=== PATIENT | female | born 1945 | race Caucasian/White ===

== ENCOUNTER 2018-05-29 08:53 | Emergency (ER) | payer OTHER ==
[2018-05-29] MEDS ORDERED: HYDROCODONE/APAP 7.5/325 MG TAB ONE (10:01)
--- NOTE | 2018-05-29 11:13 | RAD REPORT ---
EXAM DESCRIPTION: RAD - Clavicle Right - 05/29/2018 10:33 am CLINICAL HISTORY: Trip and fall, arm pain COMPARISON: None. FINDINGS: No clavicle fracture identified. Sternoclavicular joint is unremarkable and symmetric with the left side. Patient has prominent degenerative change at the AC joint with very minimal inferiorl y directed spurring. Metallic screws in place in the humeral head presumed to be from a prior rotator cuff tear repair. The acromial humeral joint space is mostly or fully effaced. Patient likely has a recurrent, chronic rotator cuff tear. Degenerative changes are present along the superolateral hemal l head and undersurface of the acromion. IMPRESSION: No clavicle fracture identified. Right shoulder joint postsurgical and degenerative changes are present with the patient likely having a chronic full-thickness rotator cuff tear.
--- NOTE | 2018-05-29 11:14 | RAD REPORT ---
EXAM DESCRIPTION: RAD - Wrist Left 3 View - 05/29/2018 10:33 am CLINICAL HISTORY: Trip and fall, wrist pain COMPARISON: None. FINDINGS: No fracture or acute finding of the distal radius and ulna. No carpal bone fracture seen. Radiocarpal joint space is narrowed slightly. Patient has advanced degenerative change at the trapezi um first metacarpal articulation. There is no dislocation or periosteal reaction noted. No foreign heron dy or other soft tissue abnormality. IMPRESSION: No fracture or acute finding. Degenerative changes are present most prominent at the tra pezium first metacarpal articulation.
--- NOTE | 2018-05-29 11:15 | RAD REPORT ---
EXAM DESCRIPTION: RAD - Forearm Left - 05/29/2018 10:33 am CLINICAL HISTORY: Trip and fall, arm pain COMPARISON: None. FINDINGS: No fracture is identified. There is no dislocation or periosteal reaction noted. No foreign body or other soft tissue abnormality. Degenerative changes at the wrist joint are separa tely detailed. Degenerative changes at the elbow joint are mild. No elevated posterior fat pad. IMPRESSION: Negative left forearm examination for acute finding.
--- NOTE | 2018-05-29 11:16 | ER ---
Nurse's Notes [facility] Name: Sofia Rodriguez Age: 73 yrs Sex: Female : 1945 Arrival Date: 05/29/2018 Time: 08:57 Bed 17 Private MD: Jennifer Patel R Diagnosis: Other slipping, tripping and stumbling and falls;Abrasion of forearm;Other specified sprain of right wrist;Chest pain, unspecified;Abrasion, left knee;Contusion of left knee Presentation: 05/29 09:07 Presenting complaint: Patient states: tripped and fell on the sidewalk at home. c/o sv left knee abrasion, right cheek abrasion, left and right wrist pain and left wrist/forearm skin tear. Denies LOC. Care prior to arrival: washed it before coming. Mechanism of Injury: Fall from standing position. Trauma event details: Injury occurred in the [facility], Injury occurred: at home. Injury occurred: May 29, 2018. 09:07 Acuity: JAUN 3 sv 09:07 Method Of Arrival: Ambulatory sv 09:07 Transition of care: patient was not received from another setting of care. Onset of sv symptoms was May 29, 2018. Risk Assessment: Do you want to hurt yourself or someone else? Patient reports no desire to harm self or others. Initial Sepsis Screen: Does the patient meet any 2 criteria? No. Patient's initial sepsis screen is negative. Does the patient have a suspected source of infection? No. Patient's initial sepsis screen is negative. Trauma Activation: Not Applicable Physician: ED Physician; Name: ; Notified At: ; Arrived At: Physician: General Surgeon; Name: ; Notified At: ; Arrived At: Physician: Radiology; Name: ; Notified At: ; Arrived At: Physician: Respiratory; Name: ; Notified At: ; Arrived At: Physician: Lab; Name: ; Notified At: ; Arrived At: Historical: - Allergies: : No Known Allergies; sv - Home Meds: sertraline 50 mg oral tab [Active]; bisoprolol 5.6 mg [Active]; Ambien 10 mg Oral tab sv [Active]; feosol iron [Active]; multivitamin oral oral [Active]; Vitamin D3 oral oral [Active]; Hydrocodone-Acetaminophen Oral [Active]; - PMHx: 09:31 Hypertension; sv - PSHx: 09:31 Hernia repair; Gastric Bypass; R foot; R shoulder; Cholecystectomy; sv - Immunization history:: Adult Immunizations up to date, Flu vaccine is up to date. - Social history:: Smoking status: Patient/guardian denies using tobacco, Patient/guardian denies using alcohol. - Immunization history: Last tetanus immunization: - up to date. - Ebola Screening: : No symptoms or risks identified at this time. Screenin: Abuse screen: Denies threats or abuse. Denies injuries from another. Nutritional sv screening: No deficits noted. Tuberculosis screening: No symptoms or risk factors identified. Fall Risk None identified. Primary Survey: :07 A: Airway: patent, No supplemental oxygen in use on arrival. Oral cavity: clear, sv Trachea midline. Breathing/Chest: Respiratory pattern: regular, Respiratory effort: spontaneous, unlabored, Chest inspection: symmetrical rise and fall of the chest. Circulation: Heart tones present. Pulses: palpable right radial artery and left radial artery. Skin color: pink, Skin temperature: warm, dry. Disability Alert. Secondary Survey: : HEENT: Face Other Abrasion to the right cheek. Gastrointestinal: No deficits noted. : sv No deficits noted. No signs and/or symptoms were reported regarding the genitourinary system. Musculoskeletal: Abrasion to the left knee. Injury Description: Abrasion sustained to right cheek and left knee was sustained 30-60 minutes ago. Skin tears sustained to left wrist and palmar aspect of left forearm. Assessment: 09:50 Reassessment: Dr Baker at bedside and informed that I flattened out her skin tear and sv saved as much skin as I could to the left forearm and wrist. Dr Baker had to clip off a part of her skin that was hanging on. 11:23 Reassessment: Patient appears in no apparent distress at this time. Patient and/or sv family updated on plan of care and expected duration. Pain level reassessed. Patient is alert, oriented x 3, equal unlabored respirations, skin warm/dry/pink. Patient states symptoms have improved. Vital Signs: 09:07 BP 132 / 82; Pulse 67; Resp 18; Temp 98.3; Pulse Ox 97% ; Weight 97.52 kg; Height 5 ft. sv 7 in. (170.18 cm); Pain 8/10; 09:58 BP 130 / 88; Pulse 70; Resp 16; Pulse Ox 99% ; sv 09:07 Body Mass Index 33.67 (97.52 kg, 170.18 cm) sv [place] Coma Score: 09:07 Eye Response: spontaneous(4). Verbal Response: oriented(5). Motor Response: obeys sv commands(6). Total: 15. 09:58 Eye Response: spontaneous(4). Verbal Response: oriented(5). Motor Response: obeys sv commands(6). Total: 15. Trauma Score (Adult): 09:07 Eye Response: spontaneous(1); Verbal Response: oriented(1); Motor Response: obeys sv commands(2); Systolic BP: > 89 mm Hg(4); Respiratory Rate: 10 to 29 per min(4); [place] Score: 15; Trauma Score: 12 09:58 Eye Response: spontaneous(1); Verbal Response: oriented(1); Motor Response: obeys sv commands(2); Systolic BP: > 89 mm Hg(4); Respiratory Rate: 10 to 29 per min(4); Mahogany Score: 15; Trauma Score: 12 ED Course: 08:57 Patient arrived in ED. mr 08:57 Jennifer Patel MD is Private Physician. mr 09:07 Arm band placed on Patient placed in an exam room, on a stretcher, on pulse oximetry. sv 09:15 Wound care: to skin tear located on left wrist and palmar aspect of left forearm was sv cleaned with with NS and gauze. 09:22 Cosmo Baker MD is Attending Physician. kdr 09:25 Nohemi Gómez RN is Primary Nurse. sv 09:28 Triage completed. sv 09:31 Patient has correct armband on for positive identification. Bed in low position. Call sv light in reach. Adult w/ patient. Pulse ox on. NIBP on. Door closed. Head of bed elevated. 09:50 Thermoregulation: warm blanket given to patient. sv 09:50 Patient maintains SpO2 saturation greater than 95% on room air. sv 10:04 Dressings: Abran x 1 left arm non-adherent dressing x 1 left arm Steri strips 1/4 " X sv 1;. 10:08 X-ray(s) taken. sv 10:32 X-ray completed. Portable x-ray completed in exam room. Patient tolerated procedure ls3 well. 10:34 Clavicle Right XRAY In Process Unspecified. EDMS 10:34 Forearm Left XRAY In Process Unspecified. EDMS 10:34 Wrist Left 3 View In Process Unspecified. EDMS 11:14 Jennifer Patel MD is Referral Physician. kdr 11:23 No provider procedures requiring assistance completed. Patient did not have IV access sv during this emergency room visit. Administered Medications: 09:58 Drug: [place]en (7.5 mg-325 mg) 1 tabs Route: PO; sv 10:44 Follow up: Response: No adverse reaction sv Intake: 09:07 PO: 0ml; Total: 0ml. sv Output: 09:07 Urine: 0ml; Total: 0ml. sv Outcome: 11:16 Discharge ordered by . kdr 11:24 Discharged to home ambulatory, with family. sv 11:24 Condition: stable 11:24 Discharge instructions given to patient, Instructed on discharge instructions, follow up and referral plans. medication usage, wound care, Demonstrated understanding of instructions, follow-up care, medications, wound care, Prescriptions given X 1. 11:24 Patient's length of stay in the Emergency Department was greater than 2 hours. due to sv radiology results.Patient's length of stay extended due to 11:25 Patient left the ED. sv Signatures: Dispatcher [employer] EDCT Nohemi Gómez RN RN sv Rittger, Kevin, MD MD kdr Rivera, Mary Phillip Farris ls3
--- NOTE | 2018-05-29 11:16 | EDPHYS ---
Physician Documentation [facility] Name: Sofia Rodriguez Age: 73 yrs Sex: Female : 1945 Arrival Date: 05/29/2018 Time: 08:57 Bed 17 Private MD: Jennifer Patel R ED Physician Cosmo Baker HPI: 05/29 09:46 This 73 yrs old Female presents to ER via Ambulatory with complaints of Fall kdr Injury, Arm Injury. 09:46 Details of fall: The patient fell from an upright position, while walking. Onset: The kdr symptoms/episode began/occurred suddenly, just prior to arrival. Associated injuries: The patient sustained Left forearm, right clavicle and wrist. Also, left knee. Severity of symptoms: At their worst the symptoms were mild, in the emergency department the symptoms are unchanged. The patient has not experienced similar symptoms in the past. The patient has not recently seen a physician. The patient tripped and fell while walking. Historical: - Allergies: 09:31 No Known Allergies; sv - Home Meds: :31 sertraline 50 mg oral tab [Active]; bisoprolol 5.6 mg [Active]; Ambien 10 mg Oral tab sv [Active]; feosol iron [Active]; multivitamin oral oral [Active]; Vitamin D3 oral oral [Active]; Hydrocodone-Acetaminophen Oral [Active]; - PMHx: 09:31 Hypertension; sv - PSHx: 09:31 Hernia repair; Gastric Bypass; R foot; R shoulder; Cholecystectomy; sv - Immunization history:: Adult Immunizations up to date, Flu vaccine is up to date. - Social history:: Smoking status: Patient/guardian denies using tobacco, Patient/guardian denies using alcohol. - Immunization history: Last tetanus immunization: - up to date. - Ebola Screening: : No symptoms or risks identified at this time. ROS: 09:46 Constitutional: Negative for fever, chills, and weight loss, Eyes: Negative for injury, kdr pain, redness, and discharge, ENT: Negative for injury, pain, and discharge, Neck: Negative for injury, pain, and swelling, Cardiovascular: Negative for chest pain, palpitations, and edema, Respiratory: Negative for shortness of breath, cough, wheezing, and pleuritic chest pain, Abdomen/GI: Negative for abdominal pain, nausea, vomiting, diarrhea, and constipation, Back: Negative for injury and pain, : Negative for injury, bleeding, discharge, and swelling, Neuro: Negative for headache, weakness, numbness, tingling, and seizure activity. Psych: Negative for depression, anxiety, suicide ideation, homicidal ideation, and hallucinations, Allergy/Immunology: Negative for hives, rash, and allergies, Endocrine: Negative for neck swelling, polydipsia, polyuria, polyphagia, and marked weight changes, Hematologic/Lymphatic: Negative for swollen nodes, abnormal bleeding, and unusual bruising. 09:46 MS/extremity: Positive for injury or acute deformity, abrasion, contusion, decreased range of motion, pain, tenderness, of the right clavicle, right wrist, palmar aspect of left forearm and left knee. Exam: 09:46 Constitutional: This is a well developed, well nourished patient who is awake, alert, kdr and in no acute distress. Head/Face: Normocephalic, atraumatic. Eyes: Pupils equal round and reactive to light, extra-ocular motions intact. Lids and lashes normal. Conjunctiva and sclera are non-icteric and not injected. Cornea within normal limits. Periorbital areas with no swelling, redness, or edema. Neck: Trachea midline, no thyromegaly or masses palpated, and no cervical lymphadenopathy. Supple, full range of motion without nuchal rigidity, or vertebral point tenderness. No Meningismus. Chest/axilla: Normal chest wall appearance and motion. Nontender with no deformity. No lesions are appreciated. Respiratory: Lungs have equal breath sounds bilaterally, clear to auscultation and percussion. No rales, rhonchi or wheezes noted. No increased work of breathing, no retractions or nasal flaring. Back: No spinal tenderness. No costovertebral tenderness. Full range of motion. Neuro: Awake and alert, GCS 15, oriented to person, place, time, and situation. Cranial nerves II-XII grossly intact. Motor strength 5/5 in all extremities. Sensory grossly intact. Cerebellar exam normal. Normal gait. Psych: Awake, alert, with orientation to person, place and time. Behavior, mood, and affect are within normal limits. 09:46 Musculoskeletal/extremity: The patient has pain but no obvious deformity to the right clavicle. The right wrist is also mildly tender. The left forearm has an mid shaft skin avulsion 2.5 cm x 6 cm. No obvious deformity. Vital Signs: 09:07 BP 132 / 82; Pulse 67; Resp 18; Temp 98.3; Pulse Ox 97% ; Weight 97.52 kg; Height 5 ft. sv 7 in. (170.18 cm); Pain 8/10; 09:58 BP 130 / 88; Pulse 70; Resp 16; Pulse Ox 99% ; sv 09:07 Body Mass Index 33.67 (97.52 kg, 170.18 cm) sv [place] Coma Score: 09:07 Eye Response: spontaneous(4). Verbal Response: oriented(5). Motor Response: obeys sv commands(6). Total: 15. 09:58 Eye Response: spontaneous(4). Verbal Response: oriented(5). Motor Response: obeys sv commands(6). Total: 15. Trauma Score (Adult): 09:07 Eye Response: spontaneous(1); Verbal Response: oriented(1); Motor Response: obeys sv commands(2); Systolic BP: > 89 mm Hg(4); Respiratory Rate: 10 to 29 per min(4); Mahogany Score: 15; Trauma Score: 12 09:58 Eye Response: spontaneous(1); Verbal Response: oriented(1); Motor Response: obeys sv commands(2); Systolic BP: > 89 mm Hg(4); Respiratory Rate: 10 to 29 per min(4); Mahogany Score: 15; Trauma Score: 12 MDM: 09:46 Data reviewed: vital signs, nurses notes, radiologic studies. Counseling: I had a kdr detailed discussion with the patient and/or guardian regarding: the historical points, exam findings, and any diagnostic results supporting the discharge/admit diagnosis, radiology results, the need for outpatient follow up. 11:16 Patient medically screened. kdr 05/29 09:46 Order name: Clavicle Right XRAY kdr 05/29 09:46 Order name: Forearm Left XRAY kdr 05/29 09:46 Order name: Misc. Order: Clean and dress wounds; Complete Time: 09:51 kdr 05/29 10:32 Order name: Wrist Left 3 View EDMS Administered Medications: 09:58 Drug: [place] (7.5 mg-325 mg) 1 tabs Route: PO; sv 10:44 Follow up: Response: No adverse reaction sv Disposition: 05/29/18 11:16 Discharged to Home. Impression: Other slipping, tripping and stumbling and falls, Abrasion of forearm, Other specified sprain of right wrist, Chest pain, unspecified, Abrasion, left knee, Contusion of left knee. - Condition is Stable. - Discharge Instructions: Chest Contusion, [id number], Nonspecific Chest Pain, [id number], Skin Tear Care, [id number], Fall Prevention in the Home, [id number], Facial or Scalp Contusion, [id number], Wrist Sprain. - Prescriptions for Tramadol 50 mg Oral Tablet - take 1 tablet by ORAL route every 8 hours as needed; 12 tablet. - Medication Reconciliation Form, Thank You Letter form. - Follow up: Jennifer Patel MD; When: 2 - 3 days; Reason: If symptoms return, Further diagnostic work-up, Recheck today's complaints, Continuance of care, Re-evaluation by your physician. - Problem is new. - Symptoms have improved. Signatures: Dispatcher [employer] [facility] Nohemi Gómez RN RN Cosmo Rodriguez MD MD kdr Corrections: (The following items were deleted from the chart) 10:32 09:47 Wrist Right 3 View+RAD.RAD.BRZ ordered. [facility] 11:25 11:16 05/29/2018 11:16 Discharged to Home. Impression: Other slipping, tripping and sv stumbling and falls; Abrasion of forearm; Other specified sprain of right wrist; Chest pain, unspecified; Abrasion, left knee; Contusion of left knee. Condition is Stable. Forms are Medication Reconciliation Form, Thank You Letter, Antibiotic Education, Prescription Opioid Use. Follow up: Jennifer Patel; When: 2 - 3 days; Reason: If symptoms return, Further diagnostic work-up, Recheck today's complaints, Continuance of care, Re-evaluation by your physician. Problem is new. Symptoms have improved. kdr
== END 2018-05-29 11:25 | disposition home or self-care (01) ==
LOC: ER 08:53
DX: S63.591A Other specified sprain of right wrist, initial encounter (principal); S80.02XA Contusion of left knee, initial encounter; S80.212A Abrasion, left knee, initial encounter; S50.812A Abrasion of left forearm, initial encounter; R07.9 Chest pain, unspecified; W01.0XXA Fall on same level from slipping, tripping and stumbling without subsequent striking against object, initial encounter; Y93.01 Activity, walking, marching and hiking; Y92.9 Unspecified place or not applicable; I10 Essential (primary) hypertension
CPT/HCPCS: 99284

== ENCOUNTER 2019-09-02 16:25 | Emergency (ER) | payer OTHER ==
--- OUTSIDE RECORDS SUMMARY | 2019-09-02 16:27 | XMS REPORT ---
:1945 [facility] Address [address] [place] [address] Care Team Providers Name Role Phone Unavailable Unavailable Unavailable Problems This patient has no known problems. Allergies, Adverse Reactions, Alerts This patient has no known allergies or adverse reactions. Medications This patient has no known medications.
[2019-09-02] MEDS ORDERED: ALBUTEROL 2.5 MG/3 ML NEB SOL ONE (17:12)
[2019-09-02] MEDS ORDERED: IPRATROPIUM BROM 0.5MG/2.5ML ONE (17:12)
--- NOTE | 2019-09-02 17:55 | RAD REPORT ---
EXAM DESCRIPTION: Cynthia Trevino (2 Views)09/02/2019 5:45 pm CLINICAL HISTORY: Cough COMPARISON: 2018 FINDINGS: The lungs appear clear of acute infiltrate. The heart is normal size. dextrocardia is pre sent IMPRESSION: No acute abnormalities displayed
--- NOTE | 2019-09-02 18:20 | EDPHYS ---
Physician Documentation [facility] Name: Sofia Rodriguez Age: 74 yrs Sex: Female : 1945 Arrival Date: 09/02/2019 Time: 16:27 Bed 25 Private MD: Jennifer Patel R ED Physician Cosmo Baker HPI: 09/01 19:01 This 74 yrs old Female presents to ER via Ambulatory with complaints of kb Breathing Difficulty. 19:02 The patient or guardian reports cough, that is intermittent, described as moderate, kb with no sputum. The patient has not experienced similar symptoms in the past. The patient has not recently seen a physician. 19:03 Onset: The symptoms/episode began/occurred 4 day(s) ago. Severity of symptoms: At their kb worst the symptoms were moderate, in the emergency department the symptoms are unchanged. Modifying factors: The symptoms are alleviated by nothing, the symptoms are aggravated by nothing. Associated signs and symptoms: Pertinent positives: rhinorrhea. Historical: - Allergies: 16:40 No Known Allergies; ca1 - Home Meds: 16:40 Bisoprolol 5.6 1 tab daily [Active]; sertraline 50 mg oral tab 1 tab once daily ca1 [Active]; zolpidem 10 mg Oral tab 1 tab once daily [Active]; Vitamin D3 Oral [Active]; feosol iron [Active]; multivitamin Oral [Active]; Hydrocodone-Acetaminophen Oral [Active]; - PMHx: 16:40 Hypertension; ca1 - PSHx: 16:40 Gastric Bypass; Hernia repair; Foot Surgery R; Shoulder Surgery R; Carpal Tunnel Repair;ca1 - Immunization history:: Adult Immunizations up to date, Pneumococcal vaccine is up to date, Flu vaccine is up to date. - Social history:: Smoking status: Patient denies any tobacco usage or history of. ROS: 18:59 Neck: Negative for injury, pain, and swelling, Cardiovascular: Negative for chest pain, kb palpitations, and edema, Abdomen/GI: Negative for abdominal pain, nausea, vomiting, diarrhea, and constipation, Back: Negative for injury and pain, MS/Extremity: Negative for injury and deformity, Skin: Negative for injury, rash, and discoloration, Neuro: Negative for headache, weakness, numbness, tingling, and seizure. 18:59 Constitutional: Positive for body aches, chills, malaise. 18:59 ENT: Positive for rhinorrhea, sinus congestion. 18:59 Respiratory: Positive for cough, with no reported sputum, Negative for dyspnea on exertion, hemoptysis, orthopnea, pleurisy, shortness of breath, sputum production, wheezing. Exam: 18:59 Constitutional: This is a well developed, well nourished patient who is awake, alert, kb and in no acute distress. Head/Face: Normocephalic, atraumatic. ENT: Nares patent. No nasal discharge, no septal abnormalities noted. Tympanic membranes are normal and external auditory canals are clear. Oropharynx with no redness, swelling, or masses, exudates, or evidence of obstruction, uvula midline. Mucous membranes moist. Neck: Trachea midline, no thyromegaly or masses palpated, and no cervical lymphadenopathy. Supple, full range of motion without nuchal rigidity, or vertebral point tenderness. No Meningismus. Chest/axilla: Normal chest wall appearance and motion. Nontender with no deformity. No lesions are appreciated. Cardiovascular: Regular rate and rhythm with a normal S1 and S2. No gallops, murmurs, or rubs. Normal PMI, no JVD. No pulse deficits. Abdomen/GI: Soft, non-tender, with normal bowel sounds. No distension or tympany. No guarding or rebound. No evidence of tenderness throughout. Skin: Warm, dry with normal turgor. Normal color with no rashes, no lesions, and no evidence of cellulitis. MS/ Extremity: Pulses equal, no cyanosis. Neurovascular intact. Full, normal range of motion. Neuro: Awake and alert, GCS 15, oriented to person, place, time, and situation. Cranial nerves II-XII grossly intact. Motor strength 5/5 in all extremities. Sensory grossly intact. Cerebellar exam normal. Normal gait. 18:59 Respiratory: the patient does not display signs of respiratory distress, Respirations: normal, symetrical, Breath sounds: wheezing: expiratory that is mild, is heard in the left posterior lower lobe and right posterior lower lobe. Vital Signs: 16:34 BP 170 / 107; Pulse 66; Resp 18 S; Temp 98.1(O); Pulse Ox 95% on R/A; Weight 94.35 kg; ca1 Height 5 ft. 7 in. (170.18 cm) (R); 18:13 BP 173 / 59; Pulse 70; Resp 18; Pulse Ox 96% on R/A; wh 18:46 BP 155 / 80; wh 16:34 Body Mass Index 32.58 (94.35 kg, 170.18 cm) ca1 MDM: 16:48 Patient medically screened. kb 18:19 Data reviewed: vital signs, nurses notes. Data interpreted: Pulse oximetry: on room air kb is 96 %. Interpretation: normal. 18:59 Counseling: I had a detailed discussion with the patient and/or guardian regarding: the kb historical points, exam findings, and any diagnostic results supporting the discharge/admit diagnosis, lab results, radiology results, the need for outpatient follow up, a family practitioner, to return to the emergency department if symptoms worsen or persist or if there are any questions or concerns that arise at home. 09/01 16:58 Order name: Flu; Complete Time: 18:19 kb 09/01 16:58 Order name: Strep; Complete Time: 18:19 kb 09/01 16:58 Order name: Chest Pa And Lat (2 Views) XRAY; Complete Time: 17:59 kb 09/01 18:06 Order name: Throat Culture EDMS Administered Medications: 17:15 Drug: DuoNeb (3:1) (2.5 mg - 0.5 mg) 3 ml Route: Nebulizer; 18:47 Follow up: Response: No adverse reaction 18:41 Drug: predniSONE 40 mg Route: PO; 18:47 Follow up: Response: No adverse reaction Disposition: 09/02 10:47 Co-signature as Attending Physician, Cosmo Baker MD I agree with the assessment and kdr plan of care. Disposition: 09/02/19 18:20 Discharged to Home. Impression: Acute bronchitis. - Condition is Stable. - Discharge Instructions: Acute Bronchitis, [id number]. - Prescriptions for Prednisone 20 mg Oral Tablet - take 1 tablet by ORAL route once daily for 5 days; 5 tablet. - Medication Reconciliation Form, Thank You Letter, Antibiotic Education, Prescription Opioid Use form. - Follow up: Emergency Department; When: As needed; Reason: Worsening of condition. Follow up: Private Physician; When: 2 - 3 days; Reason: Recheck today's complaints, Continuance of care, Re-evaluation by your physician. Signatures: Dispatcher [employer] EDMS Elder Keyona, FIELD SALES ASSOCIATE-C FIELD SALES ASSOCIATE-Ckb Cosmo Baker MD MD kdr Habalo, Winsy wh Acob, Cheryl, RN RN ca1 Corrections: (The following items were deleted from the chart) 09/01 18:47 18:20 09/02/2019 18:20 Discharged to Home. Impression: Acute bronchitis. Condition is wh Stable. Forms are Medication Reconciliation Form, Thank You Letter, Antibiotic Education, Prescription Opioid Use. Follow up: Emergency Department; When: As needed; Reason: Worsening of condition. Follow up: Private Physician; When: 2 - 3 days; Reason: Recheck today's complaints, Continuance of care, Re-evaluation by your physician. kb
--- NOTE | 2019-09-02 18:20 | ER ---
Nurse's Notes [facility] Name: Sofia Rodriguez Age: 74 yrs Sex: Female : 1945 Arrival Date: 09/02/2019 Time: 16:27 Bed 25 Private MD: Jennifer Patel R Diagnosis: Acute bronchitis Presentation: 09/01 16:34 Chief complaint: Patient states: Cough and congestion x 4 days. Denies fever. ca1 Coronavirus screen: The patient has NOT traveled to a country currently being monitored by the [facility] within the last 14 days. The patient has NOT had contact with any known and/or suspected case of coronavirus. Ebola Screen: Patient negative for fever greater than or equal to 101.5 degrees Fahrenheit, and additional compatible Ebola Virus Disease symptoms Patient denies exposure to infectious person. Patient denies travel to an Ebola-affected area in the 21 days before illness onset. No symptoms or risks identified at this time. Initial Sepsis Screen: Does the patient meet any 2 criteria? No. Patient's initial sepsis screen is negative. Does the patient have a suspected source of infection? No. Patient's initial sepsis screen is negative. Risk Assessment: Do you want to hurt yourself or someone else? Patient reports no desire to harm self or others. Onset of symptoms was September 02, 2019. 16:34 Method Of Arrival: Ambulatory ca1 16:34 Acuity: JAUN 3 ca1 Triage Assessment: 17:15 Respiratory: Onset: The symptoms/episode began/occurred gradually, the patient reports wh symptoms have resolved. Historical: - Allergies: 16:40 No Known Allergies; ca1 - Home Meds: 16:40 Bisoprolol 5.6 1 tab daily [Active]; sertraline 50 mg oral tab 1 tab once daily ca1 [Active]; zolpidem 10 mg Oral tab 1 tab once daily [Active]; Vitamin D3 Oral [Active]; feosol iron [Active]; multivitamin Oral [Active]; Hydrocodone-Acetaminophen Oral [Active]; - PMHx: 16:40 Hypertension; ca1 - PSHx: 16:40 Gastric Bypass; Hernia repair; Foot Surgery R; Shoulder Surgery R; Carpal Tunnel Repair;ca1 - Immunization history:: Adult Immunizations up to date, Pneumococcal vaccine is up to date, Flu vaccine is up to date. - Social history:: Smoking status: Patient denies any tobacco usage or history of. Screenin:08 Abuse screen: Denies threats or abuse. Denies injuries from another. Nutritional wh screening: No deficits noted. Tuberculosis screening: No symptoms or risk factors identified. Fall Risk None identified. Assessment: 17:05 General: Appears in no apparent distress. Behavior is calm, cooperative, appropriate wh for age. Pain: Complains of pain in sore throat. Neuro: Level of Consciousness is awake, alert, obeys commands, Oriented to person, place, time, situation, Appropriate for age. Cardiovascular: Heart tones S1 S2 Rhythm is regular. Respiratory: Reports shortness of breath cough that is Airway is patent Respiratory effort is even, unlabored, Respiratory pattern is regular, symmetrical, Breath sounds are clear bilaterally. GI: Abdomen is flat, non-distended. : No signs and/or symptoms were reported regarding the genitourinary system. EENT: Throat is pink. Derm: Skin is intact, is healthy with good turgor, Skin is pink, warm \T\ dry. normal. Musculoskeletal: Circulation, motion, and sensation intact. 18:12 Reassessment: Patient appears in no apparent distress at this time. No changes from previously documented assessment. Patient and/or family updated on plan of care and expected duration. Pain level reassessed. Patient is alert, oriented x 3, equal unlabored respirations, skin warm/dry/pink. Vital Signs: 16:34 BP 170 / 107; Pulse 66; Resp 18 S; Temp 98.1(O); Pulse Ox 95% on R/A; Weight 94.35 kg; ca1 Height 5 ft. 7 in. (170.18 cm) (R); 18:13 BP 173 / 59; Pulse 70; Resp 18; Pulse Ox 96% on R/A; wh 18:46 BP 155 / 80; wh 16:34 Body Mass Index 32.58 (94.35 kg, 170.18 cm) ca1 ED Course: 16:27 Patient arrived in ED. mr 16:28 Jennifer Patel MD is Private Physician. mr 16:36 Triage completed. ca1 16:40 Arm band placed on right wrist. ca1 16:46 Chichi Vazquez is Primary Nurse. wh 16:48 Keyona Friedman FNP-C is [facility]. kb 16:48 Cosmo Baker MD is Attending Physician. kb 17:15 Patient has correct armband on for positive identification. Bed in low position. Call light in reach. Side rails up X 1. Pulse ox on. NIBP on. 17:46 Chest Pa And Lat (2 Views) XRAY In Process Unspecified. EDMS 18:46 No provider procedures requiring assistance completed. Patient did not have IV access wh during this emergency room visit. Administered Medications: 17:15 Drug: DuoNeb (3:1) (2.5 mg - 0.5 mg) 3 ml Route: Nebulizer; 18:47 Follow up: Response: No adverse reaction 18:41 Drug: predniSONE 40 mg Route: PO; 18:47 Follow up: Response: No adverse reaction Outcome: 18:20 Discharge ordered by MD. kb 18:46 Discharged to home ambulatory, with family. 18:46 Condition: stable 18:46 Discharge instructions given to patient, family, Instructed on discharge instructions, follow up and referral plans. medication usage, POC Demonstrated understanding of instructions, follow-up care, medications, POC Prescriptions given X 1. 18:47 Patient left the ED. Signatures: Dispatcher [employer] EDMS Keyona Friedman, BOAT DETAILER-C BOAT DETAILER-Ckb Angelika ChChichi Lisette Louis RN RN ca1
[2019-09-02] MEDS ORDERED: predniSONE 20 MG TAB ONE (18:32)
[2019-09-02 18:54] VITALS: TEMP 98.1
[2019-09-02 18:56] VITALS: O2SAT 96
[2019-09-02 18:57] VITALS: BP 155/80
== END 2019-09-02 18:47 | disposition home or self-care (01) ==
LOC: ER 16:25
DX: J20.9 Acute bronchitis, unspecified (principal); I10 Essential (primary) hypertension
CPT/HCPCS: 71046; 87070; 87081; 87804; 94640; 99284; J7512

== ENCOUNTER 2020-02-23 06:30 | Day surgery (SDC) | payer OTHER ==
[2020-02-19 13:40] LABS: Lymphocytes % 23.7 % (15.3-44.8); MPV 9.2 fL (7.6-11.3); RBC Red Blood Cell Count 4.62 M/uL (3.86-4.86)
[2020-02-19 13:51] LABS: Potassium 4.2 mmol/L (3.5-5.1)
[2020-02-23] MEDS ORDERED: HEPA 1000U/500MLS 1,000 UNIT/500 ML BAG IV ONE (06:41)
[2020-02-23] MEDS ORDERED: LIDOCAINE 1% MPF 30 ML VIAL ONE (06:41)
--- OUTSIDE RECORDS SUMMARY | 2020-02-23 06:46 | XMS REPORT | Summary of Care ---
:1945 Author Organization [facility] Address [address] [place] [address] Care Team Providers Name Role Phone Donna Patel MD Primary Care Provider [phone] Reason for Visit (Routine) Status Reason Specialty Diagnoses / Procedures Referred By C ontact Referred To Contact Closed Radiology Procedures Esteban Patel X-Ray XR CHEST 2 VW MD Donna [address] [place] [address] XR CHEST 2 VW [address] [place], [place] [address] [place] [address] Phone: [phone] Fax: Encounter Details Date Type Department Care Team Description 02/01/2020 Hospital Encounter [facility] Radiolog y Arrived [facility] [address] [place] [address] [address] [place], [place] [id number] [place] [phone] Allergies No Known Allergiesdocumented as of this encounter (statuses as of 02/02/2020) Medications Medication Sig Dispensed Refills Start Date End Date Status DULoxetine (CYMBALTA) 0 07/06/2015 Active 30 mg capsule HYDROcodone-acetaminop Take 1 tablet by 0 08/03/2015 Active hen (NORCO) 10-325 mg mouth every 6 tablet (six) hours as needed. SERTraline (ZOLOFT) 50 Take 50 mg by 0 08/16/2015 Active mg tablet mouth daily. zolpidem (AMBIEN) 10 Take 10 mg by 0 08/16/2015 Active mg tablet mouth at bedtime. bisoprolol-hydrochloro Take 1 tablet by 0 Active thiazide 5-6.25 mg per mouth daily. tablet multivitamin, Take 1 tablet by 0 Active tx-minerals (COMPLETE mouth daily. MULTIVITAMIN) tablet ferrous sulfate (IRON, Take 325 mg by 0 Active FERROUS SULFATE,) 325 mouth daily. mg (65 mg iron) tablet amoxicillin 500 mg Take 1 capsule by 21 capsule 0 02/06/2018 Active capsule mouth 3 (three) times daily. documented as of this encounter (statuses as of 02/02/2020) Active Problems Problem Noted Date Left shoulder pain 08/22/2015 documented as of this encounter (statuses as of 02/02/2020) Social History Tobacco Use Types Packs/Day Years Used Date Former Smoker Smokeless Tobacco: Never Used Alcohol Use Drinks/Week oz/Week Comments No 0 Standard drinks or equivalent 0.0 Sex Assigned at Date Recorded Not on file COVID-19 Exposure Response Date Recorded In the last month, have you been in contact with No / Unsure 02/01/2020 10:56 AM CDT someone who was confirmed or suspected to have Coronavirus / COVID-19? documented as of this encounter Last Filed Vital Signs Not on filedocumented in this encounter Plan of Treatment Health Maintenance Due Date Last Done Comments HEPATITIS C (HCV) SCREEN 1945 Depression Screening 1959 DTaP,Tdap,and Td Vaccines (1 - Tdap) 1966 Breast Cancer Screening (MAMMOGRAM) 1987 COLON CANCER SCREENING ANNUAL FIT/FOBT 1997 COLON CANCER SCREENING FIT DNA EVERY 3 YEARS 1997 COLON CANCER SCREENING SIGMOIDOSCOPY EVERY 5 YEARS 1997 COLONOSCOPY 1997 Colorectal Cancer Screening 1997 Zoster Recombinant Vaccine (SHINGRIX) (1 of 2) 1997 LUNG CANCER SCREEN: Recommended for age 55-80 with 30 + 04/11/20 02 pack year history Medicare Wellness Visit 2012 Osteoporosis Screening 2012 PNEUMOCOCCAL VACCINES 65+ (1 of 1 - PPSV23) 2012 INFLUENZA VACCINE (#1) 2020 documented as of this encounter Procedures Procedure Name Priority Date/Time Associated Diagnosis Comme nts XR CHEST 2 VW Routine 02/01/2020 11:08 AM Pulmonary emphysema, Results for this CDT unspecified emphysema proced ure are in type the results Hypertensive heart section. disease without heart failure documented in this encounter Results XR CHEST 2 VW (02/01/2020 11:08 AM CDT) Specimen Narrative Performed At EXAM: XR CHEST 2 VW PACS/VR/DOSE HISTORY: Pulmonary emphysema, unspecifie d emphysema type Hypertensive heart disease without heart failure RECEIVED FAXED ORD ERS FOR CHEST 2 VIEWS COMPARISON: None. FINDINGS: An opacity in the right lung base adjacent to the hear t border obscures the right margin of the heart and is located anteriorly on the lateral image, probably a large fat pad. The heart and great vessels are normal and the lungs are well expanded and clear. Procedure Note [facility], Radiant Results Inft User - 2019 11:18 AM CDT EXAM: XR CHEST 2 VW HISTORY: Pulmonary emphysema, unspecifie d emphysema type Hypertensive heart disease without heart failure RECE IVED FAXED ORDERS FOR CHEST 2 VIEWS COMPARISON: None. FINDINGS: An opacity in the right lung base adjace nt to the heart border obscures the right margin of the heart and is located anteriorly on the lateral image, probably a large fat pad. The heart and great vessels are normal and the lungs are well expanded and clear. Performing Organization Address City/State/Zipcode Phone Number PACS/VR/DOSE documented in this encounter Visit Diagnoses Diagnosis Pulmonary emphysema, unspecified emphyse ma type Hypertensive heart disease without heart failure Unspecified hypertensive heart disease w ithout heart failure documented in this encounter Insurance Payer Benefit Plan Subscriber ID Effective Phone Address Typ e / Group Dates AETNA - AETNA [id number] 2015-[address] [address] Medic are Adv MANAGED MEDICARE ADV nt [id number] [place] [address] documented as of this encounter
--- OUTSIDE RECORDS SUMMARY | 2020-02-23 06:46 | XMS REPORT | Summary of Care ---
:1945 Author Organization [facility] Address [address] [place] [address] Care Team Providers Name Role Phone Unavailable Primary Care Provider Unavailable Encounter Details Date Type Department Care Team Description 02/01/2020 Orders Only [facility] Doctor Unassigned, No [address] [facility] [place] [address] [address] [place] [address] Allergies No Known Allergiesdocumented as of this encounter (statuses as of 02/01/2020) Medications Medication Sig Dispensed Refills Start Date [...] as of this encounter (statuses as of 02/01/2020) Active Problems Problem Noted Date Left shoulder pain 08/22/2015 documented as of this encounter (statuses as of 02/01/2020) Social History Tobacco Use Types Packs/Day Years Used Date Former Smoker Smokeless Tobacco: Never Used Alcohol Use Drinks/Week oz/Week Comments No 0 Standard drinks or equivalent 0.0 Sex Assigned at Date Recorded Not on file documented as of this encounter Last Filed Vital Signs Not on filedocumented in this encounter Plan of Treatment Date Type Specialty Care Team Description 02/01/2020 Appointment Radiology Radiology [address] [place] [address] Health Maintenance Due Date Last Done Comments HEPATITIS C (HCV) SCREEN 1945 DTaP,Tdap,and Td Vaccines (1 - Tdap) 1958 Depression Screening 1959 Breast Cancer Screening (MAMMOGRAM) 1987 COLONOSCOPY 1997 Zoster Recombinant Vaccine (SHINGRIX) (1 of 2) 1997 LUNG CANCER SCREEN: Recommended for age 55-80 with 30 + 04/11/20 02 pack year history Medicare Wellness Visit 2012 Osteoporosis Screening 2012 PNEUMOCOCCAL VACCINES 65+ (1 of 2 - PCV13) 2012 INFLUENZA VACCINE (#1) 2020 documented as of this encounter Procedures Procedure Name Priority Date/Time Associated Diagnosis Comme nts ASSIGNMENT OF BENEFITS Routine 02/01/2020 10:53 AM CDT documented in this encounter Results Not on filedocumented in this encounter Insurance Payer Benefit Plan Subscriber ID Effective Phone Address Typ e / Group Dates AETNA - AETNA [id number] 2015-[place] [address] Medic are Adv [place]NAGED MEDICARE ADV nt [id number] [place] [address] documented as of this encounter
--- OUTSIDE RECORDS SUMMARY | 2020-02-23 06:46 | XMS REPORT | Continuity of Care Document ---
:1945 Author Organization [facility] t Address [address] [place] [address] Care Team Providers Name Role Phone Radiology Attending Clinician Unavailable Doctor Unassigned, Name Attending Clinician Unavailable Felicitas MCDONALD S Attending Clinician Problems This patient has no known problems. Allergies, Adverse Reactions, Alerts This patient has no known allergies or adverse reactions. Medications This patient has no known medications. Procedures This patient has no known procedures. Encounters Start End Encounter Admission Attending Care Care Encounter Source Date/Time Date/Time Type Type Clinicians Facility Department ID 2020-02-01 2020-02-01 Hospital Radiology [facility] [id number] 10:57:43 23:59:00 Encounter [place] [id number] [place] [id number] [place] [id number] 2020-02-01 2020-02-01 Orders Doctor [facility] [id number] 00:00:00 00:00:00 Only Unassigned, KHADIJAH [id number] [facility] [id number] 2019-03-18 2019-03-18 [facility] [id number] 15:07:48 23:59:00 Encounter [facility] [id number] Surgical [id number] [facility] [id number] es 809 Christine 2019-03-18 2019-03-18 Office Felicitas [facility] [id number] 31 14:47:51 15:02:51 Visit [facility] [id number] Surgical [id number] Specialti [id number] [address] Results This patient has no known results.
[2020-02-23] MEDS ORDERED: NA CHLORIDE 0.9% 500 ML ONE (06:59)
[2020-02-23] MEDS ORDERED: MIDAZOLAM HCL 2 MG/2 ML INJ ONE (07:32)
[2020-02-23] MEDS ORDERED: FENTANYL CITR 100 MCG/2 ML ONE (07:33)
[2020-02-23] MEDS ORDERED: NA CHLORIDE 0.9% 0 ML ONE (07:33)
[2020-02-23] MEDS ORDERED: ATROPINE SULF 1 MG/10 ML SYR IV ONE (07:33)
[2020-02-23 08:41] VITALS: TEMP 97.6
[2020-02-23 10:17] VITALS: BP 168/62; O2SAT 97
--- NOTE | 2020-02-23 10:52 | OP ---
Surgeon: Eddi Mooney MD Forge Shop Machine Repairer: Juanjo Lizama. Procedures: Left heart catheterization, selective coronary arteriogram. Indication: Chest pain and positive stress test. Description Of Procedure: Ms. Rodriguez was brought to the asphalt plant laborer, prepped and draped in the routine sterile fashion, given Versed and fentanyl for sedation. She had a 6-Norwegian sheath introduced in the right common femoral artery. A 7-Norwegian sheath introduced in the right common femoral vein. A 6-Fr ench sheath was used in the artery to introduce the Michael catheter left and right, which cannulated the left main and the right main respectively. She had small vessels tortuous with diffuse plaquing in the left system. She was right dominant and her RCA was dominant. She had about 30% distal RCA stenosis. There were no complications. Blood Loss: 5 mL. Postoperative Diagnosis: Moderate coronary artery disease. Plan: Plan is for medical therapy. Anesthesia: Total conscious sedation was 30 minutes. The patient will remain in the hospital for 2 hours of bedrest after [employer] and she will go home t dayan and she will see me in the office in the next 2 weeks. STUART/JULIETTE Voice ID: [id number] Report ID: [id number]
== END 2020-02-23 10:17 | disposition home or self-care (01) ==
LOC: CCL 06:30
DX: I25.10 Atherosclerotic heart disease of native coronary artery without angina pectoris (principal); Z20.828 Contact with and (suspected) exposure to other viral communicable diseases; I10 Essential (primary) hypertension; I87.2 Venous insufficiency (chronic) (peripheral); J44.9 Chronic obstructive pulmonary disease, unspecified; Z79.899 Other long term (current) drug therapy
CPT/HCPCS: 85025; 80048; 36415; 85610; 85730; 93454; U0002; C1893; J2250; J3010; J7040; J1644; J0583

== ENCOUNTER 2024-11-03 11:25 | Day surgery (SDC) | payer OTHER ==
[2024-10-30 15:12] LABS: Absolute Basophils 0.1 K/uL (0-0.5); Absolute Eosinophils 0.1 K/uL (0-0.5); Absolute Lymphocytes (CBC) 2.1 K/uL (0.7-4.9); Absolute Monocytes 0.6 K/uL (0.1-1.3); Basophils % 0.8 % (0-1.3); Eosinophils % 1.6 % (0-4.4); Hematocrit 37.5 % (36.0-45.0); Hemoglobin 12.5 g/dL (12.0-15.0); Lymphocytes % 23.7 % (15.3-44.8); MCH 28.9 pg (27.0-35.0); MCHC 33.3 g/dL (32.0-36.0); MCV 86.8 fL (80-100); MPV 8.2 fL (7.6-11.3); Monocytes % 6.8 % (3.3-12.3); Neutrophils % 67.1 % (41.7-73.7); Platelets 268 thou/uL (152-406); RBC Red Blood Cell Count 4.32 M/uL (3.86-4.86); Red Cell Distribution Width 16.3 % (12.1-15.2)
[2024-10-30 15:19] LABS: PT Prothrombin Time 12.2 SECONDS (10-13.0); PTT, Activated Partial Thromb 36.9 SECONDS (27.2-37.4); Protime INR 1.07
[2024-10-30 15:23] LABS: Anion Gap 10.5 mEq/L (5.0-15.0); Potassium 4.5 mEq/L (3.5-5.1)
--- NOTE | 2024-10-30 15:51 | RAD REPORT ---
Procedure: Chest Pa And Lat (2 Views) HISTORY: Preop for cardiac catheterization COMPARISON: 2019 FINDINGS: The lungs appear clear of acute infiltrate. No significant pleural effusion noted. The heart is normal size. Heart lies to the right of midline. IMPRESSION: No acute abnormality is displayed.
--- NOTE | 2024-11-02 12:11 | EKG ---
Test Date: 2024-10-30 Test Time: 15:01:58 Drug Abuse Resistance Education Officer: CRESCENCIO MEASUREMENT RESULTS: Intervals: Rate: 74 GA: 138 QRSD: 130 QT: 414 QTc: 459 [place]: P: 47 GA: 138 QRS: 13 T: -32 INTERPRETIVE STATEMENTS: Normal sinus rhythm with sinus arrhythmia Nonspecific intraventricular block T wave abnormality, consider inferior ischemia Abnormal ECG Compared to ECG 03/07/1999 13:31:00 T-wave abnormality now present Possible ischemia now present Myocardial infarct finding no longer present Electronically Signed On 11-02-24 12:08:06 CDT by Torin Almodovar
[2024-11-03] MEDS ORDERED: NA CHLORIDE 0.9% 500 ML ONE (11:59)
[2024-11-03] MEDS ORDERED: HEPA 1000U/500MLS 2,000 UNIT/1,000 ML BAG IV ONE (13:17)
[2024-11-03] MEDS ORDERED: HEPARIN 10,000 UNIT/10 ML VIAL IV ONE (13:17)
[2024-11-03] MEDS ORDERED: LIDOCAINE 1% 20 ML MDV ONE (13:17)
[2024-11-03] MEDS ORDERED: VERAPAMIL HCL 10 MG/4 ML VIAL IV ONE (13:17)
[2024-11-03] MEDS ORDERED: ATROPINE SULF 1 MG/10 ML SYR IV ONE (13:18)
[2024-11-03] MEDS ORDERED: ASPIRIN 325 MG TAB ONE (13:18)
[2024-11-03] MEDS ORDERED: HEPARIN 5000 UNIT/ML 1 ML VIAL ONE (13:18)
[2024-11-03] MEDS ORDERED: CLOPIDOGREL 75 MG TABLET ONE (13:18)
[2024-11-03] MEDS ORDERED: MIDAZOLAM HCL 2 MG/2 ML INJ ONE (13:18)
[2024-11-03] MEDS ORDERED: TICAGRELOR 90 MG TABLET PO ONE (13:18)
[2024-11-03] MEDS ORDERED: FENTANYL CITR 100 MCG/2 ML ONE (13:18)
[2024-11-03 17:28] VITALS: O2SAT 98
[2024-11-03 17:39] VITALS: BP 148/64
--- NOTE | 2024-11-11 20:28 | OP ---
Date of Procedure: 11/03/2024 Surgeon: JOHN FARR Procedures Performed: 1. Selective coronary angiogram. 2. Left heart catheterization. 3. PCI of severe mid RCA stenosis, used 2.75 x 24 mm Synergy drug-eluting stent overlapped distally b y using 2.25 x 12 mm Synergy drug-eluting stent. Indication: Unstable angina. Access: Right radial artery 6-[place] closed with TR band. Complications: None. Bleeding: Less than 50 mL. Description Of Procedure: After risks, benefits, and alternatives were explained, the patient agreed to procedure and signed informed consent. The patient was brought into cardiac catheterization [facility], prepped and draped in the usual sterile fashion. Then, I accessed right radial artery using pediatric, micropuncture kit, ultrasound guidance, and placed a 6-[place] slender sheath, took 5-[place] 4.0 catheter over a J-wire into the aortic root, across the aortic valve, measured the LVEDP. Pullback did not record any gradient, then I engaged left main, then RCA, and took standard views. Then, I gave systemic heparin to assure ACT level above 250 throughout the procedure and gave her 60 0 loading dose of Plavix, and the patient is on aspirin and took the 6-[place] JR4 guide into the aort ic root, engaged the RCA, took Runthrough wire into the RCA, placed it distally, and using a 2.5 ball oon, lesions were pre-dilated very well and then placed 2.25 x 12 mm Synergy drug-eluting stent dista lly at the tight spot and then overlapped proximally by using 2.75 x 24 mm Synergy drug-eluting stent and then final angiogram was satisfactory. Removed the wire and there were no complications. Then removed the guide and the sheath, placed TR band with good hemostasis. Findings: 1. Left main is normal. 2. LAD; proximal segment is normal. Mid segment, there is focal 40% stenosis. Rest of LAD is normal . Normal diagonal branches. 3. Left circumflex is with luminal irregularities. 4. RCA, there is a mid 90% stenosis and distal 99% stenosis, status post successful PCI as above. 5. LVEDP is borderline at 12 mmHg. Conclusion: 1. Severe mid to distal RCA stenosis, status post successful PCI as above. 2. Moderate coronary artery disease elsewhere. Recommendation: Aspirin, Plavix, high-dose statin. SR/MODL Voice ID: [id number] Report ID: [id number]
== END 2024-11-03 17:45 | disposition home or self-care (01) ==
LOC: CCL 11:25
PROVIDERS: ATTEND Internal Medicine
DX: I25.110 Atherosclerotic heart disease of native coronary artery with unstable angina pectoris (principal); I10 Essential (primary) hypertension; J44.9 Chronic obstructive pulmonary disease, unspecified; Z79.899 Other long term (current) drug therapy; Z82.49 Family history of ischemic heart disease and other diseases of the circulatory system
CPT/HCPCS: 93005; 85025; 80048; 36415; 85610; 85347; 85730; 71046; 93458; 76937; C1893; Q9967; C1725; C9600; J1644; J2003; J2250; J3010; J7040; 92928; 99152; 99153; J0461

== ENCOUNTER 2025-02-21 20:54 | Inpatient (IN) | payer OTHER ==
--- OUTSIDE RECORDS SUMMARY | 2025-02-21 21:06 | XMS REPORT | Continuity of Care Document ---
Author Name Unknown Address [address] [facility] [place] [address] [facility] Address [address] [facility] [place] [address] Care Team Providers Care Precision Dyer Name Role Phone MAGGIE LEZAMA Primary Care Physician Unavailab DEANNE Kilgore Attending Clinician Unavailable CRISTA CULP Attending Clinician Unavailable CAROLINE TURPIN MEDICAL Attending Rosalvaia n Unavailable MD CHRISTINE Attending Clinician Unavailab le [id number] Attending Clinician Unavailable MAGGIE LEZAMA Attending Clinician Unava ilable [id number] Attending Clinician Unavailable GIN MORA Attending Clinician Unavailab GUILLE Kate Attending Clinician Unavailable FATIMAH HUERTA Attending Clinician U MORGAN Graff Attending Clinician Unava ilable OLVIN PEDRAZA Attending Clinician Unavailable AKI MOTT Attending Clinician Unav ailCURTIS Navarrete Attending Clinician Unavailab TESHA Hyatt Attending Clinician Unavailab CRISPIN Bailey Attending Clinician Unavailable Lise FLYNN, Maggie Martin Attending Clinician + [phone] Dylan Dowell Attending Clinician Unavailoscar burns RADIOLOGY Attending Clinician Unavailable Radiology Attending Clinician Unavailable Doctor Unassigned, [place] Attending Clinician U Dominic Delgado Attending Clinician Unavailable Martin Sanchez DO Attending Clinician [phone] UNKNOWN, ATTENDING Attending Clinician Unavailab le Unknown, Attending Attending Clinician Unavailab Loco Goyal Attending Clinician [phone] CURTIS ELI Admitting Clinician UnavailDylan Gatica Admitting Clinician UnavailNITA Santoyo Admitting Clinician Un available Physician, No Primary or Family Admitting Clinic trent Unavailable Payers Payer Name Policy Type Policy Number Effective Date Expirati on Date Source [employer] [place] (HMO-POS) 7 [id number] 2024 00:00:00 [place] [place] PREMIUM H[place] [id number] 2020 00:00:00 MEDICARE-PART B 5 [id number] 2022 00:00:00 Problems Condition Name Condition Details Condition Category Status Onset Date Resolution Date Last Treatment Date Treating Clinician Comments Source Coronary artery disease involving [place] coronary artery of [place] heart without angina pectoris Coronary artery disease involving [place] coronary artery of [place] heart without angina pectoris Disease Active 01-11 00:00: 00 Caroline Spaulding - Externa l S/P right coronary artery (RCA) stent placement S/P right coronary artery (RCA) stent placement Disease Active 01-11 00:00: 00 Caroline Spaulding - Externa amanda Paroxysmal A-fib (multi HCC) Paroxysmal A-fib (multi HCC) Disease Active 01-11 00:00: 00 Caroline Spaulding - Externa l 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) Disease Active 01-11 00:00: 00 Caroline Seybold - Externa l Iron deficiency anemia Iron deficiency anemia Disease Active 3-04 00:00: 00 Caroline Seybold - Externa l Risk for falls Risk for falls Disease Active 6 00:00: 00 Caroline Seybold - Externa l 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 Disease Active 12-13 00:00: 00 Caroline Seybold - Externa l Decreased hearing of both ears Decreased hearing of both ears Disease Active 2021-07 00:00: 00 Caroline Seybold - Externa l Depression Depression Disease Active 2021-07 00:00: 00 Caroline Seybold - Externa l Recurrent major depressive disorder, in partial remission Recurrent major depressive disorder, in partial remission Disease Active 2021-07 00:00: 00 Caroline Seybold - Externa l Insomnia Insomnia Disease Active 2021-07 00:00: 00 Caroline Seybold - Externa l Primary hypertensi on - Not Controlled Primary hypertensi on - Not Controlled Disease Active 2021-07 00:00: 00 Caroline Seybold - Externa l Immunodefi ciency due to conditions classified elsewhere ([facility]) Immunodefi ciency due to conditions classified elsewhere ([facility]) Disease Active 2021-07 0 00:00: 00 Caroline Seybold - Externa l Major depressive disorder, recurrent, mild Major depressive disorder, recurrent, mild Disease Active 12-01 00:00: 00 Caroline Seybold - Externa l Depression Depression Disease Active 12-01 00:00: 00 Caroline Russoold Chronic obstructiv e pulmonary disease (multi HCC) Chronic obstructiv e pulmonary disease (multi HCC) Disease Active 12-01 00:00: 00 Caroline Seybold - Externa l Mild major depression Mild major depression Disease Active 12-01 00:00: 00 Caroline Spaulding Left shoulder pain Left shoulder pain Disease Active 2-22 00:00: 00 [facility] Acute depression (disorder) Acute depression (disorder) Active Problem 03/02/2021 [facility] Problem Active 2021-03-02 22:32:31 Adaajith patel Jean Dizziness (finding) Dizziness (finding) Active Problem 03/02/2021 [facility] Problem Active 2021-03-02 22:32:31 Memajith patel Jean Headache (finding) Headache (finding) Active Problem 03/02/2021 [facility] Problem Active 2021-03-02 22:32:31 Memajith amanda Pena Hypertensi ve disorder, systemic arterial (disorder) Hypertensi ve disorder, systemic arterial (disorder) Active Problem 03/02/2021 [facility] Problem Active 2021-03-02 22:32:31 Memajith amanda Pena Hernia of abdominal wall (disorder) Hernia of abdominal wall (disorder) Resolved Problem 03/02/2021 [facility] Problem Resolve d 2021-03-02 22:32:31 Adaajith amanda Pena 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 ) Resolved Problem 03/02/2021 [facility] Problem Resolve d 2021-03-02 22:32:31 [place] Injury of right foot Resolved Problem 03/02/2021 [facility] Problem Resolve d 2021-03-02 22:32:31 Memajith patel [place] Injury of right shoulder Injury of right shoulder Resolved Problem 03/02/2021 [facility] Problem Resolve d 2021-03-02 22:32:31 Rigo Pena Allergies, Adverse Reactions, Alerts Allergy Name Allergy Type Status Severity Reaction(s) Onset Date Inactive Date Treating Clinician Comments Source No Known Allergie s DA Active U 2020-07 00:00: 00 [facility] No Known Allergie s DA Active U 03-21 00:00: 00 [facility] No Known Allergie s DA Active U 03-21 00:00: 00 [facility] No Known Contrast Allergie s DA Active U 01-08 00:00: 00 [facility] No Known Drug Allergie s DA Active U 01-08 00:00: 00 [facility] No Known Food Allergie s DA Active U 01-08 00:00: 00 [facility] No Known Other Allergie s DA Active U 01-08 00:00: 00 [facility] No Known Drug Intolera nces DA Active U 11-18 00:00: 00 [facility] NO KNOWN ALLERGIE S Drug Class Active [facility] Social History Social Habit Start Date Stop Date Quantity Comments Source ASSERTION Not Caroline Spaulding - External History of tobacco use Current smoker [facility] Gender identity [facility] Sexual orientation U [facility] Exposure to SARS-CoV-2 (event) Not sure [facility] Alcoholic beverage intake 2025-01-11 00:00:00 2025-01-11 00:00:00 Lifetime non-drinker (finding) Caroline Spaulding - External Tobacco use and exposure 2024-08-03 00:00:00 2024-08-03 00:00:00 Smokeless tobacco non-user Caroline Spaulding - External History of Social function 2023-03-11 00:00:00 2023-03-11 00:00:00 [facility] Alcohol intake 2023-03-11 00:00:00 2023-03-11 00:00:00 0 /d [facility] Sex 2021-11-28 10:01:57 2021-11-28 10:01:57 Female (finding) [place] External Social History 2017-04-21 15:24:53 2017-04-21 15:24:53 [facility] Sex assigned at 1945 00:00:00 1945 00:00:00 Caroline Spaulding - External Smoking Status Start Date Stop Date Source Never smoked tobacco Caroline Spaulding - External Ex-smoker 2017-10-10 00:00:00 2017-10-10 00:00:00 [facility] Medications Ordered Medication Name Filled Medication Name Start Date Stop Date Current Medication? Ordering Clinician Indication Dosage Frequency Signature (SIG) Comments Components Source Ferrous Gluconate (IRON 27 OR) 01-11 11:08: 57 Yes [id number] Caroline Spaulding - Externa l Carvedilol 6.25 MG oral Tablet 01-11 11:08: 57 Yes 6.25mg Take 1 tablet (6.25 mg total) by mouth once. Caroline patel Biotin 1 MG oral Capsule 01-11 11:05: 41 01-11 00:00 :00 No Caroline patel Atorvastati n Calcium 40 MG oral Tablet 01-05 00:00: 00 Yes 40mg 1 tablet (40 mg total). Caroline patel Furosemide (LASIX) 20 MG oral Tablet 12-24 00:00: 00 Yes 20mg Q.5D Take 1 tablet (20 mg total) by mouth 2 times daily. Caroline patel Spironolact one 25 MG oral Tablet 12-24 00:00: 00 Yes 25mg QD Take 1 tablet (25 mg total) by mouth daily. Caroline patel Sacubitril- Valsartan 24-26 MG oral Tablet 12-24 00:00: 00 Yes 1{tbl} Take 1 tablet by mouth. Caroline patel Aspirin 81 MG oral Tablet Delayed Response 12-23 00:00: 00 Yes 81mg Take 1 tablet (81 mg total) by mouth. Caroline patel Cholecalcif tito 50 MCG (1999 UT) oral Capsule 12-23 00:00: 00 Yes 1{tbl} Take 1 tablet by mouth. Caroline patel Clopidogrel Bisulfate (PLAVIX) 75 MG oral Tablet 11-25 00:00: 00 Yes 75mg QD Take 1 tablet (75 mg total) by mouth daily. Caroline patel Biotin 1 MG oral Capsule 10-19 13:36: 53 Yes Caroline patel Ferrous Gluconate (IRON 27 OR) 10-19 13:36: 53 Yes [id number] Caroline patel Famotidine 40 MG oral Tablet 10-19 00:00: 00 Yes [id number] 40mg QD Take 1 tablet (40 mg total) by mouth daily. Caroline patel Amoxicillin -Pot Clavulanate 875-125 MG oral Tablet 2025-0 3-07 00:00: 00 Yes [id number] 1{tbl} Q.5D Take 1 tablet by mouth 2 times daily. Caroline patel Biotin 1 MG oral Capsule 3- 15:44: 14 Yes Caroline patel Ferrous Gluconate (IRON 27 OR) - 15:44: 14 Yes [id number] , Caroline patel Lisinopril 10 MG oral Tablet 3- 00:00: 00 Yes [id number] 10mg QD Take 1 tablet (10 mg total) by mouth daily. Caroline patel TRIMETHOPRI M-SULFAMETH OXAZOLE (BACTRIM DS) 800-160 MG oral Tablet - 00:00: 00 09-09 04:59 :00 No [id number] 1{tbl} Q.5D Take 1 tablet by mouth 2 times daily for 7 days. Caroline patel zolpidem 10 mg tablet 2-23 00:00: 00 Yes mg Olvin Moreno Pantoprazol e Sodium 40 MG oral Tablet Delayed Response 2-10 00:00: 00 Yes [id number] 40mg Q.5D Take 1 tablet (40 mg total) by mouth 2 times daily. Caroline patel Bismuth Subsalicyla te 525 MG oral Tablet 2-10 00:00: 00 09-01 00:00 :00 No [id number] 1{tbl} Q.25D Take 1 tablet by mouth 4 times daily. Caroline patel Metronidazo le 500 MG oral Tablet 2-10 00:00: 00 09-01 00:00 :00 No [id number] 500mg Q.[id number] 3D Take 1 tablet (500 mg total) by mouth 3 times daily. Caroline patel Tetracyclin e HCl 500 MG oral Capsule 2-10 00:00: 00 09-01 00:00 :00 No [id number] 500mg Q.25D Take 1 capsule (500 mg total) by mouth 4 times daily. Caroline patel Nitrofurant oin Monohyd Macro (Macrobid) 100 MG oral Capsule 08-04 00:00: 00 Yes [id number] 100mg Q.5D Take 1 capsule (100 mg total) by mouth 2 times daily. Caroline patel Multiple Vitamin (MULTIVITAM IN ADULT OR) 08-03 12:54: 20 Yes Caroline patel HYDROcodone -Ibuprofen 5-200 MG oral Tablet 2 12:54: 05 08-03 00:00 :00 No Caroline patel Biotin 1 MG oral Capsule 08-03 12:54: 03 Yes Caroline patel Ferrous Gluconate (IRON 27 OR) 08-03 12:54: 03 Yes [id number] , Caroline patel Lisinopril 10 MG oral Tablet 08-03 00:00: 00 09-01 00:00 :00 No [id number] 10mg QD Take 1 tablet (10 mg total) by mouth daily. Caroline patel zolpidem 10 mg tablet 2023-07 00:00: 00 Yes mg Olvin F Josh lisinopril 30 mg tablet 2023-07 00:00: 00 Yes 1mg Olvin F Josh sertraline 50 mg tablet 2023-07 00:00: 00 Yes 1mg Olvin F Josh Sertraline HCl 50 MG oral Tablet 2023-07 00:00: 00 Yes [id number] 50mg QD Take 1 tablet (50 mg total) by mouth daily. Caroline patel Celecoxib 200 MG oral Capsule 2023-07 00:00: 00 Yes [id number] 200mg Q.5D Take 1 capsule (200 mg total) by mouth 2 times daily as needed for pain. Caroline patel Sertraline HCl 50 MG oral Tablet 2023-07 00:00: 00 Yes [id number] 100mg QD Take 2 tablets (100 mg total) by mouth daily. Caroline patel famotidine 20 mg tablet 2023-07 1-15 00:00: 00 Yes 1mg Olvin Moreno zolpidem 10 mg tablet 2023-07 1-05 00:00: 00 Yes mg Olvin Moreno Pantoprazol e Sodium 40 MG oral Tablet Delayed Response 2023-07 0-14 00:00: 00 Yes [id number] 40mg QD take one (1) tablet(s) by mouth once a day. Caroline patel zolpidem 10 mg tablet - 00:00: 00 Yes mg Olvin Moreno albuterol sulfate HFA 90 mcg/actuati on aerosol inhaler - 00:00: 00 Yes 2mcg/ac tuation Olvin Moreno Lisinopril 30 MG oral Tablet - 00:00: 00 08-03 00:00 :00 No [id number] 30mg QD take 1 tablet by mouth daily Caroline patel zolpidem 10 mg tablet - 00:00: 00 Yes mg Olvin Moreno albuterol sulfate HFA 90 mcg/actuati on aerosol inhaler - 00:00: 00 Yes 2mcg/ac tuation Olvin Moreno lisinopril 30 mg tablet - 00:00: 00 Yes 1mg Olvin Moreno sertraline 50 mg tablet - 00:00: 00 Yes 1mg Olvin Moreno famotidine 20 mg tablet - 00:00: 00 Yes 1mg Olvin Moreno zolpidem 10 mg tablet -16 00:00: 00 Yes mg Olvin Moreno Pantoprazol e Sodium 40 MG oral Tablet Delayed Response 10-29 00:00: 00 Yes [id number] 40mg Take 1 tablet (40 mg total) by mouth daily. Caroline patel Celecoxib 200 MG oral Capsule 10-29 00:00: 00 Yes [id number] 200mg Take 1 capsule (200 mg total) by mouth 2 times daily. Caroline patel DICLOFENAC SODIUM 1% GEL 10-29 00:00: 00 Yes Olvin Moreno PANTOPRAZOL E SOD DR 40 MG 10-29 00:00: 00 Yes Olvin Moreno Diclofenac Sodium 1 % apply externally Gel 10-29 00:00: 00 09-01 00:00 :00 No [id number] 1{appli cation} Q.25D Apply 1 Applicatio n topically 4 times daily as needed (joint pain). Caroline patel zolpidem 10 mg tablet 10-17 00:00: 00 Yes mg Olvin Moreno lisinopril 30 mg tablet 07 00:00: 00 Yes mg Olvin Moreno Zolpidem Tartrate 10 MG oral Tablet 09-20 00:00: 00 Yes 10mg Take 1 tablet (10 mg total) by mouth at bedtime as needed. Caroline patel PREDNISONE 10 MG 09-17 00:00: 00 Yes Olvin Moreno predniSONE (DELTASONE) 10 MG oral tablet 09-17 00:00: 00 11-12 00:00 :00 No 10mg Take 1 tablet (10 mg total) by mouth daily. Caroline patel INHALE TWO (2) PUFFS BY MOUTH EVERY 3-4 HOURS NEEDED FOR WHEEZING, COUGH, SHORTNESS OF BREATH. 08-24 00:00: 00 Yes Olvin Moreno TAKE ONE (1) TABLET(S) BY MOUTH DAILY. 08-24 00:00: 00 Yes Olvin Moreno TAKE ONE (1) TABLET(S) BY MOUTH AT BEDTIME NEEDED. 08-24 00:00: 00 Yes Olvin Moreno TAKE ONE (1) TABLET(S) BY MOUTH AT BEDTIME. 08-24 00:00: 00 Yes Olvin Moreno Famotidine (PEPCID) 20 MG oral tablet 08-24 00:00: 00 09-01 00:00 :00 No 20mg Take 1 tablet (20 mg total) by mouth at bedtime. Caroline patel FLUTICASONE PROPIONATE, NASAL, 50 MCG/ACT nasal Suspension 08-24 00:00: 00 09-01 00:00 :00 No INSTILL ONE (1) SPRAY IN EACH NOSTRIL ONCE DAILY. Caroline patel Sertraline HCl 50 MG oral Tablet 08-24 00:00: 00 11-12 00:00 :00 No 50mg Take 1 tablet (50 mg total) by mouth daily. Caroline patel albuterol sulfate HFA 90 mcg/actuati on aerosol inhaler 08-23 00:00: 00 Yes 2mcg/ac tuation Olvin Moreno sertraline 50 mg tablet 08-23 00:00: 00 Yes 1mg Olvin Moreno famotidine 20 mg tablet 08-23 00:00: 00 Yes 1mg Olvin Moreno SOD SUL-POTASS SUL-MAG SUL LYSSA 2022-07 00:00: 00 Yes Olvin Garcia Moreno PANTOPRAZOL E 40MG DR 2022-07 00:00: 00 Yes Olvin Moreno Na Sulfate-K Sulfate-Mg Sulf (SUPREP BOWEL PREP KIT) 17.5-3.13-1 .6 GM/177ML oral Solution 2022-07 00:00: 00 09-01 00:00 :00 No Caroline patel sertraline 50 mg tablet 2022-07 00:00: 00 Yes mg Olvin Garcia Josh albuterol sulfate HFA 90 mcg/actuati on aerosol inhaler 2022-07 00:00: 00 Yes mcg/act uation Olvin Moreno TAKE 2 PUFFS BY MOUTH TWICE A DAY 2022-07 00:00: 00 Yes 110 Olvin Moreno HYDROCO/APA P 7.5-325 2022-07 00:00: 00 Yes Olvin Moreno Baclofen 10 MG oral Tablet 2022-07 00:00: 00 08-03 00:00 :00 No Caroline patel TAKE 1 TABLET TWICE A DAY NEEDED FOR PAIN 2022-07 00:00: 00 11-12 00:00 :00 No 50 Olvin Moreno TAKE 1 TABLET AT BEDTIME NEEDED. 2022-07 00:00: 00 11-12 00:00 :00 No 10 Olvin Moreno USE 1 SPRAY IN EACH NOSTRIL ONCE DAILY. 2022-07 00:00: 00 11-12 00:00 :00 No 50 Olvin Moreno Methylpredn isolone Acetate (Depo-Medro l) 80 mg/ml - Physician Administere d ([id number]) 2022-07 17:30: 00 04-25 17:24 :00 No [id number] 80mg Caroline Russoold - Externa l FAMOTIDINE 20MG 2022-07 00:00: 00 Yes Olvin Moreno LISINOPRIL 30MG 2022-07 0 00:00: 00 Yes Olvin Moreno HYDROcodone -Acetaminop hen 7.5-325 MG oral Tablet 2022-07 00:00: 00 Yes 1{tbl} Q4H Take 1 tablet by mouth every 4 hours as needed. Caroline Spaulding - Externa l HYDROCO/APA P 7.5-325 2022-07 00:00: 00 Yes Olvin Moreno TAKE 1 TABLET BY MOUTH 2 TO 3 TIMES DAILY NEEDED FOR PAIN 2022-07 004 00:00: 00 Yes Olvin Moreno TRAZODONE 50MG 03-15 00:00: 00 Yes Olvin Moreno iopamidol (ISOVUE 370-500 mL) injection 90 mL 03-11 22:30: 00 03-11 22:49 :00 No [id number] 90mL 90 mL, Intravenou s, ONCE, 1 dose, On Sat03/11/23 at 1730, Routine Univers [facility] aspirin tablet 325 mg 03-11 19:45: 00 03-11 20:13 :00 No 325mg 325 mg, Oral, ONCE, 1 dose, On Sat03/11/23 at 1445, STAT [facility] GABAPENTIN 100MG 9-03 00:00: 00 Yes Olvin Moreno ALBUTEROL PA HFA 200 INH 8- 00:00: 00 Yes Olvin Moreno Albuterol HFA (VENTOLIN HFA) 108 (90 Base) MCG/ACT IN AERS 02-27 00:00: 00 Yes [id number] 2{puff} Q.25D Inhale 2 puffs into the lungs every 6 hours as needed for wheezing. Caroline patel Pantoprazol e Sodium 40 MG oral Tablet Delayed Response 02-26 00:00: 00 Yes [id number] 40mg TAKE ONE TABLET BY MOUTH DAILY Caroline patel PANTOPRAZOL E 40MG DR 02-26 00:00: 00 Yes Olvin Moreno GABAPENTIN 100 MG CAPSULE 02-26 00:00: 00 Yes 100 Olvin Moreno Gabapentin 100 MG oral Capsule 02-26 00:00: 00 11-12 00:00 :00 No [id number] 100mg Take 1 capsule (100 mg total) by mouth 3 times daily. Caroline patel SERTRALINE 100MG - 00:00: 00 Yes [id number] Olvin Moreno PREDNISONE 10MG 8- 00:00: 00 Yes Olvin Moreno ZOLPIDEM TARTRATE 10 MG 8- 00:00: 00 Yes 10 Olvin Moreno Celecoxib 200 MG oral Capsule 02-04 00:00: 00 Yes [id number] TAKE 1 CAPSULE BY MOUTH TWICE A DAY Caroline patel GABAPENTIN 100MG 8- 00:00: 00 Yes [id number] Olvin Moreno FAMOTIDINE 20MG 7- 00:00: 00 Yes Olvin Moreno CELECOXIB 200MG 0 7-03 00:00: 00 Yes Olvin Moreno TRAZODONE 50MG 6-17 00:00: 00 Yes [id number] Olvin Moreno Lisinopril 30 MG oral Tablet 6-15 00:00: 00 Yes [id number] 30mg Take 1 tablet (30 mg total) by mouth daily Caroline patel Albuterol HFA (VENTOLIN HFA) 108 (90 Base) MCG/ACT IN AERS 12-13 00:00: 00 Yes [id number] 2{puff} Q.25D Inhale 2 puffs into the lungs every 6 hours as needed for wheezing Caroline patel ALBUTEROL PV HFA 200 INH 12-13 00:00: 00 Yes Olvin Moreno Sertraline HCl 100 MG oral Tablet 12-13 00:00: 00 09-01 00:00 :00 No [id number] 100mg QD Take 1 tablet (100 mg total) by mouth daily Caroline patel Zolpidem Tartrate (Ambien) 5 MG oral Tablet 12-13 00:00: 00 11-12 00:00 :00 No [id number] 5mg QD Take 1 tablet (5 mg total) by mouth nightly as needed for sleep Caroline patel DULOXETINE 60MG DR 12-12 00:00: 00 Yes [id number] Olvin Moreno LISINOPRIL 30MG 12-11 00:00: 00 Yes Olvin Moreno Celecoxib 200 MG oral Capsule 12-04 00:00: 00 Yes [id number] TAKE ONE CAPSULE BY MOUTH TWICE A DAY Caroline patel PANTOPRAZOL E 40MG DR 11-28 00:00: 00 Yes Olvin Moreno SERTRALINE 100MG 11-22 00:00: 00 Yes [id number] Olvin Moreno Hydrocortis one, Perianal, 2.5 % apply externally Cream 11-15 00:00: 00 Yes Caroline patel HYDROCORTIS O 2.5%RECT CRE 11-15 00:00: 00 Yes Olvin Moreno Nitrofurant oin Monohyd Macro (Macrobid) 100 MG oral Capsule 11-14 00:00: 00 Yes [id number] 100mg Take 1 capsule (100 mg total) by mouth 2 times daily Caroline patel Lisinopril 30 MG oral Tablet 11-14 00:00: 00 Yes [id number] 30mg Take 1 tablet (30 mg total) by mouth daily Caroline patel Gabapentin 100 MG oral Capsule 0 -17 00:00: 00 Yes [id number] 100mg Take 1 capsule (100 mg total) by mouth 3 times daily Caroline patel NITROFUR MON 100MG 0 -17 00:00: 00 Yes Olvin Moreno FLUCONAZOLE 150MG 0 -17 00:00: 00 Yes Olvin Moreno GABAPENTIN 100MG 0 17 00:00: 00 Yes Olvin Moreno LISINOPRIL 30MG 0 -17 00:00: 00 Yes Olvin Moreno USE 1 SPRAY IN EACH NOSTRIL ONCE DAILY. 0 -16 00:00: 00 Yes 50 Olvin Moreno FAMOTIDINE 20 MG 0 -16 00:00: 00 Yes 20 Olvin Moreno USE 1 SPRAY IN EACH NOSTRIL ONCE DAILY. 11-12 00:00: 00 Yes 50 Olvin Moreno USE DIRECTED 15 00:00: 00 11-12 00:00 :00 No 25 Olvin Moreno Celecoxib 200 MG oral Capsule 0 -08 00:00: 00 Yes [id number] TAKE ONE CAPSULE BY MOUTH TWICE A DAY Caroline patel famotidine 20 mg tablet 0 -22 00:00: 00 Yes mg Olvin Moreno CELECOXIB 200MG 0 4-10 00:00: 00 Yes Olvin Moreno Duloxetine HCl [address] Particles 0 -20 00:00: 00 Yes [id number] 60mg Take 1 capsule (60 mg total) by mouth daily Caroline patel ZOLPIDEM 10MG 0 3-20 00:00: 00 Yes [id number] Olvin Moreno TRAZODONE 50MG 0 3-19 00:00: 00 Yes [id number] Olvin Moreno LISINOPRIL 20MG 2022-0 3-14 00:00: 00 Yes Olvin Moreno Lisinopril 20 MG oral Tablet 2022-0 3-14 00:00: 00 11-14 00:00 :00 No [id number] 20mg Take 1 tablet (20 mg total) by mouth daily Caroline Spaulding - Externa amanda CELECOXIB 200MG - 00:00: 00 Yes Olvin Moreno PANTOPRAZOL E 40MG DR - 00:00: 00 Yes Olvin Moreno SERTRALINE 100MG - 00:00: 00 Yes Olvin Moreno PREDNISONE 10MG - 00:00: 00 Yes Olvin Moreno predniSONE (DELTASONE) 10 MG oral tablet 08-22 00:00: 00 11-14 00:00 :00 No Caroline Spaulding - [place] amanda ZOLPIDEM 10MG - 00:00: 00 Yes Olvin Moreno LISINOPRIL 20MG 08-17 00:00: 00 Yes Olvin Moreno CELECOXIB 200MG 08-13 00:00: 00 Yes Olvin Moreno TAKE 1 TABLET AT BEDTIME. 07-24 00:00: 00 11-12 00:00 :00 No 20 Olvin Moreno TAKE 1 TABLET AT BEDTIME NEEDED. - 00:00: 00 11-12 00:00 :00 No 10 Olvin Moreno TAKE 1 TABLET AT BEDTIME NEEDED. - 00:00: 00 Yes 10 Olvin Moreno TAKE 1 TABLET AT BEDTIME NEEDED. - 00:00: 00 No 10 TAKE 1 TABLET AT BEDTIME NEEDED. - 00:00: 00 Yes 10 Olvin Moreno TAKE 1 TABLET AT BEDTIME NEEDED. - 00:00: 00 No 10 Sertraline HCl 100 MG oral Tablet - 00:00: 00 Yes [id number] 50mg Take 0.5 tablets (50 mg total) by mouth daily Caroline Spaulding - Externa l MELOXICAM 15MG - 00:00: 00 Yes Olvin Moreno Trazodone HCl 50 MG oral Tablet 2021-07- 00:00: 00 Yes [id number] 50mg Take 1 tablet (50 mg total) by mouth nightly AT BEDTIME Caroline patel TRAZODONE 50MG 2021-07 2- 00:00: 00 Yes Olvin Moreno TRAZODONE 50MG 2021-07 2- 00:00: 00 No Dose Unknown 2021-07 2-16 00:00: 00 Yes Olvin Moreno Dose Unknown 2021-07 2-16 00:00: 00 Yes 40 Olvin Moreno PANTOPRAZOL E 40MG TAB 2021-07 2- 00:00: 00 Yes 40 Olvin Moreno Dose Unknown 2021-07 2-16 00:00: 00 Yes Olvin Moreno TAKE 1 AT BEDTIME 2021-07 2- 00:00: 00 No TAKE 1 TABLET AT BEDTIME. 2021-07 2- 00:00: 00 No TAKE 1 TABLET BY MOUTH TWICE A DAY 2021-07 2- 00:00: 00 No 40unit TAKE 1 TABLET EVERY 6 HOURS NEEDED FOR PAIN. 2021-07 2- 00:00: 00 No 40unit Dose Unknown 2021-07 2- 00:00: 00 No TRAZODONE 50MG TAB 2021-07 2- 00:00: 00 No PREDNISONE 10MG TAB 2021-07 2-16 00:00: 00 No GABAPENTIN 300MG 2021-07 2-16 00:00: 00 No Dose Unknown 2021-07 2- 00:00: 00 No AZITHROMYCI N 250MG TAB 2021-07 2-16 00:00: 00 No LISINOPRIL 5MG TAB 2021-07 2-16 00:00: 00 No Dose Unknown 2021-07 2-16 00:00: 00 No Dose Unknown 2021-07 2-16 00:00: 00 No 40 AMOXICILLIN /CLAVULANAT E P 500-125 TAB 2021-07 2-16 00:00: 00 No 40 Dose Unknown 2021-07 2-16 00:00: 00 No 40 SERTRALINE HCL 50MG TAB 2021-07 2-16 00:00: 00 No 50 PANTOPRAZOL E 40MG TAB 2021-07 2-16 00:00: 00 No 40 TAKE 1 AT BEDTIME 2021-07 2- 00:00: 00 11-12 00:00 :00 No Olvin Garcia Moreno TAKE 1 TABLET AT BEDTIME. 2021-07 00:00: 00 11-12 00:00 :00 No Olvin Garcia Moreno TAKE 1 TABLET BY MOUTH TWICE A DAY 2021-07 00:00: 00 11-12 00:00 :00 No [id number] Olvin Moreno TAKE 1 TABLET EVERY 6 HOURS NEEDED FOR PAIN. 2021-07 00:00: 00 11-12 00:00 :00 No 40unit Olvin Garcia Moreno Dose Unknown 2021-07 00:00: 00 11-12 00:00 :00 No Olvin Moreno TRAZODONE 50MG TAB 2021-07 00:00: 00 11-12 00:00 :00 No Olvin Garcia Josh PREDNISONE 10MG TAB 2021-07 00:00: 00 11-12 00:00 :00 No Olvin Moreno GABAPENTIN 300MG 2021-07 00:00: 00 11-12 00:00 :00 No Olvin Garcia Moreno Dose Unknown 2021-07 00:00: 00 11-12 00:00 :00 No Olvin Moreno AZITHROMYCI N 250MG TAB 2021-07 00:00: 00 11-12 00:00 :00 No Olvin Moreno LISINOPRIL 5MG TAB 2021-07 00:00: 00 11-12 00:00 :00 No Olvin Garcia Josh Dose Unknown 2021-07 00:00: 00 11-12 00:00 :00 No 40 Olvin Garcia Josh AMOXICILLIN /CLAVULANAT E P 500-125 TAB 2021-07 00:00: 00 11-12 00:00 :00 No 40 Olvin Garcia Josh SERTRALINE HCL 50MG TAB 2021-07 00:00: 00 11-12 00:00 :00 No 50 Olvin Garcia Josh Pantoprazol e Sodium 40 MG oral Tablet Delayed Response 2021-07 00:00: 00 Yes [id number] 40mg Take 1 tablet (40 mg total) by mouth daily Caroline patel MELOXICAM 15MG 2021-07 00:00: 00 Yes Olvin Moreno MELOXICAM 15MG 2021-07 00:00: 00 No Celecoxib (CeleBREX) 200 MG oral Capsule 2021-07 00:00: 00 Yes [id number] 200mg Take 1 capsule (200 mg total) by mouth 2 times daily Caroline patel SERTRALINE 100MG 2021-07 00:00: 00 Yes Olvin Moreno SERTRALINE 100MG 2021-07 00:00: 00 No Trazodone HCl 50 MG oral Tablet 2021-07 00:00: 00 Yes [id number] TAKE ONE TABLET BY MOUTH EVERY NIGHT AT BEDTIME Caroline patel DULOXETINE 60MG DR 2021-07 00:00: 00 Yes Olvin Moreno DULOXETINE 60MG DR 2021-07 00:00: 00 No Lisinopril 20 MG oral Tablet 2021-07 00:00: 00 Yes [id number] TAKE ONE TABLET BY MOUTH DAILY Caroline Gutierreza amanda Duloxetine HCl [address] Particles 2021-07 00:00: 00 Yes [id number] TAKE ONE CAPSULE BY MOUTH DAILY Caroline patel Lisinopril 20 MG oral Tablet 2021-07 00:00: 00 Yes [id number] 20mg Take 1 tablet (20 mg total) by mouth daily Caroline Gutierreza amanda Trazodone HCl 50 MG oral Tablet 2021-07 00:00: 00 Yes [id number] 50mg Take 1 tablet (50 mg total) by mouth nightly Caroline Gutierreza amanda Duloxetine HCl [address] Particles 2021-07 00:00: 00 Yes [id number] 60mg Take 1 capsule (60 mg total) by mouth daily [facility] [place] Externa amanda Sertraline HCl 100 MG oral Tablet 2021-07 00:00: 00 Yes [id number] 50mg Take 0.5 tablets (50 mg total) by mouth daily Caroline Gutierreza amanda Diclofenac Sodium 75 MG oral Tablet Delayed Response 2021-07 00:00: 00 Yes 75mg Take 1 tablet (75 mg total) by mouth daily Caroline patel Meloxicam 15 MG oral Tablet 2021-07 00:00: 00 04-26 00:00 :00 No [id number] 15mg QD Take 1 tablet (15 mg total) by mouth daily as needed for pain Caroline patel Lisinopril 10 MG oral Tablet 03-29 00:00: 00 Yes [id number] 20mg Take 2 tablets (20 mg total) by mouth daily Caroline patel Doxepin HCl 3 MG oral Tablet 03-29 00:00: 00 Yes [id number] 30{tbl} Take 30 tablets by mouth nightly Caroline patel Sertraline HCl 100 MG oral Tablet 03-29 00:00: 00 Yes [id number] 100mg Take 1 tablet (100 mg total) by mouth daily Caroline patel ALBUTEROL PA HFA 200 INH 03-29 00:00: 00 11-12 00:00 :00 No [id number] Olvin Moreno Albuterol HFA 108 (90 Base) MCG/ACT IN AERS 03-29 00:00: 00 12-13 00:00 :00 No [id number] 2{puff} Q.25D Inhale 2 puffs into the lungs every 6 hours as needed for wheezing Caroline patel Doxepin HCl 3 MG oral Tablet 03-29 00:00: 00 04-26 00:00 :00 No [id number] 1{tbl} Take 1 tablet by mouth nightly Caroline patel Meloxicam 15 MG oral Tablet 03-22 00:00: 00 Yes [id number] 15mg QD Take 1 tablet (15 mg total) by mouth daily as needed for pain Caroline patel Famotidine (PEPCID) 20 MG oral tablet 03-15 00:00: 00 Yes Caroline Seybold - Externa l Diclofenac Sodium 75 MG oral Tablet Delayed Response 03-15 00:00: 00 Yes Caroline patel BACLOFEN 10MG - 00:00: 00 11-12 00:00 :00 No [id number] Olvin Moreno SERTRALINE HYDROCHLORI DE 100MG 03-01 00:00: 00 11-12 00:00 :00 No [id number] Olvin Moreno Lisinopril 10 MG oral Tablet 03-01 00:00: 00 03-29 00:00 :00 No [id number] 10mg Take 1 tablet (10 mg total) by mouth daily Caroline patel Sertraline HCl 100 MG oral Tablet 03-01 00:00: 00 03-29 00:00 :00 No [id number] 100mg Take 1 tablet (100 mg total) by mouth daily Caroline patel DULOXETINE HYDROCHLORI DE 40MG DR - 00:00: 00 11-12 00:00 :00 No [id number] Olvin Moreno PANTOPRAZOL E SODIUM 40MG DR TAB 2021-0 8-14 00:00: 00 Yes Olvin Moreno PANTOPRAZOL E SODIUM 40MG DR TAB 2021-0 8-14 00:00: 00 No PANTOPRAZOL E SODIUM 40MG DR TAB 2021-0 8-14 00:00: 00 No MELOXICAM 15MG 2021-0 8-10 00:00: 00 11-12 00:00 :00 No [id number] Olvin Moreno SERTRALINE HCL 50MG 2021-0 8-10 00:00: 00 11-12 00:00 :00 No [id number] Olvin Moreno &lt 2022-0 8-05 00:00: 00 Yes 500 Olvin Moreno Dose Unknown 2021-0 8-05 00:00: 00 Yes Olvin Moreno &lt 2022-0 8-05 00:00: 00 No 500 &lt 2022-0 8-05 00:00: 00 No &lt 2022-0 8-05 00:00: 00 No 500 Dose Unknown 2021-0 8-05 00:00: 00 No ZOLPIDEM TARTRATE 10MG TAB 0 7- 00:00: 00 No &lt 2021-0 7- 00:00: 00 No SERTRALINE HYDROCHLORI DE 100MG TAB 0 7- 00:00: 00 Yes Olvin Moreno MELOXICAM 15MG TAB 0 7- 00:00: 00 Yes Olvin Moreno &lt 0 7- 00:00: 00 Yes Olvin Moreno &lt 0 7- 00:00: 00 No &lt 0 7- 00:00: 00 No &lt 0 7- 00:00: 00 No &lt 0 7- 00:00: 00 No SERTRALINE HYDROCHLORI DE 100MG TAB - 00:00: 00 No MELOXICAM 15MG TAB 0 12-29 00:00: 00 No DULOXETINE HYDROCHLORI DE 40MG DR 12-16 00:00: 00 11-12 00:00 :00 No [id number] Olvin Moreno Albuterol HFA 108 (90 Base) MCG/ACT IN AERS 12-01 00:00: 00 Yes [id number] 2{puff} Q.25D Inhale 2 puffs into the lungs every 6 hours as needed for wheezing Caroline Spaulding Amoxicillin -Pot Clavulanate 500-125 MG oral Tablet 12-01 00:00: 00 Yes [id number] 1{tbl} Take 1 tablet by mouth in the morning and 1 tablet in the evening. Caroline Spaulding zolpidem 10 mg tablet 11-26 00:00: 00 No 1mg Dose Unknown 11-26 00:00: 00 No zolpidem 10 mg tablet 0 11-26 00:00: 00 Yes 1mg Olvin Moreno Dose Unknown 11-25 00:00: 00 No Dose Unknown 11-25 00:00: 00 No sertraline 50 mg tablet 11-25 00:00: 00 Yes 1mg Olvin Moreno DULOXETINE HYDROCHLORI DE 40MG DR 11-16 00:00: 00 11-12 00:00 :00 No [id number] Olvin Moreno predniSONE (DELTASONE) 10 MG oral tablet 2021-0 5-18 00:00: 00 Yes Caroline Spaulding meloxicam 15 mg tablet 2021-0 4-06 00:00: 00 No 1mg meloxicam 15 mg tablet 2021-0 4-06 00:00: 00 No 1mg meloxicam 15 mg tablet 2021-0 4-06 00:00: 00 Yes 1mg Olvin Moreno ZOLPIDEM TARTRATE 10MG 2021-0 4-06 00:00: 00 05-15 00:00 :00 No [id number] Olvin Moreno Dose Unknown 0 3-30 00:00: 00 No Dose Unknown 0 3-30 00:00: 00 No Dose Unknown 0 3-30 00:00: 00 Yes Olvin Moreno Dose Unknown 0 3-24 00:00: 00 No Dose Unknown 0 3-24 00:00: 00 No Dose Unknown 0 3-24 00:00: 00 Yes Olvin Moreno Dose Unknown 0 3-21 00:00: 00 No duloxetine 40 mg capsule,del ayed release 0 3-21 00:00: 00 No 1mg Dose Unknown 0 3-21 00:00: 00 No 5 Dose Unknown 0 3-21 00:00: 00 No Dose Unknown 2021-0 3-21 00:00: 00 No Pantoprazol e Sodium 40 MG oral Tablet Delayed Response 2021-0 3-21 00:00: 00 Yes Caroline Spaulding - Externa l pantoprazol e 40 mg tablet,max yed release 2021-0 3-21 00:00: 00 Yes 1mg Olvin Moreno duloxetine 40 mg capsule,del ayed release 2021-0 3-21 00:00: 00 Yes 1mg Olvin Moreno Dose Unknown 0 3-21 00:00: 00 Yes Olvin Moreno gabapentin 300 mg capsule 2021-0 3-18 00:00: 00 No 1mg Dose Unknown 2021-0 3-18 00:00: 00 No Dose Unknown 2021-0 3-18 00:00: 00 No Dose Unknown 2021-0 3-18 00:00: 00 No Dose Unknown 0 3-18 00:00: 00 No Dose Unknown 0 3-18 00:00: 00 No gabapentin 300 mg capsule 0 3-18 00:00: 00 Yes 1mg Olvin Moreno Dose Unknown 0 3-18 00:00: 00 Yes Olvin Moreno Dose Unknown 0 3-18 00:00: 00 Yes Olvin Moreno Dose Unknown 0 3-14 00:00: 00 No Dose Unknown 0 3-14 00:00: 00 No Dose Unknown 0 314 00:00: 00 No Dose Unknown 0 3-14 00:00: 00 No Dose Unknown 0 3-14 00:00: 00 Yes Olvin Moreno Dose Unknown 0 3-14 00:00: 00 Yes Olvin Moreno ProAir HFA 90 mcg/actuati on aerosol inhaler 0 2-16 00:00: 00 No 2mcg/ac tuation sertraline 50 mg tablet 0 2-16 00:00: 00 No 1mg Dose Unknown 0 2-16 00:00: 00 No 40 sertraline 50 mg tablet 0 2-16 00:00: 00 No 1mg ProAir HFA 90 mcg/actuati on aerosol inhaler 0 2-16 00:00: 00 Yes 2mcg/ac tuation Olvin Moreno sertraline 50 mg tablet 0 2-16 00:00: 00 Yes 1mg Olvin Moreno zolpidem 10 mg tablet 0 2-07 00:00: 00 No 1mg zolpidem 10 mg tablet 0 2-07 00:00: 00 No 1mg zolpidem 10 mg tablet 0 2-07 00:00: 00 Yes 1mg Olvin Moreno Dose Unknown 0 2-02 00:00: 00 No Dose Unknown 0 2-02 00:00: 00 No Dose Unknown 0 2-02 00:00: 00 Yes Olvin Moreno zolpidem 10 mg tablet 2020-07 1- 00:00: 00 No 1mg zolpidem 10 mg tablet 2020-07 1 00:00: 00 No 1mg zolpidem 10 mg tablet 2020-07- 00:00: 00 Yes 1mg Olvin Moreno ProAir HFA 90 mcg/actuati on aerosol inhaler 2020-07 0- 00:00: 00 No 2mcg/ac tuation sertraline 100 mg tablet 2020-07 0 00:00: 00 No 1mg lisinopril 5 mg tablet 2020-07 0 00:00: 00 No 1mg meloxicam 15 mg tablet 2020-07 0 00:00: 00 No 1mg ProAir HFA 90 mcg/actuati on aerosol inhaler 2020-07 00:00: 00 No 2mcg/ac tuation sertraline 100 mg tablet 2020-07 00:00: 00 No 1mg meloxicam 15 mg tablet 2020-07 0 00:00: 00 No 1mg Dose Unknown 2020-07 0 00:00: 00 No ProAir HFA 90 mcg/actuati on aerosol inhaler 2020-07 00:00: 00 Yes 2mcg/ac tuation Olvin Moreno sertraline 100 mg tablet 2020-07 0 00:00: 00 Yes 1mg Olvin Moreno lisinopril 5 mg tablet 2020-07 0 00:00: 00 Yes 1mg Olvin Moreno meloxicam 15 mg tablet 2020-07 0 00:00: 00 Yes 1mg Olvin Moreno Dose Unknown 2020-07 0- 00:00: 00 No Dose Unknown 2020-07 0 00:00: 00 No Dose Unknown 2020-07 0- 00:00: 00 Yes Olvin Moreno ProAir HFA 90 mcg/actuati on aerosol inhaler 03-20 00:00: 00 No 2mcg/ac tuation meloxicam 15 mg tablet 03-20 00:00: 00 No 1mg sertraline 100 mg tablet 03-20 00:00: 00 No 1mg ProAir HFA 90 mcg/actuati on aerosol inhaler 03-20 00:00: 00 No 2mcg/ac tuation meloxicam 15 mg tablet 03-20 00:00: 00 No 1mg sertraline 100 mg tablet 03-20 00:00: 00 No 1mg ProAir HFA 90 mcg/actuati on aerosol inhaler 03-20 00:00: 00 Yes 2mcg/ac tuation Olvin Moreno meloxicam 15 mg tablet 03-20 00:00: 00 Yes 1mg Olvin Moreno sertraline 100 mg tablet 03-20 00:00: 00 Yes 1mg Olvin Moreno Zithromax 250 mg tablet 02-09 00:00: 00 No 1mg Zithromax 250 mg tablet 02-09 00:00: 00 No 1mg Zithromax 250 mg tablet 02-09 00:00: 00 Yes 1mg Olvin Moreno meloxicam 15 mg tablet 01-30 00:00: 00 No 1mg meloxicam 15 mg tablet 01-30 00:00: 00 No 1mg meloxicam 15 mg tablet 01-30 00:00: 00 Yes 1mg Olvin Moreno Hydrocodone Bitartrate 7.5 MG / Ibuprofen 200 MG Oral Tablet 01-17 19:37: 00 Yes 1 tab, PO, Q4H, PRN for pain, 0 Refill(s) Memoria amanda Pena spironolact one 25 mg oral tablet 01-17 19:36: 00 Yes 0 Refill(s) Memajith Pena Clotrimazol e 10 MG/ML Topical Cream 01-17 19:36: 00 Yes 0 Refill(s) Memajith Pena multivitami n 01-17 19:36: 00 Yes Daily, 0 Refill(s) Memajith Pena Feosol 01-17 19:34: 00 Yes PO, 0 Refill(s) Memoria amanda Pena D3 01-17 19:34: 00 Yes 25 microgram, PO, Daily, 0 Refill(s) Memajith Pena biotin 1000 mcg oral tablet 01-17 19:34: 00 Yes 1,000 microgram = 1 tab, PO, Daily, # 30 tab, 0 Refill(s) Rigo Pena lisinopril 20 mg oral tablet 01-17 19:33: 00 Yes 20 mg = 1 tab, PO, Daily, # 30 tab, 0 Refill(s) Rigo Pena zolpidem 10 mg oral tablet 01-17 19:33: 00 Yes 10 mg = 1 tab, PO, Bedtime, 0 Refill(s) Rigo Pena meloxicam 15 mg oral tablet 01-17 19:32: 00 Yes 0 Refill(s) Rigo Pena sertraline 100 mg oral tablet 01-17 19:31: 00 Yes 100 mg = 1 tab, PO, Daily, # 30 tab, 0 Refill(s) Rigo Pena Cholecalcif tito (D3) 10 MCG (400 UNIT) oral Chewable Tablet 01-17 00:00: 00 09-01 00:00 :00 No 25ug 25 mcg Caroline patel Multiple Vitamins-Mi nerals (MULTIVITAM IN ADULT EXTRA C OR) 01-17 00:00: 00 08-03 00:00 :00 No Daily, 0 Refill(s) Caroline patel sertraline 100 mg tablet 01-03 00:00: 00 No 1mg zolpidem 10 mg tablet 01-03 00:00: 00 No 1mg sertraline 100 mg tablet 01-03 00:00: 00 No 1mg zolpidem 10 mg tablet 01-03 00:00: 00 No 1mg sertraline 100 mg tablet 01-03 00:00: 00 Yes 1mg Olvin Moreno zolpidem 10 mg tablet 01-03 00:00: 00 Yes 1mg Olvin Moreno clotrimazol e 1 % topical cream 11-01 00:00: 00 No 1% ProAir HFA 90 mcg/actuati on aerosol inhaler 11-01 00:00: 00 No 2mcg/ac tuation meloxicam 15 mg tablet 11-01 00:00: 00 No 1mg lisinopril 5 mg tablet 11-01 00:00: 00 No 1mg Zoloft 50 mg tablet 11-01 00:00: 00 No 1mg spironolact one 25 mg tablet 11-01 00:00: 00 No 1mg zolpidem 10 mg tablet 11-01 00:00: 00 No 1mg Flonase Allergy Relief 50 mcg/actuati on nasal spray,suspe nsion 11-01 00:00: 00 No 1mcg/ac tuation Dose Unknown 11-01 00:00: 00 No 40 ProAir HFA 90 mcg/actuati on aerosol inhaler 11-01 00:00: 00 No 2mcg/ac tuation meloxicam 15 mg tablet 11-01 00:00: 00 No 1mg lisinopril 5 mg tablet 11-01 00:00: 00 No 1mg Zoloft 50 mg tablet 11-01 00:00: 00 No 1mg spironolact one 25 mg tablet 11-01 00:00: 00 No 1mg zolpidem 10 mg tablet 11-01 00:00: 00 No 1mg Dose Unknown 11-01 00:00: 00 No 40 clotrimazol e 1 % topical cream 11-01 00:00: 00 Yes 1% Olvin Moreno ProAir HFA 90 mcg/actuati on aerosol inhaler 11-01 00:00: 00 Yes 2mcg/ac tuation Olvin Moreno meloxicam 15 mg tablet 11-01 00:00: 00 Yes 1mg Olvin Garcia Moreno lisinopril 5 mg tablet 11-01 00:00: 00 Yes 1mg Olvin Moreno Zoloft 50 mg tablet 11-01 00:00: 00 Yes 1mg Olvin Moreno spironolact one 25 mg tablet 11-01 00:00: 00 Yes 1mg Olvin Moreno zolpidem 10 mg tablet 11-01 00:00: 00 Yes 1mg Olvin Moreno Flonase Allergy Relief 50 mcg/actuati on nasal spray,suspe nsion 5- 00:00: 00 Yes 1mcg/ac tuation Olvin Moreno Augmentin 875 mg-125 mg tablet 10-27 00:00: 00 No 1mg Augmentin 875 mg-125 mg tablet 10-27 00:00: 00 No 1mg Augmentin 875 mg-125 mg tablet 10-27 00:00: 00 Yes 1mg Olvin Moreno meloxicam 15 mg tablet 4- 00:00: 00 No 1mg meloxicam 15 mg tablet 4 00:00: 00 No 1mg meloxicam 15 mg tablet 10-03 00:00: 00 Yes 1mg Olvin Moreno clotrimazol e 1 % topical cream 2- 00:00: 00 No 1% clotrimazol e 1 % topical cream 2 00:00: 00 No 1% clotrimazol e 1 % topical cream 2 00:00: 00 Yes 1% Olvin Moreno meloxicam 15 mg tablet 2-17 00:00: 00 No 1mg meloxicam 15 mg tablet 2- 00:00: 00 No 1mg meloxicam 15 mg tablet 2- 00:00: 00 Yes 1mg Olvin Moreno ProAir HFA 90 mcg/actuati on aerosol inhaler 2- 00:00: 00 No 2mcg/ac tuation spironolact one 25 mg tablet 2-09 00:00: 00 No 1mg Zoloft 50 mg tablet 2- 00:00: 00 No 1mg lisinopril 5 mg tablet 2- 00:00: 00 No 1mg zolpidem 10 mg tablet 2- 00:00: 00 No 1mg ProAir HFA 90 mcg/actuati on aerosol inhaler 2- 00:00: 00 No 2mcg/ac tuation spironolact one 25 mg tablet 2- 00:00: 00 No 1mg Zoloft 50 mg tablet 2- 00:00: 00 No 1mg lisinopril 5 mg tablet 2 00:00: 00 No 1mg zolpidem 10 mg tablet 2 00:00: 00 No 1mg ProAir HFA 90 mcg/actuati on aerosol inhaler 2 00:00: 00 Yes 2mcg/ac tuation Olvin Moreno spironolact one 25 mg tablet 2 00:00: 00 Yes 1mg Olvin Mroeno Zoloft 50 mg tablet 2 00:00: 00 Yes 1mg Olvin Moreno lisinopril 5 mg tablet 08-09 00:00: 00 Yes 1mg Olvin Moreno zolpidem 10 mg tablet 08-09 00:00: 00 Yes 1mg Olvin Moreno spironolact one 25 mg tablet 07-22 00:00: 00 No 1mg meloxicam 15 mg tablet 07-22 00:00: 00 No 1mg spironolact one 25 mg tablet 07-22 00:00: 00 No 1mg meloxicam 15 mg tablet 07-22 00:00: 00 No 1mg spironolact one 25 mg tablet 07-22 00:00: 00 Yes 1mg Olvin Moreno meloxicam 15 mg tablet 07-22 00:00: 00 Yes 1mg Olvin Moreno spironolact one 25 mg tablet 07-19 00:00: 00 No 1mg spironolact one 25 mg tablet 07-19 00:00: 00 No 1mg spironolact one 25 mg tablet 07-19 00:00: 00 Yes 1mg Olvin Moreno meloxicam 15 mg tablet 2019-07 00:00: 00 No 1mg meloxicam 15 mg tablet 2019-07 00:00: 00 No 1mg meloxicam 15 mg tablet 2019-07 00:00: 00 Yes 1mg Olvin Moreno meloxicam 15 mg tablet 2019-07 00:00: 00 No 1mg meloxicam 15 mg tablet 2019-07 00:00: 00 No 1mg meloxicam 15 mg tablet 2019-07 00:00: 00 Yes 1mg Olvin Moreno ProAir HFA 90 mcg/actuati on aerosol inhaler 2019-07 00:00: 00 No 2mcg/ac tuation spironolact one 25 mg tablet 2019-07 00:00: 00 No 1mg lisinopril 20 mg-hydrochl orothiazide 12.5 mg tablet 2019-07 00:00: 00 No 1mg Zoloft 50 mg tablet 2019-07 00:00: 00 No 1mg zolpidem 10 mg tablet 2019-07 00:00: 00 No 1mg ProAir HFA 90 mcg/actuati on aerosol inhaler 2019-07 00:00: 00 No 2mcg/ac tuation spironolact one 25 mg tablet 2019-07 00:00: 00 No 1mg lisinopril 20 mg-hydrochl orothiazide 12.5 mg tablet 2019-07 00:00: 00 No 1mg Zoloft 50 mg tablet 2019-07 00:00: 00 No 1mg zolpidem 10 mg tablet 2019-07 00:00: 00 No 1mg ProAir HFA 90 mcg/actuati on aerosol inhaler 2019-07 00:00: 00 Yes 2mcg/ac tuation Olvin Moreno spironolact one 25 mg tablet 2019-07 00:00: 00 Yes 1mg Olvin Moreno lisinopril 20 mg-hydrochl orothiazide 12.5 mg tablet 2019-07 00:00: 00 Yes 1mg Olvin Moreno Zoloft 50 mg tablet 2019-07 00:00: 00 Yes 1mg Olvin Moreon zolpidem 10 mg tablet 2019-07 00:00: 00 Yes 1mg Olvin Moreno clotrimazol e 1 % topical cream 2019-07 00:00: 00 No 1% zolpidem 10 mg tablet 2019-07 00:00: 00 No 1mg clotrimazol e 1 % topical cream 2019-07 019 00:00: 00 No 1% zolpidem 10 mg tablet 2019-0719 00:00: 00 No 1mg clotrimazol e 1 % topical cream 2019-07 019 00:00: 00 Yes 1% Olvin Moreno zolpidem 10 mg tablet 2019-07 019 00:00: 00 Yes 1mg Olvin Moreno meloxicam 15 mg tablet 2019-07 015 00:00: 00 No 1mg meloxicam 15 mg tablet 2019-07 015 00:00: 00 No 1mg meloxicam 15 mg tablet 2019-07 015 00:00: 00 Yes 1mg Olvin Moreno lisinopril 20 mg-hydrochl orothiazide 12.5 mg tablet 0 03-29 00:00: 00 No 1mg Zoloft 50 mg tablet 03-29 00:00: 00 No 1mg lisinopril 20 mg-hydrochl orothiazide 12.5 mg tablet 03-29 00:00: 00 No 1mg Zoloft 50 mg tablet 03-29 00:00: 00 No 1mg lisinopril 20 mg-hydrochl orothiazide 12.5 mg tablet 03-29 00:00: 00 Yes 1mg Olvin Moreno Zoloft 50 mg tablet 03-29 00:00: 00 Yes 1mg Olvin Moreno lisinopril 20 mg-hydrochl orothiazide 12.5 mg tablet 03-11 00:00: 00 No 1mg lisinopril 20 mg-hydrochl orothiazide 12.5 mg tablet 03-11 00:00: 00 No 1mg lisinopril 20 mg-hydrochl orothiazide 12.5 mg tablet 03-11 00:00: 00 Yes 1mg Olvin Moreno lisinopril 20 mg-hydrochl orothiazide 12.5 mg tablet 03-03 00:00: 00 No 1mg lisinopril 20 mg-hydrochl orothiazide 12.5 mg tablet 03-03 00:00: 00 No 1mg lisinopril 20 mg-hydrochl orothiazide 12.5 mg tablet 03-03 00:00: 00 Yes 1mg Olvin Moreno meloxicam 15 mg tablet 2020-0 8-12 00:00: 00 No 1mg meloxicam 15 mg tablet 2020-0 8-12 00:00: 00 No 1mg meloxicam 15 mg tablet 2020-0 8-12 00:00: 00 Yes 1mg Olvin Moreno Zoloft 50 mg tablet 2020-0 7-28 00:00: 00 No 1mg Zoloft 50 mg tablet 2020-0 7-28 00:00: 00 No 1mg Zoloft 50 mg tablet 2020-0 7-28 00:00: 00 Yes 1mg Olvin Moreno meloxicam 15 mg tablet 2020-0 7-13 00:00: 00 No 1mg zolpidem 10 mg tablet 2019-0 7-13 00:00: 00 No 1mg meloxicam 15 mg tablet 2019-0 7-13 00:00: 00 No 1mg zolpidem 10 mg tablet 2020-0 7-13 00:00: 00 No 1mg meloxicam 15 mg tablet 2019-0 7-13 00:00: 00 Yes 1mg Olvin Moreno zolpidem 10 mg tablet 2019-0 7-13 00:00: 00 Yes 1mg Olvin Moreno zolpidem 10 mg tablet 2019-0 6-24 00:00: 00 No 1mg zolpidem 10 mg tablet 2019-0 6-24 00:00: 00 No 1mg zolpidem 10 mg tablet 2019-0 6-24 00:00: 00 Yes 1mg Olvin Moreno meloxicam 15 mg tablet 2020-0 6-09 00:00: 00 No 1mg meloxicam 15 mg tablet 2019-0 6-09 00:00: 00 No 1mg meloxicam 15 mg tablet 2020-0 6-09 00:00: 00 Yes 1mg Olvin Moreno meloxicam 15 mg tablet 2019-0 5-04 00:00: 00 No 1mg meloxicam 15 mg tablet 2020-0 5-04 00:00: 00 No 1mg meloxicam 15 mg tablet 2020-0 5-04 00:00: 00 Yes 1mg Olvin Moreno Zoloft 50 mg tablet 2020-0 4-16 00:00: 00 No 1mg Zoloft 50 mg tablet 2020-0 4-16 00:00: 00 No 1mg Zoloft 50 mg tablet 2020-0 4-16 00:00: 00 Yes 1mg Olvin Moreno zolpidem 10 mg tablet 2020-0 3-24 00:00: 00 No 1mg zolpidem 10 mg tablet 2019-0 3-24 00:00: 00 No 1mg zolpidem 10 mg tablet 2020-0 3-24 00:00: 00 Yes 1mg Olvin Moreno ProAir HFA 90 mcg/actuati on aerosol inhaler 2020-0 2-27 00:00: 00 No 2mcg/ac tuation meloxicam 15 mg tablet 2019-0 2-27 00:00: 00 No 1mg ProAir HFA 90 mcg/actuati on aerosol inhaler 2019-0 2-27 00:00: 00 No 2mcg/ac tuation meloxicam 15 mg tablet 2019-0 2-27 00:00: 00 No 1mg ProAir HFA 90 mcg/actuati on aerosol inhaler 2019-0 2-27 00:00: 00 Yes 2mcg/ac tuation Olvin Moreno meloxicam 15 mg tablet 2019-0 2-27 00:00: 00 Yes 1mg Olvin Moreno ProAir HFA 90 mcg/actuati on aerosol inhaler 2019-0 2-25 00:00: 00 No 2mcg/ac tuation meloxicam 15 mg tablet 2019-0 2-25 00:00: 00 No 1mg ProAir HFA 90 mcg/actuati on aerosol inhaler 2020-0 2-25 00:00: 00 No 2mcg/ac tuation meloxicam 15 mg tablet 2019-0 2-25 00:00: 00 No 1mg ProAir HFA 90 mcg/actuati on aerosol inhaler 2019-0 2-25 00:00: 00 Yes 2mcg/ac tuation Olvin Moreno meloxicam 15 mg tablet 2019-0 2-25 00:00: 00 Yes 1mg Olvin Moreno Zoloft 50 mg tablet 2019-0 1-20 00:00: 00 No 1mg Zoloft 50 mg tablet 2019-0 1-20 00:00: 00 No 1mg Zoloft 50 mg tablet 2019-0 1-20 00:00: 00 Yes 1mg Olvin Moreno ProAir HFA 90 mcg/actuati on aerosol inhaler 07-16 00:00: 00 No 2mcg/ac tuation bisoprolol fumarate 5 mg tablet 07-16 00:00: 00 No 1mg meloxicam 15 mg tablet 07-16 00:00: 00 No 1mg cyanocobala min (vit B-12) 1,000 mcg/mL injection solution 07-16 00:00: 00 No 1mcg/mL ProAir HFA 90 mcg/actuati on aerosol inhaler 07-16 00:00: 00 No 2mcg/ac tuation bisoprolol fumarate 5 mg tablet 07-16 00:00: 00 No 1mg meloxicam 15 mg tablet 07-16 00:00: 00 No 1mg cyanocobala min (vit B-12) 1,000 mcg/mL injection solution 07-16 00:00: 00 No 1mcg/mL ProAir HFA 90 mcg/actuati on aerosol inhaler 07-16 00:00: 00 Yes 2mcg/ac tuation Olvin Moreno bisoprolol fumarate 5 mg tablet 07-16 00:00: 00 Yes 1mg Olvin Moreno meloxicam 15 mg tablet 07-16 00:00: 00 Yes 1mg Olvin Moreno cyanocobala min (vit B-12) 1,000 mcg/mL injection solution 07-16 00:00: 00 Yes 1mcg/mL Olvin Moreno amoxicillin 500 mg capsule 809 00:00: 00 Yes 500mg Take 1 capsule by mouth 3 (three) times daily. [facility] bisoprolol- hydrochloro thiazide 5-6.25 mg per tablet 10-09 13:40: 26 Yes 1{tbl} Take 1 tablet by mouth daily. [facility] multivitami n, tx-minerals (COMPLETE MULTIVITAMI N) tablet 10-09 13:40: 26 Yes 1{tbl} Take 1 tablet by mouth daily. [facility] ferrous sulfate (IRON, FERROUS SULFATE,) 325 mg (65 mg iron) tablet 10-09 13:40: 26 Yes 325mg Take 325 mg by mouth daily. [facility] bisoprolol- hydrochloro thiazide 5-6.25 mg per tablet 10-09 08:40: 26 Yes 1{tbl} Take 1 tablet by mouth daily. [facility] multivitami n, tx-minerals (COMPLETE MULTIVITAMI N) tablet 10-09 08:40: 26 Yes 1{tbl} Take 1 tablet by mouth daily. [facility] ferrous sulfate (IRON, FERROUS SULFATE,) 325 mg (65 mg iron) tablet 10-09 08:40: 26 Yes 325mg Take 325 mg by mouth daily. [facility] multivitami n, tx-minerals (COMPLETE MULTIVITAMI N) tablet 10-09 08:40: 26 Yes 1{tbl} Take 1 tablet by mouth daily. [facility] zolpidem (AMBIEN) 10 mg tablet 08-16 00:00: 00 Yes 10mg Take 10 mg by mouth at bedtime. [facility] SERTraline (ZOLOFT) 50 mg tablet 08-16 00:00: 00 Yes 50mg Take 50 mg by mouth daily. [facility] HYDROcodone -acetaminop hen (NORCO) 10-325 mg tablet 08-03 00:00: 00 Yes 1{tbl} Take 1 tablet by mouth every 6 (six) hours as needed. [facility] DULoxetine (CYMBALTA) 30 mg capsule 07-06 00:00: 00 Yes [facility] Immunizations Ordered Immunization Name Filled Immunization Name Date Status Comments Source influenza, high-dose, quadrivalent influenza, high-dose, quadrivalent 2023-03-19 00:00:00 Completed Olvin Moreno Influenza Virus Vaccine, Quadrivalent, High Dose, Age 65 And Up 2022-04-26 00:00:00 Completed Caroline Briones Influenza Virus Vaccine, Quadrivalent, High Dose, Age 65 And Up 2022-04-26 00:00:00 Completed Caroline Briones Influenza Virus Vaccine, Quadrivalent, High Dose, Age 65 And Up 2022-04-26 00:00:00 Completed Caroline Seybold - External Influenza Virus Vaccine, Quadrivalent, High Dose, Age 65 And Up 2022-04-26 00:00:00 Completed Caroline Spaulding - External Covid-19 Vaccine Moderna (Spikevax), Mrna-lnp, Mike Protein, Pf 2021-04-26 00:00:00 Completed Caroline Rafaelaold - External Covid-19 Vaccine Moderna (Spikevax), Mrna-lnp, Mike Protein, Pf 2021-04-26 00:00:00 Completed Caroline Rafaelaold - External Covid-19 Vaccine Moderna (Spikevax), Mrna-lnp, Mike Protein, Pf 2021-04-26 00:00:00 Completed Carolinejose Russoold - External Moderna COVID-19 Vaccine 2021-04-26 00:00:00 Completed Moderna COVID-19 Vaccine 2021-04-26 00:00:00 Completed Moderna COVID-19 Vaccine 2021-04-26 00:00:00 Completed Moderna COVID-19 Vaccine Moderna COVID-19 Vaccine 2021-04-26 00:00:00 Completed Olvin Moreno Covid-19 Vaccine Moderna (Spikevax), Mrna-lnp, Mike Protein, Pf 2020-08-27 00:00:00 Completed Caroline Russoangelita - External Covid-19 Vaccine Moderna (Spikevax), Mrna-lnp, Mike Protein, Pf 2020-08-27 00:00:00 Completed Caroline sujataangelita - External Covid-19 Vaccine Moderna (Spikevax), Mrna-lnp, Mike Protein, Pf 2020-08-27 00:00:00 Completed Caroline Rafaelaold - External Moderna COVID-19 Vaccine 2020-08-27 00:00:00 Completed Moderna COVID-19 Vaccine 2020-08-27 00:00:00 Completed Moderna COVID-19 Vaccine 2020-08-27 00:00:00 Completed Moderna COVID-19 Vaccine Moderna COVID-19 Vaccine 2020-08-27 00:00:00 Completed Olvin Moreno Covid-19 Vaccine Moderna (Spikevax), Mrna-lnp, Mike Protein, Pf 2020-07-30 00:00:00 Completed Caroline Seybold - External Covid-19 Vaccine Moderna (Spikevax), Mrna-lnp, Mike Protein, Pf 2020-07-30 00:00:00 Completed Caroline Seybold - External Covid-19 Vaccine Moderna (Spikevax), Mrna-lnp, Mike Protein, Pf 2020-07-30 00:00:00 Completed Caroline Seybold - External Moderna COVID-19 Vaccine 2020-07-30 00:00:00 Completed Moderna COVID-19 Vaccine 2020-07-30 00:00:00 Completed Moderna COVID-19 Vaccine 2020-07-30 00:00:00 Completed Moderna COVID-19 Vaccine Moderna COVID-19 Vaccine 2020-07-30 00:00:00 Completed Olvin Moreno Influenza, Seasonal, Injectable 2019-03-31 00:00:00 Completed Caroline Seybold - External Influenza, Seasonal, Injectable 2019-03-31 00:00:00 Completed Caroline Seybold - External Influenza, Seasonal, Injectable 2019-03-31 00:00:00 Completed Caroline Seybold - External Influenza, seasonal, inj 2019-03-31 00:00:00 Completed Influenza, seasonal, inj 2019-03-31 00:00:00 Completed Influenza, seasonal, inj 2019-03-31 00:00:00 Completed Influenza, seasonal, inj Influenza, seasonal, inj 2019-03-31 00:00:00 Completed Olvin Moreno Pneumococcal Vaccine, Conjugate 13 2016-07-01 00:00:00 Completed Caroline Seybold - External Shingles SQ (Zostavax) 2016-07-01 00:00:00 Completed Caroline Seybold - External Pneumococcal Vaccine, Conjugate 13 2016-07-01 00:00:00 Completed Caroline Seybold - External Shingles SQ (Zostavax) 2016-07-01 00:00:00 Completed Caroline Seybold - External Pneumococcal Vaccine, Conjugate 13 2016-07-01 00:00:00 Completed Caroline Seybold - External Shingles SQ (Zostavax) 2016-07-01 00:00:00 Completed Caroline Seybold - External Pneumococcal conjugate P 2016-07-01 00:00:00 Completed zoster 2016-07-01 00:00:00 Completed Pneumococcal conjugate P 2016-07-01 00:00:00 Completed zoster 2016-07-01 00:00:00 Completed Pneumococcal conjugate P 2016-07-01 00:00:00 Completed zoster 2016-07-01 00:00:00 Completed Pneumococcal conjugate P Pneumococcal conjugate P 2016-07-01 00:00:00 Completed Olvin Moreno zoster zoster 2016-07-01 00:00:00 Completed Olvin Moreno Influenza Virus Vaccine, Quadrivalent, High Dose, Age 65 And Up Unknown Completed [facility] S eybold - External Influenza, Seasonal, Injectable Unknown Completed [facility] Seybold - External Covid-19 Vaccine Moderna (Spikevax), Mrna-lnp, Mike Protein, Pf Unknown Completed [facility] Seybold - External Pneumococcal Vaccine, Conjugate 13 [facility] (Zostavax) Unknown Completed [facility] Seybold - External Influenza Virus Vaccine, Quadrivalent, High Dose, Age 65 And Up Unknown Completed [facility] eybold - External Influenza, Seasonal, Injectable Unknown [facility]ine Moderna (Spikevax), Mrna-lnp, Mike Protein, Pf Unknown [facility] Pneumococcal Vaccine, Conjugate 13 Unknown Completed [facility] - External Shingles SQ (Zostavax) [facility] Vacc[facility], Quadrivalent, High Dose, Age 65 And Up Unknown Completed Caroline S eybold - External Influenza Virus Vaccine, Quadrivalent, High Dose, Age 65 And Up Unknown Completed [facility] eybold - External AFLURIA TRIVALENT MDV Unknown [facility] Moderna (Spikevax), Mrna-lnp, Mike Protein, Pf Unknown [facility] Vaccine Moderna (Spikevax), Mrna-lnp, Mike Protein, Pf Unknown Completed [facility] Seybold - External Pneumococcal Vaccine, Conjugate 13 Unknown [facility] (Zostavax) Unknown Completed Caroline Seybold - External Influenza Virus Vaccine, Quadrivalent, High Dose, Age 65 And Up Unknown Completed [facility] eybold - External Influenza Virus Vaccine, Quadrivalent, High Dose, Age 65 And Up Unknown Completed [facility] eybold - External AFLURIA TRIVALENT MDV Unknown Completed Caroline Seybold - External Covid-19 Vaccine Moderna (Spikevax), Mrna-lnp, Mike Protein, Pf Unknown Completed [facility] Sey[facility] - External Covid-19 Vaccine Moderna (Spikevax), Mrna-lnp, Mike Protein, Pf Unknown Completed [facility] Seybold - External Pneumococcal Vaccine, Conjugate 13 Unknown Completed [facility] - External Shingles SQ (Zostavax) Unknown [facility] Influenza Virus Vaccine, Quadrivalent, High Dose, Age 65 And Up Unknown Completed [facility] - External Influenza Virus Vaccine, High Dose, Age 65 And Up Unknown Completed [facility] Seybold - External Influenza Virus Vaccine, Quadrivalent, High Dose, Age 65 And Up Unknown Completed [facility] eybold - External AFLURIA TRIVALENT MDV Unknown [facility] Vaccine Moderna (Spikevax), Mrna-lnp, Mike Protein, Pf Unknown Completed [facility] - External Covid-19 Vaccine Moderna (Spikevax), Mrna-lnp, Mike Protein, Pf Unknown Completed [facility] - External Pneumococcal Vaccine, Conjugate 13 Unknown Completed [facility] - External Shingles SQ (Zostavax) Unknown Completed [facility] - External Influenza Virus Vaccine, Quadrivalent, High Dose, Age 65 And Up Unknown Completed [facility] - External Influenza Virus Vaccine, High Dose, Age 65 And Up Unknown [facility] Influenza Virus Vaccine, Quadrivalent, High Dose, Age 65 And Up Unknown Completed [facility] eybold - External AFLURIA TRIVALENT MDV Unknown [facility] Vaccine Moderna (Spikevax), Mrna-lnp, Mike Protein, Pf Unknown [facility]ine Moderna (Spikevax), Mrna-lnp, Mike Protein, Pf Unknown [facility] Pneum[facility] Vaccine, Conjugate 13 Unknown [facility] Shingles SQ (Zostavax) Unknown Completed [facility] Seybold - External Influenza Virus Vaccine, Quadrivalent, High Dose, Age 65 And Up Unknown Completed Caroline S eybold - External Influenza Virus Vaccine, High Dose, Age 65 And Up Unknown Completed Caroline Seybold - External Vital Signs Vital Name Observation Time Observation Value Comments S ource Systolic blood pressure 2025-01-11 15:56:00 116 mm[Hg] Caroline Seybo ld - External Diastolic blood pressure 2025-01-11 15:56:00 60 mm[Hg] Caroline Seybo ld - External Heart rate 2025-01-11 15:56:00 64 /min Kelse y Seybold - External Body temperature 2025-01-11 15:56:00 36.5 Jenna Caroline Seybold - External Respiratory rate 2025-01-11 15:56:00 18 /min Caroline Seybold - External Body height 2025-01-11 15:56:00 170.2 cm Sussy ey Seybold - External Body weight 2025-01-11 15:56:00 80.457 kg Sussy ey Seybold - External BMI 2025-01-11 15:56:00 27.78 kg/m2 Sussy ey Seybold - External Oxygen saturation in Arterial blood by Pulse oximetry 2025-01-11 15:56:00 95 /min Caroline Seybo ld - External Systolic blood pressure 2024-10-19 18:32:00 116 mm[Hg] Caroline Seybo ld - External Diastolic blood pressure 2024-10-19 18:32:00 68 mm[Hg] Caroline Seybo ld - External Heart rate 2024-10-19 18:32:00 96 /min Nachose y Seybold - External Body temperature 2024-10-19 18:32:00 35.89 Jenna Caroline Seybold - External Respiratory rate 2024-10-19 18:32:00 16 /min Caroline Seybold - External Body height 2024-10-19 18:32:00 170.2 cm Sussy ey Seybold - External Body weight 2024-10-19 18:32:00 83.915 kg Sussy ey Seybold - External BMI 2024-10-19 18:32:00 28.98 kg/m2 Sussy ey Seybold - External Oxygen saturation in Arterial blood by Pulse oximetry 2024-10-19 18:32:00 98 /min Caroline Seybo ld - External Systolic blood pressure 2024-09-01 21:41:00 124 mm[Hg] Caroline Seybo ld - External Diastolic blood pressure 2024-09-01 21:41:00 71 mm[Hg] Caroline Seybo ld - External Heart rate 2024-09-01 21:41:00 89 /min Kelse y Seybold - External Body temperature 2024-09-01 21:41:00 36.61 Jenna Caroline Seybold - External Respiratory rate 2024-09-01 21:41:00 16 /min Caroline Seybold - External Body height 2024-09-01 21:41:00 170.2 cm Sussy ey Seybold - External Body weight 2024-09-01 21:41:00 83.915 kg Sussy ey Seybold - External BMI 2024-09-01 21:41:00 28.98 kg/m2 Sussy ey Seybold - External Oxygen saturation in Arterial blood by Pulse oximetry 2024-09-01 21:41:00 98 /min Caroline Seybo ld - External Systolic blood pressure 2024-08-03 18:48:00 104 mm[Hg] Caroline Seybo ld - External Diastolic blood pressure 2024-08-03 18:48:00 58 mm[Hg] Caroline Seybo ld - External Heart rate 2024-08-03 18:48:00 82 /min Nachose y Seybold - External Body temperature 2024-08-03 18:48:00 36.33 Jenna Caroline Seybold - External Respiratory rate 2024-08-03 18:48:00 14 /min Caroline Seybold - External Body height 2024-08-03 18:48:00 170.2 cm Sussy ey Seybold - External Body weight 2024-08-03 18:48:00 84.369 kg Sussy ey Seybold - External BMI 2024-08-03 18:48:00 29.13 kg/m2 Sussy ey Seybold - External Oxygen saturation in Arterial blood by Pulse oximetry 2024-08-03 18:48:00 99 /min Caroline Seybo ld - External Systolic blood pressure 2023-11-13 19:33:00 120 mm[Hg] Caroline Seybo ld - External Diastolic blood pressure 2023-11-13 19:33:00 60 mm[Hg] Caroline Seybo ld - External Heart rate 2023-11-13 19:33:00 75 /min Nachose y Seybold - External Body temperature 2023-11-13 19:33:00 37 Jenna Caroline Seybold - External Respiratory rate 2023-11-13 19:33:00 15 /min Caroline Seybold - External Body height 2023-11-13 19:33:00 170.2 cm Sussy ey Seybold - External Body weight 2023-11-13 19:33:00 90.266 kg Sussy ey Seybold - External BMI 2023-11-13 19:33:00 31.17 kg/m2 Sussy ey Seybold - External Systolic blood pressure 2023-03-11 23:00:00 175 mm[Hg] [facility] Diastolic blood pressure 2023-03-11 23:00:00 74 mm[Hg] [facility] Heart rate 2023-03-11 23:00:00 70 /min [facility] Respiratory rate 2023-03-11 23:00:00 16 /min [facility] Oxygen saturation in Arterial blood by Pulse oximetry 2023-03-11 23:00:00 100 /min [facility] Body temperature 2023-03-11 19:25:[address] [facility] Body height 2023-03-11 19:25:00 170.2 cm [facility] Body weight 2023-03-11 19:25:00 89.359 kg [facility] BMI 2023-03-11 19:25:00 30.85 kg/m2 [facility] Systolic blood pressure 2022-12-13 15:03:00 142 mm[Hg] Caroline Mitchellybo ld - External Diastolic blood pressure 2022-12-13 15:03:00 68 mm[Hg] Caroline Seybo ld - External Heart rate 2022-12-13 15:03:00 73 /min Nachose y Seybold - External Body temperature 2022-12-13 15:03:00 36.33 Jenna Caroline Seybold - External Respiratory rate 2022-12-13 15:03:00 14 /min Caroline Seybold - External Body height 2022-12-13 15:03:00 170.2 cm Sussy ey Seybold - External Body weight 2022-12-13 15:03:00 91.627 kg Sussy ey Seybold - External BMI 2022-12-13 15:03:00 31.64 kg/m2 Sussy ey Seybold - External Systolic blood pressure 2022-11-14 18:05:00 151 mm[Hg] Caroline Seybo ld - External Diastolic blood pressure 2022-11-14 18:05:00 97 mm[Hg] Caroline Seybo ld - External Heart rate 2022-11-14 18:05:00 92 /min Kelse y Seybold - External Body temperature 2022-11-14 18:05:00 37.11 Jenna Caroline Seybold - External Respiratory rate 2022-11-14 18:05:00 16 /min Caroline Seybold - External Body height 2022-11-14 18:05:00 170.2 cm Sussy ey Seybold - External Body weight 2022-11-14 18:05:00 91.173 kg Sussy ey Seybold - External BMI 2022-11-14 18:05:00 31.48 kg/m2 Sussy ey Seybold - External Oxygen saturation in Arterial blood by Pulse oximetry 2022-11-14 18:05:00 97 /min Caroline Seybo ld - External Systolic blood pressure 2022-05-28 19:52:00 138 mm[Hg] Caroline Seybo ld - External Diastolic blood pressure 2022-05-28 19:52:00 62 mm[Hg] Caroline Seybo ld - External Heart rate 2022-05-28 19:52:00 93 /min Kelse y Seybold - External Body temperature 2022-05-28 19:52:00 35.83 Jenna Caroline Seybold - External Respiratory rate 2022-05-28 19:52:00 16 /min Caroline Seybold - External Body height 2022-05-28 19:52:00 170.2 cm Sussy ey Seybold - External Body weight 2022-05-28 19:52:00 91.173 kg Sussy ey Seybold - External BMI 2022-05-28 19:52:00 31.48 kg/m2 Sussy ey Seybold - External Systolic blood pressure 2022-04-26 14:32:00 143 mm[Hg] Caroline Seybo ld - External Diastolic blood pressure 2022-04-26 14:32:00 67 mm[Hg] Caroline Seybo ld - External Heart rate 2022-04-26 14:32:00 87 /min Kelse y Seybold - External Body temperature 2022-04-26 14:32:00 36.67 Jenna Caroline Seybold - External Respiratory rate 2022-04-26 14:32:00 13 /min Caroline Seybold - External Body height 2022-04-26 14:32:00 170.2 cm Sussy ey Seybold - External Body weight 2022-04-26 14:32:00 92.987 kg Sussy ey Seybold - External BMI 2022-04-26 14:32:00 32.11 kg/m2 Sussy ey Seybold - External Oxygen saturation in Arterial blood by Pulse oximetry 2022-04-26 14:32:00 99 /min Caroline Seybo ld - External Systolic blood pressure 2022-03-29 13:53:00 164 mm[Hg] Caroline Seybo ld - External Diastolic blood pressure 2022-03-29 13:53:00 62 mm[Hg] Caroline Seybo ld - External Heart rate 2022-03-29 13:53:00 80 /min Kelse y Seybold - External Body temperature 2022-03-29 13:53:00 35.39 Jenna Caroline Seybold - External Respiratory rate 2022-03-29 13:53:00 14 /min Caroline Seybold - External Body height 2022-03-29 13:53:00 170.2 cm Sussy ey Seybold - External Body weight 2022-03-29 13:53:00 92.08 kg Sussy ey Seybold - External BMI 2022-03-29 13:53:00 31.79 kg/m2 Sussy ey Seybold - External Systolic blood pressure 2021-12-01 13:54:00 140 mm[Hg] Caroline Seybo ld Diastolic blood pressure 2021-12-01 13:54:00 83 mm[Hg] Caroline Seybo ld Heart rate 2021-12-01 13:54:00 92 /min Kelse y Seybold Body temperature 2021-12-01 13:54:00 36.56 Jenna Caroline Spaulding Respiratory rate 2021-12-01 13:54:00 14 /min Caroline Spaulding Body height 2021-12-01 13:54:00 170.2 cm Sussy Spaulding Body weight 2021-12-01 13:54:00 91.627 kg Sussy Spaulding BMI 2021-12-01 13:54:00 31.64 kg/m2 Sussy Spaulding Systolic blood pressure 2019-03-18 19:54:00 161 mm[Hg] [facility] Diastolic blood pressure 2019-03-18 19:54:00 77 mm[Hg] [facility] Heart rate 2019-03-18 19:54:00 54 /min [facility] Respiratory rate 2019-03-18 19:54:00 18 /min [facility] Oxygen saturation in Arterial blood by Pulse oximetry 2019-03-18 19:54:00 98 /min [facility] Systolic blood pressure 2019-03-18 19:54:00 161 mm[Hg] [facility] Diastolic blood pressure 2019-03-18 19:54:00 77 mm[Hg] [facility] Heart rate 2019-03-18 19:54:00 54 /min [facility] Respiratory rate 2019-03-18 19:54:00 18 /min [facility] Oxygen saturation in Arterial blood by Pulse oximetry 2019-03-18 19:54:00 98 /min [facility] BP Systolic 2024-08-19 10:49:00 149 mm[Hg] Noah Moreno BP Diastolic 2024-08-19 10:49:00 87 mm[Hg] Qasim Moreno Weight Measured 2024-08-19 10:49:00 189.20 pounds Olvin Moreno Height Measured 2024-08-19 10:49:00 66.80 inches Olvin Moreno Body Temperature 2024-08-19 10:49:00 97.70 degrees Olvin Moreno Heart Rate 2024-08-19 10:49:00 96.00 /min Tatiana Moreno Respiratory Rate 2024-08-19 10:49:00 Olvin F Josh BP Systolic 2024-05-20 10:20:00 170 mm[Hg] Step hen F Josh BP Diastolic 2024-05-20 10:20:00 89 mm[Hg] Qasim phen F Josh Weight Measured 2024-05-20 10:20:00 187.80 pounds Olvin F Josh Height Measured 2024-05-20 10:20:00 66.80 inches Olvin F Josh Body Temperature 2024-05-20 10:20:00 98.20 degrees Olvin F Josh Heart Rate 2024-05-20 10:20:00 71.00 /min Tatiana en F Josh Respiratory Rate 2024-05-20 10:20:00 Olvin F Josh BP Systolic 2024-01-15 15:08:00 137 mm[Hg] Step hen F Josh BP Diastolic 2024-01-15 15:08:00 77 mm[Hg] Qasim phen F Josh Weight Measured 2024-01-15 15:08:00 197.40 pounds Olvin F Josh Height Measured 2024-01-15 15:08:00 66.80 inches Olvin F Josh Body Temperature 2024-01-15 15:08:00 97.60 degrees Olvin F Josh Heart Rate 2024-01-15 15:08:00 64.00 /min Tatiana en F Josh Respiratory Rate 2024-01-15 15:08:00 Olvin F Josh Weight Measured 2023-08-21 10:09:00 196.80 pounds Olvin F Josh Height Measured 2023-08-21 10:09:00 66.80 inches Olvin F Josh Body Temperature 2023-08-21 10:09:00 97.30 degrees Olvin F Josh Heart Rate 2023-08-21 10:09:00 73.00 /min Tatiana en F Josh Respiratory Rate 2023-08-21 10:09:00 Olvin F Josh BP Systolic 2023-08-21 10:09:00 120 mm[Hg] Step hen F Josh BP Diastolic 2023-08-21 10:09:00 74 mm[Hg] Qasim phen F Josh BP Systolic 2023-05-08 11:01:00 144 mm[Hg] Step hen F Josh BP Diastolic 2023-05-08 11:01:00 84 mm[Hg] Qasim phen F Josh Weight Measured 2023-05-08 11:01:00 195.40 pounds Olvin F Josh Height Measured 2023-05-08 11:01:00 66.80 inches Olvin F Josh Body Temperature 2023-05-08 11:01:00 98.20 degrees Olvin F Josh Heart Rate 2023-05-08 11:01:00 82.00 /min Tatiana en F Josh Respiratory Rate 2023-05-08 11:01:00 Olvin F Josh BP Systolic 2023-02-06 15:50:00 147 mm[Hg] Step hen F Josh BP Diastolic 2023-02-06 15:50:00 84 mm[Hg] Qasim phen F Josh Weight Measured 2023-02-06 15:50:00 195.80 pounds Olvin F Josh Height Measured 2023-02-06 15:50:00 66.80 inches Olvin F Josh Body Temperature 2023-02-06 15:50:00 97.90 degrees Olvin F Josh Heart Rate 2023-02-06 15:50:00 70.00 /min Tatiana en F Josh Respiratory Rate 2023-02-06 15:50:00 Olvin F Josh BP Systolic 2022-11-12 11:35:00 160 mm[Hg] Step hen F Josh BP Diastolic 2022-11-12 11:35:00 83 mm[Hg] Qasim phen F Josh Weight Measured 2022-11-12 11:35:00 197.40 pounds Olvin F Josh Height Measured 2022-11-12 11:35:00 66.80 inches Olvin F Josh Body Temperature 2022-11-12 11:35:00 97.80 degrees Olvin F Josh Heart Rate 2022-11-12 11:35:00 76.00 /min Tatiana en F Josh Respiratory Rate 2022-11-12 11:35:00 Olvin F Josh BP Systolic 2022-03-14 15:09:00 146 mm[Hg] Step hen F Josh BP Diastolic 2022-03-14 15:09:00 69 mm[Hg] Qasim phen F Josh Weight Measured 2022-03-14 15:09:00 200.00 pounds Olvin F Josh Height Measured 2022-03-14 15:09:00 66.80 inches Olvin F Josh Body Temperature 2022-03-14 15:09:00 98.70 degrees Olvin F Josh Heart Rate 2022-03-14 15:09:00 81.00 /min Tatiana en F Josh Respiratory Rate 2022-03-14 15:09:00 Olvin F Josh BP Systolic 2021-11-02 14:18:00 136 mm[Hg] Step hen F Josh BP Diastolic 2021-11-02 14:18:00 81 mm[Hg] Qasim phen F Josh Weight Measured 2021-11-02 14:18:00 204.60 pounds Olvin F Josh Height Measured 2021-11-02 14:18:00 66.80 inches Olvin F Josh Body Temperature 2021-11-02 14:18:00 98.30 degrees Olvin F Josh Heart Rate 2021-11-02 14:18:00 85.00 /min Tatiana en F Josh Respiratory Rate 2021-11-02 14:18:00 Olvin F Josh BP Systolic 2021-10-19 10:24:00 135 mm[Hg] Step hen F Josh BP Diastolic 2021-10-19 10:24:00 77 mm[Hg] Qasim phen F Josh Weight Measured 2021-10-19 10:24:00 206.00 pounds Olvin F Josh Height Measured 2021-10-19 10:24:00 66.80 inches Olvin F Josh Body Temperature 2021-10-19 10:24:00 98.30 degrees Olvin F Josh Heart Rate 2021-10-19 10:24:00 77.00 /min Tatiana en F Josh Respiratory Rate 2021-10-19 10:24:00 Olvin F Josh BP Systolic 2021-09-18 09:29:00 142 mm[Hg] Step hen F Josh BP Diastolic 2021-09-18 09:29:00 83 mm[Hg] Qasim phen F Josh Weight Measured 2021-09-18 09:29:00 204.00 pounds Olvin F Josh Height Measured 2021-09-18 09:29:00 66.80 inches Olvin F Josh Body Temperature 2021-09-18 09:29:00 97.40 degrees Olvin F Josh Heart Rate 2021-09-18 09:29:00 71.00 /min Tatiana en F Josh Respiratory Rate 2021-09-18 09:29:00 Olvin F Josh BP Systolic 2021-04-26 12:57:00 120 mm[Hg] Step hen F Josh BP Diastolic 2021-04-26 12:57:00 70 mm[Hg] Qasim phen F Josh Weight Measured 2021-04-26 12:57:00 210.40 pounds Olvin F Josh Height Measured 2021-04-26 12:57:00 66.80 inches Olvin F Josh Body Temperature 2021-04-26 12:57:00 97.00 degrees Olvin F Josh Heart Rate 2021-04-26 12:57:00 90.00 /min Tatiana en F Josh Respiratory Rate 2021-04-26 12:57:00 Olvin F Josh Systolic (mm Hg) 2021-01-17 [facility]:04[facility] 2021-01-17 19:04[facility] Rate 2021-01-17 19:04:00 [facility] [place] [facility] Rate 2021-01-17 19:04:00 [facility] [place] Height 2021-01-17 19:04:00 170.18 cm [facility] Weight 2021-01-17 19:04:00 [facility] [place] BMI Calculated 2021-01-17 19:04:00 [facility] [place] BP Systolic 2021-01-03 16:08:00 138 mm[Hg] Step hen F Josh BP Diastolic 2021-01-03 16:08:00 66 mm[Hg] Qasim phen F Josh Weight Measured 2021-01-03 16:08:00 212.40 pounds Olvin F Josh Height Measured 2021-01-03 16:08:00 66.80 inches [place] F Josh Body Temperature 2021-01-03 16:08:00 97.80 degrees Olvin F Josh Heart Rate 2021-01-03 16:08:00 78.00 /min Tatiana en F Josh Respiratory Rate 2021-01-03 16:08:00 Olvin F Josh BP Systolic 2020-11-01 16:49:00 144 mm[Hg] BP Diastolic 2020-11-01 16:49:00 66 mm[Hg] Weight Measured 2020-11-01 16:49:00 213.40 pounds Height Measured 2020-11-01 16:49:00 66.80 inches Body Temperature 2020-11-01 16:49:00 98.00 degrees Heart Rate 2020-11-01 16:49:00 70.00 /min Respiratory Rate 2020-11-01 16:49:00 BP Systolic 2020-08-09 11:08:00 109 mm[Hg] BP Diastolic 2020-08-09 11:08:00 69 mm[Hg] Weight Measured 2020-08-09 11:08:00 211.40 pounds Height Measured 2020-08-09 11:08:00 67.00 inches Body Temperature 2020-08-09 11:08:00 97.10 degrees Heart Rate 2020-08-09 11:08:00 86.00 /min Respiratory Rate 2020-08-09 11:08:00 BP Systolic 2020-05-02 10:33:00 125 mm[Hg] BP Diastolic 2020-05-02 10:33:00 74 mm[Hg] Weight Measured 2020-05-02 10:33:00 213.80 pounds Height Measured 2020-05-02 10:33:00 67.00 inches Body Temperature 2020-05-02 10:33:00 97.80 degrees Heart Rate 2020-05-02 10:33:00 83.00 /min Respiratory Rate 2020-05-02 10:33:00 BP Systolic 2020-03-03 09:28:00 182 mm[Hg] BP Diastolic 2020-03-03 09:28:00 71 mm[Hg] Weight Measured 2020-03-03 09:28:00 214.80 pounds Height Measured 2020-03-03 09:28:00 67.00 inches Body Temperature 2020-03-03 09:28:00 97.90 degrees Heart Rate 2020-03-03 09:28:00 53.00 /min Respiratory Rate 2020-03-03 09:28:00 Procedures Procedure Date / Time Performed Performing Clinician Source CT CHEST PULMONARY ANGIOGRAM 2023-03-11 22:48:[address] [facility] XR CHEST 2 VW 2023-03-11 20:04:00 Curtis Eli [facility] TROPONIN I 2023-03-11 19:48:00 Curtis Eli Un [facility] COMP. METABOLIC PANEL ([id number]) 2023-03-11 19:48:[address] [facility] CBC WITH DIFF 2023-03-11 19:48:00 Curtis Eli [facility] D-DIMER 2023-03-11 19:48:00 Curtis Eli Un [facility] N-TERMINAL PRO-BNP 2023-03-11 19:48:[address] [facility] NOTICE OF PRIVACY PRACTICES 2023-03-11 19:18:03 Doctor Unassigned, [place] [facility] CONSENT/REFUSAL FOR DIAGNOSIS AND TREATMENT 2023-03-11 19:16:47 Doctor Unassigned, [place] [facility] QUANTAFLO 2022-12-13 15:52:41 Crista Culp eybold - External [id number] 2021-06-20 00:00:00 TANIR [facility] BI SCREENING TOMOSYNTHESIS BILATERAL 2021-06-02 15:27:00 Requisition, Paper [facility] ASSIGNMENT OF BENEFITS 2021-06-02 15:06:01 Docto r Unassigned, [facility] CONSENT/REFUSAL FOR DIAGNOSIS AND TREATMENT 2020-06-01 15:06:13 Doctor Unassigned, [facility] ASSIGNMENT OF BENEFITS 2020-06-01 15:05:57 Docto r Unassigned, [facility] XR CHEST 2 VW 2020-02-01 16:08:54 Requisition, Paper [facility] ASSIGNMENT OF BENEFITS 2020-02-01 15:53:27 Docto r Unassigned, [place] Herniorrhaphy [facility] nn Shoulder joint operations [facility] Foot joint operations [facility] [place] Gastric bypass [facility] elizabeth Plan of Care Planned Activity Planned Date Details Comments Source Goal Plan of Care Note [code = 56955-2] Goal Plan of Care Note [code = 24583-3] Goal Plan of Care Note [code = 01660-4] Goal Plan of Care Note [code = 24991-6] Goal Plan of Care Note [code = 76809-2] Goal Plan of Care Note [code = 56971-2] Goal Plan of Care Note [code = 27924-2] Goal Plan of Care Note [code = 72871-4] Goal Plan of Care Note [code = 28588-4] Goal Plan of Care Note [code = 88862-6] Goal Plan of Care Note [code = 59161-1] Goal Plan of Care Note [code = 80832-4] Goal Plan of Care Note [code = 02085-1] Goal Plan of Care Note [code = 25831-9] Goal Plan of Care Note [code = 03389-1] Goal Plan of Care Note [code = 72067-2] Goal Plan of Care Note [code = 87352-5] Goal Plan of Care Note [code = 54731-3] Goal Plan of Care Note [code = 54496-0] Goal Plan of Care Note [code = 11290-8] Goal Plan of Care Note [code = 82028-7] Goal Plan of Care Note [code = 57216-1] Goal Plan of Care Note [code = 23586-7] Goal Plan of Care Note [code = 59724-2] Goal Plan of Care Note [code = 18693-5] Goal Plan of Care Note [code = 23552-9] Goal Plan of Care Note [code = 54547-0] Goal Plan of Care Note [code = 42423-7] Goal Plan of Care Note [code = 22990-1] Goal Plan of Care Note [code = 68392-5] Goal Plan of Care Note [code = 95122-8] Goal Plan of Care Note [code = 27002-1] Goal Plan of Care Note [code = 46812-1] Goal Plan of Care Note [code = 53276-9] Goal Plan of Care Note [code = 26565-8] Goal Plan of Care Note [code = 68411-5] Goal Plan of Care Note [code = 36155-9] Goal Plan of Care Note [code = 60981-4] Goal Plan of Care Note [code = 60390-0] Goal Plan of Care Note [code = 57506-3] Goal Plan of Care Note [code = 00565-8] Goal Plan of Care Note [code = 93684-9] Goal Plan of Care Note [code = 51571-2] Goal Plan of Care Note [code = 13519-2] Goal Plan of Care Note [code = 13709-5] Goal Plan of Care Note [code = 61034-9] Goal Plan of Care Note [code = 02676-7] Goal Plan of Care Note [code = 67934-0] Goal Plan of Care Note [code = 15724-2] Goal Plan of Care Note [code = 81119-7] Goal Plan of Care Note [code = 21083-0] Goal Plan of Care Note [code = 50270-3] Goal Plan of Care Note [code = 98982-8] Goal Plan of Care Note [code = 82992-8] Goal Plan of Care Note [code = 62605-7] Goal Plan of Care Note [code = 87366-4] Goal Plan of Care Note [code = 09071-5] Goal Plan of Care Note [code = 68235-0] Goal Plan of Care Note [code = 51610-7] Goal Plan of Care Note [code = 83986-7] Goal Plan of Care Note [code = 84062-7] Goal Plan of Care Note [code = 99016-8] Goal Plan of Care Note [code = 53952-8] Goal Plan of Care Note [code = 75676-5] Goal Plan of Care Note [code = 90097-8] Goal Plan of Care Note [code = 64337-5] Goal Plan of Care Note [code = 07083-9] Goal Plan of Care Note [code = 94217-7] Goal Plan of Care Note [code = 22380-3] Goal Plan of Care Note [code = 49270-4] Goal Plan of Care Note [code = 04438-6] Goal Plan of Care Note [code = 14541-5] Goal Plan of Care Note [code = 65571-9] Encounters Start Date/Time End Date/Time Encounter Type Admission Type Attending [facility] Care Facility Care Department Encounter ID Source 2025-03-15 10:00:00 2025-03-15 10:00:00 Outpatient DEANNE KUMAR [id number] Caroline [facility] 2025-01-13 00:00:00 2025-01-13 00:00:00 Outpatient CRISTA CULP [id number] Caroline Spaulding 2025-01-11 11:00:00 2025-01-11 11:00:00 Outpatient DEANNE KUMAR CAROLINE KNOX [id number] Caroline ybangelita 2025-01-07 00:00:00 2025-01-07 00:00:00 Outpatient , CAROLINE KNOX [id number] Caroline ybangelita 2024-11-03 00:00:00 2024-11-03 00:00:00 Outpatient MD CAROLINE BENNETT [id number] [facility] 2024-10-19 14:25:00 2024-10-19 14:25:00 Outpatient TCG364 CAROLINE KNOX [id number] [facility] 2024-10-19 13:45:00 2024-10-19 13:45:00 Outpatient MAGGIE LEZAMA [id number] [facility] 2024-10-19 00:00:00 2024-10-19 00:00:00 Outpatient HUNDL, CRISTA KNOX [id number] [facility] 2024-09-21 00:00:00 2024-09-21 00:00:00 Outpatient HUNDL, CRISTA KNOX [id number] [facility] 2024-09-04 00:00:00 2024-09-04 00:00:00 Outpatient HUNDL, CRISTA KNOX [id number] [facility] 2024-09-01 16:20:00 2024-09-01 16:20:00 Outpatient LAB90 CAROLINE KNOX [id number] [facility] 2024-09-01 16:00:00 2024-09-01 16:00:00 Outpatient HUNDL, CRISTA KNOX [id number] [facility] 2024-08-22 00:00:00 2024-08-22 00:00:00 Outpatient GIN MORA [id number] [facility] 2024-08-20 00:00:00 2024-08-20 00:00:00 Outpatient GIN MORA [id number] [facility] 2024-08-19 10:52:19 2024-08-19 10:52:19 Outpatient SFA SFA [id number] Olvin Moreno 2024-08-19 00:00:00 2024-08-19 00:00:00 Outpatient GUILLE NATH CAROLINE KNOX [id number] [facility] 2024-08-19 00:00:00 2024-08-19 00:00:00 Outpatient Visit SFA [id number] Olvin Moreno 2024-08-10 00:00:00 2024-08-10 00:00:00 Outpatient ROBBI CRISTA KNOX [id number] [facility] 2024-08-07 00:00:00 2024-08-07 00:00:00 Outpatient ROBBI CRISTA KNOX [id number] [facility] 2024-08-06 09:50:00 2024-08-06 09:50:00 Outpatient LAB90 CAROLINE KNOX [id number] [facility] 2024-08-04 00:00:00 2024-08-04 00:00:00 Outpatient ROBBI CRISTA KNOX [id number] [facility] 2024-08-04 00:00:00 2024-08-04 00:00:00 Outpatient ROBBI CRISTA KNOX [id number] [facility] 2024-08-03 14:15:00 2024-08-03 14:15:00 Outpatient LABCal CAROLINE KNOX [id number] [facility] 2024-08-03 13:00:00 2024-08-03 13:00:00 Outpatient ROBBI CRISTA CAROLINE KNOX [id number] [facility] 2024-08-03 00:00:00 2024-08-03 00:00:00 Outpatient FATIMAH MCCARTNEY [id number] [facility] 2024-07-30 00:00:00 2024-07-30 00:00:00 Outpatient MORGAN ABARCA [id number] [facility] 2024-07-10 00:00:00 2024-07-10 00:00:00 Outpatient GUILLE NATHJOSE KNOX [id number] [facility] 2024-07-08 09:00:00 2024-07-08 09:00:00 Outpatient CRISTA CULP CAROLINE [id number] Caroline [facility] 2024-05-20 10:19:47 2024-05-20 10:19:47 Outpatient SFA SFA [id number] Olvin Moreno 2024-05-20 00:00:00 2024-05-20 00:00:00 Outpatient GIN MORA CAROLINE [id number] [facility] 2024-05-20 00:00:00 2024-05-20 00:00:00 Outpatient Visit SFA [id number] Olvin Moreno 2024 00:00:00 2024 00:00:00 Outpatient GUILLE NATH CAROLINE KNOX [id number] [facility] 2024-03-25 09:00:00 2024-03-25 09:00:00 Outpatient CRISTA CULP CAROLINE KNOX [id number] [facility] 2024-03-08 00:00:00 2024-03-08 00:00:00 Outpatient GIN MORAJOSE KNOX [id number] [facility] 2024-01-15 14:51:20 2024-01-15 14:51:20 Outpatient SFA SFA [id number] Olvin Moreno 2024-01-15 08:30:00 2024-01-15 08:30:00 Outpatient CRISTA CULP CAROLINE KNOX [id number] [facility] 2024-01-15 00:00:00 2024-01-15 00:00:00 Outpatient Visit SFA [id number] Olvin Moreno 2024-01-14 00:00:00 2024-01-14 00:00:00 Outpatient GUILLE NATH CAROLINE KNOX [id number] [facility] 2024-01-06 00:00:00 2024-01-06 00:00:00 Outpatient GIN MORA CAROLINE [id number] [facility] 2024-01-02 00:00:00 2024-01-02 00:00:00 Outpatient CRISTA CULP CAROLINE KNOX [id number] [facility] 2023-12-16 09:00:00 2023-12-16 09:00:00 Outpatient CRISTA CULP CAROLINE KNOX [id number] [facility] 2023-12-09 00:00:00 2023-12-09 00:00:00 Outpatient GIN MORA CAROLINE KNOX [id number] [facility] 2023-12-09 00:00:00 2023-12-09 00:00:00 Outpatient LISEMAGGIE GUZMAN CAROLINE KNOX [id number] [facility] 2023-11-27 08:57:53 2023-11-27 08:57:53 Outpatient SFA SFA [id number] Olvin Moreno 2023-11-20 09:27:48 2023-11-20 09:27:48 Outpatient SFA SFA [id number] Olvin Zelaya Josh 2023-11-20 00:00:00 2023-11-20 00:00:00 Outpatient Visit SFA [id number] Olvin Zelaya Josh 2023-11-13 15:00:00 2023-11-13 15:00:00 Outpatient GIN MORA CAROLINE [id number] [facility] 2023-11-13 09:11:32 2023-11-13 09:11:32 Outpatient SFA SFA [id number] Olvin Zelaya Josh 2023-11-04 00:00:00 2023-11-04 00:00:00 Outpatient CRISTA CULP CAROLINE KNOX [id number] [facility] 2023-10-28 00:00:00 2023-10-28 00:00:00 Outpatient CRISTA CULP CAROLINE KNOX [id number] [facility] 2023-10-16 10:00:00 2023-10-16 10:00:00 Outpatient CRISTA CULP CAROLINE KNOX [id number] [facility] 2023-10-08 00:00:00 2023-10-08 00:00:00 Outpatient CRISTA CULP CAROLINE KNOX [id number] [facility] 2023-08-21 09:56:10 2023-08-21 09:56:10 Outpatient SFA [facility] [id number] Olvin Moreno 2023-06-13 00:00:00 2023-06-13 00:00:00 Outpatient CRISTA CULP CAROLINE KNOX [id number] [facility] angelita 2023-06-05 09:00:00 2023-06-05 09:00:00 Outpatient CRISTA CULP CAROLINE KNOX [id number] [facility] 2023-05-27 00:00:00 2023-05-27 00:00:00 Outpatient MAGGIE LEZAMA [id number] [facility] 2023-05-08 10:57:01 2023-05-08 10:57:01 Outpatient SFA [facility] [id number] Olvin Moreno 2023-04-25 10:40:00 2023-04-25 10:40:00 Outpatient KEILAOLVIN [id number] [facility] 2023-04-25 09:40:00 2023-04-25 09:40:00 Outpatient CAROLINE KNOX [id number] [facility] 2023-04-17 00:00:00 2023-04-17 00:00:00 Outpatient OLVIN PEDRAZA [id number] [facility] 2023-03-14 09:25:00 2023-03-14 09:25:00 Outpatient AKI MOTT [id number] [facility] 2023-03-11 14:27:00 2023-03-11 18:33:00 Emergency X CASSANDRAENABECKY [facility] [id number] [facility] 2023-03-11 14:27:00 2023-03-11 18:33:00 Emergency Curtis Eli [facility] 1.2.840.114 350.1.13.10 4.2.7.2.686 [id number] [facility] 2023-03-03 00:00:00 2023-03-03 00:00:00 Outpatient CRISTA CULP [id number] [facility] 2023-02-27 00:00:00 2023-02-27 00:00:00 Outpatient CRISTA CULP [id number] [facility] 2023-02-26 00:00:00 2023-02-26 00:00:00 Outpatient MAGGIE LEZAMA [id number] [facility] 2023-02-15 00:00:00 2023-02-15 00:00:00 Outpatient CRISTA CULP [id number] [facility] 2023-02-06 15:37:38 2023-02-06 15:37:38 Outpatient [facility] [id number] Olvin Moreno 2023-02-04 00:00:00 2023-02-04 00:00:00 Outpatient CRISTA CULP [id number] [facility] 2023-01-28 00:00:00 2023-01-28 00:00:00 Outpatient CRISTA CULP [id number] [facility] 2023-01-17 00:00:00 2023-01-17 00:00:00 Outpatient MAGGIE LEZAMA [id number] [facility] 2023-01-06 00:00:00 2023-01-06 00:00:00 Outpatient CRISTA CULP [id number] [facility] 2022-12-30 00:00:00 2022-12-30 00:00:00 Outpatient CRISTA CULP [id number] [facility] 2022-12-19 00:00:00 2022-12-19 00:00:00 Outpatient CRISTA CULP [id number] [facility] 2022-12-14 08:25:00 2022-12-14 08:25:00 Outpatient LAB90 CAROLINE KNOX [id number] [facility] 2022-12-14 00:00:00 2022-12-14 00:00:00 Outpatient CRISTA CULP CAROLINE KNOX [id number] [facility] 2022-12-13 11:15:00 2022-12-13 11:15:00 Outpatient LAB90 CAROLINE KNOX [id number] [facility] 2022-12-13 10:00:00 2022-12-13 10:00:00 Outpatient HUNDAmanda, CRISTA KNOX [id number] [facility] 2022-12-12 10:00:00 2022-12-12 10:00:00 Outpatient HUNDAmanda, CRISTA KNOX [id number] [facility] 2022-12-10 00:00:00 2022-12-10 00:00:00 Outpatient ROBBI, CRISTA KNOX [id number] [facility] 2022-12-02 00:00:00 2022-12-02 00:00:00 Outpatient ROBBI, CRISTA KNOX [id number] [facility] 2022-11-14 13:45:00 2022-11-14 13:45:00 Outpatient LAB90 CAROLINE KNOX [id number] [facility] 2022-11-14 13:00:00 2022-11-14 13:00:00 Outpatient ROBBI CRISTA CAROLINE KNOX [id number] [facility] 2022-11-12 11:32:17 2022-11-12 11:32:17 Outpatient [facility] [id number] Olvin Moreno 2022-11-03 00:00:00 2022-11-03 00:00:00 Outpatient ROBBI CRISTA KNOX [id number] [facility] 2022-10-24 14:00:00 2022-10-24 14:00:00 Outpatient ROBBI CRISTA KNOX [id number] [facility] 2022-10-06 00:00:00 2022-10-06 00:00:00 Outpatient ROBBI CRISTA CAROLINE KNOX [id number] [facility] 2022-09-16 00:00:00 2022-09-16 00:00:00 Outpatient ROBBI CRISTA KNOX [id number] [facility] 2022-09-10 00:00:00 2022-09-10 00:00:00 Outpatient KPAmanda CRISTA KNOX [id number] [facility] 2022-09-09 00:00:00 2022-09-09 00:00:00 Outpatient ROBBI CRISTA KNOX [id number] [facility] 2022-09-06 14:15:00 2022-09-06 14:15:00 Outpatient PORTILLO GUILLE CAROLINE KNOX [id number] [facility] 2022-08-20 00:00:00 2022-08-20 00:00:00 Outpatient MAGGIE LEZAMA [id number] [facility] 2022-08-13 00:00:00 2022-08-13 00:00:00 Outpatient KPAmanda CRISTA KNOX [id number] [facility] 2022-07-25 13:00:00 2022-07-25 13:00:00 Outpatient MATTEO TESHA CAROLINE KNOX [id number] [facility] 2022-07-23 00:00:00 2022-07-23 00:00:00 Outpatient Visit [id number] 2022-07-03 00:00:00 2022-07-03 00:00:00 Outpatient KPAmanda CRISTA KNOX [id number] [facility] 2022-06-23 00:00:00 2022-06-23 00:00:00 Outpatient ROBBI CRISTA KNOX [id number] [facility] 2022-06-21 00:00:00 2022-06-21 00:00:00 Outpatient HUNDL, CRISTA KNOX [id number] [facility] 2022-06-04 00:00:00 2022-06-04 00:00:00 Outpatient LISEMAGGIE GUZMAN CAROLINE KNOX [id number] [facility] 2022-06-02 00:00:00 2022-06-02 00:00:00 Outpatient PENELOPECRISPIN MIDDLETON CAROLINE KNOX [id number] [facility] 2022-05-28 14:00:00 2022-05-28 14:00:00 Outpatient HUNDL, CRISTA KNOX [id number] [facility] 2022-05-25 08:30:00 2022-05-25 08:30:00 Outpatient HUNDL, CRISTA KNOX [id number] [facility] 2022-05-21 00:00:00 2022-05-21 00:00:00 Outpatient HUNDL, CRISTA KNOX [id number] [facility] 2022-04-27 00:00:00 2022-04-27 00:00:00 Outpatient MILY LEZAMAKANE KNOX [id number] [facility] 2022-04-26 09:30:00 2022-04-26 09:30:00 Outpatient HUNDL, CRISTA KNOX [id number] [facility] 2022-04-16 00:00:00 2022-04-16 00:00:00 Outpatient HUNDL, CRISTA KNXO [id number] [facility] 2022-03-29 09:30:00 2022-03-29 09:30:00 Outpatient HUNDL, CRISTA KNOX [id number] [facility] 2022-03-29 00:00:00 2022-03-29 00:00:00 Outpatient HUNDL, CRISAT KNOX [id number] [facility] 2022-03-15 09:30:00 2022-03-15 09:30:00 Outpatient HUNDL, CRISTA KNOX [id number] [facility] 2022-03-15 00:00:00 2022-03-15 00:00:00 Outpatient HUNDL, CRISTA KNOX [id number] [facility] 2022-03-15 00:00:00 2022-03-15 00:00:00 Outpatient Visit [id number] 2022-03-14 00:00:00 2022-03-14 00:00:00 Outpatient CRISTA CULP CAROLINE KNOX [id number] [facility] 2022-03-14 00:00:00 2022-03-14 00:00:00 Outpatient Visit [id number] 2022-03-01 09:15:00 2022-03-01 10:00:00 Office Visit Maggie Lezama 1.2.840.114 350.1.13.13 1.2.7.2.686 [id number] [facility] 2022-01-09 09:15:00 2022-01-09 09:15:00 Outpatient MAGGIE LEZAMA [id number] [facility] 2021-12-01 09:45:00 2021-12-01 09:45:00 Outpatient LAB90 CAROLINE KNOX [id number] [facility] 2021-12-01 08:45:00 2021-12-01 09:30:00 Office Visit Maggie Lezama 1.2.840.114 350.1.13.13 1.2.7.2.686 [id number] [facility] 2021-06-19 15:58:00 2021-06-21 12:18:00 Inpatient Dylan Caballero [facility] [id number] [facility] 2021-06-02 09:07:21 2021-06-02 23:59:00 Outpatient R RADIOLOGY [facility] [id number] [facility] 2021-06-02 09:00:00 2021-06-02 23:59:00 Hospital Encounter Radiology [facility] 1.84.114 350.1.13.10 4.2.7.2.686 [id number] [facility] 2021-06-02 00:00:00 2021-06-02 00:00:00 Orders Only Doctor Unassigned, [place] [facility] 1.84.114 350.1.13.10 4.2.7.2.686 [id number] [facility] 2021-03-21 13:38:00 2021-03-21 15:03:00 Inpatient EM Dominic Pérez [facility] CH[facility] [id number] [facility] 2021-02-28 19:45:00 2021-02-28 19:45:00 Ambulatory Pre-Reg nullFlavo r [facility] [place] [id number] Adaajith amanda Pena 2021-01-17 21:00:00 2021-01-18 04:59:59 Outpatient nullFlavo r [facility] [place] [id number] Rigo Pena 2020-09-05 00:00:00 2020-09-05 00:00:00 Patient Outreach Martin Sanchez [facility] 1.840.114 350.1.13.10 4.2.7.2.686 [id number] [facility] 2020-06-01 09:06:41 2020-06-01 23:59:00 Outpatient R UNKNOWN, ATTENDING [facility] [id number] [facility] 2020-06-01 09:06:41 2020-06-01 23:59:00 Hospital Encounter Unknown, Attending [facility] 1.84.114 350.1.13.10 4.2.7.2.686 [id number] [facility] 2020-06-01 00:00:00 2020-06-01 00:00:00 Orders Only Doctor Unassigned, [place] [facility] 1.2.840.114 350.1.13.10 4.2.7.2.686 [id number] [facility] 2020-02-01 10:57:43 2020-02-01 23:59:00 Outpatient R RADIOLOGY [facility] [id number] [facility] 2020-02-01 10:57:43 2020-02-01 23:59:00 Hospital Encounter Radiology [facility] 1.2.840.114 350.1.13.10 4.2.7.2.686 [id number] [facility] 2020-02-01 10:57:43 2020-02-01 23:59:00 Hospital Encounter Radiology [facility] 1.2.840.114 350.1.13.10 4.2.7.2.686 [id number] 2020-02-01 00:00:00 2020-02-01 00:00:00 Orders Only Doctor Unassigned, [place] [facility] 1.2.840.114 350.1.13.10 4.2.7.2.686 [id number] [facility] 2020-02-01 00:00:00 2020-02-01 00:00:00 Orders Only Doctor Unassigned, [place] [facility] 1.2.840.114 350.1.13.10 4.2.7.2.686 [id number] 2019-03-18 15:07:48 2019-03-18 23:59:00 Hospital Encounter Loco Polk [facility] [place] 1.2.840.114 350.1.13.10 4.2.7.2.686 [id number] [facility] 2019-03-18 15:07:48 2019-03-18 23:59:00 Hospital Encounter Felicitas [facility] [place] 1.2.840.114 350.1.13.10 4.2.7.2.686 [id number] 2019-03-18 14:47:51 2019-03-18 15:02:51 Office Visit Felicitas [facility] ear[facility] [place] 1.2.840.114 350.1.13.10 4.2.7.2.686 [id number] [facility] 2019-03-18 14:47:51 2019-03-18 15:02:51 Office Visit Felicitas [facility] earl [place] 1.2.840.114 350.1.13.10 4.2.7.2.686 [id number] Results Test Description Test Time Test Comments Results Result Co mments Source COMPREHENSIVE METABOLIC [id number] 05:01:53* Test Item Value Reference Range Interpretation Comme nts GLUCOSE (test code = 2217) 110 MG/DL 70-99 H BUN (test code = 2208) 15 MG/DL 8-23 CREATININE (test code = 2214) 0.77 MG/DL 0.60-1.30 eGFR (2020 CKD-EPI) (test co de = 66685) 79 ML/MIN/1.73 >60 CALC BUN/CREAT (test code = 2235) 19 RATIO 6-28 SODIUM (test code = 2231) 142 MEQ/L 133-146 POTASSIUM (test code = 2228) 5.1 MEQ/L 3.5-5.4 CHLORIDE (test code = 2215) 106 MEQ/L 95-107 CARBON DIOXIDE (test code = 2206) 26 MEQ/L 19-31 CALCIUM (test code = 2209) 9.2 MG/DL 8.5-10.5 PROTEIN, TOTAL (test code = 2229) 6.8 G/DL 6.1-8.3 ALBUMIN (test code = 2201) 4.1 G/DL 3.5-5.2 CALC GLOBULIN (test code = 2240) 2.7 G/DL 1.9-3.7 CALC A/G RATIO (test code = 2234) 1.5 RATIO 1.0-2.6 BILIRUBIN, TOTAL (test code = 2207) 0.3 MG/DL <=1.2 ALKALINE PHOSPHATASE (test code = 2204) 135 U/L 40-142 AST (test code = 2218) 15 U/L 9-40 ALT (test code = 2219) 11 U/L 5-40 COMPREHENSIVE METABOLIC [id number] 00:00:00* Test Item Value Reference Range Interpretation Comme nts GLUCOSE (test code = 2217) 110 MG/DL BUN (test code = 2208) 15 MG/DL CREATININE (test code = 2214) 0.77 MG/DL eGFR (2020 CKD-EPI) (test co de = 72189) 79 ML/MIN/1.73 CALC BUN/CREAT (test code = 2235) 19 RATIO SODIUM (test code = 2231) 142 MEQ/L POTASSIUM (test code = 2228) 5.1 MEQ/L CHLORIDE (test code = 2215) 106 MEQ/L CARBON DIOXIDE (test code = 2206) 26 MEQ/L CALCIUM (test code = 2209) 9.2 MG/DL PROTEIN, TOTAL (test code = 2229) 6.8 G/DL ALBUMIN (test code = 2201) 4.1 G/DL CALC GLOBULIN (test code = 2240) 2.7 G/DL CALC A/G RATIO (test code = 2234) 1.5 RATIO BILIRUBIN, TOTAL (test code = 2207) 0.3 MG/DL ALKALINE PHOSPHATASE (test code = 2204) 135 U/L AST (test code = 2218) 15 U/L ALT (test code = 2219) 11 U/L Olvin Zelaya [facility] W/AUTO [id number] 00:00:00* Test Item Value Reference Range Interpretation Comme nts WBC (test code = 1001) 9.9 K/UL RBC (test code = 1002) 4.89 M/UL HEMOGLOBIN (test code = 1003) 13.8 G/DL HEMATOCRIT (test code = 1004) 42.6 % MCV (test code = 1005) 87.1 fL MCH (test code = 1006) 28.2 PG MCHC (test code = 1007) 32.4 G/DL RDW (test code = 1038) 14.1 % NEUTROPHILS (test code = 1008) 72.7 % LYMPHOCYTES (test code = 1010) 19.6 % MONOCYTES (test code = 1011) 5.3 % EOSINOPHILS (test code = 1012) 1.4 % BASOPHILS (test code = 1013) 0.6 % IMMATURE GRANULOCYTES (test code = 1036) 0.4 % NUCLEATED RBCS (test code = 1065) 0.0 /100WBC'S PLATELET COUNT (test code = 1015) 314 K/UL ABSOLUTE NEUTROPHILS (test c ode = 1066) 7.16 K/UL ABSOLUTE LYMPHOCYTES (test c ode = 1067) 1.93 K/UL ABSOLUTE MONOCYTES (test cod e = 1068) 0.52 K/UL ABSOLUTE EOSINOPHILS (test c ode = 1040) 0.14 K/UL ABSOLUTE BASOPHILS (test cod e = 1069) 0.06 K/UL ABS IMMATURE GRANULOCYTES (t est code = 1020) 0.04 K/UL ABS NUCLEATED RBCS (test cod e = 56217) 0.00 K/UL Olvin MorenoCOMPREHENSIVE METABOLIC [id number] 00:00:00* Test Item Value Reference Range Interpretation Comme nts GLUCOSE (test code = 2217) 110 MG/DL BUN (test code = 2208) 15 MG/DL CREATININE (test code = 2214) 0.77 MG/DL eGFR (2020 CKD-EPI) (test co de = 26161) 79 ML/MIN/1.73 CALC BUN/CREAT (test code = 2235) 19 RATIO SODIUM (test code = 2231) 142 MEQ/L POTASSIUM (test code = 2228) 5.1 MEQ/L CHLORIDE (test code = 2215) 106 MEQ/L CARBON DIOXIDE (test code = 2206) 26 MEQ/L CALCIUM (test code = 2209) 9.2 MG/DL PROTEIN, TOTAL (test code = 2229) 6.8 G/DL ALBUMIN (test code = 2201) 4.1 G/DL CALC GLOBULIN (test code = 2240) 2.7 G/DL CALC A/G RATIO (test code = 2234) 1.5 RATIO BILIRUBIN, TOTAL (test code = 2207) 0.3 MG/DL ALKALINE PHOSPHATASE (test code = 2204) 135 U/L AST (test code = 2218) 15 U/L ALT (test code = 2219) 11 U/L Olvin MorenoCBC W/AUTO [id number] 00:00:00* Test Item Value Reference Range Interpretation Comme nts WBC (test code = 1001) 9.9 K/UL RBC (test code = 1002) 4.89 M/UL HEMOGLOBIN (test code = 1003) 13.8 G/DL HEMATOCRIT (test code = 1004) 42.6 % MCV (test code = 1005) 87.1 fL MCH (test code = 1006) 28.2 PG MCHC (test code = 1007) 32.4 G/DL RDW (test code = 1038) 14.1 % NEUTROPHILS (test code = 1008) 72.7 % LYMPHOCYTES (test code = 1010) 19.6 % MONOCYTES (test code = 1011) 5.3 % EOSINOPHILS (test code = 1012) 1.4 % BASOPHILS (test code = 1013) 0.6 % IMMATURE GRANULOCYTES (test code = 1036) 0.4 % NUCLEATED RBCS (test code = 1065) 0.0 /100WBC'S PLATELET COUNT (test code = 1015) 314 K/UL ABSOLUTE NEUTROPHILS (test c ode = 1066) 7.16 K/UL ABSOLUTE LYMPHOCYTES (test c ode = 1067) 1.93 K/UL ABSOLUTE MONOCYTES (test cod e = 1068) 0.52 K/UL ABSOLUTE EOSINOPHILS (test c ode = 1040) 0.14 K/UL ABSOLUTE BASOPHILS (test cod e = 1069) 0.06 K/UL ABS IMMATURE GRANULOCYTES (t est code = 1020) 0.04 K/UL ABS NUCLEATED RBCS (test cod e = 52667) 0.00 K/UL Olvin F AustinCOMPREHENSIVE METABOLIC [id number] 00:00:00* Test Item Value Reference Range Interpretation Comme nts GLUCOSE (test code = 2217) 110 MG/DL BUN (test code = 2208) 15 MG/DL CREATININE (test code = 2214) 0.77 MG/DL eGFR (2020 CKD-EPI) (test co de = 65677) 79 ML/MIN/1.73 CALC BUN/CREAT (test code = 2235) 19 RATIO SODIUM (test code = 2231) 142 MEQ/L POTASSIUM (test code = 2228) 5.1 MEQ/L CHLORIDE (test code = 2215) 106 MEQ/L CARBON DIOXIDE (test code = 2206) 26 MEQ/L CALCIUM (test code = 2209) 9.2 MG/DL PROTEIN, TOTAL (test code = 2229) 6.8 G/DL ALBUMIN (test code = 2201) 4.1 G/DL CALC GLOBULIN (test code = 2240) 2.7 G/DL CALC A/G RATIO (test code = 2234) 1.5 RATIO BILIRUBIN, TOTAL (test code = 2207) 0.3 MG/DL ALKALINE PHOSPHATASE (test code = 2204) 135 U/L AST (test code = 2218) 15 U/L ALT (test code = 2219) 11 U/L Olvin MorenoCBC W/AUTO [id number] 00:00:00* Test Item Value Reference Range Interpretation Comme nts WBC (test code = 1001) 9.9 K/UL RBC (test code = 1002) 4.89 M/UL HEMOGLOBIN (test code = 1003) 13.8 G/DL HEMATOCRIT (test code = 1004) 42.6 % MCV (test code = 1005) 87.1 fL MCH (test code = 1006) 28.2 PG MCHC (test code = 1007) 32.4 G/DL RDW (test code = 1038) 14.1 % NEUTROPHILS (test code = 1008) 72.7 % LYMPHOCYTES (test code = 1010) 19.6 % MONOCYTES (test code = 1011) 5.3 % EOSINOPHILS (test code = 1012) 1.4 % BASOPHILS (test code = 1013) 0.6 % IMMATURE GRANULOCYTES (test code = 1036) 0.4 % NUCLEATED RBCS (test code = 1065) 0.0 /100WBC'S PLATELET COUNT (test code = 1015) 314 K/UL ABSOLUTE NEUTROPHILS (test c ode = 1066) 7.16 K/UL ABSOLUTE LYMPHOCYTES (test c ode = 1067) 1.93 K/UL ABSOLUTE MONOCYTES (test cod e = 1068) 0.52 K/UL ABSOLUTE EOSINOPHILS (test c ode = 1040) 0.14 K/UL ABSOLUTE BASOPHILS (test cod e = 1069) 0.06 K/UL ABS IMMATURE GRANULOCYTES (t est code = 1020) 0.04 K/UL ABS NUCLEATED RBCS (test cod e = 96293) 0.00 K/UL Olvin MorenoCOMPREHENSIVE METABOLIC [id number] 04:05:39* Test Item Value Reference Range Interpretation Comme nts GLUCOSE (test code = 2217) 89 MG/DL 70-99 BUN (test code = 220) 17 MG/DL 8-23 CREATININE (test code = 2214) 0.77 MG/DL 0.60-1.30 eGFR (2020 CKD-EPI) (test co de = 59491) 80 ML/MIN/1.73 >60 CALC BUN/CREAT (test code = 2235) 22 RATIO 6-28 SODIUM (test code = 223) 142 MEQ/L 133-146 POTASSIUM (test code = 2228) 4.6 MEQ/L 3.5-5.4 CHLORIDE (test code = 2215) 108 MEQ/L 95-107 H CARBON DIOXIDE (test code = 220) 21 MEQ/L 19-31 CALCIUM (test code = 2209) 8.8 MG/DL 8.5-10.5 PROTEIN, TOTAL (test code = 2229) 6.2 G/DL 6.1-8.3 ALBUMIN (test code = 220) 4.0 G/DL 3.5-5.2 CALC GLOBULIN (test code = 2240) 2.2 G/DL 1.9-3.7 CALC A/G RATIO (test code = 2234) 1.8 RATIO 1.0-2.6 BILIRUBIN, TOTAL (test code = 220) 0.4 MG/DL <=1.2 ALKALINE PHOSPHATASE (test code = 2204) 136 U/L 40-142 AST (test code = 2218) 16 U/L 9-40 ALT (test code = 2219) 11 U/L 5-40 LIPID [id number] 04:05:39* Test Item Value Reference Range Interpretation Comme nts CHOLESTEROL (test code = 2210) 174 MG/DL <200 TRIGLYCERIDES (test code = 2232) 71 MG/DL <150 HDL CHOLESTEROL (test code = 2220) 65 MG/DL >39 CALC LDL CHOL (test code = 2237) 93 MG/DL <100 NOTE: CALCULATED LDL IS BASED ON HILDA-DANIELS METHOD WHICHINCLUDES ADJUSTABLE TRIGLYCERIDE:VLDL CHOLESTEROL RATIO.THIS FACTOR VARIES BY MEASURED TRIGLYCERIDE AND NON-HDLCHOLESTEROL CONCENTRATIONS WITH INCREASED CALCULATED LDL SEENIN HIGHER TRIGLYCERIDE OR LOWER NON-HDL SPECIMENS. FOR MOREINFORMATION, SEE CLIENT ANNOUNCEMENT AT [email or web address] RISK RATIO LDL/HDL (test code = 2238) 1.43 RATIO <3.22 CBC W/AUTO DIFF WITH [id number] 03:37:01* Test Item Value Reference Range Interpretation Comme nts WBC (test code = 1001) 9.6 K/UL 3.5-11.0 RBC (test code = 1002) 4.73 M/UL 3.80-5.40 HEMOGLOBIN (test code = 1003) 13.7 G/DL 11.5-15.5 HEMATOCRIT (test code = 1004) 41.7 % 34.0-45.0 MCV (test code = 1005) 88.2 fL 80.0-99.0 MCH (test code = 1006) 29.0 PG 25.0-33.0 MCHC (test code = 1007) 32.9 G/DL 31.0-36.0 RDW (test code = 1038) 14.4 % 11.5-15.0 NEUTROPHILS (test code = 1008) 75.5 % LYMPHOCYTES (test code = 1010) 16.7 % MONOCYTES (test code = 1011) 5.1 % EOSINOPHILS (test code = 1012) 1.9 % BASOPHILS (test code = 1013) 0.7 % IMMATURE GRANULOCYTES (test code = 1036) 0.1 % NUCLEATED RBCS (test code = 1065) 0.0 /100 WBC'S See_Comment [Automated messa ge] The system which generated this result transmitted reference range: 0.0. The reference range was not used to interpret this result as normal/abnormal. PLATELET COUNT (test code = 1015) 277 K/UL 130-400 ABSOLUTE NEUTROPHILS (test code = 1066) 7.22 K/UL 1.50-7.50 ABSOLUTE LYMPHOCYTES (test code = 1067) 1.60 K/UL 1.00-4.00 ABSOLUTE MONOCYTES (test code = 1068) 0.49 K/UL 0.20-1.00 ABSOLUTE EOSINOPHILS (test code = 1040) 0.18 K/UL 0.00-0.50 ABSOLUTE BASOPHILS (test code = 1069) 0.07 K/UL 0.00-0.20 ABS IMMATURE GRANULOCYTES (test code = 1020) 0.01 K/UL 0.00-0.10 ABS NUCLEATED RBCS (test code = 23460) 0.00 K/UL 0.00-0.11 HEMOGLOBIN [id number] 03:09:30* Test Item Value Reference Range Interpretation Comme nts HEMOGLOBIN A1c (test code = 63948) 5.5 % 4.2-5.6 UNLESS OTHERWISE INDICATED, ALL TESTING PERFORMED AT [facility] [address] [place] [id number] HEAT CURER: ASHLEY BAIRD M.D. CLIA NUMBER [id number] [facility] [place] [id number] COMPREHENSIVE METABOLIC [id number] 00:00:00* Test Item Value Reference Range Interpretation Comme nts GLUCOSE (test code = 2217) 89 MG/DL BUN (test code = 2208) 17 MG/DL CREATININE (test code = 2214) 0.77 MG/DL eGFR (2020 CKD-EPI) (test co de = 79412) 80 ML/MIN/1.73 CALC BUN/CREAT (test code = 2235) 22 RATIO SODIUM (test code = 2231) 142 MEQ/L POTASSIUM (test code = 2228) 4.6 MEQ/L CHLORIDE (test code = 2215) 108 MEQ/L CARBON DIOXIDE (test code = 2206) 21 MEQ/L CALCIUM (test code = 2209) 8.8 MG/DL PROTEIN, TOTAL (test code = 2229) 6.2 G/DL ALBUMIN (test code = 2201) 4.0 G/DL CALC GLOBULIN (test code = 2240) 2.2 G/DL CALC A/G RATIO (test code = 2234) 1.8 RATIO BILIRUBIN, TOTAL (test code = 2207) 0.4 MG/DL ALKALINE PHOSPHATASE (test code = 2204) 136 U/L AST (test code = 2218) 16 U/L ALT (test code = 2219) 11 U/L Olvin MorenoLIPID [id number] 00:00:00* Test Item Value Reference Range Interpretation Comme nts CHOLESTEROL (test code = 2210) 174 MG/DL TRIGLYCERIDES (test code = 2232) 71 MG/DL HDL CHOLESTEROL (test code = 2220) 65 MG/DL CALC LDL CHOL (test code = 2237) 93 MG/DL RISK RATIO LDL/HDL (test cod e = 2238) 1.43 RATIO Olvin Garcia JoshCBC W/AUTO [id number] 00:00:00* Test Item Value Reference Range Interpretation Comme nts WBC (test code = 1001) 9.6 K/UL RBC (test code = 1002) 4.73 M/UL HEMOGLOBIN (test code = 1003) 13.7 G/DL HEMATOCRIT (test code = 1004) 41.7 % MCV (test code = 1005) 88.2 fL MCH (test code = 1006) 29.0 PG MCHC (test code = 1007) 32.9 G/DL RDW (test code = 1038) 14.4 % NEUTROPHILS (test code = 1008) 75.5 % LYMPHOCYTES (test code = 1010) 16.7 % MONOCYTES (test code = 1011) 5.1 % EOSINOPHILS (test code = 1012) 1.9 % BASOPHILS (test code = 1013) 0.7 % IMMATURE GRANULOCYTES (test code = 1036) 0.1 % NUCLEATED RBCS (test code = 1065) 0.0 /100WBC'S PLATELET COUNT (test code = 1015) 277 K/UL ABSOLUTE NEUTROPHILS (test c ode = 1066) 7.22 K/UL ABSOLUTE LYMPHOCYTES (test c ode = 1067) 1.60 K/UL ABSOLUTE MONOCYTES (test cod e = 1068) 0.49 K/UL ABSOLUTE EOSINOPHILS (test c ode = 1040) 0.18 K/UL ABSOLUTE BASOPHILS (test cod e = 1069) 0.07 K/UL ABS IMMATURE GRANULOCYTES (t est code = 1020) 0.01 K/UL ABS NUCLEATED RBCS (test cod e = 19605) 0.00 K/UL Olvin MorenoHEMOGLOBIN [id number] 00:00:00* Test Item Value Reference Range Interpretation Comme nts HEMOGLOBIN A1c (test code = 51503) 5.5 % Olvin MorenoCOMPREHENSIVE METABOLIC [id number] 00:00:00* Test Item Value Reference Range Interpretation Comme nts GLUCOSE (test code = 2217) 89 MG/DL BUN (test code = 2208) 17 MG/DL CREATININE (test code = 2214) 0.77 MG/DL eGFR (2020 CKD-EPI) (test co de = 35785) 80 ML/MIN/1.73 CALC BUN/CREAT (test code = 2235) 22 RATIO SODIUM (test code = 2231) 142 MEQ/L POTASSIUM (test code = 2228) 4.6 MEQ/L CHLORIDE (test code = 2215) 108 MEQ/L CARBON DIOXIDE (test code = 2206) 21 MEQ/L CALCIUM (test code = 2209) 8.8 MG/DL PROTEIN, TOTAL (test code = 2229) 6.2 G/DL ALBUMIN (test code = 2201) 4.0 G/DL CALC GLOBULIN (test code = 2240) 2.2 G/DL CALC A/G RATIO (test code = 2234) 1.8 RATIO BILIRUBIN, TOTAL (test code = 2207) 0.4 MG/DL ALKALINE PHOSPHATASE (test code = 2204) 136 U/L AST (test code = 2218) 16 U/L ALT (test code = 2219) 11 U/L Olvin MorenoLIPID [id number] 00:00:00* Test Item Value Reference Range Interpretation Comme nts CHOLESTEROL (test code = 2210) 174 MG/DL TRIGLYCERIDES (test code = 2232) 71 MG/DL HDL CHOLESTEROL (test code = 2220) 65 MG/DL CALC LDL CHOL (test code = 2237) 93 MG/DL RISK RATIO LDL/HDL (test cod e = 2238) 1.43 RATIO Olvin MorenoCBC W/AUTO [id number] 00:00:00* Test Item Value Reference Range Interpretation Comme nts WBC (test code = 1001) 9.6 K/UL RBC (test code = 1002) 4.73 M/UL HEMOGLOBIN (test code = 1003) 13.7 G/DL HEMATOCRIT (test code = 1004) 41.7 % MCV (test code = 1005) 88.2 fL MCH (test code = 1006) 29.0 PG MCHC (test code = 1007) 32.9 G/DL RDW (test code = 1038) 14.4 % NEUTROPHILS (test code = 1008) 75.5 % LYMPHOCYTES (test code = 1010) 16.7 % MONOCYTES (test code = 1011) 5.1 % EOSINOPHILS (test code = 1012) 1.9 % BASOPHILS (test code = 1013) 0.7 % IMMATURE GRANULOCYTES (test code = 1036) 0.1 % NUCLEATED RBCS (test code = 1065) 0.0 /100WBC'S PLATELET COUNT (test code = 1015) 277 K/UL ABSOLUTE NEUTROPHILS (test c ode = 1066) 7.22 K/UL ABSOLUTE LYMPHOCYTES (test c ode = 1067) 1.60 K/UL ABSOLUTE MONOCYTES (test cod e = 1068) 0.49 K/UL ABSOLUTE EOSINOPHILS (test c ode = 1040) 0.18 K/UL ABSOLUTE BASOPHILS (test cod e = 1069) 0.07 K/UL ABS IMMATURE GRANULOCYTES (t est code = 1020) 0.01 K/UL ABS NUCLEATED RBCS (test cod e = 21518) 0.00 K/UL Olvin MorenoHEMOGLOBIN [id number] 00:00:00* Test Item Value Reference Range Interpretation Comme nts HEMOGLOBIN A1c (test code = 50034) 5.5 % Olvin MorenoCOMPREHENSIVE METABOLIC [id number] 00:00:00* Test Item Value Reference Range Interpretation Comme nts GLUCOSE (test code = 2217) 89 MG/DL BUN (test code = 2208) 17 MG/DL CREATININE (test code = 2214) 0.77 MG/DL eGFR (2020 CKD-EPI) (test co de = 58979) 80 ML/MIN/1.73 CALC BUN/CREAT (test code = 2235) 22 RATIO SODIUM (test code = 2231) 142 MEQ/L POTASSIUM (test code = 2228) 4.6 MEQ/L CHLORIDE (test code = 2215) 108 MEQ/L CARBON DIOXIDE (test code = 2206) 21 MEQ/L CALCIUM (test code = 2209) 8.8 MG/DL PROTEIN, TOTAL (test code = 2229) 6.2 G/DL ALBUMIN (test code = 2201) 4.0 G/DL CALC GLOBULIN (test code = 2240) 2.2 G/DL CALC A/G RATIO (test code = 2234) 1.8 RATIO BILIRUBIN, TOTAL (test code = 2207) 0.4 MG/DL ALKALINE PHOSPHATASE (test code = 2204) 136 U/L AST (test code = 2218) 16 U/L ALT (test code = 2219) 11 U/L Olvin MorenoLIPID [id number] 00:00:00* Test Item Value Reference Range Interpretation Comme nts CHOLESTEROL (test code = 2210) 174 MG/DL TRIGLYCERIDES (test code = 2232) 71 MG/DL HDL CHOLESTEROL (test code = 2220) 65 MG/DL CALC LDL CHOL (test code = 2237) 93 MG/DL RISK RATIO LDL/HDL (test cod e = 2238) 1.43 RATIO Olvin MorenoCBC W/AUTO [id number] 00:00:00* Test Item Value Reference Range Interpretation Comme nts WBC (test code = 1001) 9.6 K/UL RBC (test code = 1002) 4.73 M/UL HEMOGLOBIN (test code = 1003) 13.7 G/DL HEMATOCRIT (test code = 1004) 41.7 % MCV (test code = 1005) 88.2 fL MCH (test code = 1006) 29.0 PG MCHC (test code = 1007) 32.9 G/DL RDW (test code = 1038) 14.4 % NEUTROPHILS (test code = 1008) 75.5 % LYMPHOCYTES (test code = 1010) 16.7 % MONOCYTES (test code = 1011) 5.1 % EOSINOPHILS (test code = 1012) 1.9 % BASOPHILS (test code = 1013) 0.7 % IMMATURE GRANULOCYTES (test code = 1036) 0.1 % NUCLEATED RBCS (test code = 1065) 0.0 /100WBC'S PLATELET COUNT (test code = 1015) 277 K/UL ABSOLUTE NEUTROPHILS (test c ode = 1066) 7.22 K/UL ABSOLUTE LYMPHOCYTES (test c ode = 1067) 1.60 K/UL ABSOLUTE MONOCYTES (test cod e = 1068) 0.49 K/UL ABSOLUTE EOSINOPHILS (test c ode = 1040) 0.18 K/UL ABSOLUTE BASOPHILS (test cod e = 1069) 0.07 K/UL ABS IMMATURE GRANULOCYTES (t est code = 1020) 0.01 K/UL ABS NUCLEATED RBCS (test cod e = 98803) 0.00 K/UL Olvin MorenoHEMOGLOBIN [id number] 00:00:00* Test Item Value Reference Range Interpretation Comme nts HEMOGLOBIN A1c (test code = 88500) 5.5 % Olvin MorenoYgwlwtR-[id number] 20:47:11* Test Item Value Reference Range Interpretation Comments D-DIMER (test code = 8130539997) 0.46 See_Comment H [Automated message] The system which generated this result transmitted reference range: <0.41 ?g/mL (FEU). The reference range was not used to interpret this result as normal/abnormal. BETTY (test code = BETTY) This test may be used in conjunction with a clinical pretest probability (PTP) assessment model to exclude venous thromboembolism (VTE) in patients suspected of deep venous thrombosis (DVT) and pulmonary embolism (PE) A D-Dimer value less than 0.50 ?g/ml (FEU) has a negative predicative value of 96 to 100% (95% CI)and 97 to 100% (95% CI) as an aid in the diagnosis of deep vein thrombosis (DVT) and pulmonary embolism when there is low or moderate pretest probability of PE or DVT. D-Dimer values are expressed in initial fibrinogen equivalent units (FEU)" The assay results should be used with other information, including the clinical context, in forming a diagnosis. Lab Interpretation (test code = 17310-3) [facility]normal [facility] [id number] 20:45:50* Test Item Value Reference Range Interpretation Comme nts TROPONIN I (test code = 1070364673) 0.002 ng/mL <=0.034 BETTY (test code = BETTY) Reference (Normal) Range (defined by the 99th percentile reference limit): <= 0.034 ng/mL Note: Cardiac troponin begins to rise 3-4 hours after the onset of ischemia. Repeat in 4-6 hours if the sample was drawn within 3-4 hours of the onset of the symptom and found normal. Diagnosis of myocardial injury is made with acute changes in cTn concentrations with at least one serial sample above the 99th percentile upper reference limit (URL), taken together with the patient's clinical presentation. Biotin has been reported to cause a negative bias, interpret results relative to patient's use of biotin. Lab Interpretation (test code = 37063-2) Normal [facility] [id number] 20:43:09* Test Item Value Reference Range Interpretation Comme nts NT-proBNP (test code = 20775-2) 1410 pg/mL <=125 BETTY (test code = BETTY) Result Indeterminate-Consid er causes of NT-proBNP elevation other than Heart failure such as acute coronary syndrome, pulmonary embolism, pulmonary hypertension, sepsis, stroke, and renal dysfunction. Lab Interpretation (test code = 39957-8) [facility]normal [facility]OL[facility] PANEL ([id number] 20:34:27* Test Item Value Reference Range Interpretation Comme nts NA (test code = 9836699680) 138 mmol/L 135-145 K (test code = 8077360177) 4.1 mmol/L 3.5-5.0 CL (test code = 9544780095) 109 mmol/L 98-108 H CO2 TOTAL (test code = 5887145649) 24 mmol/L 23-31 AGAP (test code = 0853987314) 5 2-16 BUN (test code = 6177534274) 16 mg/dL 7-23 GLUCOSE (test code = 1228736376) 90 mg/dL 70-110 CREATININE (test code = 0265517596) 0.61 mg/dL 0.50-1.04 TOTAL BILI (test code = 3957562464) 0.3 mg/dL 0.1-1.1 CALCIUM (test code = 9771801021) 8.8 mg/dL 8.6-10.6 T PROTEIN (test code = 9633911413) 6.6 g/dL 6.3-8.2 ALBUMIN (test code = 4802494221) 3.8 g/dL 3.5-5.0 ALK PHOS (test code = 3661819941) 135 U/L 34-122 H ALTv (test code = 1742-6) 15 U/L 5-35 AST(SGOT) (test code = 2020131531) 21 U/L 13-40 eGFR (test code = 5918053224) 95.6 mL/min/1.73m2 BETTY (test code = BETTY) Association of Glomerular Filtration Rate (GFR) and Staging of Kidney Disease* + --+ --+ ------+| GFR (mL/min/1.73 m2) ?| With Kidney Damage ?| ?Without Kidney Damage+ --------+ --------+ +| ?>90 ?| ?Stage one ?| ? Normal ?+ ---+ ---+ -------+| ?60-89 ?| ?Stage two ?| ? Decreased GFR ? + --+ --+ ------+| ?30-59 ?| ?Stage three ?| ? Stage three ? + --+ --+ ------+| ?15-29 ?| ?Stage four ? | ? Stage four ?+ ---+ ---+ -------+| ?<15 (or dialysis) ? ?| ?Stage five ? | ? Stage five ?+ ---+ ---+ -------+ *Each stage assumes the associated GFR level has been in effect for at least three months. ?Stages 1 to 5, with or without kidney disease, indicate chronic kidney disease. Notes: Determination of stages one and two (with eGFR >59mL/min/1.73 m2) requires estimation of kidney damage for at least three months as defined by structural or functional abnormalities of the kidney, manifested by either:Pathological abnormalities or Markers of kidney damage (including abnormalities in the composition of the blood or urine or abnormalities in imaging tests). Lab Interpretation (test code = 19762-7) Abnormal [facility] WITH [id number] 20:29:45* Test Item Value Reference Range Interpretation Comme nts WBC (test code = 6690-2) 10.10 See_Comment [A & A Custom Cornhole] The system which generated this result transmitted reference range: 4.30 - 11.10 10*3/?L. The reference range was not used to interpret this result as normal/abnormal. RBC (test code = 789-8) 4.36 See_Comment [A & A Custom Cornhole] The system which generated this result transmitted reference range: 3.93 - 5.25 10*6/?L. The reference range was not used to interpret this result as normal/abnormal. HGB (test code = 718-7) 12.4 g/dL 11.6-15.0 HCT (test code = 4544-3) 38.3 % 35.7-45.2 MCV (test code = 787-2) 87.8 fL 80.6-95.5 MCH (test code = 785-6) 28.4 pg 25.9-32.8 MCHC (test code = 786-4) 32.4 g/dL 31.6-35.1 RDW-SD (test code = 49032-6) 48.0 fL 39.0-49.9 RDW-CV (test code = 788-0) 14.9 % 12.0-15.5 PLT (test code = 777-3) 265 See_Comment [Automated messa ge] The system which generated this result transmitted reference range: 166 - 358 10*3/?L. The reference range was not used to interpret this result as normal/abnormal. MPV (test code = 85579-1) 11.0 fL 9.5-12.9 NRBC/100 WBC (test code = 8848754332) 0.0 See_Comment [Automated me ssage] The system which generated this result transmitted reference range: 0.0 - 10.0 /100 WBCs. The reference range was not used to interpret this result as normal/abnormal. NRBC x10^3 (test code = 8282232569) See_Comment [Automated me ssage] The system which generated this result transmitted reference range: 10*3/?L. The reference range was not used to interpret this result as normal/abnormal. GRAN MAT (NEUT) % (test code = 770-8) 66.4 % IMM GRAN % (test code = 9785995496) 0.20 % LYMPH % (test code = 736-9) 24.9 % MONO % (test code = 5905-5) 6.3 % EOS % (test code = 713-8) 1.5 % BASO % (test code = 706-2) 0.7 % GRAN MAT x10^3(ANC) (test code = 8957493777) 6.71 10*3/uL 1.88-7.09 IMM GRAN x10^3 (test code = 3633007793) 0.00-0.06 LYMPH x10^3 (test code = 731-0) 2.51 10*3/uL 1.32-3.29 MONO x10^3 (test code = 742-7) 0.64 10*3/uL 0.33-0.92 EOS x10^3 (test code = 711-2) 0.15 10*3/uL 0.03-0.39 BASO x10^3 (test code = 704-7) 0.07 10*3/uL [facility]01[facility]07 [facility] [id number] 19:37:02* Test Item Value Reference Range Interpretation Comme nts VITAMIN D, 25 OH (test code = 4958) 45 NG/ML SEE BELOW EFFECTIVE 03/2023, PLEASE NOTE NEW METHODOLOGY IS ELECTROCHEMILUMINESCENCE BINDING ASSAY. NOTE: 25-HYDROXYVITAMIN D ASSAY INCLUDES 25-HYDROXYVITAMIN D2 AND D3. INTERPRETIVE RANGES PEDIATRIC (<17 YEARS) . . . . . . . . . . . NG/ML 20-100ADULT: INSUFFICIENT . . . . . . . . . . . . . . NG/ML <20 SUBOPTIMAL . . . . . . . . . . . . . . . NG/ML 20-29 OPTIMAL . . . . . . . . . . . . . . . . . NG/ML 30-100 UNLESS OTHERWISE INDICATED, ALL TESTING PERFORMED AT [facility] [address] [place] [address] HEAT CURER: ASHLEY BAIRD M.D. CLIA NUMBER [id number] [facility] [id number] VITAMIN B 12 AND FOLIC [id number] 06:25:39* Test Item Value Reference Range Interpretation Comme [facility] VITAMIN B-12 (test code = 2840) 917 PG/ML 200-950 FOLIC ACID (test code = 2695) 13.0 UG/L SEE BELOW INTERPRETI VE RANGES DEFICIENCY . . . . . . . . . . . . . . . UG/L <4.0 POSSIBLE DEFICIENCY. . . . . . . . . . . UG/L 4.0-5.9 SUFFICIENT . . . . . . . . . . . . . . . UG/L >=6.0 CBC W/AUTO DIFF WITH [id number] 03:06:47* Test Item Value Reference Range Interpretation Comme nts WBC (test code = 1001) 10.5 K/UL 3.5-11.0 RBC (test code = 1002) 4.89 M/UL 3.80-5.40 HEMOGLOBIN (test code = 1003) 13.6 G/DL 11.5-15.5 HEMATOCRIT (test code = 1004) 42.2 % 34.0-45.0 MCV (test code = 1005) 86.3 fL 80.0-99.0 MCH (test code = 1006) 27.8 PG 25.0-33.0 MCHC (test code = 1007) 32.2 G/DL 31.0-36.0 RDW (test code = 1038) 14.4 % 11.5-15.0 NEUTROPHILS (test code = 1008) 67.8 % LYMPHOCYTES (test code = 1010) 24.5 % MONOCYTES (test code = 1011) 5.3 % EOSINOPHILS (test code = 1012) 1.6 % BASOPHILS (test code = 1013) 0.5 % IMMATURE GRANULOCYTES (test code = 1036) 0.3 % NUCLEATED RBCS (test code = 1065) 0.0 /100 WBC'S See_Comment [Automated messa ge] The system which generated this result transmitted reference range: 0.0. The reference range was not used to interpret this result as normal/abnormal. PLATELET COUNT (test code = 1015) 309 K/UL 130-400 ABSOLUTE NEUTROPHILS (test code = 1066) 7.10 K/UL 1.50-7.50 ABSOLUTE LYMPHOCYTES (test code = 1067) 2.57 K/UL 1.00-4.00 ABSOLUTE MONOCYTES (test code = 1068) 0.56 K/UL 0.20-1.00 ABSOLUTE EOSINOPHILS (test code = 1040) 0.17 K/UL 0.00-0.50 ABSOLUTE BASOPHILS (test code = 1069) 0.05 K/UL 0.00-0.20 ABS IMMATURE GRANULOCYTES (test code = 1020) 0.03 K/UL 0.00-0.10 ABS NUCLEATED RBCS (test code = 36790) 0.00 K/UL 0.00-0.11 VITAMIN B 12 AND FOLIC ACID [ADDED]2023-02-07 00:00:00* Test Item Value Reference Range Interpretation Comme nts VITAMIN B-12 (test code = 2840) 917 PG/ML FOLIC ACID (test code = 2695) 13.0 UG/[facility] WITH PLATELETS [ADDED]2023-02-07 00:00:00* Test Item Value Reference Range Interpretation Comme nts WBC (test code = 1001) 10.5 K/UL RBC (test code = 1002) 4.89 M/UL HEMOGLOBIN (test code = 1003) 13.6 G/DL HEMATOCRIT (test code = 1004) 42.2 % MCV (test code = 1005) 86.3 fL MCH (test code = 1006) 27.8 PG MCHC (test code = 1007) 32.2 G/DL RDW (test code = 1038) 14.4 % NEUTROPHILS (test code = 1008) 67.8 % LYMPHOCYTES (test code = 1010) 24.5 % MONOCYTES (test code = 1011) 5.3 % EOSINOPHILS (test code = 1012) 1.6 % BASOPHILS (test code = 1013) 0.5 % IMMATURE GRANULOCYTES (test code = 1036) 0.3 % NUCLEATED RBCS (test code = 1065) 0.0 /100WBC'S PLATELET COUNT (test code = 1015) 309 K/UL ABSOLUTE NEUTROPHILS (test c ode = 1066) 7.10 K/UL ABSOLUTE LYMPHOCYTES (test c ode = 1067) 2.57 K/UL ABSOLUTE MONOCYTES (test cod e = 1068) 0.56 K/UL ABSOLUTE EOSINOPHILS (test c ode = 1040) 0.17 K/UL ABSOLUTE BASOPHILS (test cod e = 1069) 0.05 K/UL ABS IMMATURE GRANULOCYTES (t est code = 1020) 0.03 K/UL ABS NUCLEATED RBCS (test cod e = 19896) 0.00 K/UL Olvin MorenoVITAMIN D, 25 OH [ADDED]2023-02-07 00:00:00* Test Item Value Reference Range Interpretation Comme nts VITAMIN D, 25 OH (test code = 4958) 45 NG/ML Olvin MorenoVITAMIN B 12 AND FOLIC ACID [ADDED]2023-02-07 00:00:00* Test Item Value Reference Range Interpretation Comme nts VITAMIN B-12 (test code = 2840) 917 PG/ML FOLIC ACID (test code = 2695) 13.0 UG/L Olvin MorenoCBC W/AUTO DIFF WITH PLATELETS [ADDED]2023-02-07 00:00:00* Test Item Value Reference Range Interpretation Comme nts WBC (test code = 1001) 10.5 K/UL RBC (test code = 1002) 4.89 M/UL HEMOGLOBIN (test code = 1003) 13.6 G/DL HEMATOCRIT (test code = 1004) 42.2 % MCV (test code = 1005) 86.3 fL MCH (test code = 1006) 27.8 PG MCHC (test code = 1007) 32.2 G/DL RDW (test code = 1038) 14.4 % NEUTROPHILS (test code = 1008) 67.8 % LYMPHOCYTES (test code = 1010) 24.5 % MONOCYTES (test code = 1011) 5.3 % EOSINOPHILS (test code = 1012) 1.6 % BASOPHILS (test code = 1013) 0.5 % IMMATURE GRANULOCYTES (test code = 1036) 0.3 % NUCLEATED RBCS (test code = 1065) 0.0 /100WBC'S PLATELET COUNT (test code = 1015) 309 K/UL ABSOLUTE NEUTROPHILS (test c ode = 1066) 7.10 K/UL ABSOLUTE LYMPHOCYTES (test c ode = 1067) 2.57 K/UL ABSOLUTE MONOCYTES (test cod e = 1068) 0.56 K/UL ABSOLUTE EOSINOPHILS (test c ode = 1040) 0.17 K/UL ABSOLUTE BASOPHILS (test cod e = 1069) 0.05 K/UL ABS IMMATURE GRANULOCYTES (t est code = 1020) 0.03 K/UL ABS NUCLEATED RBCS (test cod e = 11632) 0.00 K/UL Olvin MorenoVITAMIN D, 25 OH [ADDED]2023-02-07 00:00:00* Test Item Value Reference Range Interpretation Comme nts VITAMIN D, 25 OH (test code = 4958) 45 NG/ML Olvin MorenoVITAMIN B 12 AND FOLIC ACID [ADDED]2023-02-07 00:00:00* Test Item Value Reference Range Interpretation Comme nts VITAMIN B-12 (test code = 2840) 917 PG/ML FOLIC ACID (test code = 2695) 13.0 UG/L Olvin MorenoCBC W/AUTO DIFF WITH PLATELETS [ADDED]2023-02-07 00:00:00* Test Item Value Reference Range Interpretation Comme nts WBC (test code = 1001) 10.5 K/UL RBC (test code = 1002) 4.89 M/UL HEMOGLOBIN (test code = 1003) 13.6 G/DL HEMATOCRIT (test code = 1004) 42.2 % MCV (test code = 1005) 86.3 fL MCH (test code = 1006) 27.8 PG MCHC (test code = 1007) 32.2 G/DL RDW (test code = 1038) 14.4 % NEUTROPHILS (test code = 1008) 67.8 % LYMPHOCYTES (test code = 1010) 24.5 % MONOCYTES (test code = 1011) 5.3 % EOSINOPHILS (test code = 1012) 1.6 % BASOPHILS (test code = 1013) 0.5 % IMMATURE GRANULOCYTES (test code = 1036) 0.3 % NUCLEATED RBCS (test code = 1065) 0.0 /100WBC'S PLATELET COUNT (test code = 1015) 309 K/UL ABSOLUTE NEUTROPHILS (test c ode = 1066) 7.10 K/UL ABSOLUTE LYMPHOCYTES (test c ode = 1067) 2.57 K/UL ABSOLUTE MONOCYTES (test cod e = 1068) 0.56 K/UL ABSOLUTE EOSINOPHILS (test c ode = 1040) 0.17 K/UL ABSOLUTE BASOPHILS (test cod e = 1069) 0.05 K/UL ABS IMMATURE GRANULOCYTES (t est code = 1020) 0.03 K/UL ABS NUCLEATED RBCS (test cod e = 59464) 0.00 K/UL Olvin MorenoVITAMIN D, 25 OH [ADDED]2023-02-07 00:00:00* Test Item Value Reference Range Interpretation Comme [facility] VITAMIN D, 25 OH (test code = 4958) 45 NG/ML Olvin MorenoVITAMIN B 12 AND FOLIC ACID [ADDED]2023-02-07 00:00:00* Test Item Value Reference Range Interpretation Comme nts VITAMIN B-12 (test code = 2840) 917 PG/ML FOLIC ACID (test code = 2695) 13.0 UG/L Olvin MorenoCBC W/AUTO DIFF WITH PLATELETS [ADDED]2023-02-07 00:00:00* Test Item Value Reference Range Interpretation Comme nts WBC (test code = 1001) 10.5 K/UL RBC (test code = 1002) 4.89 M/UL HEMOGLOBIN (test code = 1003) 13.6 G/DL HEMATOCRIT (test code = 1004) 42.2 % MCV (test code = 1005) 86.3 fL MCH (test code = 1006) 27.8 PG MCHC (test code = 1007) 32.2 G/DL RDW (test code = 1038) 14.4 % NEUTROPHILS (test code = 1008) 67.8 % LYMPHOCYTES (test code = 1010) 24.5 % MONOCYTES (test code = 1011) 5.3 % EOSINOPHILS (test code = 1012) 1.6 % BASOPHILS (test code = 1013) 0.5 % IMMATURE GRANULOCYTES (test code = 1036) 0.3 % NUCLEATED RBCS (test code = 1065) 0.0 /100WBC'S PLATELET COUNT (test code = 1015) 309 K/UL ABSOLUTE NEUTROPHILS (test c ode = 1066) 7.10 K/UL ABSOLUTE LYMPHOCYTES (test c ode = 1067) 2.57 K/UL ABSOLUTE MONOCYTES (test cod e = 1068) 0.56 K/UL ABSOLUTE EOSINOPHILS (test c ode = 1040) 0.17 K/UL ABSOLUTE BASOPHILS (test cod e = 1069) 0.05 K/UL ABS IMMATURE GRANULOCYTES (t est code = 1020) 0.03 K/UL ABS NUCLEATED RBCS (test cod e = 24544) 0.00 K/UL Olvin MorenoVITAMIN D, 25 OH [ADDED]2023-02-07 00:00:00* Test Item Value Reference Range Interpretation Comme nts VITAMIN D, 25 OH (test code = 4958) 45 NG/ML Olvin [id number] 15:53:00* Test Item Value Reference Range Interpretation Comme nts [employer] left side (test code = 84170-0Z) 0.77 See_Comment L [Automate d message] The system which generated this result transmitted reference range: 1.40 - 0.90 NA. The reference range was not used to interpret this result as normal/abnormal. [employer] right side (test code = 90702-0M) 1.23 See_Comment Presentat ion Factors: COPDExercise Modality: At RestNormal - 1.40 - 1.00Borderline - 0.99 - 0.90Mild - 0.89 - 0.60Moderate - 0.59 - 0.30Severe - 0.29 - 0.00 [Automated message] The system which generated this result transmitted reference range: 1.40 - 0.90 NA. The reference range was not used to interpret this result as normal/abnormal. Lab Interpretation (test code = 85365-9) Abnormal Caroline Seybold - ExternalUA RFLX MICR CULT IF [id number] 18:46:00* Test Item Value Reference Range Interpretation Comme nts UA COLOR (test code = COLU) YELLOW DISCRIPT YELLOW UA APPEARANCE (test code = APPU) CLEAR DISCRIPT CLEAR UA GLUCOSE DIPSTICK (test code = DGLUU) NEGATIVE mg/dL NEGATIVE UA BILIRUBIN DIPSTICK (test code = BILU) NEGATIVE NEGATIVE UA KETONE DIPSTICK (test cod e = KETU) NEGATIVE mg/dL NEGATIVE UA SPECIFIC GRAVITY (test code = SGU) <=1.005 1.005-1.030 A UA BLOOD DIPSTICK (test code = TALAT) MODERATE NEGATIVE A UA PH DIPSTICK (test code = BENNY) 5.5 5.0-9.0 UA PROTEIN DIPSTICK (test code = PROU) NEGATIVE mg/dL NEGATIVE UA UROBILINOGEN DIPSTICK (test code = URO) 0.2 mg/dL 0.2-1.0 UA NITRITE DIPSTICK (test code = TAYA) NEGATIVE NEGATIVE UA LEUKOCYTE ESTERASE DIPSTICK (test code = LEUU) MODERATE NEGATIVE A UA WBC (test code = WBCU) 6-10 #WBC/HPF 0-2 A UA RBC (test code = RBCU) 3-5 #RBC/HPF 0-2 A UA BACTERIA (test code = BACU) 1+ /HPF NONE-TRACE A UA SQUAMOUS CELLS (test code = SQU) OCCASIONAL /LPF NONE-TRACE UA MUCUS (test code = MUCU) OCCASIONAL /LPF NONE SEEN A Indication for culture: Suprapubic PainUR HCG [id number] 18:46:00* Test Item Value Reference Range Interpretation Comme nts UR HCG QUAL (test code = HCGQLU) NEGATIVE NEGATIVE Indication for culture: Suprapubic Pain- CT ABD PELVIS [id number] 17:33:00 [facility] 1945 Sex: FPatient Name: ARON WHIPPLE Unit No: [id number] EXAMS: CPT CODE: [id number] CT ABD PE LVIS W/CONT 28594 LOCATION: T18 EXAM: CT ABDOMEN AND PELVIS WITH CONTRAST INDICATION: Abdominal pain COMPARISON: None. TECHNIQUE: Multiple CT images of the abdomen and pelvis were obtained with reconstructions in the coronal and sagittal planes. 100 ml of Isovue 300 was given intravenously. Up-to-date CT equipment and radiation dose reduction techniques were utilized. Automatic exposure control was utilized. FINDINGS: Lung bases are clear. Elongated Lorrie's lobe of the right lobe liver noted.There is mild intrahepatic biliary dilatation. Hypodense nodule in the right lobe liver present measuring 12 mm. Spleen, adrenal glands and pancreas normal. Gallbladder is absent. Common bile duct measures 9 mm. Portal vasculature is patent. Mild bilateral renal atrophy. No hydronephrosis or hydroureter is seen. No focal abnormality seen. Urinary bladder is normal. Uterus and adnexal structures are age-appropriate in appearance. No free air or free fluid is present. Diverticulosis of the sigmoid colon without evidence of acute diverticulitis. Postop changes of the anterior abdominal wall status post ventral hernia repair. Postop changes of the stomach present. There is no bowel obstruction. Moderate to severe atherosclerotic disease of the abdominal aorta. No aneurysmal dilation identified. Bones are intact. Peripheral soft tissues are unremarkable. IMPRESSION: 1. No acute abnormality. No bowel obstruction. 2. Diverticula of the sigmoid colon without evidence of acute diverticulitis. 3. Hypodense nodule of the right lobe liver measuring 12 mm. Consider multiphase liver protocol CTor MRI for further evaluation. at 1733 Reported and signed by: EZEQUIEL LEACH M.D. CC: Sachin Stewart MD Technologist: Gricelda Woodruff; Alondra (CT),(MR) CTDI: 22.07 DLP: 1196.67Trscr Dt/Tm: 06/19/2021 (1733) by:[email or web address] PrintedDate/Time: 06/19/2021 (1732) Name: ARON WHIPPLE [facility] Phys: Sachin Luong MD [address] : 1945 Age: 76 Sex: F [place], [place] [id number] Loc: [facility] [place] Exam Date: 06/19/2021 Status: ADM IN PH: FAX: PAGE 1 Signed ReportBASIC METABOLIC [id number] 16:23:00* Test Item Value Reference Range Interpretation Comme nts SODIUM (test code = NA) 140 mmol/L 136-145 N Please note: New Reference Range Aug 2020 POTASSIUM (test code = K) 3.9 mmol/L 3.5-5.1 N CHLORIDE (test code = CL) 103 mmol/L 98-107 N Please note: New Reference Range Aug 2020 CARBON DIOXIDE (test code = CO2) 26 mmol/L 20-31 N Please note: N ew Reference Range Aug 2020 GLUCOSE (test code = GLU) 98 mg/dL 74-106 N Please note: New Reference Range Aug 2020 BLOOD UREA NITROGEN (test code = BUN) 22 mg/dL 9-23 N Please note: New Reference Range Aug 2020 GLOMERULAR FILTRATION RATE (test code = GFR) >=60 max estimate mL/min >60 Units are mL/min/1.73m2 The estimated glomerular filtration rate is computed usingpatient race, age (>18), sex, and serum creatinine. If anyof the needed data elements are missing the Laboratory cannot compute an estimation of the glomerular filtration rate. CREATININE (test code = CREAT) 0.90 mg/dL 0.55-1.02 N Please note: New Reference Range Aug 2020 CALCIUM (test code = CA) 8.3 mg/dL 8.7-10.4 L Please note: New Reference Range Aug 2020 LIVER FUNCTION [id number] 16:23:00* Test Item Value Reference Range Interpretation Comme nts TOTAL PROTEIN (test code = PROT) 6.0 g/dL 5.7-8.2 N Please note: New Reference Range Aug 2020 ALBUMIN (test code = ALB) 4.2 g/dL 3.2-4.8 N Please note: New Reference Range Aug 2020 BILIRUBIN TOTAL (test code = BILT) 0.3 mg/dL 0.3-1.2 N Please note: New Reference Range Aug 2020 BILIRUBIN DIRECT (test code = BILD) < 0.1 mg/dL <0.3 N Please note: New Reference Range Aug 2020 SGOT/AST (test code = AST) 14 U/L <34 N Please note: New Reference Range Aug 2020 SGPT/ALT (test code = ALT) 12 U/L 10-49 N Please note: New Reference Range Aug 2020 ALKALINE PHOSPHATASE (test code = ALKP) 134 U/L 46-116 H Please note: New Reference Range Aug 2020 [id number] 16:23:00* Test Item Value Reference Range Interpretation Comme nts LIPASE (test code = LIP) 23 U/L 12-53 N Please note: New Reference Range Aug 2020 COVID 19 INHOUSE [id number] 16:18:00* Test Item Value Reference Range Interpretation Comme nts COVID 19 INHOUSE AG (test code = [id number]) NEGATIVE NEGATIVE Negative results , from patients with symptom onset beyondfive days, should be treated as presumptive and confirmationwith a molecular assay, if necessary for patientmanagement, may be performed. Negative results do not ruleout COVID-19 and should not be used as the sole basis fortreatment or patient management decisions, includinginfection control decisions. Negative results should beconsidered in the context of a patient's recent exposures,history and the presence of clinical signs and symptomsconsistent with COVID-19. CBC W/AUTO [id number] 15:58:00* Test Item Value Reference Range Interpretation Comme nts WHITE BLOOD CELL (test code = WBC) 9.0 x10 3/uL 4.8-10.8 N RED BLOOD CELL (test code = RBC) 4.72 x10 6/uL 4.20-5.40 N HEMOGLOBIN (test code = HGB) 12.9 g/dL 12.0-16.0 N HEMATOCRIT (test code = HCT) 40.9 % 37.0-47.0 N MEAN CELL VOLUME (test code = MCV) 86.7 fL 81.0-99.0 N MEAN CELL HGB (test code = MCH) 27.3 pg 27-31 N MEAN CELL HGB CONCENTRATION (test code = MCHC) 31.5 G/DL 33-36.5 L RED CELL DISTRIBUTION WIDTH (test code = RDW) 14.7 % 12.9-16.9 N PLATELET COUNT (test code = PLT) 268 x10 3/uL 150-440 N MEAN PLATELET VOLUME (test c ode = MPV) 10.2 fL 8.9-12.4 N NEUTROPHIL % (test code = NT%) 61.3 % 42.2-75.2 N LYMPHOCYTE % (test code = LY%) 29.6 % 20.5-51.1 N MONOCYTE % (test code = MO%) 6.3 % 1.7-9.3 N EOSINOPHIL % (test code = EO%) 1.9 % 0.0-7.0 N BASOPHIL % (test code = BA%) 0.6 % 0-2.5 N NEUTROPHIL # (test code = NT#) 5.49 x10 3/uL 1.80-7.70 N LYMPHOCYTE # (test code = LY#) 2.65 x10 3/uL 1.00-4.80 N MONOCYTE # (test code = MO#) 0.56 x10 3/uL 0.00-0.80 N EOSINOPHIL # (test code = EO#) 0.17 x10 3/uL 0.00-0.45 N BASOPHIL # (test code = BA#) 0.05 x10 3/uL 0.0-0.20 N - XR WRIST 3 + V [id number] 14:23:00 [facility] : 1945 Sex: F FAX: Dominic Pérez MD [place]: [address]: REG Name: ARON WHIPPLE [facility] : 1945 Age/S: 75/F [address] [facility] [employer] Unit #: [id number] Loc: E.ERS2 [place], [place] Phys: Dominic Pérez [place] [address] Acct: [id number] Dis Date: Status: REG ER PHONE #: [phone] Exam Date: 03/21/2021 1400 FAX #: [phone] Reason: Wrist Pain EXAMS: CPT CODE: [id number] XR WRIST 3 + [place] LT [address]014 Dictation location: U19. LEFT WRIST 3 VIEWS HISTORY: Wrist Pain FINDINGS: Moderate to severe degenerative changes also noted along the first CMC joint with sclerosis, subchondral cyst formation and osteophytosis. No fracture or dislocation. No significant soft tissue swelling. IMPRESSION: No fracture or dislocation. 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 at 1423 Reported and signed by: Say Hoffmann M.D. CC: Dominic Pérez MD Technologist: RENARD MOURA [facility] Date/Time/By: 03/21/2021 (1423) : By: [email or web address] PAGE 1 Signed Report FAX: Dominic Morocho MD [place]: St: REG Name: ARON WHIPPLE [facility] : 1945 Age/S: 75/F [address] [facility] [employer] Unit #: [id number] Loc: E.[facility] [place], [place] Phys: Dominic Pérez [place] [address] Acct: [id number] Dis Date: Status: REG ER PHONE #: [phone] Exam Date: 03/21/2021 1400 FAX #: [phone] Reason: Wrist Pain EXAMS: CPT CODE: [id number] XR WRIST 3 + V LT 19491 (Continued) Orig Print D/T: S: 03/21/2021 (1426) PAGE 2 Signed Report- CT MAXIFAC W/O [id number] 14:20:00[facility] : 1945 Sex: F FAX: Dominic Pérez MD [place]: St: PRE Name: ARON WHIPPLE [facility] : 1945 Age/S: 75/F [address] [facility] Unit: [id number] Loc: E.ERS2 [place], [place] Phys: Dominic Pérez [place] [address] Acct: [id number] Dis Date: Status: PRE ER PHONE #: [phone] Exam Date: 03/21/2021 1403 FAX #: [phone] Reason: FALL EXAMS: CPT CODE: [id number] CT MAXIFAC W/O CONTRAST 86608 INDICATION:Headache fall, pain TECHNIQUE: Noncontrast CT of the head is obtained. Comparison: No prior studies for comparison. Location: T 18 CT DLP Dose: 473 mGy-cm. Iterative dose reduction technique utilized. FINDINGS: There is mild generalized cerebral atrophy with mild scattered periventricular and deep white matter low-density changes. There is no CT evidence of an acute cerebrovascular accident. There is no evidence of intracerebral hemorrhage. No mass effect is seen. No mass is seen. The brainstem structures are unremarkable. There is mild cerebellar atrophy. There is no evidence of an acute cerebrovascular accident involving the cerebellar hemispheres. The cisterns are patent. The ventricular system is unremarkable. Th e calvarium and skull base are normal. No calvarial or skull base fracture is seen. The extracranial soft tissues are unremarkable. Vascular calcifications are noted in the carotid siphons. IMPRESSION: 1. Mild generalized cerebral atrophy and mild scattered periventricular and deep white matter changes, consistent with mild chronic microvascular disease. 2. No evidence of acute stroke, hemorrhageor mass. CT cervical spine without contrast: INDICATIONS: Fall, pain PAGE 1 Signed Report (CONTINUED) FAX: Dominic Pérez MD [place]: St: PRE Name: ARON WHIPPLE [facility] : 1945 Age/S: 75/F [address] [facility] Unit: [id number] Loc: [address] Phys: Dominic Pérez [place] [address] Acct: [id number] Dis Date: Status: PRE ER PHONE #: [phone] Exam Date: 03/21/2021 1403 FAX #: [phone] Reason: FALL EXAMS: CPT CODE: [id number] CT MAXIFAC W/O CONTRAST 20270 (Continued) TECHNIQUE: Helical CT images of the cervical spine were obtained from the skull base through T2 without administration of IV contrast. Axial, sagittal, and coronal images were provided. CT DLP dose: 351 mGy centimeters.Iterative dose reduction technique utilized Location: T 18 COMPARISON: None available. FINDINGS: Vertebral body heights, alignment, and disc spaces are well-maintained. There is no evidence of acute fracture or subluxation. No significant central canal compromise is identified. Prevertebral soft tissues are unremarkable. IMPRESSION: 1. No acute abnormality within the cervical spine. CT maxillofacial without contrast: INDICATIONS: Fall, pain TECHNIQUE: CT data acquisition of the maxillofacial region was obtained without intravenous contrast with coronal , sagittal and axial reformats provided according to the maxillofacial CT protocol. COMPARISON: None available. Location: T 18 CT DLP dose: 311 mGy centimeters. Iterative dose reduction technique utilized. FINDINGS: There are no facial fractures. PAGE 2 Signed Report (CONTINUED) FAX: Dominic Pérez MD [place]: St: PRE Name: ARON WHIPPLE [facility] : 1945 Age/S: 75/F [address] [facility] Unit: [id number] Loc: [address] Phys: Dominic [place] [address] Acct: [id number] Dis Date: Status: PRE ER PHONE #: [phone] Exam Date: 03/21/2021 1403 FAX #: [phone] Reason: FALL EXAMS: CPT CODE: [id number] CT MAXIFAC W/OCONTRAST 37072 (Continued) The visualized portions of the orbits and brain are unremarkable. The sinuses are clear. The nasal septum is midline. The osteomeatal units are unremarkable. There are no radiopaque foreign bodies. IMPRESSION: Unremarkable maxillofacial CT. at 1420 Reported and signed by: MONSERRAT VENTURA M.D. CC: Dominic Pérez MD Technologist: MACARENA SIMPSON Trnscrd Dt/Tm: 03/21/2021 (1420) [id number] Print D/T: S: 03/21/2021 (4373 PAGE 3 Signed Report- CT C-SPINE W/O [id number] 14:20:00 [facility] : 1945 Sex: F FAX: Dominic Pérez MD [place]: St: PRE Name: ARON WHIPPLE [facility] : 1945 Age/S: 75/F [address] [facility] Unit: [id number] Loc: E.[address] Phys: Dominic Pérez [place] [address] Acct: [id number] Dis Date: Status: PRE ER PHONE #: [phone] Exam Date: 03/21/2021 1403 FAX #: [phone] Reason: Neck Pain EXAMS: CPT CODE: [id number] CT C-SPINE W/O CONT 53405 INDICATION:Headache fall, pain TECHNIQUE: Noncontrast CT of the head is obtained. Comparison: No prior studies for comparison. Location: T 18 CT DLP Dose: 473 mGy-cm. Iterative dose reduction technique utilized. FINDINGS: There is mild generalized cerebral atrophy with mild scattered periventricular and deep white matter low-density changes. There is no CT evidence of an acute cerebrovascular accident. There is no evidence of intracerebral hemorrhage. No mass effect is seen. No mass is seen. The brainstem structures are unremarkable. There is mild cerebellar atrophy. There is no evidence of an acute cerebrovascular accident involving the cerebellar hemispheres. The cisterns are patent. The ventricular system is unremarkable. The calvarium and skull base are normal. No calvarial or skull base fracture is seen. The extracranialsoft tissues are unremarkable. Vascular calcifications are noted in the carotid siphons. IMPRESSION: 1. Mild generalized cerebral atrophy and mild scattered periventricular and deep white matter lam es, consistent with mild chronic microvascular disease. 2. No evidence of acute stroke, hemorrhageor mass. CT cervical spine without contrast: INDICATIONS: Fall, pain PAGE 1 Signed Report (CONTINUED) FAX: Dominic Pérez MD [place]: St: PRE Name: ARON WHIPPLE [facility] : 1945 Age/S: 75/F [address] [facility] Unit: [id number] Loc: [address] Phys: Dominic Pérez [place] [address] Acct: [id number] Dis Date: Status: PRE ER PHONE #: [phone] Exam Date: 03/21/2021 1403 FAX #: [phone]: Neck Pain EXAMS: CPT CODE: [id number] CT C-SPINE W/O CONT 08462 (Continued) TECHNIQUE: Helical CT images of the cervical spine were obtained from the skull base through T2 without administration of IV contrast. Axial, sagittal, and coronal images were provided. CT DLP dose: 351 mGy centimeters.Iterative dose reduction technique utilized Location: T 18 COMPARISON: None available. FINDINGS: Vertebral body heights, alignment, and disc spaces are well-maintained. There is no evidence of acute fracture or subluxation. No significant central canal compromise is identified. Prevertebral soft tissues are unremarkable. IMPRESSION: 1. No acute abnormality within the cervical spine. CT maxillofacial without contrast: INDICATIONS: Fall, pain TECHNIQUE: CT data acquisition of the maxillofacial region was obtained without intravenous contrast with coronal , sagittal and axial reformats provided according to the maxillofacial CT protocol. COMPARISON: None available. Location: T 18 CT DLP dose: 311 mGy centimeters. Iterative dose reduction technique utilized. FINDINGS: There are no facial fractures. PAGE 2 Signed Report (CONTINUED) FAX: Dominic Pérez MD [place]: St: PRE Name: ARON WHIPPLE [facility] : 1945 Age/S: 75/F [address] [facility] Unit: [id number] Loc: [address] Phys: Dominic Pé[place] [address] Acct: [id number] Dis Date: Status: PRE ER PHONE #: [phone] Exam Date: 03/21/2021 1403 FAX #: [phone] Reason: Neck Pain EXAMS: CPT CODE: [id number] CT C-SPINE W/O CONT 04320 (Continued) The visualized portions of the orbits and brain are unremarkable. The sinuses are clear. The nasal septum is midline. The osteomeatal units are unremarkable. There are no radiopaque foreign bodies. IMPRESSION: Unremarkable maxillofacial CT. at 1420 Reported and signed by: MONSERRAT VENTURA M.D. CC: Dominic Pérez MD Technologist: MACARENA SIMPSON Trnscrd Dt/Tm: 03/21/2021 (1420) [id number] Orig Print D/T: S: 03/21/2021 (1423 PAGE 3 Signed Report- CT HEAD/BRAIN W/O [id number] 14:20:00 [facility] : 1945 Sex: F FAX: Dominic Pérez MD [place]: St: PRE Name: ARON WHIPPLE [facility] : 1945 Age/S: 75/F [address] [facility] Unit: [id number] Loc: [address] Phys: Dominic Pérez [place] [address] Acct: [id number] Dis Date: Status: PRE ER PHONE #: [phone] Exam Date: 03/21/2021 1403 FAX #: [phone] Reason:Headache EXAMS: CPT CODE: [id number] CT HEAD/BRAIN W/O CONT 98865 INDICATION:Headache fall, pain TECHNIQUE: Noncontrast CT of the head is obtained. Comparison: No prior studies for comparison. Location: T 18 CT DLP Dose: 473 mGy-cm. Iterative dose reduction technique utilized. FINDINGS: There is mild generalized cerebral atrophy with mild scattered periventricular and deep white matter low-density changes. There is no CT evidence of an acute cerebrovascular accident. There is no evidence of intracerebral hemorrhage. No mass effect is seen. No mass is seen. The brainstem structures are unremarkable. There is mild cerebellar atrophy. There is no evidence of an acute cerebrovascular accident involving the cerebellar hemispheres. The cisterns are patent. The ventricular system is unremarkable. The calvarium and skull base are normal. No calvarial or skull base fracture is seen. The extracranial soft tissues are unremarkable. Vascular calcifications are noted in the carotid siphons. IMPRESSION: 1. Mild generalized cerebral atrophy and mild scattered periventricular and deep white matter c hanges, consistent with mild chronic microvascular disease. 2. No evidence of acute stroke, hemorrhage or mass. CT cervical spine without contrast: INDICATIONS: Fall, pain PAGE 1 Signed Report (CONTINUED) FAX: Dominic Pérez MD [place]: St: PRE Name: ARON WHIPPLE [facility] : 1945 Age/S: 75/F [address] [facility] Unit: [id number] Loc: [address] Phys: Dominic Pérez [place] [id number] Acct: [id number] Dis Date: Status: PRE ER PHONE #: [phone] Exam Date: 03/21/2021 1403 FAX #: [phone] Reason: Headache EXAMS: CPT CODE: [id number] CT HEAD/BRAIN W/O CONT 39458 (Continued) TECHNIQUE: Helical CT images of the cervical spine were obtained from the skull base through T2 without administration of IV contrast. Axial, sagittal, and coronal images were provided. CT DLP dose: 351 mGy centimeters.Iterative dose reduction technique utilized Location: T 18 COMPARISON: None available. FINDINGS: Vertebral body heights, alignment, and disc spaces are well-maintained. There is no evidenceof acute fracture or subluxation. No significant central canal compromise is identified. Prevertebral soft tissues are unremarkable. IMPRESSION: 1. No acute abnormality within the cervical spine. CTmaxillofacial without contrast: INDICATIONS: Fall, pain TECHNIQUE: CT data acquisition of the maxillofacial region was obtained without intravenous contrast with coronal , sagittal and axial reformats provided according to the maxillofacial CT protocol. COMPARISON: None available. Location: T 18 CTDLP dose: 311 mGy centimeters. Iterative dose reduction technique utilized. FINDINGS: There are no facial fractures. PAGE 2 Signed Report (CONTINUED) FAX: Dominic Pérez MD [place]: St: PRE Name: ARON WHIPPLE [facility] : 1945 Age/S: 75/F [address] [facility] Unit: [id number] Loc: [address] Phys: Dominic Pérez [place] [address] Acct: [id number] Dis Date: Status: PRE ER PHONE #: [phone] Exam Date: 03/21/2021 1403 FAX #: [phone] Reason: Headache EXAMS: CPT CODE: [id number] CT HEAD/BRAIN W/O CONT 22823 (Continued) The visualized portions of the orbits and brain are unremarkable.The sinuses are clear. The nasal septum is midline. The osteomeatal units are unremarkable. There are no radiopaque foreign bodies. IMPRESSION: Unremarkable maxillofacial CT. Electronically Signedby MONSERRAT VENTURA M.D. on 03/21/2021 at 1420 Reported and signed by: MONSERRAT VENTURA M.D. CC: Dominic Pérez MD Technologist: MACARENA SIMPSON Trnscrd Dt/Tm: 03/21/2021 (1420) [email or web address] Orig Print D/T: S: 03/21/2021 (7633 PAGE 3 Signed Report- XR CHEST 1 [id number] 14:20:00 [facility] 1945 Sex: F FAX: Dominic Pérez MD [place]: St: PRE Name: ARON WHIPPLE [facility] : 1945 Age/S: 75/F [address] [facility] Unit #: [id number] Loc: [address] Phys: Dominic Pérez [place] [address] Acct: [id number] Date: Status: PRE ER PHONE #: [phone] Exam Date: 03/21/2021 1400 FAX #: [phone] Reason: Chest Pain EXAMS: CPT CODE: [id number] XR CHEST 1 V 57789 Dictation location: U19. CHEST, FRONTAL VIEW HISTORY: Chest Pain COMPARISON: None FINDINGS: The patient is rotated. The lungs are clear. Theheart size is normal. Aorta is partially calcified. Scoliosis and degenerative changes affect the thoracic spine. Right rotator cuff repair. IMPRESSION: No evidence of acute cardiopulmonary disease. * * at 1420 Reported and signed by: Say Hoffmann M.D. CC: Dominic Pérez MD Technologist: RENARD MOURA Trnscrd Date/Time/By: 03/21/2021 (1420) : By: [id number] PAGE 1 Signed Report FAX: Dominic Pérez MD [place]: St: PRE- Name: ARON WHIPPLE [facility] : 1945 Age/S: 75/F [address] [facility] Unit #: [id number] Loc: [address] Phys: Dominic Pé[place] [address] Acct: [id number] Dis Date: Status: PRE ER PHONE #:[phone] Exam Date: 03/21/2021 1400 FAX #: [phone] Reason: Chest Pain EXAMS: CPT CODE: [id number] XR CHEST 1 V 71495 (Continued) Orig Print D/T: S: 03/21/2021 (1423) PAGE 2 Signed [id number] (COVID-19) by RT-PCR (HIGH RISK)2021-02-11 00:00:00* Test Item Value Reference Range Interpretation Comme nts SARS-CoV-2 INTERPRETATION (t est code = 23699) NEGATIVE SOURCE (test code = 97159) NOT SPECIFIED Olvin Zelaya VzjdydEKJN-MfU-7 (COVID-19) by RT-PCR (HIGH RISK)2021-02-11 00:00:00* Test Item Value Reference Range Interpretation Comme nts SARS-CoV-2 INTERPRETATION (t est code = 64107) NEGATIVE SOURCE (test code = 27112) NOT SPECIFIED Olvin Zelaya RtboivFAJQ-RcP-2 (COVID-19) by RT-PCR (HIGH RISK)2021-02-11 00:00:00* Test Item Value Reference Range Interpretation Comme nts SARS-CoV-2 INTERPRETATION (t est code = 72060) NEGATIVE SOURCE (test code = 24458) NOT SPECIFIED Olvin Zelaya WoifmcSESW-VfF-7 (COVID-19) by RT-PCR (HIGH RISK)2021-02-11 00:00:00* Test Item Value Reference Range Interpretation Comme nts SARS-CoV-2 INTERPRETATION (t est code = 76572) NEGATIVE SOURCE (test code = 47003) NOT SPECIFIED Olvin RehmanRS-CoV-2 (COVID-19) by RT-PCR (HIGH RISK)2021-02-11 00:00:00* Test Item Value Reference Range Interpretation Comme nts SARS-CoV-2 INTERPRETATION (t est code = 21101) NEGATIVE SOURCE (test code = 29889) NOT SPECIFIED SARS-CoV-2 (COVID-19) by RT-PCR (HIGH RISK)2021-02-11 00:00:00* Test Item Value Reference Range Interpretation Comme nts SARS-CoV-2 INTERPRETATION (t est code = 28811) NEGATIVE SOURCE (test code = 31632) NOT SPECIFIED SARS-CoV-2 (COVID-19) by RT-PCR (HIGH RISK)2021-02-11 00:00:00* Test Item Value Reference Range Interpretation Comme nts SARS-CoV-2 INTERPRETATION (t est code = 29907) NEGATIVE SOURCE (test code = 12872) NOT SPECIFIED ANEMIA [id number] 14:14:00* Test Item Value Reference Range Interpretation Comme nts Vitamin B12 Lvl (test code = Vitamin B12 Lvl) [id number] [facility] [id number] 14:14:00* Test Item Value Reference Range Interpretation Comme nts Glucose Lvl (test code = Glucose Lvl) 84 65-99 BUN (test code = BUN) 18 7-25 Creatinine Lvl (test code = Creatinine Lvl) 0.75 0.60-0.93 eGFR NON-AFR. SAO TOMEAN (test code = eGFR NON-AFR. SAO TOMEAN) 79 eGFR (test code = eGFR ) 92 B/C Ratio (test code = B/C Ratio) NOT APPLICABLE 6-22 Sodium Lvl (test code = Sodi um Lvl) 140 135-146 Potassium Lvl (test code = Potassium Lvl) 4.1 3.5-5.3 Chloride Lvl (test code = Chloride Lvl) 107 98-110 CO2 (test code = CO2) 25 20-32 Calcium Lvl (test code = Calcium Lvl) 9.1 8.6-10.4 Total Protein (test code = Total Protein) 6.6 6.1-8.1 Albumin Lvl (test code = Albumin Lvl) 4.0 3.6-5.1 Globulin (test code = Globulin) 2.6 1.9-3.7 A/G Ratio (test code = A/G Ratio) 1.5 1.0-2.5 Bili Total (test code = Bili Total) 0.4 0.2-1.2 Alk Phos (test code = Alk Phos) 110 37-153 ASPARTATE TRANSAMINASE (test code = ASPARTATE TRANSAMINASE) 12 10-35 ALANINE AMINOTRANSFERASE (te st code = ALANINE AMINOTRANSFERASE) 8 6-29 [id number] 14:14:00* Test Item Value Reference Range Interpretation Comme nts Sed Rate (test code = Sed Rate) 28 [facility] [id number] 14:14:00* Test Item Value Reference Range Interpretation Comme nts C-REACTIVE PROTEIN (test cod e = C-REACTIVE PROTEIN) 12.2 [facility] NorthwestOCCULT BLD,FECAL,IMMUNOASSAY [id number] 00:00:00* Test Item Value Reference Range Interpretation Comme nts OCCULT BLD, FECAL (test code = 21108) NEGATIVE Olvin F AustinOCCULT BLD,FECAL,IMMUNOASSAY [id number] 00:00:00* Test Item Value Reference Range Interpretation Comme nts OCCULT BLD, FECAL (test code = 81313) NEGATIVE Olvin F AustinOCCULT BLD,FECAL,IMMUNOASSAY [id number] 00:00:00* Test Item Value Reference Range Interpretation Comme nts OCCULT BLD, FECAL (test code = 89736) NEGATIVE Olvin F AustinOCCULT BLD,FECAL,IMMUNOASSAY [id number] 00:00:00* Test Item Value Reference Range Interpretation Comme nts OCCULT BLD, FECAL (test code = 00065) NEGATIVE Olvin F AustinOCCULT BLD,FECAL,IMMUNOASSAY [id number] 00:00:00* Test Item Value Reference Range Interpretation Comme nts OCCULT BLD, FECAL (test code = 82459) NEGATIVE OCCULT BLD,FECAL,IMMUNOASSAY [id number] 00:00:00* Test Item Value Reference Range Interpretation Comme nts OCCULT BLD, FECAL (test code = 47256) NEGATIVE OCCULT BLD,FECAL,IMMUNOASSAY [id number] 00:00:00* Test Item Value Reference Range Interpretation Comme nts OCCULT BLD, FECAL (test code = 95383) NEGATIVE CBC W/AUTO [id number] 00:00:00* Test Item Value Reference Range Interpretation Comme nts WBC (test code = 1001) 8.3 K/UL RBC (test code = 1002) 4.74 M/UL HEMOGLOBIN (test code = 1003) 13.3 G/DL HEMATOCRIT (test code = 1004) 39.6 % MCV (test code = 1005) 83.5 fL MCH (test code = 1006) 28.1 PG MCHC (test code = 1007) 33.6 G/DL RDW (test code = 1038) 14.2 % NEUTROPHILS (test code = 1008) 62.2 % LYMPHOCYTES (test code = 1010) 27.4 % MONOCYTES (test code = 1011) 7.1 % EOSINOPHILS (test code = 1012) 2.4 % BASOPHILS (test code = 1013) 0.7 % IMMATURE GRANULOCYTES (test code = 1036) 0.2 % NUCLEATED RBCS (test code = 1065) 0.0 /100WBC'S PLATELET COUNT (test code = 1015) 329 K/UL ABSOLUTE NEUTROPHILS (test c ode = 1066) 5.14 K/UL ABSOLUTE LYMPHOCYTES (test c ode = 1067) 2.27 K/UL ABSOLUTE MONOCYTES (test cod e = 1068) 0.59 K/UL ABSOLUTE EOSINOPHILS (test c ode = 1040) 0.20 K/UL ABSOLUTE BASOPHILS (test cod e = 1069) 0.06 K/UL ABS IMMATURE GRANULOCYTES (t est code = 1020) 0.02 K/UL ABS NUCLEATED RBCS (test cod e = 89540) 0.00 K/UL Olvin MorenoHEMOGLOBIN [id number] 00:00:00* Test Item Value Reference Range Interpretation Comme nts HEMOGLOBIN A1c (test code = 89764) 5.3 % Olvin MorenoLIPID [id number] 00:00:00* Test Item Value Reference Range Interpretation Comme nts CHOLESTEROL (test code = 2210) 188 MG/DL TRIGLYCERIDES (test code = 2232) 83 MG/DL HDL CHOLESTEROL (test code = 2220) 69 MG/DL CALC LDL CHOL (test code = 2237) 102 MG/DL RISK RATIO LDL/HDL (test cod e = 2238) 1.48 RATIO Olvin MorenoCBC W/AUTO [id number] 00:00:00* Test Item Value Reference Range Interpretation Comme nts WBC (test code = 1001) 8.3 K/UL RBC (test code = 1002) 4.74 M/UL HEMOGLOBIN (test code = 1003) 13.3 G/DL HEMATOCRIT (test code = 1004) 39.6 % MCV (test code = 1005) 83.5 fL MCH (test code = 1006) 28.1 PG MCHC (test code = 1007) 33.6 G/DL RDW (test code = 1038) 14.2 % NEUTROPHILS (test code = 1008) 62.2 % LYMPHOCYTES (test code = 1010) 27.4 % MONOCYTES (test code = 1011) 7.1 % EOSINOPHILS (test code = 1012) 2.4 % BASOPHILS (test code = 1013) 0.7 % IMMATURE GRANULOCYTES (test code = 1036) 0.2 % NUCLEATED RBCS (test code = 1065) 0.0 /100WBC'S PLATELET COUNT (test code = 1015) 329 K/UL ABSOLUTE NEUTROPHILS (test c ode = 1066) 5.14 K/UL ABSOLUTE LYMPHOCYTES (test c ode = 1067) 2.27 K/UL ABSOLUTE MONOCYTES (test cod e = 1068) 0.59 K/UL ABSOLUTE EOSINOPHILS (test c ode = 1040) 0.20 K/UL ABSOLUTE BASOPHILS (test cod e = 1069) 0.06 K/UL ABS IMMATURE GRANULOCYTES (t est code = 1020) 0.02 K/UL ABS NUCLEATED RBCS (test cod e = 99689) 0.00 K/UL Olvin Zelaya JoshHEMOGLOBIN [id number] 00:00:00* Test Item Value Reference Range Interpretation Comme nts HEMOGLOBIN A1c (test code = 54840) 5.3 % Olvin Zelaya JoshLIPID [id number] 00:00:00* Test Item Value Reference Range Interpretation Comme nts CHOLESTEROL (test code = 2210) 188 MG/DL TRIGLYCERIDES (test code = 2232) 83 MG/DL HDL CHOLESTEROL (test code = 2220) 69 MG/DL CALC LDL CHOL (test code = 2237) 102 MG/DL RISK RATIO LDL/HDL (test cod e = 2238) 1.48 RATIO Olvin Garcia JoshCBC W/AUTO [id number] 00:00:00* Test Item Value Reference Range Interpretation Comme nts WBC (test code = 1001) 8.3 K/UL RBC (test code = 1002) 4.74 M/UL HEMOGLOBIN (test code = 1003) 13.3 G/DL HEMATOCRIT (test code = 1004) 39.6 % MCV (test code = 1005) 83.5 fL MCH (test code = 1006) 28.1 PG MCHC (test code = 1007) 33.6 G/DL RDW (test code = 1038) 14.2 % NEUTROPHILS (test code = 1008) 62.2 % LYMPHOCYTES (test code = 1010) 27.4 % MONOCYTES (test code = 1011) 7.1 % EOSINOPHILS (test code = 1012) 2.4 % BASOPHILS (test code = 1013) 0.7 % IMMATURE GRANULOCYTES (test code = 1036) 0.2 % NUCLEATED RBCS (test code = 1065) 0.0 /100WBC'S PLATELET COUNT (test code = 1015) 329 K/UL ABSOLUTE NEUTROPHILS (test c ode = 1066) 5.14 K/UL ABSOLUTE LYMPHOCYTES (test c ode = 1067) 2.27 K/UL ABSOLUTE MONOCYTES (test cod e = 1068) 0.59 K/UL ABSOLUTE EOSINOPHILS (test c ode = 1040) 0.20 K/UL ABSOLUTE BASOPHILS (test cod e = 1069) 0.06 K/UL ABS IMMATURE GRANULOCYTES (t est code = 1020) 0.02 K/UL ABS NUCLEATED RBCS (test cod e = 33230) 0.00 K/UL Olvin MorenoHEMOGLOBIN [id number] 00:00:00* Test Item Value Reference Range Interpretation Comme nts HEMOGLOBIN A1c (test code = 50425) 5.3 % Olvin MorenoLIPID [id number] 00:00:00* Test Item Value Reference Range Interpretation Comme nts CHOLESTEROL (test code = 2210) 188 MG/DL TRIGLYCERIDES (test code = 2232) 83 MG/DL HDL CHOLESTEROL (test code = 2220) 69 MG/DL CALC LDL CHOL (test code = 2237) 102 MG/DL RISK RATIO LDL/HDL (test cod e = 2238) 1.48 RATIO Olvin MorenoCBC W/AUTO [id number] 00:00:00* Test Item Value Reference Range Interpretation Comme nts WBC (test code = 1001) 8.3 K/UL RBC (test code = 1002) 4.74 M/UL HEMOGLOBIN (test code = 1003) 13.3 G/DL HEMATOCRIT (test code = 1004) 39.6 % MCV (test code = 1005) 83.5 fL MCH (test code = 1006) 28.1 PG MCHC (test code = 1007) 33.6 G/DL RDW (test code = 1038) 14.2 % NEUTROPHILS (test code = 1008) 62.2 % LYMPHOCYTES (test code = 1010) 27.4 % MONOCYTES (test code = 1011) 7.1 % EOSINOPHILS (test code = 1012) 2.4 % BASOPHILS (test code = 1013) 0.7 % IMMATURE GRANULOCYTES (test code = 1036) 0.2 % NUCLEATED RBCS (test code = 1065) 0.0 /100WBC'S PLATELET COUNT (test code = 1015) 329 K/UL ABSOLUTE NEUTROPHILS (test c ode = 1066) 5.14 K/UL ABSOLUTE LYMPHOCYTES (test c ode = 1067) 2.27 K/UL ABSOLUTE MONOCYTES (test cod e = 1068) 0.59 K/UL ABSOLUTE EOSINOPHILS (test c ode = 1040) 0.20 K/UL ABSOLUTE BASOPHILS (test cod e = 1069) 0.06 K/UL ABS IMMATURE GRANULOCYTES (t est code = 1020) 0.02 K/UL ABS NUCLEATED RBCS (test cod e = 40961) 0.00 K/UL Olvin MorenoHEMOGLOBIN [id number] 00:00:00* Test Item Value Reference Range Interpretation Comme nts HEMOGLOBIN A1c (test code = 19792) 5.3 % Olvin MorenoLIPID [id number] 00:00:00* Test Item Value Reference Range Interpretation Comme nts CHOLESTEROL (test code = 2210) 188 MG/DL TRIGLYCERIDES (test code = 2232) 83 MG/DL HDL CHOLESTEROL (test code = 2220) 69 MG/DL CALC LDL CHOL (test code = 2237) 102 MG/DL RISK RATIO LDL/HDL (test cod e = 2238) 1.48 RATIO Olvin MorenoCBC W/AUTO [id number] 00:00:00* Test Item Value Reference Range Interpretation Comme nts WBC (test code = 1001) 8.3 K/UL RBC (test code = 1002) 4.74 M/UL HEMOGLOBIN (test code = 1003) 13.3 G/DL HEMATOCRIT (test code = 1004) 39.6 % MCV (test code = 1005) 83.5 fL MCH (test code = 1006) 28.1 PG MCHC (test code = 1007) 33.6 G/DL RDW (test code = 1038) 14.2 % NEUTROPHILS (test code = 1008) 62.2 % LYMPHOCYTES (test code = 1010) 27.4 % MONOCYTES (test code = 1011) 7.1 % EOSINOPHILS (test code = 1012) 2.4 % BASOPHILS (test code = 1013) 0.7 % IMMATURE GRANULOCYTES (test code = 1036) 0.2 % NUCLEATED RBCS (test code = 1065) 0.0 /100WBC'S PLATELET COUNT (test code = 1015) 329 K/UL ABSOLUTE NEUTROPHILS (test c ode = 1066) 5.14 K/UL ABSOLUTE LYMPHOCYTES (test c ode = 1067) 2.27 K/UL ABSOLUTE MONOCYTES (test cod e = 1068) 0.59 K/UL ABSOLUTE EOSINOPHILS (test c ode = 1040) 0.20 K/UL ABSOLUTE BASOPHILS (test cod e = 1069) 0.06 K/UL ABS IMMATURE GRANULOCYTES (t est code = 1020) 0.02 K/UL ABS NUCLEATED RBCS (test cod e = 89863) 0.00 K/UL HEMOGLOBIN [id number] 00:00:00* Test Item Value Reference Range Interpretation Comme nts HEMOGLOBIN A1c (test code = 20626) 5.3 % LIPID [id number] 00:00:00* Test Item Value Reference Range Interpretation Comme nts CHOLESTEROL (test code = 2210) 188 MG/DL TRIGLYCERIDES (test code = 2232) 83 MG/DL HDL CHOLESTEROL (test code = 2220) 69 MG/DL CALC LDL CHOL (test code = 2237) 102 MG/DL RISK RATIO LDL/HDL (test cod e = 2238) 1.48 RATIO CBC W/AUTO [id number] 00:00:00* Test Item Value Reference Range Interpretation Comme nts WBC (test code = 1001) 8.3 K/UL RBC (test code = 1002) 4.74 M/UL HEMOGLOBIN (test code = 1003) 13.3 G/DL HEMATOCRIT (test code = 1004) 39.6 % MCV (test code = 1005) 83.5 fL MCH (test code = 1006) 28.1 PG MCHC (test code = 1007) 33.6 G/DL RDW (test code = 1038) 14.2 % NEUTROPHILS (test code = 1008) 62.2 % LYMPHOCYTES (test code = 1010) 27.4 % MONOCYTES (test code = 1011) 7.1 % EOSINOPHILS (test code = 1012) 2.4 % BASOPHILS (test code = 1013) 0.7 % IMMATURE GRANULOCYTES (test code = 1036) 0.2 % NUCLEATED RBCS (test code = 1065) 0.0 /100WBC'S PLATELET COUNT (test code = 1015) 329 K/UL ABSOLUTE NEUTROPHILS (test c ode = 1066) 5.14 K/UL ABSOLUTE LYMPHOCYTES (test c ode = 1067) 2.27 K/UL ABSOLUTE MONOCYTES (test cod e = 1068) 0.59 K/UL ABSOLUTE EOSINOPHILS (test c ode = 1040) 0.20 K/UL ABSOLUTE BASOPHILS (test cod e = 1069) 0.06 K/UL ABS IMMATURE GRANULOCYTES (t est code = 1020) 0.02 K/UL ABS NUCLEATED RBCS (test cod e = 06790) 0.00 K/UL HEMOGLOBIN [id number] 00:00:00* Test Item Value Reference Range Interpretation Comme nts HEMOGLOBIN A1c (test code = 97192) 5.3 % LIPID [id number] 00:00:00* Test Item Value Reference Range Interpretation Comme nts CHOLESTEROL (test code = 2210) 188 MG/DL TRIGLYCERIDES (test code = 2232) 83 MG/DL HDL CHOLESTEROL (test code = 2220) 69 MG/DL CALC LDL CHOL (test code = 2237) 102 MG/DL RISK RATIO LDL/HDL (test cod e = 2238) 1.48 RATIO CBC W/AUTO [id number] 00:00:00* Test Item Value Reference Range Interpretation Comme nts WBC (test code = 1001) 8.3 K/UL RBC (test code = 1002) 4.74 M/UL HEMOGLOBIN (test code = 1003) 13.3 G/DL HEMATOCRIT (test code = 1004) 39.6 % MCV (test code = 1005) 83.5 fL MCH (test code = 1006) 28.1 PG MCHC (test code = 1007) 33.6 G/DL RDW (test code = 1038) 14.2 % NEUTROPHILS (test code = 1008) 62.2 % LYMPHOCYTES (test code = 1010) 27.4 % MONOCYTES (test code = 1011) 7.1 % EOSINOPHILS (test code = 1012) 2.4 % BASOPHILS (test code = 1013) 0.7 % IMMATURE GRANULOCYTES (test code = 1036) 0.2 % NUCLEATED RBCS (test code = 1065) 0.0 /100WBC'S PLATELET COUNT (test code = 1015) 329 K/UL ABSOLUTE NEUTROPHILS (test c ode = 1066) 5.14 K/UL ABSOLUTE LYMPHOCYTES (test c ode = 1067) 2.27 K/UL ABSOLUTE MONOCYTES (test cod e = 1068) 0.59 K/UL ABSOLUTE EOSINOPHILS (test c ode = 1040) 0.20 K/UL ABSOLUTE BASOPHILS (test cod e = 1069) 0.06 K/UL ABS IMMATURE GRANULOCYTES (t est code = 1020) 0.02 K/UL ABS NUCLEATED RBCS (test cod e = 05616) 0.00 K/UL HEMOGLOBIN [id number] 00:00:00* Test Item Value Reference Range Interpretation Comme nts HEMOGLOBIN A1c (test code = 38275) 5.3 % LIPID [id number] 00:00:00* Test Item Value Reference Range Interpretation Comme nts CHOLESTEROL (test code = 2210) 188 MG/DL TRIGLYCERIDES (test code = 2232) 83 MG/DL HDL CHOLESTEROL (test code = 2220) 69 MG/DL CALC LDL CHOL (test code = 2237) 102 MG/DL RISK RATIO LDL/HDL (test cod e = 2238) 1.48 RATIO OCCULT BLD,FECAL,IMMUNOASSAY DIAG [ADDED]2020-05-12 00:00:00* Test Item Value Reference Range Interpretation Comme nts OCCULT BLD, FECAL (test code = 86650) NEGATIVE Olvin MorenoNOTE: [ADDED]2020-05-12 00:00:00* Test Item Value Reference Range Interpretation Comme nts NOTE: (test code = 998) (NOTE) Olvin CastellanoULT BLD,FECAL,IMMUNOASSAY DIAG [ADDED]2020-05-12 00:00:00* Test Item Value Reference Range Interpretation Comme nts OCCULT BLD, FECAL (test code = 87595) NEGATIVE Olvin Zelaya AustinNOTE: [ADDED]2020-05-12 00:00:00* Test Item Value Reference Range Interpretation Comme nts NOTE: (test code = 998) (NOTE) Olvin Zelaya AustinOCCULT BLD,FECAL,IMMUNOASSAY DIAG [ADDED]2020-05-12 00:00:00* Test Item Value Reference Range Interpretation Comme nts OCCULT BLD, FECAL (test code = 07389) NEGATIVE Olvin Zelaya AustinNOTE: [ADDED]2020-05-12 00:00:00* Test Item Value Reference Range Interpretation Comme nts NOTE: (test code = 998) (NOTE) Olvin Zelaya AustinOCCULT BLD,FECAL,IMMUNOASSAY DIAG [ADDED]2020-05-12 00:00:00* Test Item Value Reference Range Interpretation Comme nts OCCULT BLD, FECAL (test code = 75586) NEGATIVE Olvin Zelaya AustinNOTE: [ADDED]2020-05-12 00:00:00* Test Item Value Reference Range Interpretation Comme nts NOTE: (test code = 998) (NOTE) Olvin Zelaya AustinOCCULT BLD,FECAL,IMMUNOASSAY DIAG [ADDED]2020-05-12 00:00:00* Test Item Value Reference Range Interpretation Comme nts OCCULT BLD, FECAL (test code = 91217) NEGATIVE NOTE: [ADDED]2020-05-12 00:00:00* Test Item Value Reference Range Interpretation Comme nts NOTE: (test code = 998) (NOTE) OCCULT BLD,FECAL,IMMUNOASSAY DIAG [ADDED]2020-05-12 00:00:00* Test Item Value Reference Range Interpretation Comme nts OCCULT BLD, FECAL (test code = 10331) NEGATIVE NOTE: [ADDED]2020-05-12 00:00:00* Test Item Value Reference Range Interpretation Comme nts NOTE: (test code = 998) (NOTE) OCCULT BLD,FECAL,IMMUNOASSAY DIAG [ADDED]2020-05-12 00:00:00* Test Item Value Reference Range Interpretation Comme nts OCCULT BLD, FECAL (test code = 42862) NEGATIVE NOTE: [ADDED]2020-05-12 00:00:00* Test Item Value Reference Range Interpretation Comme nts NOTE: (test code = 998) (NOTE) LIPID [id number] 00:00:00* Test Item Value Reference Range Interpretation Comme nts CHOLESTEROL (test code = 2210) 186 MG/DL TRIGLYCERIDES (test code = 2232) 92 MG/DL HDL CHOLESTEROL (test code = 2220) 71 MG/DL CALC LDL CHOL (test code = 2237) 96 MG/DL RISK RATIO LDL/HDL (test cod e = 2238) 1.35 RATIO Olvin Zelaya AustinCOMPREHENSIVE METABOLIC [id number] 00:00:00* Test Item Value Reference Range Interpretation Comme nts GLUCOSE (test code = 2217) 94 MG/DL BUN (test code = 2208) 23 MG/DL CREATININE (test code = 2214) 0.76 MG/DL eGFR AMER. (test cod e = 67174) 90 ML/MIN/1.73 eGFR NON- AMER. (test code = 04040) 78 ML/MIN/1.73 CALC BUN/CREAT (test code = 2235) 30 RATIO SODIUM (test code = 2231) 140 MEQ/L POTASSIUM (test code = 2228) 4.6 MEQ/L CHLORIDE (test code = 2215) 104 MEQ/L CARBON DIOXIDE (test code = 2206) 25 MEQ/L CALCIUM (test code = 2209) 9.5 MG/DL PROTEIN, TOTAL (test code = 2229) 7.0 G/DL ALBUMIN (test code = 2201) 4.6 G/DL CALC GLOBULIN (test code = 2240) 2.4 G/DL CALC A/G RATIO (test code = 2234) 1.9 RATIO BILIRUBIN, TOTAL (test code = 2207) 0.3 MG/DL ALKALINE PHOSPHATASE (test code = 2204) 115 U/L AST (test code = 2218) 14 U/L ALT (test code = 2219) 10 U/L Olvin Zelaya AustinLIPID [id number] 00:00:00* Test Item Value Reference Range Interpretation Comme nts CHOLESTEROL (test code = 2210) 186 MG/DL TRIGLYCERIDES (test code = 2232) 92 MG/DL HDL CHOLESTEROL (test code = 2220) 71 MG/DL CALC LDL CHOL (test code = 2237) 96 MG/DL RISK RATIO LDL/HDL (test cod e = 2238) 1.35 RATIO Olvin Zelaya AustinCOMPREHENSIVE METABOLIC [id number] 00:00:00* Test Item Value Reference Range Interpretation Comme nts GLUCOSE (test code = 2217) 94 MG/DL BUN (test code = 2208) 23 MG/DL CREATININE (test code = 2214) 0.76 MG/DL eGFR AMER. (test cod e = 41270) 90 ML/MIN/1.73 eGFR NON- AMER. (test code = 22651) 78 ML/MIN/1.73 CALC BUN/CREAT (test code = 2235) 30 RATIO SODIUM (test code = 2231) 140 MEQ/L POTASSIUM (test code = 2228) 4.6 MEQ/L CHLORIDE (test code = 2215) 104 MEQ/L CARBON DIOXIDE (test code = 2206) 25 MEQ/L CALCIUM (test code = 2209) 9.5 MG/DL PROTEIN, TOTAL (test code = 2229) 7.0 G/DL ALBUMIN (test code = 2201) 4.6 G/DL CALC GLOBULIN (test code = 2240) 2.4 G/DL CALC A/G RATIO (test code = 2234) 1.9 RATIO BILIRUBIN, TOTAL (test code = 2207) 0.3 MG/DL ALKALINE PHOSPHATASE (test code = 2204) 115 U/L AST (test code = 2218) 14 U/L ALT (test code = 2219) 10 U/L Olvin Zelaya AustinLIPID [id number] 00:00:00* Test Item Value Reference Range Interpretation Comme nts CHOLESTEROL (test code = 2210) 186 MG/DL TRIGLYCERIDES (test code = 2232) 92 MG/DL HDL CHOLESTEROL (test code = 2220) 71 MG/DL CALC LDL CHOL (test code = 2237) 96 MG/DL RISK RATIO LDL/HDL (test cod e = 2238) 1.35 RATIO Olvin Zelaya AustinCOMPREHENSIVE METABOLIC [id number] 00:00:00* Test Item Value Reference Range Interpretation Comme nts GLUCOSE (test code = 2217) 94 MG/DL BUN (test code = 2208) 23 MG/DL CREATININE (test code = 2214) 0.76 MG/DL eGFR AMER. (test cod e = 14841) 90 ML/MIN/1.73 eGFR NON- AMER. (test code = 80279) 78 ML/MIN/1.73 CALC BUN/CREAT (test code = 2235) 30 RATIO SODIUM (test code = 2231) 140 MEQ/L POTASSIUM (test code = 2228) 4.6 MEQ/L CHLORIDE (test code = 2215) 104 MEQ/L CARBON DIOXIDE (test code = 2206) 25 MEQ/L CALCIUM (test code = 2209) 9.5 MG/DL PROTEIN, TOTAL (test code = 2229) 7.0 G/DL ALBUMIN (test code = 2201) 4.6 G/DL CALC GLOBULIN (test code = 2240) 2.4 G/DL CALC A/G RATIO (test code = 2234) 1.9 RATIO BILIRUBIN, TOTAL (test code = 2207) 0.3 MG/DL ALKALINE PHOSPHATASE (test code = 2204) 115 U/L AST (test code = 2218) 14 U/L ALT (test code = 2219) 10 U/L Olvin Zelaya BunkerLIPID [id number] 00:00:00* Test Item Value Reference Range Interpretation Comme nts CHOLESTEROL (test code = 2210) 186 MG/DL TRIGLYCERIDES (test code = 2232) 92 MG/DL HDL CHOLESTEROL (test code = 2220) 71 MG/DL CALC LDL CHOL (test code = 2237) 96 MG/DL RISK RATIO LDL/HDL (test cod e = 2238) 1.35 RATIO Olvin MorenoCOMPREHENSIVE METABOLIC [id number] 00:00:00* Test Item Value Reference Range Interpretation Comme nts GLUCOSE (test code = 2217) 94 MG/DL BUN (test code = 2208) 23 MG/DL CREATININE (test code = 2214) 0.76 MG/DL eGFR AMER. (test cod e = 14168) 90 ML/MIN/1.73 eGFR NON- AMER. (test code = 36394) 78 ML/MIN/1.73 CALC BUN/CREAT (test code = 2235) 30 RATIO SODIUM (test code = 2231) 140 MEQ/L POTASSIUM (test code = 2228) 4.6 MEQ/L CHLORIDE (test code = 2215) 104 MEQ/L CARBON DIOXIDE (test code = 2206) 25 MEQ/L CALCIUM (test code = 2209) 9.5 MG/DL PROTEIN, TOTAL (test code = 2229) 7.0 G/DL ALBUMIN (test code = 2201) 4.6 G/DL CALC GLOBULIN (test code = 2240) 2.4 G/DL CALC A/G RATIO (test code = 2234) 1.9 RATIO BILIRUBIN, TOTAL (test code = 2207) 0.3 MG/DL ALKALINE PHOSPHATASE (test code = 2204) 115 U/L AST (test code = 2218) 14 U/L ALT (test code = 2219) 10 U/L Olvin F AustinLIPID [id number] 00:00:00* Test Item Value Reference Range Interpretation Comme nts CHOLESTEROL (test code = 2210) 186 MG/DL TRIGLYCERIDES (test code = 2232) 92 MG/DL HDL CHOLESTEROL (test code = 2220) 71 MG/DL CALC LDL CHOL (test code = 2237) 96 MG/DL RISK RATIO LDL/HDL (test cod e = 2238) 1.35 RATIO COMPREHENSIVE METABOLIC [id number] 00:00:00* Test Item Value Reference Range Interpretation Comme nts GLUCOSE (test code = 2217) 94 MG/DL BUN (test code = 2208) 23 MG/DL CREATININE (test code = 2214) 0.76 MG/DL eGFR AMER. (test cod e = 90985) 90 ML/MIN/1.73 eGFR NON- AMER. (test code = 20952) 78 ML/MIN/1.73 CALC BUN/CREAT (test code = 2235) 30 RATIO SODIUM (test code = 2231) 140 MEQ/L POTASSIUM (test code = 2228) 4.6 MEQ/L CHLORIDE (test code = 2215) 104 MEQ/L CARBON DIOXIDE (test code = 2206) 25 MEQ/L CALCIUM (test code = 2209) 9.5 MG/DL PROTEIN, TOTAL (test code = 2229) 7.0 G/DL ALBUMIN (test code = 2201) 4.6 G/DL CALC GLOBULIN (test code = 2240) 2.4 G/DL CALC A/G RATIO (test code = 2234) 1.9 RATIO BILIRUBIN, TOTAL (test code = 2207) 0.3 MG/DL ALKALINE PHOSPHATASE (test code = 2204) 115 U/L AST (test code = 2218) 14 U/L ALT (test code = 2219) 10 U/L LIPID [id number] 00:00:00* Test Item Value Reference Range Interpretation Comme nts CHOLESTEROL (test code = 2210) 186 MG/DL TRIGLYCERIDES (test code = 2232) 92 MG/DL HDL CHOLESTEROL (test code = 2220) 71 MG/DL CALC LDL CHOL (test code = 2237) 96 MG/DL RISK RATIO LDL/HDL (test cod e = 2238) 1.35 RATIO COMPREHENSIVE METABOLIC [id number] 00:00:00* Test Item Value Reference Range Interpretation Comme nts GLUCOSE (test code = 2217) 94 MG/DL BUN (test code = 2208) 23 MG/DL CREATININE (test code = 2214) 0.76 MG/DL eGFR AMER. (test cod e = 28963) 90 ML/MIN/1.73 eGFR NON- AMER. (test code = 62378) 78 ML/MIN/1.73 CALC BUN/CREAT (test code = 2235) 30 RATIO SODIUM (test code = 2231) 140 MEQ/L POTASSIUM (test code = 2228) 4.6 MEQ/L CHLORIDE (test code = 2215) 104 MEQ/L CARBON DIOXIDE (test code = 2206) 25 MEQ/L CALCIUM (test code = 2209) 9.5 MG/DL PROTEIN, TOTAL (test code = 2229) 7.0 G/DL ALBUMIN (test code = 2201) 4.6 G/DL CALC GLOBULIN (test code = 2240) 2.4 G/DL CALC A/G RATIO (test code = 2234) 1.9 RATIO BILIRUBIN, TOTAL (test code = 2207) 0.3 MG/DL ALKALINE PHOSPHATASE (test code = 2204) 115 U/L AST (test code = 2218) 14 U/L ALT (test code = 2219) 10 U/L LIPID [id number] 00:00:00* Test Item Value Reference Range Interpretation Comme nts CHOLESTEROL (test code = 2210) 186 MG/DL TRIGLYCERIDES (test code = 2232) 92 MG/DL HDL CHOLESTEROL (test code = 2220) 71 MG/DL CALC LDL CHOL (test code = 2237) 96 MG/DL RISK RATIO LDL/HDL (test cod e = 2238) 1.35 RATIO COMPREHENSIVE METABOLIC [id number] 00:00:00* Test Item Value Reference Range Interpretation Comme nts GLUCOSE (test code = 2217) 94 MG/DL BUN (test code = 2208) 23 MG/DL CREATININE (test code = 2214) 0.76 MG/DL eGFR AMER. (test cod e = 26721) 90 ML/MIN/1.73 eGFR NON- AMER. (test code = 42655) 78 ML/MIN/1.73 CALC BUN/CREAT (test code = 2235) 30 RATIO SODIUM (test code = 2231) 140 MEQ/L POTASSIUM (test code = 2228) 4.6 MEQ/L CHLORIDE (test code = 2215) 104 MEQ/L CARBON DIOXIDE (test code = 2206) 25 MEQ/L CALCIUM (test code = 2209) 9.5 MG/DL PROTEIN, TOTAL (test code = 2229) 7.0 G/DL ALBUMIN (test code = 2201) 4.6 G/DL CALC GLOBULIN (test code = 2240) 2.4 G/DL CALC A/G RATIO (test code = 2234) 1.9 RATIO BILIRUBIN, TOTAL (test code = 2207) 0.3 MG/DL ALKALINE PHOSPHATASE (test code = 2204) 115 U/L AST (test code = 2218) 14 U/L ALT (test code = 2219) 10 U/L XR CHEST 2 [id number] 16:17:10EXAM: XR CHEST 2 VW HISTORY: Pulmonary emphysema, unspecified emphysema type ?Hypertensiveheart disease without heart failure RECEIVED FAXED ORDERS FOR CHEST 2 VIEWS COMPARISON: None. FINDINGS: An opacity in the right lung base adjacent to the heart border obscures theright margin of the heart and is located anteriorly on the lateral image,probably a large fat pad. The heart and great vessels arenormal and thelungs are well expanded and clear. ? [facility], Radiant Results Inft User - 02/01/2020 11:18 AM CDTEXAM: XR CHEST 2 VWHISTORY: Pulmonary emphysema, unspecified emphysema type Hypertensiveheart disease without heart failure RECEIVED FAXED ORDERS FOR CHEST 2 VIEWSCOMPARISON: None.FINDINGS:Anopacity in the right lung base adjacent to the heart border obscures theright margin of the heart and is located anteriorly on the lateral image,probably a large fat pad. The heart and great vessels are normal and thelungs are well expanded and clear.[facility] Notes Date/Time Note Provider Source 2025-01-11 11:09:32 Chief Complaint Patient presents with Follow-up Hospitalization Patient wants to talk about medications Ele Cardoso LVN T [facility] 2024-10-19 13:36:55 Chief Complaint Patient presents with UTI Patient complains of UTI symptoms for 1 week Back Pain Low back pain Urbano Allen MA T Urbano Allen MA [facility]2025-02-03 12:54:56 Chief Complaint Patient presents with Physical Patient is not fasting. No other issues to discuss Alexsandra Solares MA [facility]2024-11-20 00:00:00 [facility]2024-07-17 00:00:00 [facility]2024-05-22 00:00:00 [facility]2024-05-15 14:37:48 Chief Complaint Patient presents with Shoulder Pain Left shoulder pain for several months. No injury. Alexsandra Solares MA II T [facility]2023-09-11 18:32:35 Pt given printed and verbal discharge instructions regarding chest pain, HTN, encouraged hydration. 0 Prescriptions provided. Discussed ibuprofen and to take with food to avoid GI distress. Pt verbalized understanding of instructions, pt awake alert oriented, resp reg unlabored, skin w/d,color appropriate for race, moves all ext well,pt encouraged to follow up with pcp. Advised to seek medical attention for new/prolonged/worsening of symptoms, Symptoms improved. No adverse reaction to meds given in ER noted upon discharge. PIV d'cd, dressing to site, catheter in tact. Awake, alert oriented, resp reg unlabored, skin w/d, pt leaving amb with steady gait, in no apparent distress. [facility]lysa Morris [id number] 14:24:47 Reports left sided chest pain and shortness of breath x 1 week. It has gotten worse and decided to come in. Pain also gets worse when walking 100 feet in distance. No heart history . Xander Marion [facility] [id number] 15:25:[id number] [place] [address] PATIENT NAME: ARON WHIPPLE ADMIT DATE: 06/19/21 ACCOUNT NO: [id number] ROOM NO: [facility] AGE: 76 REPORT TYPE: eELECTROCARDIOGRAM SEX: F ADMITTING PHYSICIAN: Dylan Dowell MD ATTENDING PHYSICIAN: Dylan Dowell MD Order: [id number] Test Reason : Test Date/Time Stamp: SatJun 19 2021 15:25:41 Blood Pressure : / mmHG Vent. Rate : 073 BPM Atrial Rate : 041 BPM P-R Int : 000 ms QRS Dur : 060 ms QT Int : 410 ms P-R-T Axes : 063 040 056 degrees QTc Int : 451 ms Undetermined rhythm poss a. pacing Abnormal ECG When compared with ECG of 19-JUN-2021 15:24, (Unconfirmed) Current undetermined rhythm precludes rhythm comparison, needs review Questionable change in QRS duration Confirmed by RENARD GRISSOM MD ([id number]) on 06/21/2021 12:10:13 PM Referred By: Self Referred Confirmed by:RENARD GRISSOM MD at 1210 PATIENT NAME: ARON WHIPPLE 15:07:00 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 Patient's pain is left-sided and it comes in waves. She says she feels like "something is crawling in there ". She denies any fever or chills. She denies any vomiting. She has passed stool that is formed. General Initial Greet Date/Time 06/19/21 1506 Presentation Chief Complaint Abdominal pain Review of Systems ROS Statements All systems rev neg except as marked. Past Medical History - Adult Stated Complaint COLON IS ON THE WRONG SIDE Allergies Coded Allergies: No Known Allergies (06/19/21) Past Medical History: Reports: Hypertension. Additional Medical History Volvulus Past Surgical History: Reports: Abdominal surgery, Hernia repair. Pt reports no Fam Hx pert to chief complaint. Alcohol Use Denies EtOH use Drug Use Denies recreational drugs Smoking status: Smoking status for patients 13 years old or older: Never Smoker Physical Exam Vital Signs Vital Signs First Documented: Result Date Time Pulse Ox 98 06/19 1514 B/P 180/95 06/19 1514 B/P Mean 123 06/19 1514 O2 Delivery Room air 06/19 1514 Temp 36.8 06/19 1514 Pulse 80 06/19 1514 Resp 16 06/19 151 Last Documented: Result Date Time Pulse Ox 98 06/19 1514 B/P 180/95 06/19 1514 B/P Mean 123 06/19 1514 O2 Delivery Room air 06/19 1514 Temp 36.8 06/19 1514 Pulse 80 06/19 1514 Resp 16 06/19 1514 Review of Vital Signs Reviewed Free Text PE Notes Free Text PE Notes General: Well-appearing, well-nourished no apparent distress Head: Normocephalic atraumatic Eyes: EOMI, PERRLA, normal conjunctiva, no scleral icterus, HEENT: Airway patent, mucous membranes moist, pharynx normal. Respiratory/chest: Breath sounds normal, breath sounds equal bilaterally, no respiratory distress, no rales, no rhonchi, no wheezing Cardiovascular: Heart rate normal, regular rhythm, heart sounds normal, peripheral circulation normal Abdomen/GI: Soft, no guarding, no rebound, no distention, no hernia, no palpable mass, no pulsatile mass, nontender, MS back: Normal inspection, non-tender, no costovertebral angle tenderness. Skin: Color normal, warm, dry, normal turgor. Extremities: No edema, full range of motion, neurovascularly intact. Neuro: Alert and oriented x3, cranial nerves II through XII grossly intact, no motor deficit, no sensory deficit, no cerebellar signs, normal gait. Psych: Normal affect, normal mood, normal concentration, normal insight, Interpretation Diagnostics Lab Results Interpretation Results Laboratory Tests 06/19/21 1540: [Embedded Image Not Available] Laboratory Tests: 06/19 1540 Hematology WBC (4.8 - 10.8 x10 3/uL) 9.0 RBC (4.20 - 5.40 x10 6/uL) 4.72 Hgb (12.0 - 16.0 g/dL) 12.9 Hct (37.0 - 47.0 %) 40.9 MCV (81.0 - 99.0 fL) 86.7 MCH (27 - 31 pg) 27.3 MCHC (33 - 36.5 G/DL) 31.5 L RDW (12.9 - 16.9 %) 14.7 Plt Count (150 - 440 x10 3/uL) 268 MPV (8.9 - 12.4 fL) 10.2 Neut % (Auto) (42.2 - 75.2 %) 61.3 Lymph % (Auto) (20.5 - 51.1 %) 29.6 Jay % (Auto) (1.7 - 9.3 %) 6.3 Eos % (Auto) (0.0 - 7.0 %) 1.9 Baso % (Auto) (0 - 2.5 %) 0.6 Neut # (Auto) (1.80 - 7.70 x10 3/uL) 5.49 Lymph # (Auto) (1.00 - 4.80 x10 3/uL) 2.65 Jay # (Auto) (0.00 - 0.80 x10 3/uL) 0.56 Eos # (Auto) (0.00 - 0.45 x10 3/uL) 0.17 Baso # (Auto) (0.0 - 0.20 x10 3/uL) 0.05 ECG #1 Interpretation Text/Dict Note Artifactual baseline, small P waves, rate of 73, no STEMI Time 1558 Re-Evaluation MDM ED Course Medication(s) Ordered Medication(s) Ordered: Diagnostic Agents Sig/Charlotte Start time Last Medication Dose Route Stop Time Status Admin Diatrizoate Meglum/ 30 ML X1ED STA 06/19 151 DC Diatrizoate Sod PO 06/19 151 Consultation Consultation Referral/Consult Name Fran Goldberg MD Requested Call Time 1525 Requested Call Date 06/19/21 Call Returned Call returned Call Returned Date 06/19/[address] Will see patient Free Text Consult Notes wants admitted Patient Discharge Departure Vital Signs/Condition Vital Signs First Documented: Result Date Time Pulse Ox 98 06/19 1514 B/P 180/95 06/19 1514 B/P Mean 123 06/19 1514 O2 Delivery Room air 06/19 151 Temp 36.8 06/19 1514 Pulse 80 06/19 1514 Resp 16 06/19 1514 Last Documented: Result Date Time Pulse Ox 98 06/19 1514 B/P 180/95 06/19 1514 B/P Mean 123 06/19 1514 O2 Delivery Room air 06/19 1514 Temp 36.8 06/19 1514 Pulse 80 06/19 1514 Resp 16 06/19 1514 All vital signs available at the time of this entry have been reviewed. Clinical Impression Clinical Impression Primary Impression: Abdominal pain Secondary Impressions: Cecal volvulus Disposition Decision Admit Admit Physician Name Dylan Dowell MD )( Admission Accepts Yes )( Accepted Time 155 )( Accepted Date 06/19/21 Call Information will see patient at 1218 RPT #:[id number] END OF [id number] 13:52:00 [facility] ([facility]) EMERGENCY PROVIDER REPORT REPORT#:[id number] REPORT STATUS: Signed DATE:03/21/21 TIME: 1352 PATIENT: ARON WHIPPLE UNIT #: [id number] ROOM/BED: AGE: 75 SEX: F PCP PHYS: No Primary or Family Physician SERVICE AUTHOR: Dominic Pérez MD * ALL edits or amendments must be made on the electronic/computer document * HPI-Trauma Minor/Fall General Initial Greet Date/Time 03/21/21 1340 Presentation Chief Complaint Fall Free Text HPI Notes Free Text HPI Notes 75-year-old female with history of hypertension presents to the ED after trip and fall while walking at the [facility]. Patient states she tripped and landed awkwardly on her face no LOC she is complaining of left-sided facial pain and left wrist laceration and left wrist contusion. Not on any blood thinners. No hip pain no neck pain no chest pain or shortness of breath. Risk-Trauma Minor/Fall Risk Stratification Nexus C-Spine Criteria No: Post midline tenderness, Intoxicated, Altered LOC/alertness, Focal neuro deficit pres, Distracting injury pres. [place] Coma Score: Copyright Sir Kennedy Figueroa Copyright [facility] Kennedy Figueroa Eye opening: (4) Spontaneous Verbal response: (5) Oriented Best motor response: (6) Obeys commands Intracranial Bleed Risk factors reviewed Bleeding Risk factors reviewed Review of Systems ROS Statements All systems rev neg except as marked. Basic Review of Systems Basic ROS GI: No abd pain/vomiting, : No dysuria/frequency Focused Review of Systems Constitutional Denies: Chills, Fever, Lethargy. Eyes Denies: Eye pain bilat, Redness bilat, Visual loss bilat. Ears/Nose/Throat Denies: Earache bilat, Nasal congestion, Sore throat. Respiratory Denies: Cough, non-productive, Cough, productive. Musculoskeletal Denies: Back pain, Extremity pain, Myalgia, Neck pain. Skin Reports: Abrasion, Contusion, Laceration. Denies: Abscess, Diaphoresis. Neurologic Denies: Change LOC, Dizziness, Focal weakness, Headache, Numbness, Slurred speech. Past Medical History - Adult Stated Complaint FALL LAC TO HAND AND ABRASIONS TO FACE Allergies Coded Allergies: No Known Allergies (03/21/21) Home Medications Reported Medications LISINOPRIL (ZESTRIL) 10 MG PO DAILY MELOXICAM (MOBIC) 15 MG PO DAILY predniSONE 10 MG PO BID SERTRALINE (ZOLOFT) 50 MG PO DAILY Past Medical History: Reports: Hypertension. Smoking status: Smoking status for patients 13 years old or older: Never Smoker Physical Exam Vital Signs Vital Signs First Documented: Result Date Time Pulse Ox 98 03/21 1339 B/P 132/70 03/21 1339 B/P Mean 90 03/21 1339 O2 Delivery Room air 03/21 1339 Temp 36.1 03/21 1339 Pulse 90 03/21 1339 Resp 16 03/21 1339 Last Documented: Result Date Time Pulse Ox 96 03/21 1500 B/P 133/68 03/21 1500 B/P Mean 89 03/21 1500 O2 Delivery Room air 03/21 1500 Pulse 76 03/21 1500 Resp 18 03/21 1500 Temp 36.1 03/21 1339 Review of Vital Signs Reviewed Focused PE General/Const General/Const Awake, Alert MS Head Head Normocephalic Text/Dict Notes Small abrasions to the left cheek left mandibular area no bleeding noted Small area of chin abrasion mild tenderness to palpation Eyes Eyes Atraumatic, PERRL, EOMI, No periorbital redness, No periorbital swelling Ears/Nose/Throat Ears/Nose/Throat Atraumatic, Airway patent, Mucous membranes moist, Pharynx NL MS Neck Neck Atraumatic, Supple, Full range of motion, No swelling, Non-tender, No midline vertebral tend Resp/Chest Respiratory/Chest Breath sounds NL, Breath sounds = bilat, No respiratory distress, No rales, No rhonchi, No wheezing, No chest tenderness, No chest wall deformity, No crepitus Cardiovascular Cardiovascular Heart rate NL, Regular rhythm, Heart sounds NL, Cap refill not delayed, Peripheral circulation NL Abdomen/GI Abdomen/GI Atraumatic, Soft, Non-tender, No guarding, No rebound, No distention MS Back Back Atraumatic, Inspection NL, Painless range of motion, Non-tender, No midline vertebral tend, No CVA tenderness MS Upper Extrem Upper Extremity/MS Atraumatic, Inspection NL, Full range of motion, No swelling, Non-tender, No erythema, No deformity, Neurologic intact, Vascular intact MS Wrist/Hand Text/Dict Note Left wrist lateral tenderness no snuffbox tenderness. 1 cm irregular laceration to the left lateral fifth digit normal bleeding noted MS Lower Extrem Lower Ext/Pelvis/MS Inspection NL, No swelling, Non-tender, No erythema, No deformity, Neurologic intact, Vascular intact, No edema MS Ankle/Foot Ankle/Foot Inspection NL, No swelling, No erythema, Non-tender, No deformity, Neurologic intact, Vascular intact, No edema Skin Skin Atraumatic, Color NL, Warm, Dry, Intact, Turgor NL Neurologic Neurologic Oriented X3, Speech NL, No motor deficits, No sensory deficits, Cerebellar NL Interpretation Diagnostics Lab Results Interpretation Considerations Independ review imaging, Reviewed prior records Results Recent Impressions: RADIOLOGY - XR WRIST 3 + V LT 03/21 1350 Report Impression - Status: SIGNED Entered: 03/21/2021 1426 IMPRESSION: No fracture or dislocation. 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 Impression By: Nahomy Hoffmann M.D. RADIOLOGY - XR CHEST 1 V 03/21 1350 Report Impression - Status: SIGNED Entered: 03/21/2021 1423 IMPRESSION: No evidence of acute cardiopulmonary disease. Impression By: Nahomy Hoffmann M.D. CAT SCAN - CT MAXIFAC W/O CONTRAST 03/21 1403 Report Impression - Status: SIGNED Entered: 03/21/2021 1423 IMPRESSION: 1. Mild generalized cerebral atrophy and mild scattered periventricular and deep white matter changes, consistent with mild chronic microvascular disease. 2. No evidence of acute stroke, hemorrhage or mass. CT cervical spine without contrast: INDICATIONS: Fall, pain TECHNIQUE: Helical CT images of the cervical spine were obtained from the skull base through T2 without administration of IV contrast. Axial, sagittal, and coronal images were provided. CT DLP dose: 351 mGy centimeters.Iterative dose reduction technique utilized Location: T 18 COMPARISON: None available. FINDINGS: Vertebral body heights, alignment, and disc spaces are well-maintained. There is no evidence of acute fracture or subluxation. No significant central canal compromise is identified. Prevertebral soft tissues are unremarkable. IMPRESSION: 1. No acute abnormality within the cervical spine. CT maxillofacial without contrast: INDICATIONS: Fall, pain TECHNIQUE: CT data acquisition of the maxillofacial region was obtained without intravenous contrast with coronal , sagittal and axial reformats provided according to the maxillofacial CT protocol. COMPARISON: None available. Location: T 18 CT DLP dose: 311 mGy centimeters. Iterative dose reduction technique utilized. FINDINGS: There are no facial fractures. The visualized portions of the orbits and brain are unremarkable. The sinuses are clear. The nasal septum is midline. The osteomeatal units are unremarkable. There are no radiopaque foreign bodies. IMPRESSION: Unremarkable maxillofacial CT. Impression By: [email or web address] Xavier VENTURA M.D. CAT SCAN - CT C-SPINE W/O CONT 03/21 6123 Report Impression - Status: SIGNED Entered: 03/21/2021 9424 IMPRESSION: 1. Mild generalized cerebral atrophy and mild scattered periventricular and deep white matter changes, consistent with mild chronic microvascular disease. 2. No evidence of acute stroke, hemorrhage or mass. CT cervical spine without contrast: INDICATIONS: Fall, pain TECHNIQUE: Helical CT images of the cervical spine were obtained from the skull base through T2 without administration of IV contrast. Axial, sagittal, and coronal images were provided. CT DLP dose: 351 mGy centimeters.Iterative dose reduction technique utilized Location: T 18 COMPARISON: None available. FINDINGS: Vertebral body heights, alignment, and disc spaces are well-maintained. There is no evidence of acute fracture or subluxation. No significant central canal compromise is identified. Prevertebral soft tissues are unremarkable. IMPRESSION: 1. No acute abnormality within the cervical spine. CT maxillofacial without contrast: INDICATIONS: Fall, pain TECHNIQUE: CT data acquisition of the maxillofacial region was obtained without intravenous contrast with coronal , sagittal and axial reformats provided according to the maxillofacial CT protocol. COMPARISON: None available. Location: T 18 CT DLP dose: 311 mGy centimeters. Iterative dose reduction technique utilized. FINDINGS: There are no facial fractures. The visualized portions of the orbits and brain are unremarkable. The sinuses are clear. The nasal septum is midline. The osteomeatal units are unremarkable. There are no radiopaque foreign bodies. IMPRESSION: Unremarkable maxillofacial CT. Impression By: Matilde VENTURA M.D. CAT SCAN - CT HEAD/BRAIN W/O CONT 03/21 1403 Report Impression - Status: SIGNED Entered: 03/21/2021 6353 IMPRESSION: 1. Mild generalized cerebral atrophy and mild scattered periventricular and deep white matter changes, consistent with mild chronic microvascular disease. 2. No evidence of acute stroke, hemorrhage or mass. CT cervical spine without contrast: INDICATIONS: Fall, pain TECHNIQUE: Helical CT images of the cervical spine were obtained from the skull base through T2 without administration of IV contrast. Axial, sagittal, and coronal images were provided. CT DLP dose: 351 mGy centimeters.Iterative dose reduction technique utilized Location: T 18 COMPARISON: None available. FINDINGS: Vertebral body heights, alignment, and disc spaces are well-maintained. There is no evidence of acute fracture or subluxation. No significant central canal compromise is identified. Prevertebral soft tissues are unremarkable. IMPRESSION: 1. No acute abnormality within the cervical spine. CT maxillofacial without contrast: INDICATIONS: Fall, pain TECHNIQUE: CT data acquisition of the maxillofacial region was obtained without intravenous contrast with coronal , sagittal and axial reformats provided according to the maxillofacial CT protocol. COMPARISON: None available. Location: T 18 CT DLP dose: 311 mGy centimeters. Iterative dose reduction technique utilized. FINDINGS: There are no facial fractures. The visualized portions of the orbits and brain are unremarkable. The sinuses are clear. The nasal septum is midline. The osteomeatal units are unremarkable. There are no radiopaque foreign bodies. IMPRESSION: Unremarkable maxillofacial CT. Impression By: Matilde VENTURA M.D. Lab Statement Laboratory studies reviewed and considered in the medical decision-making. Imaging Statement Radiographic studies reviewed and considered in the medical decision-making. Point of Care Testing Pulse Oximetry Pulse Ox % 98 On: Room air Interpretation Interpreted by me, Pulse oximetry normal Procedures Laceration Management #1 Time Spent (minutes) 10 Procedure Performed by ED physician Consent/Setup/Site Prep No consent - emergent, Time-out performed, Hand hygiene observed, Stand sterile technique )( Location of Wound Left fifth digit Wound Length (cm) 1 Wound Preparation Normal saline )( Debridement Yes Irrigation Copious Foreign Body Explore/Removal Explored for foreign body, None found Repair Skin Topical skin adhesive, sterile strips Estimated Blood Loss (mL) 0 Post-Procedure/Complications Dressing applied, No complications, Condition improved, Tolerated procedure well, Patient stable Retained Foreign Body Note I have spoken with the patient and/or caregivers. I have carefully explored the wound or laceration for a foreign body. Any foreign body identified has been removed, but in some cases it is not possible to identify and remove all foreign bodies. I have explained to the patient and/or caregivers that despite a thorough search, some foreign bodies cannot be easily found or removed. At this point, further searching or attempts at removal may cause worsening tissue damage and more harm than good. I have shared this information with the patient and/or caregivers. In the event that there is a retained foreign body there will be persistent pain, redness and possibly discharge from the injury site. This has been communicated and the patient may require follow-up with the primary care physician or specialist for the continued search and/or removal at that time. Re-Evaluation MDM Re-Evaluation/Progress #1 Text/Dict Note Discussed with patient CT findings monitor for signs of worsening infection laceration care. Strict return instructions are given Re-Eval Status Improved Pain Re-Evaluation Denies pain Exam Post Tx - Sys Review Lungs clear Plan Post Re-Eval Plan admit ED Course Medication(s) Ordered Medication(s) Ordered: Central Nervous System Agents Sig/[place] Start time Last Medication Dose Route Stop Time Status Admin Acetaminophen/ 1 TAB ONCE ONE 03/21 1400 DC 03/21 Codeine Phosphate PO 03/21 1401 1359 Patient Discharge Departure Vital Signs/Condition Vital Signs First Documented: Result Date Time Pulse Ox 98 03/21 1339 B/P 132/70 03/21 1339 B/P Mean 90 03/21 1339 O2 Delivery Room air 03/21 1339 Temp 36.1 03/21 1339 Pulse 90 03/21 1339 Resp 16 03/21 1339 Last Documented: Result Date Time Pulse Ox 96 03/21 1500 B/P 133/68 03/21 1500 B/P Mean 89 03/21 1500 O2 Delivery Room air 03/21 1500 Pulse 76 03/21 1500 Resp 18 03/21 1500 Temp 36.1 03/21 1339 All vital signs available at the time of this entry have been reviewed. Condition Stable, Improved Clinical Impression Clinical Impression Primary Impression: Finger laceration Secondary Impressions: Facial contusion, Fall, Wrist contusion Disposition Decision Discharge )( Discharged to Home Yes )( Time 1452 )( Date 03/21/21 Discharge/Care Plan Counseled Regarding Diagnosis, Lab results, Imaging studies, Need for follow-up, When to return to ED Rx Drug Database Reviewed Yes, currently on hydrocodone (Auto) Prescriptions Current Visit Scripts methocarbamoL (ROBAXIN) 500 MG PO QID PRN PRN MUSCLE SPASMS/PAIN 30 Days #30 TABS BACITRACIN (BACITRACIN 500 UNITS/GM TOPICAL) 1 APPLIC TOPICAL BID BACITRACIN (BACITRACIN 500 UNITS/GM TOPICAL) 1 APPLIC TOPICAL BID #15 GM CEPHALEXIN (KEFLEX) 500 MG PO Q6H CEPHALEXIN (KEFLEX) 500 MG PO Q6H #28 CAPS CEPHALEXIN (KEFLEX) 500 MG PO Q12H CEPHALEXIN (KEFLEX) 500 MG PO Q12H #14 CAPS Prescriptions Reviewed Risks, Benefits, Alternative treatment Patient Instructions ED Facial Contusion, ED Fall Prevention, ED Laceration, Hand: All Closures, ED Mechanical Fall Referrals PRIMARY CARE RETURN TO THE ER Departure Forms [facility] LIST WORK/[employer] EXCUSE-CAREGIVER 2 Discharge Note I have spoken with the patient and/or caregivers. I have explained the patient's condition, diagnoses and treatment plan based on the information available to me at this time. I have answered the patient's and/or caregiver's questions and addressed any concerns. The patient and/or caregivers have as good an understanding of the patient's diagnosis, condition and treatment plan as can be expected at this point. The vital signs have been stable. The patient's condition is stable and appropriate for discharge from the emergency department. The patient will pursue further outpatient evaluation with the primary care physician or other designated or consulting physician as outlined in the discharge instructions. The patient and/or caregivers are agreeable to this plan of care and follow-up instructions have been explained in detail. The patient and/or caregivers have received these instructions in written format and have expressed an understanding of the discharge instructions. The patient and/or caregivers are aware that any significant change in condition or worsening of symptoms should prompt an immediate return to this or the closest emergency department or a call to 911. Quality Measures Minor Blunt Head Trauma CT Age 65 or older, Criteria met, CT ordered at 1555 RPT #:[id number] END OF REPORTHCAMN
[2025-02-21] MEDS ORDERED: FAMOTIDINE 20 MG/2 ML VIAL IV ONE (21:52)
[2025-02-21] MEDS ORDERED: NA CHLORIDE 0.9% 1,000 ML ONE (21:52)
[2025-02-21] MEDS ORDERED: ONDANSETRON 4 MG/2 ML VIAL ONE (21:52)
[2025-02-21] MEDS ORDERED: FENTANYL CITR 100 MCG/2 ML ONE (22:09)
[2025-02-21 22:17] LABS: Absolute Lymphocytes (CBC) 1.8 K/uL (0.7-4.9); Hematocrit 40.8 % (36.0-45.0); Hemoglobin 13.4 g/dL (12.0-15.0); MCH 27.3 pg (27.0-35.0); MCHC 32.9 g/dL (32.0-36.0); MCV 83.2 fL (80-100); MPV 8.3 fL (7.6-11.3); Nucleated RBC Absolute Count 0.0 (0-0); Nucleated Red Blood Cells % 0.2 % (0-0); RBC Red Blood Cell Count 4.91 M/uL (3.86-4.86); White Blood Count 12.50 thou/uL (4.3-10.9)
--- NOTE | 2025-02-21 22:42 | RAD REPORT ---
Procedure: Chest Single View HISTORY: Cough COMPARISON: November 2024 FINDINGS: The lungs appear clear of acute infiltrate. No significant pleural effusion noted. The heart is normal size. Dextrocardia IMPRESSION: No acute abnormality is displayed.
[2025-02-22 00:28] LABS: Calcium Oxalate Crystals- Ur Few /HPF (None Seen); Sqamous Epithelial <5 /HPF (None Seen); Urine Culture Reflex Order NOT NEEDED; Urine Microscopic Reflex YN ORDER UMIC
[2025-02-22 00:53] LABS: AST/SGOT 13 U/L (15-37); Albumin 3.3 g/dL (3.4-5.0); Albumin/Globulin Ratio 0.8 (1.1-1.8); Alkaline Phosphatase 116 U/L (45-117); Anion Gap 11.6 mEq/L (5.0-15.0); BUN Blood Urea Nitrogen 12 mg/dL (7-18); Bilirubin Indirect, Calculated 0.3 mg/dL (0.2-0.8); Globulin 4.1 g/dL (2.3-3.5); Glucose Level 112 mg/dL (74-106); Lipase 13 U/L (13-75); Magnesium 1.9 mg/dL (1.6-2.4); NT PRO-BNP 3632 pg/mL (<450); Potassium 3.6 mEq/L (3.5-5.1); Troponin High Sensitivity 26.7 pg/mL (<58.9)
[2025-02-22 01:10] LABS: ALT/SGPT < 14 U/L (13-56)
[2025-02-22] MEDS ORDERED: NA CHLORIDE 0.9% 100 ML ONE ×2 (01:18→01:40)
[2025-02-22] MEDS ORDERED: PIPERACIL/TAZO 3.375 GM VIAL IV ONE (01:19)
--- NOTE | 2025-02-22 01:25 | RAD REPORT ---
EXAM: CT Abdomen and Pelvis With Intravenous Contrast CLINICAL HISTORY: The patient is 79 years old and is Female; ABD PAIN TECHNIQUE: Axial computed tomography images of the abdomen and pelvis with intravenous contrast. Sagittal and coronal reformatted images were created and reviewed. This CT exam was performed using one or more of the following dose reduction techniques: automated exposure control, adjustmen t of the mA and/or kV according to patient size, and/or use of iterative reconstruction technique. COMPARISON: No relevant prior studies available. FINDINGS: Lung bases: Unremarkable. No mass. No consolidation. Mediastinum: Small hiatal hernia. ABDOMEN: Liver: Hepatomegaly. Gallbladder and bile ducts: Gallbladder is not seen. Dilated common bile duct with mild intrahepatic biliary dilatation which may be due to prior cholecystectomy. Pancreas: Unremarkable. No mass. No ductal dilation. Spleen: Unremarkable. No splenomegaly. Adrenals: Unremarkable. No mass. Kidneys and ureters: Simple cysts in the kidneys. No follow-up imaging is recommended. No hydronephrosis. Stomach and bowel: There are a few loops of dilated small bowel with air-fluid levels and fecaliz ation in the left abdomen suggestive of obstruction. Postsurgical changes in the stomach and bowel. Scattered colonic diverticula. No mucosal thickening. PELVIS: Appendix: No findings to suggest acute appendicitis. Bladder: Unremarkable. Reproductive: Pessary in place. ABDOMEN and PELVIS: Intraperitoneal space: There is some twisting of the mesentery in the mid abdomen. No free air. No significant fluid collection. Bones/joints: Disc space narrowing with degenerative endplate changes in the spine. No acute fracture. No dislocation. Soft tissues: Unremarkable. Vasculature: Scattered atherosclerotic vascular calcifications. No abdominal aortic aneurysm. Lymph nodes: Unremarkable. No enlarged lymph nodes. Other findings: Posterior disc bulge at L3-4. IMPRESSION: 1. There are a few loops of dilated small bowel with air-fluid levels and fecalization in the left abdomen suggestive of obstruction. 2. Additional non-emergent findings as above. Electronically signed by: Darrel Herrmann MD 02/22/2025 01:21 AM CDT 8 Due to temporary technical issues with the PACS/[facility] reporting system, reports are being dianne d by the in-house radiologist without review as a courtesy to ensure prompt reporting the interpreting radiologist is fully responsible for the content of the report. Transcribed Date/Time: 02/22/2025 1:25 AM
--- NOTE | 2025-02-22 01:31 | ER ---
Nurse's Notes [facility] Name: Sofia Rodriguez Age: 79 yrs Sex: Female : 1945 Arrival Date: 02/21/2025 Time: 20:54 Bed 8 Private MD: Diagnosis: Other intestinal obstruction-small bowel obstruction;Abdominal pain, Generalized;Vomiting Presentation: 02/21 21:06 Chief complaint: Patient states: "NAUSEA, VOMITING AND STOMACH CRAMPING" SINCE 2 PM. PT dd2 DENIES CHEST PAIN, DIARRHEA OR CONSTIPATION. Coronavirus screen: At this time, the client does not indicate any symptoms associated with coronavirus-19. Ebola Screen: No symptoms or risks identified at this time. Initial Sepsis Screen: Does the patient meet any 2 criteria? No. Patient's initial sepsis screen is negative. Does the patient have a suspected source of infection? No. Patient's initial sepsis screen is negative. Risk Assessment: Do you want to hurt yourself or someone else? Patient reports no desire to harm self or others. Onset of symptoms was February 21, 2025 at 14:00. 21:06 Method Of Arrival: Ambulatory dd2 21:06 Acuity: JAUN 3 dd2 Triage Assessment: 21:08 General: Appears in no apparent distress. uncomfortable, Behavior is calm, cooperative, dd2 appropriate for age. Pain: Complains of pain in thoracic area and umbilical area. GI: Reports upper abdominal pain, nausea, vomiting. GI: Abdomen is tender to palpation in epigastric area and umbilical area. Musculoskeletal: Reports pain in thoracic area. Historical: - Allergies: 21:08 No Known Allergies; dd2 - PMHx: 21:08 coronary atherosclerosis; Hypertension; dd2 - PSHx: 21:08 cardiac stents; Cholecystectomy; Gastric Bypass; hernia repair; dd2 - Immunization history:: Adult Immunizations unknown. - Infectious Disease History:: Denies. - Social history:: Smoking status: Patient denies any tobacco usage or history of. Screenin:30 [facility] ED Fall Risk Assessment (Adult) History of falling in the last 3 months, al5 including since admission No falls in past 3 months (0 pts) Confusion or Disorientation No (0 pts) Intoxicated or Sedated No (0 pts) Impaired Gait Yes (1 pt) Mobility Assist Device Used Yes (1 pt) Altered Elimination No (0 pt) Score/Fall Risk Level 0 - 2 = Low Risk Oriented to surroundings, Maintained a safe environment, Hourly rounding (assess needs \\T\\ fall precautionary measures) done. Abuse screen: Denies threats or abuse. Denies injuries from another. Nutritional screening: No deficits noted. Tuberculosis screening: No symptoms or risk factors identified. Assessment: 22:00 Reassessment: Patient and/or family updated on plan of care and expected duration. Pain kb4 level reassessed. Patient is alert, oriented x 3, equal unlabored respirations, skin warm/dry/pink. daughter at bedside Patient states symptoms have not improved. GI: Abdomen is flat, non-distended. Vital Signs: 21:06 BP 165 / 89; Pulse 98; Resp 16; Temp 98.5; Pulse Ox 100% on R/A; Weight 77.56 kg; Pain dd2 03/10; 22:00 BP 190 / 108; Pulse 77; Resp 18; Pulse Ox 98% on R/A; kb4 22:30 BP 172 / 76; Pulse 71; Resp 18; Pulse Ox 98% on R/A; kb4 23:00 BP 180 / 82; Pulse 74; Resp 18; Pulse Ox 96% on R/A; kb4 23:30 BP 198 / 85; Pulse 74; Resp 18; Pulse Ox 96% on R/A; kb4 02/22 00:00 BP 181 / 94; Pulse 75; Resp 19; Pulse Ox 96% on R/A; kb4 04:00 BP 141 / 71; Pulse 82; Resp 16; Pulse Ox 96% on R/A; al5 02/21 21:06 Pain Scale: Adult dd2 ED Course: 02/21 20:58 Patient arrived in ED. im 21:01 Devan Bravo MD is Attending Physician. viola 21:08 Triage completed. dd2 21:08 Arm band placed on right wrist. dd2 21:43 Lucrecia Malcolm, BRANDO is Primary Nurse. al5 21:48 Inserted saline lock: 22 gauge in right forearm, using aseptic technique. Blood vc1 collected. Flushed with 10 mL NS. 22:30 Patient has correct armband on for positive identification. Bed in low position. Call al5 light in reach. Side rails up X2. Provided Education on: plan of care. 22:33 XRAY Chest (1 view) In Process Unspecified. EDMS 23:48 No provider procedures requiring assistance completed. Inserted saline lock: 22 gauge al5 in left forearm, using aseptic technique. Blood collected. Flushed with 10 mL NS. 02/22 00:33 CT Abd/Pelvis - PO and IV Contrast In Process Unspecified. EDMS 01:29 Darron Aguilera MD is Hospitalizing Provider. [facility] 05:05 Patient admitted, IV remains in place. al5 Administered Medications: 02/21 23:02 Drug: fentaNYL (PF) IVP 25 mcg IVP once Route: IVP; Site: right antecubital; kb4 23:03 Follow up: Response: No adverse reaction kb4 23:42 Follow up: Response: No adverse reaction kb4 23:03 Not Given (Duplicate Order): fentanyl (pf)25 mcg IVP once kb4 23:26 Drug: Ondansetron IVP 8 mg IVP once; over 2 minutes Route: IVP; Site: right forearm; kb4 23:42 Follow up: Response: No adverse reaction 4 23:41 Drug: NS 0.9% IV 1000 ml IV at 1000 ml once; to be given as a bolus over 60 minutes kb4 Route: IV; Rate: 1000 ml; Site: right forearm; 23:41 Follow up: Response: No adverse reaction banner 02/22 04:16 Follow up: Response: No adverse reaction; IV Status: Completed infusion; IV Intake: al5 1000ml 02/21 23:41 Drug: Famotidine IVP 20 mg IVP once; dilute with 10 mL 0.9% NaCl; give over 2 minutes kb4 Route: IVP; Site: right antecubital; 23:42 Follow up: Response: No adverse reaction banner 02/22 01:34 Drug: Piperacillin-Tazobactam IVPB 3.375 grams IVPB once over 60 mins; (mix in NS 100 kb4 mL) Route: IVPB; Infused Over: 60 mins; Site: right forearm; 04:14 Follow up: Response: No adverse reaction kb4 04:16 Follow up: Response: No adverse reaction; IV Status: Completed infusion al5 02:01 Drug: Promethazine IM 25 mg IM once; in 100 cc ns over 20 min {Note: R forearm.} Route: al5 IM; Site: Other; 04:13 Follow up: Response: No adverse reaction kb4 04:16 Follow up: Response: No adverse reaction; Nausea is decreased al5 Medication: 02/21 22:30 VIS not applicable for this client. al5 Intake: 02/22 04:16 IV: 1000ml; Total: 1000ml. al5 Outcome: 01:30 Decision to Hospitalize by Provider. viola 05:05 Admitted to Med/surg accompanied by tech, via stretcher, room 230, cp4 05:05 Condition: stable 05:05 Instructed on the need for admit, 05:06 Patient left the ED. cp4 Signatures: Dispatcher [employer] EDOH Devan Bravo MD MD cha Calcote, Vanessa RN RN vc1 Denise Acuña Christina cp4 Lucrecia Malcolm RN RN al5 IRA YOON RN RN dd2 Michelle Caba RN RN kb4
--- NOTE | 2025-02-22 01:31 | EDPHYS ---
Physician Documentation [facility] Name: Sofia Rodriguez Age: 79 yrs Sex: Female : 1945 Arrival Date: 02/21/2025 Time: 20:54 Bed 8 Private MD: ED Physician Devan Bravo HPI: 02/21 21:49 This 79 yrs old Female presents to ER via Ambulatory with complaints of viola Nausea/Vomiting. 21:49 The patient presents to the emergency department with nausea, vomiting, that is viola continuous, described as unknown. Onset: The symptoms/episode began/occurred today. Possible causes: unknown. The symptoms are aggravated by nothing. The symptoms are alleviated by nothing. Associated signs and symptoms: The patient has no apparent associated signs or symptoms. Severity of symptoms: At their worst the symptoms were moderate in the emergency department the symptoms are unchanged. The patient has not experienced similar symptoms in the past. Historical: - Allergies: 21:08 No Known Allergies; dd2 - PMHx: 21:08 coronary atherosclerosis; Hypertension; dd2 - PSHx: 21:08 cardiac stents; Cholecystectomy; Gastric Bypass; hernia repair; dd2 - Immunization history:: Adult Immunizations unknown. - Infectious Disease History:: Denies. - Social history:: Smoking status: Patient denies any tobacco usage or history of. ROS: 21:50 Constitutional: Negative for fever, chills, and weight loss, Eyes: Negative for injury, viola pain, redness, and discharge, ENT: Negative for injury, pain, and discharge, Neck: Negative for injury, pain, and swelling, Cardiovascular: Negative for chest pain, palpitations, and edema, Respiratory: Negative for shortness of breath, cough, wheezing, and pleuritic chest pain, Back: Negative for injury and pain, : Negative for injury, bleeding, discharge, and swelling, MS/Extremity: Negative for injury and deformity, Skin: Negative for injury, rash, and discoloration, Neuro: Negative for headache, weakness, numbness, tingling, and seizure, Psych: Negative for depression, anxiety, suicide ideation, homicidal ideation, and hallucinations, Allergy/Immunology: Negative for hives, rash, and allergies, Endocrine: Negative for neck swelling, polydipsia, polyuria, polyphagia, and marked weight changes, Hematologic/Lymphatic: Negative for swollen nodes, abnormal bleeding, and unusual bruising, 21:50 Abdomen/GI: Positive for abdominal pain, nausea and vomiting, of the epigastric area, right upper quadrant and left upper quadrant, Exam: 21:50 Constitutional: This is a well developed, well nourished patient who is awake, alert, viola and in no acute distress. Head/Face: Normocephalic, atraumatic. Eyes: Pupils equal round and reactive to light, extra-ocular motions intact. Lids and lashes normal. Conjunctiva and sclera are non-icteric and not injected. Cornea within normal limits. Periorbital areas with no swelling, redness, or edema. ENT: Nares patent. No nasal discharge, no septal abnormalities noted. Tympanic membranes are normal and external auditory canals are clear. Oropharynx with no redness, swelling, or masses, exudates, or evidence of obstruction, uvula midline. Mucous membranes moist. Neck: Trachea midline, no thyromegaly or masses palpated, and no cervical lymphadenopathy. Supple, full range of motion without nuchal rigidity, or vertebral point tenderness. No Meningismus. Chest/axilla: Normal chest wall appearance and motion. Nontender with no deformity. No lesions are appreciated. Cardiovascular: Regular rate and rhythm with a normal S1 and S2. No gallops, murmurs, or rubs. Normal PMI, no JVD. No pulse deficits. Respiratory: Lungs have equal breath sounds bilaterally, clear to auscultation and percussion. No rales, rhonchi or wheezes noted. No increased work of breathing, no retractions or nasal flaring. Back: No spinal tenderness. No costovertebral tenderness. Full range of motion. Female : Normal external genitalia. Skin: Warm, dry with normal turgor. Normal color with no rashes, no lesions, and no evidence of cellulitis. MS/ Extremity: Pulses equal, no cyanosis. Neurovascular intact. Full, normal range of motion., bilateral aka Neuro: Awake and alert, GCS 15, oriented to person, place, time, and situation. Cranial nerves II-XII grossly intact. Motor strength 5/5 in all extremities. Sensory grossly intact. Cerebellar exam normal. Normal gait. Psych: Awake, alert, with orientation to person, place and time. Behavior, mood, and affect are within normal limits. 21:50 ECG was reviewed by the Attending Physician. 21:50 Abdomen/GI: Inspection: abdomen appears normal, Bowel sounds: normal, Palpation: mild abdominal tenderness, in the epigastric area, right upper quadrant and left upper quadrant, Liver: no appreciated palpable abnormalities, Hernia: not appreciated, 21:50 Musculoskeletal/extremity: DVT Exam: No signs of deep vein thrombosis. no pain, no swelling, no tenderness, negative Homans' sign noted on exam, no appreciated bluish discoloration, no erythema, no increased warmth, 22:18 ECG was reviewed by the Attending Physician. [facility] Vital Signs: 21:06 BP 165 / 89; Pulse 98; Resp 16; Temp 98.5; Pulse Ox 100% on R/A; Weight 77.56 kg; Pain dd2 9; 22:00 BP 190 / 108; Pulse 77; Resp 18; Pulse Ox 98% on R/A; kb4 22:30 BP 172 / 76; Pulse 71; Resp 18; Pulse Ox 98% on R/A; kb4 23:00 BP 180 / 82; Pulse 74; Resp 18; Pulse Ox 96% on R/A; kb4 23:30 BP 198 / 85; Pulse 74; Resp 18; Pulse Ox 96% on R/A; kb4 02/22 00:00 BP 181 / 94; Pulse 75; Resp 19; Pulse Ox 96% on R/A; kb4 04:00 BP 141 / 71; Pulse 82; Resp 16; Pulse Ox 96% on R/A; al5 02/21 21:06 Pain Scale: Adult dd2 MDM: 02/21 21:02 Medical Screening Exam initiated viola 21:52 Differential diagnosis: Nonspecific abd pain, gastritis, pancreatitis, viral viola gastroenteritis, gastroenteritis. Data reviewed: vital signs, nurses notes, lab test result(s), EKG, radiologic studies, CT scan, plain films. Consideration of Admission/Observation Patient was admitted/placed on observation. Escalation of care including admission/observation considered. I considered the following discharge prescriptions or medication management in the emergency department Medications were administered in the Emergency Department. See MAR. Independent interpretation of the following test(s) in the Emergency Department EKG: See my EKG interpretation above. Test considered but Not performed: Ultrasound NO ABD USG. Care significantly affected by the following chronic conditions: Hypertension, GASTRIC BYPASS. 02/21 21:03 Order name: Basic Metabolic Panel; Complete Time: 01:28 [facility] 02/21 21:03 Order name: CBC with Diff; Complete Time: 23:21 [facility] 02/21 21:03 Order name: LFT's; Complete Time: : [facility] 02/21 21:03 Order name: Magnesium; Complete Time: : [facility] 02/21 21:03 Order name: NT PRO-BNP; Complete Time: : [facility] 02/21 21:03 Order name: Troponin HS; Complete Time: : [facility] 02/21 21:03 Order name: Lipase; Complete Time: : [facility] 02/21 21:03 Order name: UA Rfx Yon Cult if indicated; Complete Time: 00:47 [facility] 02/22 02:21 Order name: CREATININE WHOLE BLOOD [facility] 02/22 03:52 Order name: CBC with Automated Diff [facility] 02/22 03:52 Order name: CBC with Automated Diff [facility] 02/22 03:52 Order name: Comprehensive Metabolic Panel [facility] 02/22 03:52 Order name: Comprehensive Metabolic Panel [facility] 02/21 21:03 Order name: XRAY Chest (1 view); Complete Time: 23:21 [facility] 02/21 21:40 Order name: CT Abd/Pelvis - PO and IV Contrast; Complete Time: : [facility] 02/21 21:03 Order name: EKG; Complete Time: 21:03 [facility] 02/22 03:52 Order name: CONS Physician Consult [facility] 02/21 21:03 Order name: Cardiac monitoring; Complete Time: 22:05 [facility] 02/21 21:03 Order name: EKG - Nurse/Tech; Complete Time: 22:05 [facility] 02/21 21:03 Order name: IV Saline Lock; Complete Time: 22:05 [facility] 02/21 21:03 Order name: Labs collected and sent; Complete Time: 22:05 [facility] 02/21 21:03 Order name: O2 Per Protocol; Complete Time: 21:49 [facility] 02/21 21:03 Order name: O2 Sat Monitoring; Complete Time: 21:49 [facility] 02/21 22:21 Order name: Misc. Order: RECOLLECT GREEN TOP; Complete Time: 23:48 rv1 EC:18 Rate is 77 beats/min. Rhythm is regular. QRS [place] is Normal. MT interval is normal. QRS viola interval is normal. QT interval is normal. No Q waves. T waves are Normal. T waves are Inverted in leads II, III, aVF. No ST changes noted. Clinical impression: NSR w/ Non-specific ST/T Changes. Interpreted by me. Reviewed by me. Administered Medications: 23:02 Drug: fentaNYL (PF) IVP 25 mcg IVP once Route: IVP; Site: right antecubital; 4 23:03 Follow up: Response: No adverse reaction 4 23:42 Follow up: Response: No adverse reaction 4 23:03 Not Given (Duplicate Order): fentanyl (pf)25 mcg IVP once 4 23:26 Drug: Ondansetron IVP 8 mg IVP once; over 2 minutes Route: IVP; Site: right forearm; kb4 23:42 Follow up: Response: No adverse reaction [facility] 23:41 Drug: NS 0.9% IV 1000 ml IV at 1000 ml once; to be given as a bolus over 60 minutes kb4 Route: IV; Rate: 1000 ml; Site: right forearm; 23:41 Follow up: Response: No adverse reaction [facility] 02/22 04:16 Follow up: Response: No adverse reaction; IV Status: Completed infusion; IV Intake: al5 1000ml 02/21 23:41 Drug: Famotidine IVP 20 mg IVP once; dilute with 10 mL 0.9% NaCl; give over 2 minutes kb4 Route: IVP; Site: right antecubital; 23:42 Follow up: Response: No adverse reaction [facility] 02/22 01:34 Drug: Piperacillin-Tazobactam IVPB 3.375 grams IVPB once over 60 mins; (mix in NS 100 kb4 mL) Route: IVPB; Infused Over: 60 mins; Site: right forearm; 04:14 Follow up: Response: No adverse reaction 4 04:16 Follow up: Response: No adverse reaction; IV Status: Completed infusion al5 02:01 Drug: Promethazine IM 25 mg IM once; in 100 cc ns over 20 min {Note: R forearm.} Route: al5 IM; Site: Other; 04:13 Follow up: Response: No adverse reaction 4 04:16 Follow up: Response: No adverse reaction; Nausea is decreased al5 Disposition Summary: 02/22/25 01:30 Hospitalization Ordered Notes: Hospitalization Status: Inpatient Admission viola Provider: Darron Aguilera cha Location: Telemetry/MedSur (Inpatient) viola Condition: Fair viola Problem: new viola Symptoms: have improved viola Bed/Room Type: Standard viola Room Assignment: 230(02/22/25 03:57) cg Diagnosis - Other intestinal obstruction - small bowel obstruction viola - Abdominal pain, Generalized viola - Vomiting viola Forms: - Medication Reconciliation Form viola - SBAR form viola - Leadership Thank You Letter viola Signatures: Dispatcher [employer] Devan Rodriguez MD MD cha Garcia, Cindy, RN RN Deanna Pop rv1 Lucrecia Malcolm RN RN al5 IRA YOON RN RN dd2 Michelle Caba RN RN kb4 Corrections: (The following items were deleted from the chart) 03:57 01:30 viola cg
[2025-02-22] MEDS: PROMETHAZINE INJ 25 MG/ML AMP ONE (01:43)
--- NOTE | 2025-02-22 03:47 | P.HP ---
Certification for Inpatient Patient admitted to: Inpatient With expected LOS: >2 Midnights Practitioner: I am a practitioner with admitting privileges, knowledge of patient current condition, hospital course, and medical plan of care. Services: Services provided to patient in accordance with Admission requirements found in Title 42 Section 412.3 of the Code of Federal Regulations Patient History Date of Service: 02/22/25 Reason for admission: Abdominal pain History of Present Illness: 79 yrs old Female with past medical history of CAD status post stent, hypertension, hyperlipidemia history of gastric bypass, hernia repair was brought to ER with intractable nausea and vomiting. Started today. Associated with abdominal discomfort. Diffuse, intermittent dull aching pain 4 out of 10 in severity at the time of interview. Denies any fever or chills. No chest pain or shortness of breath. Patient was assessed in the ER and is admitted for further management of partial SBO . Allergies No Known Allergies Allergy (Verified 10/30/24 14:28) Home medications list reviewed: Yes Home Medications: Aspirin [Aspirin EC 81 MG] 81 mg PO DAILY 12/23/24 Celecoxib [Celebrex*] 200 mg PO DAILY 12/23/24 Cholecalciferol (Vitamin D3) [Vitamin D3] 1 tab PO DAILY 12/23/24 Clopidogrel Bisulfate [Plavix*] 75 mg PO DAILY 12/23/24 Ferrous Gluconate [Iron] 1 tab PO DAILY 12/23/24 Hydrocodone 7.5/APAP 325 [[place] 7.5/325 mg*] 1 tab PO TID 12/23/24 Mv/Fe/FA/Om3/FSH/Lycop/Lut/Hannah [Multia Daily Multivitamin] 1 tab PO DAILY 12/23/24 Sertraline [Zoloft*] 50 mg PO DAILY 12/23/24 Zolpidem Tartrate [Ambien*] 10 mg PO BEDTIME 12/23/24 Furosemide [Lasix*] 20 mg PO BIDL #60 tab 12/24/24 Sacubitril/Valsartan [Entresto 24 mg-26 mg Tablet] 1 tab PO BID #60 tab 12/24/24 Spironolactone [Aldactone*] 25 mg PO DAILY #30 tab 12/24/24 carvediloL [Coreg*] 6.25 mg PO BID #60 tab 12/24/24 - Past Medical/Surgical History Diabetic: No Past Medical History: Reviewed- Non-Contributory -: Coronary artery disease with status post RCA stent -: COPD Past Surgical History: Reviewed- Non-Contributory -: Cardiac catheterization with stent of the RCA -: R SHOULDER SX -: UMBELICAL HERNIA REPAIR X7 -: R FOOT SX X7 -: GASTRIC BYPASS - Family History Family History: Reviewed- Non-Contributory - Family History Father -: Heart disease - Social History Smoking Status: Never smoker Alcohol use: No CD- Drugs: No Caffeine use: Yes Review of Systems 10-point ROS is otherwise unremarkable Other: Constitutional: Reports: generalized weakness. Skin: Denies: rash. Allergy/Immun: Denies: rhinorrhea, sneezing. Eyes: Denies: visual loss/blurred. ENT: Denies: earache, nasal congestion. Respiratory: Denies: non productive cough. Cardiovascular: Denies: chest pain, palpitations. GI: Denies: diarrhea, nausea. : Denies: dysuria. Musculoskeletal: Reports: arthritis. Denies: extremity pain. Heme: Denies: bleeding. Endocrine: Denies: polydipsia. Neuro: Reports: dizziness, gait problem, lightheaded, spinning sensation. Psych: Reports: anxiety. All systems rev & neg: except as noted Physical Examination - Vital Signs Temperature: 97.8 F Blood Pressure: 172/78 Pulse: 80 Respirations: 18 Pulse Ox (%): 94 - Physical Exam General: Alert, In no apparent distress, Oriented x3 HEENT: Atraumatic, Normocephalic Neck: Supple, No Thyromegaly Respiratory: Clear to auscultation bilaterally, Normal air movement Cardiovascular: Regular rate/rhythm, Normal S1 S2 Capillary refill: <2 Seconds Gastrointestinal: Soft and benign, W/out hepatosplenomegaly Musculoskeletal: No clubbing, No swelling Integumentary: No rashes Neurological: Other (Alert awake nonfocal) Lymphatics: No axilla or inguinal lymphadenopathy - Studies Laboratory Data (last 24 hrs) 02/21/25 02/21/25 23:46 22:05 WBC 12.50 H Hgb 13.4 Hct 40.8 Plt Count 262 Sodium 142 Potassium 3.6 BUN 12 Creatinine 0.68 Glucose 112 H Magnesium 1.9 Total Bilirubin 0.5 AST 13 L ALT < 14 Alkaline Phosphatase 116 Lipase 13 Assessment and Plan - Plan Small bowel obstruction N.p.o. for now Started on IV hydration Monitor closely on telemetry Surgical consult Intractable nausea and vomiting Possible left SBO Zofran as needed N.p.o. for now IV hydration Hypertension Antihypertensives titrated Continue home medications and titrate as needed Hyperlipidemia Continue statin History of CAD History of CHF Continue home medications and titrate as needed Monitor closely in the telemetry GI/DVT prophylaxis Advanced directive full code Discharge Plan: Home Plan to discharge in: 48 Hours - Advance Directives Does patient have a Living Will: No Does patient have a Durable POA for Healthcare: No - Code Status/Comfort Care Code Status: Full Code Time Spent Managing Pts Care (In Minutes): 48
[2025-02-22] MEDS ORDERED: ONDANSETRON 4 MG/2 ML VIAL IV PRN (03:48)
[2025-02-22] MEDS ORDERED: ACETAMINOPHEN 325 MG TABLET PO PRN (03:48)
[2025-02-22 05:16] VITALS: BMI 26.7
[2025-02-22] MEDS: NA CHLORIDE 0.9% 1,000 ML IV SCH (05:27)
[2025-02-22 09:17] VITALS: O2SAT 95
[2025-02-22] MEDS: CLOPIDOGREL 75 MG TABLET PO SCH (11:15)
[2025-02-22] MEDS: HYDROCODONE/APAP 7.5/325 MG TAB PO SCH (11:19)
[2025-02-22] MEDS: SACUBITRIL/VALSARTAN 24/26 MG TAB PO SCH (11:19)
[2025-02-22] MEDS: SERTRALINE HCL 50 MG TAB ONE (11:20)
[2025-02-22] MEDS: CLOPIDOGREL 75 MG TABLET ONE (11:20)
[2025-02-22] MEDS: ASPIRIN EC 81 MG TAB PO ONE (11:21)
[2025-02-22] MEDS: FUROSEMIDE 20 MG TABLET ONE (11:21)
[2025-02-22] MEDS: SPIRONOLACTONE 25 MG TABLET ONE (11:21)
[2025-02-22] MEDS: FUROSEMIDE 20 MG TABLET PO SCH (12:00)
[2025-02-22] MEDS: SERTRALINE HCL 50 MG TAB PO SCH (12:00)
[2025-02-22] MEDS: SPIRONOLACTONE 25 MG TABLET PO SCH (12:00)
[2025-02-22] MEDS: ASPIRIN EC 81 MG TAB PO SCH (12:00)
--- NOTE | 2025-02-22 13:01 | P.PN ---
Date of Service: 02/22/25 Patient is a 79-year-old woman who has a history of multiple abdominal surgeries. Who came in with nausea vomiting and abdominal pain. She states since her admission she has had significant improvement of her abdominal symptoms. She now has no nausea no vomiting and no abdominal pain. She had a bowel movement as of yesterday just prior to her arrival she continues to pass gas after being here at the hospital and has almost complete resolution of her abdominal pain. She would like to initiate diet at this time. Okay to initiate clear liquid and advance as tolerated. -Full consult note to follow.
[2025-02-22 15:45] VITALS: BP 134/62; TEMP 98.3
[2025-02-22] MEDS: HYDROCODONE/APAP 7.5/325 MG TAB PO PRN (17:33)
--- NOTE | 2025-02-22 17:47 | RAD REPORT ---
EXAM: XR Abdomen 1 View (KUB) HISTORY: [facility] MAIN SBO COMPARISON: CT abdomen and pelvis of earlier the same day FINDINGS: Single view of the abdomen mild left flank small bowel gaseous distention. Paucity of bowel gas in the central abdomen limits evaluation. Hernia mesh tacks in the central abdomen again seen. No suspicious calcifications are seen. The bones are unremarkable. IMPRESSION: Left flank mild small bowel distention, concerning for obstruction or ileus.
[2025-02-22] MEDS: MAGNESIUM CITRATE 300 ML BOT PO SCH (19:00)
[2025-02-22] MEDS ORDERED: ZOLPIDEM TARTRATE 10 MG TABLET PO SCH (21:00)
== END 2025-02-22 20:30 | disposition home or self-care (01) | DRG 390 ==
LOC: ER 20:54 → 2ND 02-22 03:48
PROVIDERS: ADMIT Family Medicine; ATTEND Hospitalist
DX: K56.600 Partial intestinal obstruction, unspecified as to cause (principal); I25.10 Atherosclerotic heart disease of native coronary artery without angina pectoris; Z95.5 Presence of coronary angioplasty implant and graft; Z90.49 Acquired absence of other specified parts of digestive tract; Z98.84 Bariatric surgery status; Z98.890 Other specified postprocedural states; Z79.82 Long term (current) use of aspirin; Z79.899 Other long term (current) drug therapy; Z79.02 Long term (current) use of antithrombotics/antiplatelets; Z79.891 Long term (current) use of opiate analgesic; E78.5 Hyperlipidemia, unspecified; I11.0 Hypertensive heart disease with heart failure; I50.9 Heart failure, unspecified
CPT/HCPCS: 36415; 71045; 74018; 74177; 80048; 80076; 81001; 82565; 83690; 83735; 83880; 84484; 85025; 93005; 94760; 96372; 99285; J2405; J2543; J2550; J3010; J7030; Q9967

== ENCOUNTER 2025-03-31 09:52 | Emergency (ER) | payer OTHER ==
--- OUTSIDE RECORDS SUMMARY | 2025-03-31 10:08 | XMS REPORT | Continuity of Care Document ---
Author Name Unknown Address [address] [facility] [place] [address] [facility] Address [address] [facility] [place] [address] Care Team Providers Care Worship Pastor Name Role Phone Jorge FLYNN, Nita Primary Care Physic trent [phone] [id number] Attending Clinician Unavailable DEANNE BLAND Attending Clinician Unavailable ANTONI THOMAS Attending Clinician Unavailable CRISTA CULP Attending Clinician Unavailable CAROLINE T[facility]PIN [facility] Attending Raymond vazquez Unavailable MD CHRISTINE Attending Clinician Unavailab MAGGIE Ku Attending Clinician Unava ilable LAB90 Attending Clinician Unavailable GIN MORA Attending Clinician Unavailab FATIMAH Davis Attending Clinician MORGAN Fonseca Attending Clinician Unava ilable OLVIN PEDRAZA Attending Clinician Unavailable AKI MOTT Attending Clinician Unav ailable CURTIS ELI Attending Clinician UnavailTESHA Tracy Attending Clinician Unavailab CRISPIN Bailey Attending Clinician Unavailable Maggie Lezama MD Attending Clinician [phone] Dylan Dowell Attending Clinician Unavailoscar burns RADIOLOGY Attending Clinician Unavailable Radiology Attending Clinician Unavailable Doctor Unassigned, [place] Attending Clinician U agustinailDominic Galindo Attending Clinician Unavailable Martin Sanchez DO Attending Clinician [phone] UNKNOWN, ATTENDING Attending Clinician Unavailab thania Unknown, Attending Attending Clinician Unavailab Loco Goyal Attending Clinician [phone] CURTIS ELI Admitting Clinician UnavailDylan Gatica Admitting Clinician UnavailNITA Santoyo Admitting Clinician Un available Physician, No Primary or Family Admitting Clinic trent Unavailable Payers Payer Name Policy Type Policy Number Effective Date Expirati on Date Source [employer] [place] (HMO-POS) 7 [id number] 2024 00:00:00 [place] [place] PREMIUM H[place] [id number] 2020 00:00:00 MEDICARE-PART B 5 [id number] 2022 00:00:00 Problems Condition Name Condition Details Condition Category Status Onset Date Resolution Date Last Treatment Date Treating Clinician Comments Source 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 without angina pectoris Disease Active 01-11 00:00: 00 Caroline Spaulding - Matta amanda S/P right coronary artery (RCA) stent placement S/P right coronary artery (RCA) stent placement Disease Active 01-11 00:00: 00 Caroline patel Paroxysmal A-fib Paroxysmal A-fib Disease Active 01-11 00:00: 00 Caroline Spaulding - Externa amanda 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 Disease Active 01-11 00:00: 00 Caroline Seybold [...] hearing of both ears Disease Active 2021-07 0 00:00: 00 Caroline Seybold - Externa l Depression Depression Disease Active 2021-07 0 00:00: 00 Caroline [...] 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 Disease Active 2021-07 0 00:00: 00 Caroline Seybold - Externa l Major depressive disorder, recurrent, mild Major depressive disorder, recurrent, mild Disease Active 12-01 00:00: 00 Caroline Seybold - Externa l Depression Depression Disease Active 12-01 00:00: 00 Caroline Russoold Chronic obstructiv e pulmonary disease Chronic obstructiv e pulmonary disease Disease Active 12-01 00:00: 00 Caroline Seybold - Externa l Mild major depression Mild major depression Disease Active 12-01 00:00: 00 Caroline Spaulding Left shoulder pain Left shoulder pain Disease Active -22 00:00: 00 [facility] Acute depression (disorder) Acute depression (disorder) Active Problem 03/02/2021 [facility] Problem Active 2021-03-02 22:32:31 Adaoria amanda Pena Dizziness (finding) Dizziness (finding) Active Problem 03/02/2021 [facility] Problem Active 2021-03-02 22:32:31 Memajith patel Jean Headache (finding) Headache (finding) Active Problem 03/02/2021 [facility] Problem Active 2021-03-02 22:32:31 Memajith patel Jean Hypertensi ve disorder, systemic arterial (disorder) Hypertensi ve disorder, systemic arterial (disorder) Active Problem 03/02/2021 [facility] Problem Active 2021-03-02 22:32:31 Memajith amanda StevensOllie Hernia of abdominal wall (disorder) Hernia of abdominal wall (disorder) Resolved Problem 03/02/2021 [facility] Problem Resolve d 2021-03-02 22:32:31 Memajith patel Ollie 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 ) Resolved Problem 03/02/2021 [facility] Problem Resolve d 2021-03-02 22:32:31 Memajith Stevensann Injury of right foot Injury of right foot Resolved Problem 03/02/2021 [facility] Problem Resolve d 2021-03-02 22:32:31 Memajith l Jean Injury of right shoulder Injury of right shoulder Resolved Problem 03/02/2021 [facility] Problem Resolve d 2021-03-02 22:32:31 Adaajith patel Jean Allergies, Adverse Reactions, Alerts Allergy Name Allergy Type Status Severity Reaction(s) Onset Date Inactive Date Treating Clinician Comments Source No Known Allergie s DA Active U 2020-0720 00:00: 00 [facility] No Known Allergie s DA Active U 03-21 00:00: 00 [facility] No Known Allergie s DA Active U 03-21 00:00: 00 [facility] No Known Contrast Allergie s DA Active U 01-08 00:00: 00 [facility] No Known Drug Allergie s DA Active U 01-08 00:00: 00 [facility] No Known Food Allergie s DA Active U 01-08 00:00: 00 [facility] No Known Other Allergie s DA Active U 01-08 00:00: 00 [facility] No Known Drug Intolera nces DA Active U 5- 00:00: 00 [facility] NO KNOWN ALLERGIE S Drug Class Active [facility] Social History Social Habit Start Date Stop Date Quantity Comments Source ASSERTION Not Caroline Spaulding - External History of tobacco use Current smoker [facility] Gender identity [facility] Sexual orientation U [facility] Exposure to SARS-CoV-2 (event) Not sure [facility] Alcoholic beverage intake 2025-03-10 00:00:00 2025-03-10 00:00:00 Lifetime non-drinker (finding) Caroline Spaulding - External Tobacco use and exposure 2024-08-03 00:00:00 2024-08-03 00:00:00 Smokeless tobacco non-user Caroline Spaulding - External History of Social function 2023-03-11 00:00:00 2023-03-11 00:00:00 [facility] Alcohol intake 2023-03-11 00:00:00 2023-03-11 00:00:00 0 /d [facility] Sex 2021-11-28 10:01:57 2021-11-28 10:01:57 Female (finding) Caroline Spaulding - External Social History 2017-04-21 15:24:53 2017-04-21 15:24:53 [facility] Sex assigned at 1945 00:00:00 1945 00:00:00 Caroline Spaulding - External Smoking Status Start Date Stop Date Source Never smoked tobacco Caroline Spaulding - External Ex-smoker 2017-10-10 00:00:00 2017-10-10 00:00:00 [facility] Medications Ordered Medication Name Filled Medication Name Start Date Stop Date Current Medication? Ordering Clinician Indication Dosage Frequency Signature (SIG) Comments Components Source zolpidem 10 mg tablet 03-16 00:00: 00 Yes mg Olvin Moreno Multiple Vitamin (MULTIVITAM IN ADULT OR) Multiple Vitamin (MULTIVITAM IN ADULT OR) 03-10 15:14: 40 Yes Caroline Spaulding - Externa l Albuterol HFA (VENTOLIN HFA) 108 (90 Base) MCG/ACT IN AERS Albuterol HFA (VENTOLIN HFA) 108 (90 Base) MCG/ACT IN AERS 03-10 00:00: 00 Yes [id number] 2{puff} Q.25D Inhale 2 puffs into the lungs every 6 hours as needed for wheezing. Caroline patel Benzonatate 100 MG oral Capsule Benzonatate 100 MG oral Capsule 03-10 00:00: 00 Yes [id number] 100mg Q.[id number] 3D Take 1 capsule (100 mg total) by mouth 3 times daily as needed for cough. Caroline patel predniSONE (DELTASONE) 10 MG oral tablet predniSONE (DELTASONE) 10 MG oral tablet 03-10 00:00: 00 Yes [id number] 10mg QD Take 1 tablet (10 mg total) by mouth daily. Caroline patel Azithromyci n 250 MG oral Tablet Azithromyci n 250 MG oral Tablet 03-10 00:00: 00 03-15 23:59 :00 No [id number] Take 2 tablets by mouth on day 1 then 1 tablet by mouth daily for 4 days thereafter .. Caroline patel Furosemide (LASIX) 20 MG oral Tablet Furosemide (LASIX) 20 MG oral Tablet 03-07 00:00: 00 Yes 20mg Q.5D Take 1 tablet (20 mg total) by mouth 2 times daily. Caroline patel Spironolact one 25 MG oral Tablet Spironolact one 25 MG oral Tablet 02-26 00:00: 00 Yes [id number] 25mg QD Take 1 tablet (25 mg total) by mouth daily. Caroline patel Carvedilol 6.25 MG oral Tablet Carvedilol 6.25 MG oral Tablet 02-26 00:00: 00 Yes [id number] 6.25mg Q.5D Take 1 tablet (6.25 mg total) by mouth in the morning and 1 tablet (6.25 mg total) before bedtime. Caroline patel Sacubitril- Valsartan 24-26 MG oral Tablet Sacubitril- Valsartan 24-26 MG oral Tablet 8-29 00:00: 00 03-10 00:00 :00 No [id number] 1{tbl} Q.5D Take 1 tablet by mouth in the morning and 1 tablet before bedtime. Caroline patel Famotidine 40 MG oral Tablet Famotidine 40 MG oral Tablet 01-14 00:00: 00 Yes [id number] 40mg QD Take 1 tablet (40 mg total) by mouth daily. Caroline patel Ferrous Gluconate (IRON 27 OR) 01-11 11:08: 57 Yes [id number] Caroline patel Carvedilol 6.25 MG oral Tablet 01-11 11:08: 57 Yes 6.25mg Take 1 tablet (6.25 mg total) by mouth once. Caroline patel Biotin 1 MG oral Capsule 01-11 11:05: 41 01-11 00:00 :00 No Caroline patel Atorvastati n Calcium 40 MG oral Tablet Atorvastati n Calcium 40 MG oral Tablet [...] Take 1 tablet by mouth. Caroline patel Cholecalcif tito 50 MCG (2000 UT) oral Capsule Cholecalcif tito 50 MCG (2000 UT) oral Capsule 12-23 00:00: 00 Yes 1{tbl} Take 1 tablet by mouth. Caroline patel Aspirin 81 MG oral Tablet Delayed Response Aspirin 81 MG oral Tablet Delayed Response 12-23 00:00: 00 03-10 00:00 :00 No 81mg Take 1 tablet (81 mg total) by mouth. Caroline patel Clopidogrel Bisulfate (PLAVIX) 75 MG oral Tablet Clopidogrel Bisulfate (PLAVIX) 75 MG oral Tablet 11-25 00:00: 00 Yes 75mg QD Take 1 tablet (75 mg total) by mouth daily. Caroline patel Biotin 1 MG oral Capsule 10-19 13:36: 53 Yes Caroline patel Ferrous Gluconate (IRON 27 OR) 10-19 13:36: 53 Yes [id number] Caroline patel Famotidine 40 MG oral Tablet 10-19 00:00: 00 Yes [id number] 40mg QD Take 1 tablet (40 mg total) by mouth daily. Caroline patel Amoxicillin -Pot Clavulanate 875-125 MG oral Tablet 07 00:00: 00 Yes [id number] 1{tbl} Q.5D Take 1 tablet by mouth 2 times daily. Caroline patel Biotin 1 MG oral Capsule 09-01 15:44: 14 Yes Caroline patel Ferrous Gluconate (IRON 27 OR) 09-01 15:44: 14 Yes [id number] , Caroline patel Lisinopril 10 MG oral Tablet 09-01 00:00: 00 Yes [id number] 10mg QD Take 1 tablet (10 mg total) by mouth daily. Caroline patel TRIMETHOPRI M-SULFAMETH OXAZOLE (BACTRIM DS) 800-160 MG oral Tablet 09-01 00:00: 00 09-09 04:59 :00 No [id number] 1{tbl} Q.5D Take 1 tablet by mouth 2 times daily for 7 days. Caroline patel zolpidem 10 mg tablet 2-23 00:00: 00 Yes mg Olvin Moreno Advair Diskus 250 mcg-50 mcg/dose powder for inhalation 08-23 00:00: 00 Yes 1mcg/do se Olvin Moreno famotidine 40 mg tablet 08-23 00:00: 00 Yes 1mg Olvin Moreno Pantoprazol e Sodium 40 MG oral Tablet Delayed Response Pantoprazol e Sodium 40 MG oral Tablet Delayed Response 08-10 00:00: 00 03-10 00:00 :00 No [id number] 40mg Q.5D Take 1 tablet (40 mg total) by mouth 2 times daily. Caroline patel Bismuth Subsalicyla te 525 MG oral Tablet 08-10 00:00: 00 09-01 00:00 :00 No [id number] 1{tbl} Q.25D Take 1 tablet by mouth 4 times daily. Caroline patel Metronidazo le 500 MG oral Tablet 08-10 00:00: 00 09-01 00:00 :00 No [id number] 500mg Q.[id number] 3D Take 1 tablet (500 mg total) by mouth 3 times daily. Caroline patel Tetracyclin e HCl 500 MG oral Capsule 08-10 00:00: 00 09-01 00:00 :00 No [id number] 500mg Q.25D Take 1 capsule (500 mg total) by mouth 4 times daily. Caroline patel Nitrofurant oin Monohyd Macro (Macrobid) 100 MG oral Capsule 08-04 00:00: 00 Yes [id number] 100mg Q.5D Take 1 capsule (100 mg total) by mouth 2 times daily. Caroline patel Multiple Vitamin (MULTIVITAM IN ADULT OR) 08-03 12:54: 20 Yes Caroline patel HYDROcodone -Ibuprofen 5-200 MG oral Tablet - 12:54: 05 08-03 00:00 :00 No Caroline patel Biotin 1 MG oral Capsule - 12:54: 03 Yes Caroline patel Ferrous Gluconate (IRON 27 OR) 2-03 12:54: 03 Yes [id number] , Caroline patel Lisinopril 10 MG oral Tablet 08-03 00:00: 00 09-01 00:00 :00 No [id number] 10mg QD Take 1 tablet (10 mg total) by mouth daily. Caroline patel Sertraline HCl 50 MG oral Tablet 2023-07 00:00: 00 Yes [id number] 50mg QD Take 1 tablet (50 mg total) by mouth daily. Caroline patel zolpidem 10 mg tablet 2023-07 00:00: 00 Yes mg Olvin Moreno lisinopril 30 mg tablet 2023-07 00:00: 00 Yes 1mg Olvin Moreno sertraline 50 mg tablet 2023-07 00:00: 00 Yes 1mg Olvin Moreno Celecoxib 200 MG oral Capsule Celecoxib 200 MG oral Capsule 2023-07 00:00: 00 03-10 00:00 :00 No [id number] 200mg Q.5D Take 1 capsule (200 mg total) by mouth 2 times daily as needed for pain. Caroline patel Sertraline HCl 50 MG oral Tablet Sertraline HCl 50 MG oral Tablet 2023-07 00:00: 00 03-10 00:00 :00 No [id number] 100mg QD Take 2 tablets (100 mg total) by mouth daily. Caroline patel famotidine 20 mg tablet 2023-07 00:00: 00 Yes 1mg Olvin Moreno zolpidem 10 mg tablet 2023-07 1-05 00:00: 00 Yes mg Olvin Moreno Pantoprazol e Sodium 40 MG oral Tablet Delayed Response 2023-07 014 00:00: 00 Yes [id number] 40mg QD take one (1) tablet(s) by mouth once a day. Caroline patel zolpidem 10 mg tablet -07 00:00: 00 Yes mg Olvin Moreno albuterol sulfate HFA 90 mcg/actuati on aerosol inhaler -29 00:00: 00 Yes 2mcg/ac tuation Olvin Moreno Lisinopril 30 MG oral Tablet 7-05 00:00: 00 08-03 00:00 :00 No [id number] 30mg QD take 1 tablet by mouth daily Caroline patel zolpidem 10 mg tablet 6-13 00:00: 00 Yes mg Olvin Moreno albuterol sulfate HFA 90 mcg/actuati on aerosol inhaler 11-19 00:00: 00 Yes 2mcg/ac tuation Olvin Moreno lisinopril 30 mg tablet 11-19 00:00: 00 Yes 1mg Olvin Moreno sertraline 50 mg tablet 11-19 00:00: 00 Yes 1mg Olvin Moreno famotidine 20 mg tablet 11-19 00:00: 00 Yes 1mg Olvin Moreno zolpidem 10 mg tablet 11-13 00:00: 00 Yes mg Olvin Moreno Pantoprazol e Sodium 40 MG oral Tablet Delayed Response 10-29 00:00: 00 Yes [id number] 40mg Take 1 tablet (40 mg total) by mouth daily. Caroline patel Celecoxib 200 MG oral Capsule 10-29 00:00: 00 Yes [id number] 200mg Take 1 capsule (200 mg total) by mouth 2 times daily. Caroline patel DICLOFENAC SODIUM 1% GEL 10-29 00:00: 00 Yes Olvin Moreno PANTOPRAZOL E SOD DR 40 MG 10-29 00:00: 00 Yes Olvin Moreno Diclofenac Sodium 1 % apply externally Gel 10-29 00:00: 00 09-01 00:00 :00 No [id number] 1{appli cation} Q.25D Apply 1 Applicatio n topically 4 times daily as needed (joint pain). Caroline patel zolpidem 10 mg tablet -19 00:00: 00 Yes mg Olvin Moreno lisinopril 30 mg tablet 407 00:00: 00 Yes mg Olvin Moreno Zolpidem Tartrate 10 MG oral Tablet Zolpidem Tartrate 10 MG oral Tablet 09-20 00:00: 00 Yes 10mg Take 1 tablet (10 mg total) by mouth at bedtime as needed. Caroline patel PREDNISONE 10 MG 20 00:00: 00 Yes Olvin Moreno predniSONE (DELTASONE) 10 MG oral tablet 20 00:00: 00 11-12 00:00 :00 No 10mg [...] SUL LYSSA 2022-07 00:00: 00 Yes Olvin Moreno PANTOPRAZOL E 40MG DR 2022-07 00:00: 00 Yes Olvin Moreno Na Sulfate-K Sulfate-Mg Sulf (SUPREP BOWEL PREP KIT) 17.5-3.13-1 .6 GM/177ML oral Solution 2022-07 00:00: 00 09-01 00:00 :00 No Caroline patel sertraline 50 mg tablet 2022-07 00:00: 00 Yes mg Olvin Moreno albuterol [...] 00 11-12 00:00 :00 No 10 Olvin Mroeno USE 1 SPRAY IN EACH NOSTRIL ONCE DAILY. 2022-07 00:00: 00 11-12 00:00 :00 No 50 Olvin Moreno Methylpredn isolone Acetate (Depo-Medro l) 80 mg/ml - Physician Administere d ([id number]) 2022-07 17:30: 00 04-25 17:24 :00 No [id number] 80mg Caroline patel FAMOTIDINE 20MG 2022-07 00:00: 00 Yes Olvin Moreno LISINOPRIL 30MG 2022-07 0-06 00:00: 00 Yes Olvin Moreno HYDROcodone -Acetaminop hen 7.5-325 MG oral Tablet HYDROcodone -Acetaminop hen 7.5-325 MG oral Tablet 2022-07 0-05 00:00: 00 Yes 1{tbl} Q4H Take 1 tablet by mouth every 4 hours as needed. Caroline patel HYDROCO/APA P 7.5-325 2022-07 0-05 00:00: 00 Yes Olvin Moreno TAKE 1 TABLET BY MOUTH 2 TO 3 TIMES DAILY NEEDED FOR PAIN 2022-07 0-04 00:00: 00 Yes Olvin Moreno TRAZODONE 50MG 9- 00:00: 00 Yes Olvin Moreno iopamidol (ISOVUE 370-500 mL) injection 90 mL 03-11 22:30: 00 03-11 22:49 :00 No [id number] 90mL 90 mL, Intravenou s, ONCE, 1 dose, On Sat03/11/23 at 1730, Routine [facility] aspirin tablet 325 mg 03-11 19:45: 00 03-11 20:13 :00 No 325mg 325 mg, Oral, ONCE, 1 dose, On Sat03/11/23 at 1445, STAT [facility] GABAPENTIN 100MG 9- 00:00: 00 Yes Olvin Moreno ALBUTEROL PA HFA 200 INH 8- 00:00: 00 Yes Olvin Moreno Albuterol HFA (VENTOLIN HFA) 108 (90 Base) MCG/ACT IN AERS Albuterol HFA (VENTOLIN HFA) 108 (90 Base) MCG/ACT IN AERS 02-27 00:00: 00 03-10 00:00 :00 No [id number] 2{puff} Q.25D Inhale 2 puffs into the lungs every 6 hours as needed for wheezing. Caroline patel Pantoprazol e Sodium 40 MG oral Tablet Delayed Response 02-26 00:00: 00 Yes [id number] 40mg TAKE ONE TABLET BY MOUTH DAILY Caroline patel PANTOPRAZOL E 40MG DR 02-26 00:00: 00 Yes Olvin Moreno GABAPENTIN 100 MG CAPSULE 02-26 00:00: 00 Yes 100 Olvin Moreno Gabapentin 100 MG oral Capsule 02-26 00:00: 00 11-12 00:00 :00 No [id number] 100mg Take 1 capsule (100 mg total) by mouth 3 times daily. Caroline patel SERTRALINE 100MG 02-20 00:00: 00 Yes Olvin Moreno PREDNISONE 10MG 02-06 00:00: 00 Yes Olvin Moreno ZOLPIDEM TARTRATE 10 MG 02-06 00:00: 00 Yes 10 Olvin Moreno Celecoxib 200 MG oral Capsule 02-04 00:00: 00 Yes [id number] TAKE 1 CAPSULE BY MOUTH TWICE A DAY Caroline patel GABAPENTIN 100MG 02-04 00:00: 00 Yes Olvin Moreno FAMOTIDINE 20MG - 00:00: 00 Yes Olvin Moreno CELECOXIB 200MG 7- 00:00: 00 Yes Olvin Moreno TRAZODONE 50MG 617 00:00: 00 Yes [id number] Olvin Moreno Lisinopril 30 MG oral Tablet 12-13 00:00: 00 Yes [id number] 30mg Take 1 tablet (30 mg total) by mouth daily Caroline patel Albuterol HFA (VENTOLIN HFA) 108 (90 Base) MCG/ACT IN AERS 12-13 00:00: 00 Yes [id number] 2{puff} Q.25D Inhale 2 puffs into the lungs every 6 hours as needed for wheezing Caroline patel ALBUTEROL PV HFA 200 INH 12-13 00:00: 00 Yes Olvin Moreno Sertraline HCl 100 MG oral Tablet 12-13 00:00: 00 09-01 00:00 :00 No [id number] 100mg QD Take 1 tablet (100 mg total) by mouth daily Caroline patel Zolpidem Tartrate (Ambien) 5 MG oral Tablet 12-13 00:00: 00 11-12 00:00 :00 No [id number] 5mg QD Take 1 tablet (5 mg total) by mouth nightly as needed for sleep Caroline patel DULOXETINE 60MG DR 12-12 00:00: 00 Yes [id number] Olvin Moreno LISINOPRIL 30MG 12-11 00:00: 00 Yes Olvin Moreno Celecoxib 200 MG oral Capsule 12-04 00:00: 00 Yes [id number] TAKE ONE CAPSULE BY MOUTH TWICE A DAY Caroline patel PANTOPRAZOL E 40MG DR 11-28 00:00: 00 Yes Olvin Moreno SERTRALINE 100MG 11-22 00:00: 00 Yes [id number] Olvin Moreno Hydrocortis one, Perianal, 2.5 % apply externally Cream 11-15 00:00: 00 Yes Caroline patel HYDROCORTIS O 2.5%RECT CRE 11-15 00:00: 00 Yes Olvin Moreno Nitrofurant oin Monohyd Macro (Macrobid) 100 MG oral Capsule 11-14 00:00: 00 Yes [id number] 100mg Take 1 capsule (100 mg total) by mouth 2 times daily Caroline patel Lisinopril 30 MG oral Tablet 11-14 00:00: 00 Yes [id number] 30mg Take 1 tablet (30 mg total) by mouth daily Caroline patel Gabapentin 100 MG oral Capsule 11-14 00:00: 00 Yes [id number] 100mg Take 1 capsule (100 mg total) by mouth 3 times daily Caroline patel NITROFUR MON 100MG 11-14 00:00: 00 Yes Olvin Moreno FLUCONAZOLE 150MG 2022-0 5-17 00:00: 00 Yes Olvin Moreno GABAPENTIN 100MG 2022-0 5-17 00:00: 00 Yes Olvin Moreno LISINOPRIL 30MG 2022-0 5-17 00:00: 00 Yes Olvin Moreno USE 1 SPRAY IN EACH NOSTRIL ONCE DAILY. 2022-0 5-16 00:00: 00 Yes 50 Olvin Moreno FAMOTIDINE 20 MG 2022-0 5-16 00:00: 00 Yes 20 Olvin Moreno USE 1 SPRAY IN EACH NOSTRIL ONCE DAILY. 0 -15 00:00: 00 Yes 50 Olvin Moreno USE DIRECTED 0 -15 00:00: 00 - 00:00 :00 No 25 Olvin Moreno Celecoxib 200 MG oral Capsule 0 5-08 00:00: 00 Yes [id number] TAKE ONE CAPSULE BY MOUTH TWICE A DAY Caroline patel famotidine 20 mg tablet 2022-0 4-22 00:00: 00 Yes mg Olvin Moreno CELECOXIB 200MG 2022-0 4-10 00:00: 00 Yes Olvin Moreno Duloxetine HCl [address] Particles 2022-0 3-20 00:00: 00 Yes [id number] 60mg Take 1 capsule (60 mg total) by mouth daily Caroline patel ZOLPIDEM 10MG 2022-0 3-20 00:00: 00 Yes [id number] Olvin Moreno TRAZODONE 50MG 2022-0 3-19 00:00: 00 Yes [id number] Olvin Moreno LISINOPRIL 20MG 2022-0 3-14 00:00: 00 Yes Olvin Moreno Lisinopril 20 MG oral Tablet 2022-0 3-14 00:00: 00 -17 00:00 :00 No [id number] 20mg Take 1 tablet (20 mg total) by mouth daily Caroline patel CELECOXIB 200MG 2022-0 3-13 00:00: 00 Yes Olvin Moreno PANTOPRAZOL E 40MG DR 3-0 3-02 00:00: 00 Yes Olvin Moreno SERTRALINE 100MG 2022-0 2-24 00:00: 00 Yes [id number] Olvin Moreno PREDNISONE 10MG 2- 00:00: 00 Yes [id number] Olvin Moreno predniSONE (DELTASONE) 10 MG oral tablet 08-22 00:00: 00 11-14 00:00 :00 No Caroline patel ZOLPIDEM 10MG 2- 00:00: 00 Yes Olvin Moreno LISINOPRIL 20MG [...] - 00:00: 00 Yes 10 Olvin Moreno Sertraline HCl 100 MG oral Tablet 1- 00:00: 00 Yes [id number] 50mg Take 0.5 tablets (50 mg total) by mouth daily Caroline patel MELOXICAM 15MG 1-03 00:00: 00 Yes [id number] Olvin Moreno TRAZODONE 50MG 2021-07 2- 00:00: 00 No Trazodone HCl 50 MG oral Tablet 2021-07- 00:00: 00 Yes [id number] 50mg Take 1 tablet (50 mg total) by mouth nightly AT BEDTIME Caroline patel TRAZODONE 50MG 2021-07- 00:00: 00 Yes Olvin Moreno TAKE 1 AT BEDTIME 2021-07-16 00:00: 00 No TAKE 1 TABLET AT BEDTIME. 2021-07 2-16 00:00: 00 No TAKE 1 TABLET BY MOUTH TWICE A DAY 2021-07 2-16 00:00: 00 No 40unit TAKE 1 TABLET EVERY 6 HOURS NEEDED FOR PAIN. 2021-07 2-16 00:00: 00 No 40unit Dose Unknown 2021-07 2-16 00:00: 00 No TRAZODONE 50MG TAB 2021-07 2-16 00:00: 00 No PREDNISONE 10MG TAB 2021-07 2-16 00:00: 00 No GABAPENTIN 300MG 2021-07 2-16 00:00: 00 No Dose Unknown 2021-07 2-16 00:00: 00 No AZITHROMYCI N 250MG TAB 2021-07 2-16 00:00: 00 No LISINOPRIL 5MG TAB 2021-07 2-16 00:00: 00 No Dose Unknown 2021-07 2- 00:00: 00 No Dose Unknown 2021-07 2-16 00:00: 00 No 40 AMOXICILLIN /CLAVULANAT E P 500-125 TAB 2021-07 2-16 00:00: 00 No 40 Dose Unknown 2021-07 2-16 00:00: 00 No 40 SERTRALINE HCL 50MG TAB 2021-07 2-16 00:00: 00 No 50 PANTOPRAZOL E 40MG TAB 2021-07 2-16 00:00: 00 No 40 Dose Unknown 2021-07 2-16 00:00: 00 Yes Olvin Garcia Moreno Dose Unknown 2021-07 2-16 00:00: 00 Yes 40 Olvin Moreno PANTOPRAZOL E 40MG TAB 2021-07 2-16 00:00: 00 Yes 40 Olvin F Josh Dose Unknown 2021-07 2-16 00:00: 00 Yes Olvin Garcia Moreno TAKE 1 AT BEDTIME 2021-07 2-16 00:00: 00 11-12 00:00 :00 No Olvin Garcia Moreno TAKE 1 TABLET AT BEDTIME. 2021-07 2-16 00:00: 00 11-12 00:00 :00 No Olvin Garcia Moreno TAKE 1 TABLET BY MOUTH TWICE A DAY 2021-07 2-16 00:00: 00 11-12 00:00 :00 No 40unit Olvin Moreno TAKE 1 TABLET EVERY 6 HOURS NEEDED FOR PAIN. 2021-07 00:00: 00 11-12 00:00 :00 No 40unit Olvin Moreno Dose Unknown 2021-07 00:00: 00 11-12 00:00 :00 No Olvin Moreno TRAZODONE 50MG TAB 2021-07 00:00: 00 11-12 00:00 :00 No Olvin Moreno PREDNISONE 10MG TAB 2021-07 00:00: 00 11-12 00:00 :00 No Olvin Garcia Moreno GABAPENTIN 300MG 2021-07 00:00: 00 11-12 00:00 :00 No Olvin Moreno Dose Unknown 2021-07 00:00: 00 11-12 00:00 :00 No Olvin Garcia Moreno AZITHROMYCI N 250MG TAB 2021-07 00:00: 00 11-12 00:00 :00 No Olvin Garcia Moreno LISINOPRIL 5MG TAB 2021-07 00:00: 00 11-12 00:00 :00 No Olvin Garcia Moreno Dose Unknown 2021-07 00:00: 00 11-12 00:00 :00 No 40 Olvin Moreno AMOXICILLIN /CLAVULANAT E P 500-125 TAB 2021-07 00:00: 00 11-12 00:00 :00 No 40 Olvin Moreno SERTRALINE HCL 50MG TAB 2021-07 00:00: 00 11-12 00:00 :00 No 50 Olvin Moreno MELOXICAM 15MG 2021-07 00:00: 00 No Pantoprazol e Sodium 40 MG oral Tablet Delayed Response 2021-07 00:00: 00 Yes [id number] 40mg Take 1 tablet (40 mg total) by mouth daily Caroline patel MELOXICAM 15MG 2021-07- 00:00: 00 Yes Olvin Garcia Josh Celecoxib (CeleBREX) 200 MG oral Capsule 2021-07 00:00: 00 Yes [id number] 200mg Take 1 capsule (200 mg total) by mouth 2 times daily Caroline patel SERTRALINE 100MG 2021-07 00:00: 00 No SERTRALINE 100MG 2021-07 00:00: 00 Yes Olvin Moreno DULOXETINE 60MG DR 2021-07 00:00: 00 No Trazodone HCl 50 MG oral Tablet 2021-07 00:00: 00 Yes [id number] TAKE ONE TABLET BY MOUTH EVERY NIGHT AT BEDTIME Caroline patel DULOXETINE 60MG DR 2021-07 00:00: 00 Yes Olvin Moreno Lisinopril 20 MG oral Tablet 2021-07 00:00: 00 Yes [id number] TAKE ONE TABLET BY MOUTH DAILY Caroline patel Duloxetine HCl [address] Particles 2021-07 00:00: 00 Yes [id number] TAKE ONE CAPSULE BY MOUTH DAILY Caroline patel Lisinopril 20 MG oral Tablet 2021-07 00:00: 00 Yes [id number] 20mg Take 1 tablet (20 mg total) by mouth daily Caroline patel Trazodone HCl 50 MG oral Tablet 2021-07 00:00: 00 Yes [id number] 50mg Take 1 tablet (50 mg total) by mouth nightly Caroline patel Duloxetine HCl [address] Particles 2021-07 00:00: 00 Yes [id number] 60mg Take 1 capsule (60 mg total) by mouth daily Caroline patel Sertraline HCl 100 MG oral Tablet 2021-07 00:00: 00 Yes [id number] 50mg Take 0.5 tablets (50 mg total) by mouth daily Caroline patel Diclofenac Sodium 75 MG oral Tablet Delayed Response 2021-07 00:00: 00 Yes 75mg Take 1 tablet (75 mg total) by mouth daily Caroline patel Meloxicam 15 MG oral Tablet 2021-07 00:00: 00 04-26 00:00 :00 No [id number] 15mg QD Take 1 tablet (15 mg total) by mouth daily as needed for pain Caroline patel Lisinopril 10 MG oral Tablet 03-29 00:00: 00 Yes [id number] 20mg Take 2 tablets (20 mg total) by mouth daily Caroline patel Doxepin HCl 3 MG oral Tablet 03-29 00:00: 00 Yes [id number] 30{tbl} Take 30 tablets by mouth nightly Caroline patel Sertraline HCl 100 MG oral Tablet 03-29 00:00: 00 Yes [id number] 100mg Take 1 tablet (100 mg total) by mouth daily Caroline patel ALBUTEROL PA HFA 200 INH 03-29 00:00: 00 11-12 00:00 :00 No [id number] Olvin Moreno Albuterol HFA 108 (90 Base) MCG/ACT IN AERS 03-29 00:00: 00 12-13 00:00 :00 No [id number] 2{puff} Q.25D Inhale 2 puffs into the lungs every 6 hours as needed for wheezing Caroline patel Doxepin HCl 3 MG oral Tablet 03-29 00:00: 00 04-26 00:00 :00 No [id number] 1{tbl} Take 1 tablet by mouth nightly Caroline patel Meloxicam 15 MG oral Tablet 03-22 00:00: 00 Yes [id number] 15mg QD Take 1 tablet (15 mg total) by mouth daily as needed for pain Caroline patel Famotidine (PEPCID) 20 MG oral tablet 03-15 00:00: 00 Yes Caroline patel Diclofenac Sodium 75 MG oral Tablet Delayed Response 03-15 00:00: 00 Yes Caroline patel BACLOFEN 10MG 03-15 00:00: 00 11-12 00:00 :00 No [id number] Olvin Moreno SERTRALINE HYDROCHLORI DE 100MG 03-01 00:00: 00 11-12 00:00 :00 No [id number] Olvin Moreno Lisinopril 10 MG oral Tablet 9- 00:00: 00 03-29 00:00 :00 No [id number] 10mg Take 1 tablet (10 mg total) by mouth daily Caroline patel Sertraline HCl 100 MG oral Tablet 03-01 00:00: 00 03-29 00:00 :00 No [id number] 100mg Take 1 tablet (100 mg total) by mouth daily Caroline patel DULOXETINE HYDROCHLORI DE 40MG DR 2021-0 8-15 00:00: 00 11-12 00:00 :00 No [id number] Olvin Moreno PANTOPRAZOL E SODIUM 40MG DR TAB 2021-0 8-14 00:00: 00 No PANTOPRAZOL E SODIUM 40MG DR TAB 0 8-14 00:00: 00 No PANTOPRAZOL E SODIUM 40MG DR TAB 0 8-14 00:00: 00 Yes Olvin Moreno MELOXICAM 15MG 2021-0 8-10 00:00: 00 11-12 00:00 :00 No [id number] Olvin Moreno SERTRALINE HCL 50MG 2021-0 8-10 00:00: 00 11-12 00:00 :00 No [id number] Olvin Moreno &lt 2022-0 8-05 00:00: 00 No 500 &lt 2022-0 8-05 00:00: 00 No &lt 2022-0 8-05 00:00: 00 No 500 Dose Unknown 2-0 8-05 00:00: 00 No &lt 2022-0 8-05 00:00: 00 Yes 500 Olvin Moreno Dose Unknown 2-0 8-05 00:00: 00 Yes Olvin Moreno &lt 2022-0 7-01 00:00: 00 No &lt 2022-0 7-01 00:00: 00 No &lt 2022-0 7-01 00:00: 00 No &lt 2022-0 7-01 00:00: 00 No SERTRALINE HYDROCHLORI DE 100MG TAB 2021-0 7- 00:00: 00 No MELOXICAM 15MG TAB 12-29 00:00: 00 No ZOLPIDEM TARTRATE 10MG TAB 12-29 00:00: 00 No &lt 12-29 00:00: 00 No SERTRALINE HYDROCHLORI DE 100MG TAB 12-29 00:00: 00 Yes Olvin Moreno MELOXICAM 15MG TAB 12-29 00:00: 00 Yes Olvin Moreno &lt 12-29 00:00: 00 Yes Olvin Moreno DULOXETINE HYDROCHLORI DE 40MG DR 12-16 00:00: 00 11-12 00:00 :00 No [id number] Olvin Moreno Albuterol HFA 108 (90 Base) MCG/ACT IN AERS 12-01 00:00: 00 Yes [id number] 2{puff} Q.25D Inhale 2 puffs into the lungs every 6 hours as needed for wheezing Caroline Spaulding Amoxicillin -Pot Clavulanate 500-125 MG oral Tablet 12-01 00:00: 00 Yes [id number] 1{tbl} Take 1 tablet by mouth in the morning and 1 tablet in the evening. Caroline Spaulding zolpidem 10 mg tablet 11-26 00:00: 00 No 1mg Dose Unknown 11-26 00:00: 00 No zolpidem 10 mg tablet 11-26 00:00: 00 Yes 1mg Olvin Moreno Dose Unknown 11-25 00:00: 00 No Dose Unknown 11-25 00:00: 00 No sertraline 50 mg tablet 11-25 00:00: 00 Yes 1mg Olvin Moreno DULOXETINE HYDROCHLORI DE 40MG DR 11-16 00:00: 00 11-12 00:00 :00 No [id number] Olvin Moreno predniSONE (DELTASONE) 10 MG oral tablet 11-15 00:00: 00 Yes Caroline Spaulding meloxicam 15 mg tablet 10-04 00:00: 00 No 1mg meloxicam 15 mg tablet 10-04 00:00: 00 No 1mg meloxicam 15 mg tablet 2022-0 4-06 00:00: 00 Yes 1mg Olvin Moreno ZOLPIDEM TARTRATE 10MG 2-0 4-06 00:00: 00 2023- 05-15 00:00 :00 No [id number] Olvin Moreno Dose Unknown 2021-0 3-30 00:00: 00 No Dose Unknown 2021-0 3-30 00:00: 00 No Dose Unknown 2021-0 330 00:00: 00 Yes Olvin Moreno Dose Unknown 2021-0 3-24 00:00: 00 No Dose Unknown 2-0 3-24 00:00: 00 No Dose Unknown 2021-0 3-24 00:00: 00 Yes Olvin Moreno Dose Unknown 2021-0 3-21 00:00: 00 No duloxetine 40 mg capsule,del ayed release 2021-0 3-21 00:00: 00 No 1mg Dose Unknown 2021-0 3-21 00:00: 00 No 5 Dose Unknown 2021-0 3-21 00:00: 00 No Dose Unknown 2021-0 3-21 00:00: 00 No pantoprazol e 40 mg tablet,max yed release 2-0 3-21 00:00: 00 No 1mg pantoprazol e 40 mg tablet,max yed release 2-0 3-21 00:00: 00 Yes 1mg Olvin Moreno duloxetine 40 mg capsule,del ayed release 2021-0 3-21 00:00: 00 Yes 1mg Olvin Moreno Dose Unknown 2021-0 3-21 00:00: 00 Yes Olvin Moreno gabapentin 300 mg capsule 2-0 3-18 00:00: 00 No 1mg Dose Unknown 2022-0 3-18 00:00: 00 No Dose Unknown 2022-0 3-18 00:00: 00 No Dose Unknown 2022-0 3-18 00:00: 00 No Dose Unknown 2022-0 3-18 00:00: 00 No Dose Unknown 2022-0 3-18 00:00: 00 No gabapentin 300 mg capsule 2022-0 3-18 00:00: 00 Yes 1mg Olvin Moreno Dose Unknown 2022-0 3-18 00:00: 00 Yes Olvin Moreno Dose Unknown 2022-0 3-18 00:00: 00 Yes Olvin Moreno Dose [...] Olvin Moreno zolpidem 10 mg tablet 2020-07 1-02 00:00: 00 No 1mg zolpidem 10 mg tablet 2020-07 1-02 00:00: 00 No 1mg zolpidem 10 mg tablet 2020-07 1- 00:00: 00 Yes 1mg Olvin Moreno ProAir HFA 90 mcg/actuati on aerosol inhaler 2020-07 0- 00:00: 00 No 2mcg/ac tuation sertraline 100 mg tablet 2020-07 0-27 00:00: 00 No 1mg lisinopril 5 mg tablet 2020-07 0 00:00: 00 No 1mg meloxicam 15 mg tablet 2020-07 0 00:00: 00 No 1mg ProAir HFA 90 mcg/actuati on aerosol inhaler 2020-07 0 00:00: 00 No 2mcg/ac tuation sertraline 100 mg tablet 2020-07 0 00:00: 00 No 1mg meloxicam 15 mg tablet 2020-07 0 00:00: 00 No 1mg Dose Unknown 2020-07 0 00:00: 00 No ProAir HFA 90 mcg/actuati on aerosol inhaler 2020-07 0 00:00: 00 Yes 2mcg/ac tuation Olvin Moreno sertraline 100 mg tablet 2020-07 0 00:00: 00 Yes 1mg Olvin Moreno lisinopril 5 mg tablet 2020-07 0 00:00: 00 Yes 1mg Olvin Moreno meloxicam 15 mg tablet 2020-07 0 00:00: 00 Yes 1mg Olvin Moreno Dose Unknown 2020-07 0 00:00: 00 No Dose Unknown 2020-07 0 00:00: 00 No Dose Unknown 2020-07 0 00:00: 00 Yes Olvin Moreno ProAir HFA [...] 1mg Olvin Moreno Zithromax 250 mg tablet 8- 00:00: 00 No 1mg Zithromax 250 mg tablet 8 00:00: 00 No 1mg Zithromax 250 mg [...] PRN for pain, 0 Refill(s) [facility] Clotrimazol e 10 MG/ML Topical Cream 01-17 19:36: 00 Yes 0 Refill(s) [facility] multivitami n 01-17 19:36: 00 Yes Daily, 0 Refill(s) [facility] spironolact one 25 mg oral tablet 01-17 19:36: 00 Yes 0 Refill(s) [facility] am[facility] Pena Feosol 01-17 19:34: 00 Yes PO, 0 Refill(s) [facility] Pena D3 01-17 19:34: 00 Yes 25 microgram, PO, Daily, 0 Refill(s) [facility] Pena biotin 1000 mcg oral tablet 01-17 19:34: 00 Yes 1,000 microgram = 1 tab, PO, Daily, # 30 tab, 0 Refill(s) [facility] am[facility] Pena lisinopril 20 mg oral tablet 01-17 19:33: 00 Yes 20 mg = 1 tab, PO, Daily, # 30 tab, 0 Refill(s) [facility] am[facility] Pena zolpidem 10 mg oral tablet 01-17 [...] 00:00 :00 No 25ug 25 mcg Caroline Spaulding - [facility] am[facility] Multiple Vitamins-Mi nerals (MULTIVITAM IN ADULT EXTRA C OR) 01-17 00:00: 00 08-03 00:00 :00 No Daily, 0 Refill(s) Caroline Gutierreza amanda sertraline 100 mg tablet 01-03 00:00: 00 [...] 11-01 00:00: 00 Yes 1mg Olvin Moreno lisinopril 5 mg tablet 11-01 00:00: 00 Yes 1mg Olvin Moreno Zoloft 50 mg tablet 11-01 00:00: 00 Yes 1mg Olvin Moreno spironolact one 25 mg tablet 11-01 00:00: 00 Yes 1mg Olvin Moreno zolpidem 10 mg tablet 11-01 00:00: 00 Yes 1mg Olvin Moreno Flonase Allergy Relief 50 mcg/actuati on nasal spray,suspe nsion 11-01 00:00: 00 Yes 1mcg/ac tuation Olvin Moreno Augmentin 875 mg-125 mg tablet 10-27 00:00: 00 No 1mg Augmentin 875 mg-125 mg tablet 10-27 00:00: 00 No 1mg Augmentin 875 mg-125 mg tablet 0 10-27 00:00: 00 Yes 1mg Olvin Moreno meloxicam 15 mg tablet 4- 00:00: 00 No 1mg meloxicam 15 mg tablet 0 4 00:00: 00 No 1mg meloxicam 15 mg tablet 4 00:00: 00 Yes 1mg Olvin Moreno clotrimazol e 1 % topical cream 0 2- 00:00: 00 No 1% clotrimazol e 1 % topical cream 0 2- 00:00: 00 No 1% clotrimazol e 1 % topical cream 2- 00:00: 00 Yes 1% Olvin Moreno meloxicam 15 mg tablet 2- 00:00: 00 No 1mg meloxicam 15 mg tablet 0 2- 00:00: 00 No 1mg meloxicam 15 mg tablet 2- 00:00: 00 Yes 1mg Olvin Moreno ProAir HFA 90 mcg/actuati on aerosol inhaler 0 2- 00:00: 00 No 2mcg/ac tuation spironolact one 25 mg tablet 0 2- 00:00: 00 No 1mg Zoloft 50 mg tablet 0 2- 00:00: 00 No 1mg lisinopril 5 mg tablet 0 2-09 00:00: 00 No 1mg zolpidem 10 mg tablet 0 2- 00:00: 00 No 1mg ProAir HFA 90 mcg/actuati on aerosol inhaler 0 2- 00:00: 00 No 2mcg/ac tuation spironolact one 25 mg tablet 0 2-09 00:00: 00 No 1mg Zoloft 50 mg tablet 0 2- 00:00: 00 No 1mg lisinopril 5 mg tablet 0 2-09 00:00: 00 No 1mg zolpidem 10 mg tablet 0 2-09 00:00: 00 No 1mg ProAir HFA 90 mcg/actuati on aerosol inhaler 08-09 00:00: 00 Yes 2mcg/ac tuation Olvin Moreno spironolact one 25 mg tablet 08-09 00:00: 00 Yes 1mg Olvin Moreno Zoloft 50 mg tablet 08-09 00:00: 00 Yes 1mg Olvin Moreno lisinopril [...] 2019-07 00:00: 00 Yes 1mg Olvin Moreno zolpidem 10 mg tablet 2019-07 00:00: 00 Yes 1mg Olvin Moreno clotrimazol e 1 % topical cream 2019-07 00:00: 00 No 1% zolpidem 10 mg tablet 2019-07 00:00: 00 No 1mg clotrimazol e 1 % topical cream 2019-07 00:00: 00 No 1% zolpidem 10 mg tablet 2019-07 00:00: 00 No 1mg clotrimazol e 1 % topical cream 2019-07 00:00: 00 Yes 1% Olvin Moreno zolpidem 10 mg tablet 2020-1 0-19 00:00: 00 Yes 1mg Olvin Moreno meloxicam 15 mg tablet 2019-1 0-15 00:00: 00 No 1mg meloxicam 15 mg tablet 2019-1 0-15 00:00: 00 No 1mg meloxicam 15 mg tablet 2019-1 0-15 00:00: 00 Yes 1mg Olvin Moreno lisinopril 20 mg-hydrochl orothiazide 12.5 mg tablet 2019-0 9-29 00:00: 00 No 1mg Zoloft 50 mg tablet 2019-0 03-29 00:00: 00 No 1mg lisinopril 20 mg-hydrochl orothiazide 12.5 mg tablet 2019-0 9 00:00: 00 No 1mg Zoloft 50 mg tablet 2019-0 03-29 00:00: 00 No 1mg lisinopril 20 mg-hydrochl orothiazide 12.5 mg tablet 2019-0 03-29 00:00: 00 Yes 1mg Olvin Moreno Zoloft 50 mg tablet 2019-0 9- 00:00: 00 Yes 1mg Olvin Moreno lisinopril 20 mg-hydrochl orothiazide 12.5 mg tablet 2019-0 9-11 00:00: 00 No 1mg lisinopril 20 mg-hydrochl orothiazide 12.5 mg tablet 2019-0 9-11 00:00: 00 No 1mg lisinopril 20 mg-hydrochl orothiazide 12.5 mg tablet 2019-0 9- 00:00: 00 Yes 1mg Olvin Moreno lisinopril 20 mg-hydrochl orothiazide 12.5 mg tablet 2019-0 9-03 00:00: 00 No 1mg lisinopril 20 mg-hydrochl orothiazide 12.5 mg tablet 2019-0 9-03 00:00: 00 No 1mg lisinopril 20 mg-hydrochl orothiazide 12.5 mg tablet 2019-0 9-03 00:00: 00 Yes 1mg Olvin Moreno meloxicam 15 mg tablet 2019-0 8-12 00:00: 00 No 1mg meloxicam 15 mg tablet 2019-0 8-12 00:00: 00 No 1mg meloxicam 15 mg tablet 2019-0 8-12 00:00: 00 Yes 1mg Olvin Moreno Zoloft 50 mg tablet 2019-0 7-28 00:00: 00 No 1mg Zoloft 50 mg tablet 2019-0 7-28 00:00: 00 No 1mg Zoloft 50 mg tablet 2019-0 7-28 00:00: 00 Yes 1mg Olvin Moreno meloxicam 15 mg tablet 2019-0 7-13 00:00: [...] Olvin Moreno meloxicam 15 mg tablet 2019-0 6-09 00:00: 00 No 1mg meloxicam 15 mg tablet 2019-0 6-09 00:00: 00 No 1mg meloxicam 15 mg tablet 2019-0 6-09 00:00: 00 Yes 1mg Olvin Moreno meloxicam 15 mg tablet 2019-0 5-04 00:00: 00 No 1mg meloxicam 15 mg tablet 2019-0 5-04 00:00: 00 No 1mg meloxicam 15 mg tablet 2019-0 5-04 00:00: 00 Yes 1mg Olvin Moreno Zoloft 50 mg tablet 2019-0 4-16 00:00: 00 No 1mg Zoloft 50 mg tablet 2019-0 4-16 00:00: 00 No 1mg Zoloft 50 mg tablet 2019-0 4-16 00:00: 00 Yes 1mg Olvin Moreno zolpidem 10 mg tablet 2019-0 3-24 00:00: 00 No 1mg zolpidem 10 mg tablet 2019-0 3-24 00:00: 00 No 1mg zolpidem 10 mg tablet 2020-0 3-24 00:00: 00 Yes 1mg Olvin Moreno ProAir HFA 90 mcg/actuati on aerosol inhaler 0 2-27 00:00: 00 No 2mcg/ac tuation meloxicam 15 mg tablet 0 2-27 00:00: 00 No 1mg ProAir HFA 90 mcg/actuati on aerosol inhaler 0 2-27 00:00: 00 No 2mcg/ac tuation meloxicam 15 mg tablet 0 2-27 00:00: 00 No 1mg ProAir HFA 90 mcg/actuati on aerosol inhaler 0 2-27 00:00: 00 Yes 2mcg/ac tuation Olvin Moreno meloxicam 15 mg tablet 0 2-27 00:00: 00 Yes 1mg Olvin Moreno ProAir HFA 90 mcg/actuati on aerosol inhaler 0 2-25 00:00: 00 No 2mcg/ac tuation meloxicam 15 mg tablet 0 2-25 00:00: 00 No 1mg ProAir HFA 90 mcg/actuati on aerosol inhaler 0 2-25 00:00: 00 No 2mcg/ac tuation meloxicam 15 mg tablet 0 2-25 00:00: 00 No 1mg ProAir HFA 90 mcg/actuati on aerosol inhaler 0 2-25 00:00: 00 Yes 2mcg/ac tuation Olvin Moreno meloxicam 15 mg tablet 0 2-25 00:00: 00 Yes 1mg Olvin Moreno Zoloft 50 mg tablet 0 1-20 00:00: 00 No 1mg Zoloft 50 mg tablet 0 1-20 00:00: 00 No 1mg Zoloft 50 mg tablet 0 1-20 00:00: 00 Yes 1mg Olvin Moreno ProAir HFA 90 mcg/actuati on aerosol inhaler 0 1-16 00:00: 00 No 2mcg/ac tuation bisoprolol fumarate 5 mg tablet 0 1-16 00:00: 00 No 1mg meloxicam 15 mg tablet 0 1-16 00:00: 00 No 1mg cyanocobala min (vit [...] 1mcg/mL Olvin Moreno amoxicillin 500 mg capsule 02-06 00:00: 00 Yes 500mg Take 1 capsule by mouth 3 (three) times daily. [facility] bisoprolol- hydrochloro thiazide 5-6.25 mg per tablet 10-09 13:40: 26 Yes 1{tbl} Take 1 tablet by mouth daily. [facility] multivitami n, tx-minerals (COMPLETE MULTIVITAMI N) tablet 10-09 13:40: 26 Yes 1{tbl} Take 1 tablet by mouth daily. [facility] ferrous sulfate (IRON, FERROUS SULFATE,) 325 mg (65 mg iron) tablet 10-09 13:40: 26 Yes 325mg Take 325 mg by mouth daily. [facility] bisoprolol- hydrochloro thiazide 5-6.25 mg per tablet 10-09 08:40: 26 Yes 1{tbl} Take 1 tablet by mouth daily. [facility] multivitami n, tx-minerals (COMPLETE MULTIVITAMI N) tablet 2018-0 4-11 08:40: 26 Yes 1{tbl} Take 1 tablet by mouth daily. [facility] ferrous sulfate (IRON, FERROUS SULFATE,) 325 mg (65 mg iron) tablet 10-09 08:40: 26 Yes 325mg Take 325 mg by mouth daily. [facility] multivitami n, tx-minerals (COMPLETE MULTIVITAMI N) tablet 10-09 08:40: 26 Yes 1{tbl} Take 1 tablet by mouth daily. [facility] zolpidem (AMBIEN) 10 mg tablet 08-16 00:00: 00 Yes 10mg Take 10 mg by mouth at bedtime. [facility] SERTraline (ZOLOFT) 50 mg tablet 08-16 00:00: 00 Yes 50mg Take 50 mg by mouth daily. [facility] HYDROcodone -acetaminop hen (NORCO) 10-325 mg tablet 08-03 00:00: 00 Yes 1{tbl} Take 1 tablet by mouth every 6 (six) hours as needed. [facility] DULoxetine (CYMBALTA) 30 mg capsule 07-06 00:00: 00 Yes [facility] Immunizations Ordered Immunization Name Filled Immunization Name Date Status Comments Source FLUAD TRIVALENT PF Influenza Vaccine, Adjuvanted, Preserve FLUAD TRIVALENT PF Influenza Vaccine, Adjuvanted, Preserve 2025-03-10 00:00:00 Completed Caroline Spaulding - External Pneumococcal Vaccine, Conjugate 20 Pneumococcal Vaccine, Conjugate 20 2025-03-10 00:00:00 Completed Caroline Spaulding - External Influenza Virus Vaccine, High Dose, Age 65 And Up Influenza Virus Vaccine, High Dose, Age 65 And Up 2024-03-13 00:00:00 Completed Caroline Spaulding - External Influenza Virus Vaccine, Quadrivalent, High Dose, Age 65 And Up Influenza Virus Vaccine, Quadrivalent, High Dose, Age 65 And Up 2023-03-19 00:00:00 Completed Caroline Spaulding - External influenza, high-dose, quadrivalent influenza, high-dose, quadrivalent 2023-03-19 00:00:00 Completed Olvin Moreno Influenza Virus Vaccine, Quadrivalent, High Dose, Age 65 And Up 2022-04-26 00:00:00 Completed Caroline Mitchellybold - External Influenza Virus Vaccine, Quadrivalent, High Dose, Age 65 And Up 2022-04-26 00:00:00 Completed Caroline Seybold - External Influenza Virus Vaccine, Quadrivalent, High Dose, Age 65 And Up 2022-04-26 00:00:00 Completed Caroline Seybold - External Influenza Virus Vaccine, Quadrivalent, High Dose, Age 65 And Up 2022-04-26 00:00:00 Completed Caroline Seybold - External Influenza Virus Vaccine, Quadrivalent, High Dose, Age 65 And Up Influenza Virus Vaccine, Quadrivalent, High Dose, Age 65 And Up 2022-04-26 00:00:00 Completed Caroline Russoold - External Covid-19 Vaccine Moderna (Spikevax), Mrna-lnp, Mike Protein, Pf 2021-04-26 00:00:00 Completed Caroline Mitchellybold - External Covid-19 Vaccine Moderna (Spikevax), Mrna-lnp, Mike Protein, Pf 2021-04-26 00:00:00 Completed Caroline Mitchellybold - External Covid-19 Vaccine Moderna (Spikevax), Mrna-lnp, Mike Protein, Pf 2021-04-26 00:00:00 Completed Caroline Spaulding - External Covid-19 Vaccine Moderna (Spikevax), Mrna-lnp, Mike Protein, Pf Covid-19 Vaccine Moderna (Spikevax), Mrna-lnp, Mike Protein, Pf 2021-04-26 00:00:00 Completed Caroline Spaulding - External Moderna COVID-19 Vaccine 2021-04-26 00:00:00 Completed Moderna COVID-19 Vaccine 2021-04-26 00:00:00 Completed Moderna COVID-19 Vaccine 2021-04-26 00:00:00 Completed Moderna COVID-19 Vaccine Moderna COVID-19 Vaccine 2021-04-26 00:00:00 Completed Olvin Moreno Covid-19 Vaccine Moderna (Spikevax), Mrna-lnp, Mike Protein, Pf 2020-08-27 00:00:00 Completed Caroline Russoold - External Covid-19 Vaccine Moderna (Spikevax), Mrna-lnp, Mike Protein, Pf 2020-08-27 00:00:00 Completed Caroline Seybold - External Covid-19 Vaccine Moderna (Spikevax), Mrna-lnp, Mike Protein, Pf 2020-08-27 00:00:00 Completed Caroline Seybold - External Covid-19 Vaccine Moderna (Spikevax), Mrna-lnp, Mike Protein, Pf Covid-19 Vaccine Moderna (Spikevax), Mrna-lnp, Mike Protein, Pf 2020-08-27 00:00:00 Completed Caroline Seybold - External Moderna COVID-19 Vaccine 2020-08-27 00:00:00 Completed Moderna COVID-19 Vaccine 2020-08-27 00:00:00 Completed Moderna COVID-19 Vaccine 2020-08-27 00:00:00 Completed Moderna COVID-19 Vaccine Moderna COVID-19 Vaccine 2020-08-27 00:00:00 Completed Olvin Moreno Covid-19 Vaccine Moderna (Spikevax), Mrna-lnp, Mike Protein, Pf 2020-07-30 00:00:00 Completed Caroline Seybold - External Covid-19 Vaccine Moderna (Spikevax), Mrna-lnp, Mike Protein, Pf 2020-07-30 00:00:00 Completed Caroline Spaulding - External Covid-19 Vaccine Moderna (Spikevax), Mrna-lnp, Mike Protein, Pf 2020-07-30 00:00:00 Completed Caroline Spaulding - External Covid-19 Vaccine Moderna (Spikevax), Mrna-lnp, Mike Protein, Pf Covid-19 Vaccine Moderna (Spikevax), Mrna-lnp, Mike Protein, [...] 2019-03-31 00:00:00 Completed Caroline Seybold - External AFLURIA TRIVALENT MDV AFLURIA TRIVALENT MDV 2019-03-31 00:00:00 Completed Caroline Seybold - External [...] Seybold - External Pneumococcal Vaccine, Conjugate 13 Pneumococcal Vaccine, Conjugate 13 2016-07-01 00:00:00 Completed Caroline Seybold - External Shingles SQ (Zostavax) Shingles SQ (Zostavax) 2016-07-01 00:00:00 Completed Caroline [...] Dose, Age 65 And Up Unknown Completed [facility]bold - External Influenza, Seasonal, [facility]able [facility] Moderna (Spikevax), Mrna-lnp, Mike Protein, Pf [facility] Pneumococcal Vaccine, Conjugate 13 Unknown Completed [facility] - External [facility] SQ ([facility] Virus Vaccine, Quadrivalent, High Dose, Age 65 And Up Unknown Completed [facility] eybold - External Influenza, Seasonal, Injectable Unknown Completed [facility] - External Covid-19 Vaccine Moderna (Spikevax), Mrna-lnp, Mike Protein, Pf [facility] Pneum[facility] Vacc[facility], Conjugate 13 Unknown Completed [facility] - External Shingles SQ (Zostavax) Unknown Completed [facility] - External Influenza Virus Vaccine, Quadrivalent, High Dose, Age 65 And Up Unknown Completed [facility] eybold - External Influenza Virus Vaccine, Quadrivalent, High Dose, Age 65 And Up Unknown Completed [facility] - External AFLURIA TRIVALENT MDV Unknown Completed [facility] - External Covid-19 Vaccine Moderna (Spikevax), Mrna-lnp, Mike Protein, Pf Unknown Completed [facility] - External Covid-19 Vaccine Moderna (Spikevax), Mrna-lnp, Mike Protein, Pf Unknown Completed [facility] - External Pneumococcal Vaccine, Conjugate 13 Unknown Completed [facility] - External Shingles SQ (Zostavax) Unknown Completed [facility] - External Influenza Virus Vaccine, Quadrivalent, High Dose, Age 65 And Up Unknown Completed [facility] eybold - External Influenza Virus Vaccine, Quadrivalent, High Dose, Age 65 And Up Unknown Completed [facility]bold - External AFLURIA TRIVALENT MDV Unknown [facility]ine Moderna (Spikevax), Mrna-lnp, Mike Protein, Pf [facility] Moderna (Spikevax), Mrna-lnp, Mike Protein, Pf Unknown Completed [facility] - External Pneumococcal Vaccine, Conjugate 13 [facility] Shingles SQ (Zostavax) Unknown Completed Caroline Russoold - External Influenza Virus Vaccine, Quadrivalent, High Dose, Age 65 And Up Unknown Completed [facility] Valera eybold - External Influenza Virus Vaccine, High Dose, Age 65 And Up Unknown Completed Caroline Mitchellybold - External Influenza Virus Vaccine, Quadrivalent, High Dose, Age 65 And Up Unknown Completed Caroline morganbold - External AFLURIA TRIVALENT MDV Unknown Completed Caroline Russoold - External Covid-19 Vaccine Moderna (Spikevax), Mrna-lnp, Mike Protein, Pf Unknown Completed Caroline Mitchellybold - External Covid-19 Vaccine Moderna (Spikevax), Mrna-lnp, Mike Protein, Pf Unknown Completed Caroline Russoold - External Pneumococcal Vaccine, Conjugate 13 Unknown Completed Caroline Spaulding - External Shingles SQ (Zostavax) Unknown Completed Caroline Russoold - External Influenza Virus Vaccine, Quadrivalent, High Dose, Age 65 And Up Unknown Completed Caroline morganbold - External Influenza Virus Vaccine, High Dose, Age 65 And Up Unknown Completed Caroline Russoold - External Influenza Virus Vaccine, Quadrivalent, High Dose, Age 65 And Up Unknown Completed Caroline morganbold - External AFLURIA TRIVALENT MDV Unknown Completed Caroline Russoold - External Covid-19 Vaccine Moderna (Spikevax), Mrna-lnp, Mike [employer], Pf Unknown Completed Caroline Russoold - External Covid-19 Vaccine Moderna (Spikevax), Mrna-lnp, Mike Protein, Pf Unknown Completed Caroline Spaulding - External Pneumococcal Vaccine, Conjugate 13 Unknown Completed Caroline Spaulding - External Shingles SQ (Zostavax) Unknown Completed Caroline Russoold - External Influenza Virus Vaccine, Quadrivalent, High Dose, Age 65 And Up Unknown Completed Caroline Valera eybold - External Influenza Virus Vaccine, High Dose, Age 65 And Up Unknown Completed Caroline Spaulding - External Vital Signs Vital Name Observation Time Observation Value Comments S ource Systolic blood pressure 2025-03-10 15:04:00 112 mm[Hg] Caroline Beltran ld - External Diastolic blood pressure 2025-03-10 15:04:00 68 mm[Hg] Caroline adelina ld - External Heart rate 2025-03-10 15:04:00 78 /min Kelse y Seybold - External Body temperature 2025-03-10 15:04:00 36.61 Jenna Caroline Seybold - External Respiratory rate 2025-03-10 15:04:00 18 /min Caroline Seybold - External Body height 2025-03-10 15:04:00 170.2 cm Sussy ey Seybold - External Body weight 2025-03-10 15:04:00 79.493 kg Sussy ey Seybold - External BMI 2025-03-10 15:04:00 27.45 kg/m2 Sussy ey Seybold - External Oxygen saturation in Arterial blood by Pulse oximetry 2025-03-10 15:04:00 97 /min Caroline Seybo ld - External Systolic blood pressure 2025-01-11 15:56:00 116 mm[Hg] Caroline Seybo ld - External Diastolic blood pressure 2025-01-11 15:56:00 60 mm[Hg] Caroline Seybo ld - External Heart rate 2025-01-11 15:56:00 64 /min Nachose y Seybold - External Body temperature 2025-01-11 [...] External Heart rate 2024-10-19 18:32:00 96 /min Kelse y Seybold - External Body temperature 2024-10-19 [...] External Heart rate 2024-08-03 18:48:00 82 /min Kelse y Seybold - External Body temperature 2024-08-03 [...] External Heart rate 2023-11-13 19:33:00 75 /min Vijaya y Seybold - External Body temperature 2023-11-13 19:33:00 37 Jenna Caroline Seybold - External Respiratory rate 2023-11-13 19:33:00 15 /min Caroline Seybold - External Body height 2023-11-13 19:33:00 170.2 cm Sussy ey Seybold - External Body weight 2023-11-13 19:33:00 90.266 kg Sussy ey Seybold - External BMI 2023-11-13 19:33:00 31.17 kg/m2 Sussy ey Seybold - External Systolic blood pressure 2023-03-11 23:00:00 175 mm[Hg] [facility] Diastolic blood pressure 2023-03-11 23:00:00 74 mm[Hg] [facility] Heart rate 2023-03-11 23:00:00 70 /min [facility] 2023-03-11 23:00:00 16 /min [facility] Oxygen saturation in Arterial blood by Pulse oximetry 2023-03-11 23:00:00 100 /min [facility] Body temperature 2023-03-11 19:25:00 36.28 Jenna [facility] Body height 2023-03-11 19:25:00 170.2 cm [facility] Body weight 2023-03-11 19:25:00 89.359 kg [facility] BMI 2023-03-11 19:25:00 30.85 kg/m2 [facility] Systolic blood pressure 2022-12-13 15:03:00 142 mm[Hg] Caroline Seybo ld - External Diastolic blood pressure 2022-12-13 15:03:00 68 mm[Hg] Caroline Seybo ld - External Heart rate 2022-12-13 15:03:00 73 /min Kelse y Seybold - External Body temperature 2022-12-13 [...] blood pressure 2021-12-01 13:54:00 140 mm[Hg] Caroline Mitchellybo ld Diastolic blood pressure 2021-12-01 13:54:00 83 mm[Hg] Caroline ybo ld Heart rate 2021-12-01 13:54:00 92 /min Vijaya y Seybold Body temperature 2021-12-01 13:54:00 36.56 Jenna Caroline Mitchellybold Respiratory rate 2021-12-01 13:54:00 14 /min Caroline Mitchellybold Body height 2021-12-01 13:54:00 170.2 cm Sussy ey Seybold Body weight 2021-12-01 13:54:00 91.627 kg Sussy ey Seybold BMI 2021-12-01 13:54:00 31.64 kg/m2 Sussy morgan Seybold Systolic blood pressure 2019-03-18 19:54:00 161 mm[Hg] [facility] Diastolic blood pressure 2019-03-18 19:54:00 77 mm[Hg] [facility] Heart rate 2019-03-18 19:54:00 54 /min [facility] Respiratory rate 2019-03-18 19:54:00 18 /min [facility] Oxygen saturation in Arterial blood by Pulse oximetry 2019-03-18 19:54:00 98 /min [facility] Systolic blood pressure 2019-03-18 19:54:00 161 mm[Hg] [facility] Diastolic blood pressure 2019-03-18 19:54:00 77 mm[Hg] [facility] Heart rate 2019-03-18 19:54:00 54 /min [facility] Respiratory rate 2019-03-18 19:54:00 18 /min [facility] Oxygen saturation in Arterial blood by Pulse oximetry 2019-03-18 19:54:00 98 /min [facility] BP Systolic 2025-03-16 10:55:00 100 mm[Hg] Step hen F Josh BP Diastolic 2025-03-16 10:55:00 68 mm[Hg] Qasim phen F Josh Weight Measured 2025-03-16 10:55:00 171.80 pounds Olvin F Josh Height Measured 2025-03-16 10:55:00 66.80 inches Olvin F Josh Body Temperature 2025-03-16 10:55:00 Olvin F Josh Heart Rate 2025-03-16 10:55:00 Tatiana en F Josh Respiratory Rate 2025-03-16 10:55:00 Olvin F Josh BP Systolic 2024-08-19 10:49:00 149 mm[Hg] Step hen F Josh BP Diastolic 2024-08-19 10:49:00 87 mm[Hg] Qasim phen F Josh Weight Measured 2024-08-19 10:49:00 189.20 pounds Olvin F Josh Height Measured 2024-08-19 10:49:00 66.80 inches Olvin F Josh Body Temperature 2024-08-19 10:49:00 97.70 degrees Olvin F Josh Heart Rate 2024-08-19 10:49:00 96.00 /min Tatiana en F Josh Respiratory Rate 2024-08-19 10:49:00 Olvin F Josh [...] F Josh Systolic (mm Hg) 2021-01-17 19:04:00 Ye Jean Diastolic (mm Hg) 2021-01-17 19:04:00 Ye Jean Heart Rate 2021-01-17 19:04:00 [facility] Respitory Rate 2021-01-17 19:04:00 [facility] Height 2021-01-17 19:04:00 170.18 cm [facility] Weight 2021-01-17 19:04:00 [facility] Jean BMI Calculated 2021-01-17 19:04:00 M hedyrimyah Pena BP Systolic 2021-01-03 16:08:00 138 mm[Hg] Step hen Garcia Moreno BP Diastolic 2021-01-03 16:08:00 66 mm[Hg] Qasim phen Garcia Moreno Weight Measured 2021-01-03 16:08:00 212.40 pounds Olvin Garcia Moreno Height Measured 2021-01-03 16:08:00 66.80 inches Olvin Garcia Moreno Body Temperature 2021-01-03 16:08:00 97.80 degrees Olvin Moreno Heart Rate 2021-01-03 16:08:00 78.00 /min Tatiana en F Josh Respiratory Rate 2021-01-03 16:08:00 Olvinkeira Moreno BP Systolic 2020-11-01 16:49:00 144 mm[Hg] BP [...] Date / Time Performed Performing Clinician Source IRON AND TIBC 2025-03-10 00:00:00 Caroline Spaulding - External UA/M WITH CULTURE REFLEX 2025-03-10 00:00:00 Caroline Spaulding - External CT CHEST PULMONARY ANGIOGRAM 2023-03-11 22:48:35 Curtis Eli [facility] XR CHEST 2 VW 2023-03-11 20:04:00 Curtis Eli [facility] TROPONIN I 2023-03-11 19:48:00 [facility]OL[facility] (72896) 2023-03-11 19:48:00 Curtis Eli [facility] CBC WITH DIFF 2023-03-11 19:48:00 Curtis Eli U [facility] D-DIMER 2023-03-11 19:48:00 Curtis Eli Un [facility] N-TERMINAL PRO-BNP 2023-03-11 19:48:00 Camille Eli [facility] NOTICE OF PRIVACY PRACTICES 2023-03-11 19:18:03 Doctor [place]ass[place], [place] [facility] CONSENT/REFUSAL FOR DIAGNOSIS AND TREATMENT 2023-03-11 19:16:47 Doctor Unassigned, [place] [facility] QUANTAFLO 2022-12-13 15:52:41 Crista Culp - External [id number] 2021-06-20 00:00:00 DAISY ESPINAL [facility] BI SCREENING TOMOSYNTHESIS BILATERAL 2021-06-02 15:27:00 Requisition, Paper [facility] ASSIGNMENT OF BENEFITS 2021-06-02 15:06:01 Docto r Unassigned, [place] [facility] CONSENT/REFUSAL FOR DIAGNOSIS AND TREATMENT 2020-06-01 15:06:13 Doctor Unassigned, [place] [facility] ASSIGNMENT OF BENEFITS 2020-06-01 15:05:57 Docto r Unassigned, [place] [facility] XR CHEST 2 VW 2020-02-01 16:08:54 [facility] 2020-02-01 15:53:27 Docto r Unassigned, [place] [facility] Herniorrhaphy [facility] nn Shoulder joint operations [facility] Foot joint operations Memori al Ollie Gastric bypass [facility] elizabeth Plan of Care Planned Activity Planned Date Details Comments Source Procedure 2025-06-09 00:00:00 CBC WITH MARTHA Spaulding - External Goal Plan of Care Not e [code = 68815-9] Goal Plan of Care Not e [code = 76516-0] Goal Plan of Care Not e [code = 38118-7] Goal Plan of Care Not e [code = 24647-0] Goal Plan of Care Not e [code = 79183-1] Goal Plan of Care Not e [code = 85854-8] Goal Plan of Care Not e [code = 70398-1] Goal Plan of Care Not e [code = 86354-7] Goal Plan of Care Not e [code = 74262-7] Goal Plan of Care Not e [code = 30379-3] Goal Plan of Care Not e [code = 06314-5] Goal Plan of Care Not e [code = 42279-4] Goal Plan of Care Not e [code = 87935-6] Goal Plan of Care Not e [code = 76956-5] Goal Plan of Care Not e [code = 88544-6] Goal Plan of Care Not e [code = 16764-3] Goal Plan of Care Not e [code = 10529-0] Goal Plan of Care Not e [code = 05309-9] Goal Plan of Care Not e [code = 89694-5] Goal Plan of Care Not e [code = 51571-6] Goal Plan of Care Not e [code = 44956-8] Goal Plan of Care Not e [code = 51439-0] Goal Plan of Care Not e [code = 12259-0] Goal Plan of Care Not e [code = 72567-6] Goal Plan of Care Not e [code = 51357-1] Goal Plan of Care Not e [code = 95769-5] Goal Plan of Care Not e [code = 51193-6] Goal Plan of Care Not e [code = 53316-6] Goal Plan of Care Not e [code = 19303-3] Goal Plan of Care Not e [code = 01034-1] Goal Plan of Care Not e [code = 27982-6] Goal Plan of Care Not e [code = 56299-1] Goal Plan of Care Not e [code = 15607-8] Goal Plan of Care Not e [code = 50255-9] Goal Plan of Care Not e [code = 62300-4] Goal Plan of Care Not e [code = 23889-3] Goal Plan of Care Not e [code = 60171-0] Goal Plan of Care Not e [code = 93216-4] Goal Plan of Care Not e [code = 33167-1] Goal Plan of Care Not e [code = 29907-5] Goal Plan of Care Not e [code = 58126-3] Goal Plan of Care Not e [code = 29978-2] Goal Plan of Care Not e [code = 11777-6] Goal Plan of Care Not e [code = 27798-6] Goal Plan of Care Not e [code = 68248-6] Goal Plan of Care Not e [code = 59708-0] Goal Plan of Care Not e [code = 77270-3] Goal Plan of Care Not e [code = 57721-5] Goal Plan of Care Not e [code = 75670-7] Goal Plan of Care Not e [code = 79982-8] Goal Plan of Care Not e [code = 24818-0] Goal Plan of Care Not e [code = 34491-0] Goal Plan of Care Not e [code = 96751-8] Goal Plan of Care Not e [code = 69831-7] Goal Plan of Care Not e [code = 14890-4] Goal Plan of Care Not e [code = 72774-7] Goal Plan of Care Not e [code = 72477-6] Goal Plan of Care Not e [code = 60270-0] Goal Plan of Care Not e [code = 53230-9] Goal Plan of Care Not e [code = 93574-5] Goal Plan of Care Not e [code = 09273-2] Goal Plan of Care Not e [code = 26343-5] Goal Plan of Care Not e [code = 21996-5] Goal Plan of Care Not e [code = 14228-6] Goal Plan of Care Not e [code = 84616-0] Goal Plan of Care Not e [code = 14373-0] Goal Plan of Care Not e [code = 27390-1] Goal Plan of Care Not e [code = 58647-3] Goal Plan of Care Not e [code = 90385-7] Goal Plan of Care Not e [code = 71445-2] Goal Plan of Care Not e [code = 95385-3] Goal Plan of Care Not e [code = 53846-3] Goal Plan of Care Not e [code = 00397-7] Encounters Start Date/Time End Date/Time Encounter Type Admission Type Attending [facility] Care Department Encounter ID Source 2025-03-16 10:54:42 2025-03-16 10:54:42 Outpatient SFA SFA [id number] Olvin Zelaya Josh 2025-03-16 00:00:00 2025-03-16 00:00:00 Outpatient Visit SFA [id number] Olvin Zelaya Josh 2025-03-10 15:50:00 2025-03-10 15:50:00 Outpatient [id number] CAROLINE KNOX [id number] Caroline Spaulding 2025-03-10 15:00:00 2025-03-10 15:00:00 Outpatient DEANNE BLANDSEY CAROLINE [id number] Caroline Seybangelita 2025-03-10 09:00:00 2025-03-10 09:00:00 Outpatient BLANDDEANNE LOPEZ CAR[facility]INE [facility]X [id number] [facility] 2025-03-05 00:00:00 2025-03-05 00:00:00 Outpatient BLAND, DEANNE KNOX [id number] Caroline Mitchellybangelita 2025-03-03 14:00:00 2025-03-03 14:00:00 Outpatient PREZAS ANTONI CAROLINE KNOX [id number] [facility] 2025-02-26 00:00:00 2025-02-26 00:00:00 Outpatient BLANDDEANNE [id number] [facility] 2025-01-13 00:00:00 2025-01-13 00:00:00 Outpatient CRISTA CULP [id number] [facility] 2025-01-11 11:00:00 2025-01-11 11:00:00 Outpatient BLAND, DEANNE CAROLINE KNOX [id number] [facility] 2025-01-07 00:00:00 2025-01-07 00:00:00 Outpatient GROUPCAROLINE [id number] [facility] 2024-11-03 00:00:00 2024-11-03 00:00:00 Outpatient MD CAROLINE BENNETT [id number] Caroline Seybold 2024-10-19 14:25:00 2024-10-19 14:25:00 Outpatient [id number] CAROLINE KNOX [id number] Caroline Seybold 2024-10-19 13:45:00 2024-10-19 13:45:00 Outpatient MAGGIE LEZAMA [id number] Caroline Seybold 2024-10-19 00:00:00 2024-10-19 00:00:00 Outpatient CRISTA CULP [id number] Caroline Seybold 2024-09-21 00:00:00 2024-09-21 00:00:00 Outpatient CRISTA CULP [id number] [facility] 2024-09-04 00:00:00 2024-09-04 00:00:00 Outpatient CRISTA CULP CAROLINE KNOX [id number] [facility] 2024-09-01 16:20:00 2024-09-01 16:20:00 Outpatient LABCal CAROLINE KNOX [id number] [facility] 2024-09-01 16:00:00 2024-09-01 16:00:00 Outpatient CRISTA CULP CAROLINE KNOX [id number] [facility] 2024-08-22 00:00:00 2024-08-22 00:00:00 Outpatient GIN MORA CAROLINE KNOX [id number] [facility] 2024-08-20 00:00:00 2024-08-20 00:00:00 Outpatient GIN MORA CAROLINE KNOX [id number] [facility] 2024-08-19 10:52:19 2024-08-19 10:52:19 Outpatient SFA [facility] [id number] Olvin Garcia Josh 2024-08-19 00:00:00 2024-08-19 00:00:00 Outpatient PORTILLO ANTONI CAROLINE KNOX [id number] [facility] 2024-08-19 00:00:00 2024-08-19 00:00:00 Outpatient Visit SFA [id number] Olvin Garcia Josh 2024-08-10 00:00:00 2024-08-10 00:00:00 Outpatient CRISTA CULP CAROLINE KNOX [id number] [facility] 2024-08-07 00:00:00 2024-08-07 00:00:00 Outpatient KPAmanda CRISTA KNOX [id number] [facility] 2024-08-06 09:50:00 2024-08-06 09:50:00 Outpatient LABCal CAROLINE KNOX [id number] [facility] 2024-08-04 00:00:00 2024-08-04 00:00:00 Outpatient ROBBI CRISTA KNOX [id number] Caroline [facility] 2024-08-04 00:00:00 2024-08-04 00:00:00 Outpatient CRISTA CULP CAROLINE KNOX [id number] [facility] 2024-08-03 14:15:00 2024-08-03 14:15:00 Outpatient CHANDU CAROLINE KNOX [id number] [facility] 2024-08-03 13:00:00 2024-08-03 13:00:00 Outpatient CRISTA CULP CAROLINE KNOX [id number] [facility] 2024-08-03 00:00:00 2024-08-03 00:00:00 Outpatient ALYSSIA-FATIMAH HERZOG [facility]X [id number] [facility] 2024-07-30 00:00:00 2024-07-30 00:00:00 Outpatient MORGAN ABARCA [id number] [facility] 2024-07-10 00:00:00 2024-07-10 00:00:00 Outpatient TORREYPINAANTOIN Valera CAROLINE KNOX [id number] [facility] 2024-07-08 09:00:00 2024-07-08 09:00:00 Outpatient ROBBI CRISTA KNOX [id number] [facility] 2024-05-20 10:19:47 2024-05-20 10:19:47 Outpatient SFA SFA [id number] Olvin Moreno 2024-05-20 00:00:00 2024-05-20 00:00:00 Outpatient MORGAN GIN CAROLINE KNOX [id number] [facility] 2024-05-20 00:00:00 2024-05-20 00:00:00 Outpatient Visit SFA [id number] Olvin Moreno 2024 00:00:00 2024 00:00:00 Outpatient TORREYPINAANTONI Valera CAROLINE KNOX [id number] [facility] 2024-03-25 09:00:00 2024-03-25 09:00:00 Outpatient ROBBI, CRISTA KNOX [id number] [facility] 2024-03-08 00:00:00 2024-03-08 00:00:00 Outpatient GIN MORA CAROLINE [id number] [facility] 2024-01-15 14:51:20 2024-01-15 14:51:20 Outpatient SFA SFA [id number] Olvin Moreno 2024-01-15 08:30:00 2024-01-15 08:30:00 Outpatient CRISTA CULPJOSE KNOX [id number] [facility] 2024-01-15 00:00:00 2024-01-15 00:00:00 Outpatient Visit SFA [id number] Olvin Moreno 2024-01-14 00:00:00 2024-01-14 00:00:00 Outpatient PORTILLO ANTONI [facility] [id number] [facility] 2024-01-06 00:00:00 2024-01-06 00:00:00 Outpatient GIN MORAJOSE KNOX [id number] [facility] 2024-01-02 00:00:00 2024-01-02 00:00:00 Outpatient CRISTA CULP CAROLINE KNOX [id number] [facility] 2023-12-16 09:00:00 2023-12-16 09:00:00 Outpatient CRISTA CULP CAROLINE KNOX [id number] [facility] 2023-12-09 00:00:00 2023-12-09 00:00:00 Outpatient GIN MORA CAROLINE KNOX [id number] [facility] 2023-12-09 00:00:00 2023-12-09 00:00:00 Outpatient MAGGIE LEZAMA [id number] [facility] 2023-11-27 08:57:53 2023-11-27 08:57:53 Outpatient SFA SFA [id number] Olvin Moreno 2023-11-20 09:27:48 2023-11-20 09:27:48 Outpatient SFA SFA [id number] Olvin Moreno 2023-11-20 00:00:00 2023-11-20 00:00:00 Outpatient Visit SFA [id number] Olvin Moreno 2023-11-13 15:00:00 2023-11-13 15:00:00 Outpatient GIN MORA CAROLINE KNOX [id number] [facility] 2023-11-13 09:11:32 2023-11-13 09:11:32 Outpatient SFA SFA [id number] Olvin Moreno 2023-11-04 00:00:00 2023-11-04 00:00:00 Outpatient CRISTA CULP [id number] [facility] 2023-10-28 00:00:00 2023-10-28 00:00:00 Outpatient CRISTA CULP [id number] [facility] 2023-10-16 10:00:00 2023-10-16 10:00:00 Outpatient CRISTA CULP [id number] [facility] 2023-10-08 00:00:00 2023-10-08 00:00:00 Outpatient CRISTA CULP [id number] [facility] 2023-08-21 09:56:10 2023-08-21 09:56:10 Outpatient SFA SFA [id number] Olvin Moreno 2023-06-13 00:00:00 2023-06-13 00:00:00 Outpatient CRISTA CULP [id number] [facility] 2023-06-05 09:00:00 2023-06-05 09:00:00 Outpatient CRISTA CULP [id number] [facility] 2023-05-27 00:00:00 2023-05-27 00:00:00 Outpatient MAGGIE LEZAMA [id number] [facility] 2023-05-08 10:57:01 2023-05-08 10:57:01 Outpatient SFA SFA [id number] Olvin Moreno 2023-04-25 10:40:00 2023-04-25 10:40:00 Outpatient OLVIN PEDRAZA CAROLINE KNOX [id number] [facility] 2023-04-25 09:40:00 2023-04-25 09:40:00 Outpatient CAROLINE KNOX [id number] [facility] 2023-04-17 00:00:00 2023-04-17 00:00:00 Outpatient OLVIN PEDRAZA CAROLINE KNOX [id number] [facility] 2023-03-14 09:25:00 2023-03-14 09:25:00 Outpatient AKI MOTT CAROLINE KNOX [id number] [facility] 2023-03-11 14:27:00 2023-03-11 18:33:00 Emergency X [facility] [id number] [facility] 2023-03-11 14:27:00 2023-03-11 18:33:00 Emergency Curtis Eli [facility] [id number] [facility] 2023-03-03 00:00:00 2023-03-03 00:00:00 Outpatient CRISTA CULP [id number] [facility] 2023-02-27 00:00:00 2023-02-27 00:00:00 Outpatient CRISTA CULP [id number] [facility] 2023-02-26 00:00:00 2023-02-26 00:00:00 Outpatient MAGGIE LEZAMA [id number] [facility] 2023-02-15 00:00:00 2023-02-15 00:00:00 Outpatient CRISTA CULP [id number] [facility] 2023-02-06 15:37:38 2023-02-06 15:37:38 Outpatient [facility] [id number] Olvin F Josh 2023-02-04 00:00:00 2023-02-04 00:00:00 Outpatient HUNDL, CRISTA KNOX [id number] [facility] 2023-01-28 00:00:00 2023-01-28 00:00:00 Outpatient HUNDL, CRISTA KNOX [id number] [facility] 2023-01-17 00:00:00 2023-01-17 00:00:00 Outpatient LISEMAGGIE DONOVAN [facility]X [id number] [facility] 2023-01-06 00:00:00 2023-01-06 00:00:00 Outpatient HUNDL, CRISTA KNOX [id number] [facility] 2022-12-30 00:00:00 2022-12-30 00:00:00 Outpatient HUNDL, CRISTA KNOX [id number] [facility] 2022-12-19 00:00:00 2022-12-19 00:00:00 Outpatient HUNDL, CRISTA KNOX [id number] [facility] 2022-12-14 08:25:00 2022-12-14 08:25:00 Outpatient LAB90 CAROLINE KNOX [id number] [facility] 2022-12-14 00:00:00 2022-12-14 00:00:00 Outpatient HUNDL, CRISTA KNOX [id number] [facility] 2022-12-13 11:15:00 2022-12-13 11:15:00 Outpatient LAB90 CAROLINE KNOX [id number] [facility] 2022-12-13 10:00:00 2022-12-13 10:00:00 Outpatient HUNDL, CRISTA KNOX [id number] [facility] 2022-12-12 10:00:00 2022-12-12 10:00:00 Outpatient HUNDL, CRISTA KNOX [id number] [facility] 2022-12-10 00:00:00 2022-12-10 00:00:00 Outpatient HUNDL, CRISTA KNOX [id number] [facility] 2022-12-02 00:00:00 2022-12-02 00:00:00 Outpatient HUNDL, CRISTA KNOX [id number] [facility] 2022-11-14 13:45:00 2022-11-14 13:45:00 Outpatient LAB90 CAROLINE KNOX [id number] [facility] 2022-11-14 13:00:00 2022-11-14 13:00:00 Outpatient HUNDLCRISTA CAROLINE KNOX [id number] [facility] 2022-11-12 11:32:17 2022-11-12 11:32:17 Outpatient SFA [facility] [id number] Olvin Moreno 2022-11-03 00:00:00 2022-11-03 00:00:00 Outpatient HUNDL, CRISTA KNOX [id number] [facility] 2022-10-24 14:00:00 2022-10-24 14:00:00 Outpatient HUNDL, CRISTA KNOX [id number] [facility] 2022-10-06 00:00:00 2022-10-06 00:00:00 Outpatient HUNDL, CRISTA KNOX [id number] [facility] 2022-09-16 00:00:00 2022-09-16 00:00:00 Outpatient HUNDL, CRISTA KNOX [id number] [facility] 2022-09-10 00:00:00 2022-09-10 00:00:00 Outpatient HUNDL, CRISTA KNOX [id number] [facility] 2022-09-09 00:00:00 2022-09-09 00:00:00 Outpatient HUNDL, CRISTA KNOX [id number] [facility] 2022-09-06 14:15:00 2022-09-06 14:15:00 Outpatient PREZAS, ANTONI KNOX [id number] Caroline [facility] 2022-08-20 00:00:00 2022-08-20 00:00:00 Outpatient MAGGIE LEZAMA [id number] [facility] 2022-08-13 00:00:00 2022-08-13 00:00:00 Outpatient HUNDL, CRISTA KNOX [id number] [facility] 2022-07-25 13:00:00 2022-07-25 13:00:00 Outpatient TESHA FELIPE CAROLINE KNOX [id number] [facility] 2022-07-23 00:00:00 2022-07-23 00:00:00 Outpatient Visit [id number] 2022-07-03 00:00:00 2022-07-03 00:00:00 Outpatient CRISTA CULP [id number] [facility] 2022-06-23 00:00:00 2022-06-23 00:00:00 Outpatient CRISTA CULP [id number] [facility] 2022-06-21 00:00:00 2022-06-21 00:00:00 Outpatient CRISTA CULP [id number] [facility] 2022-06-04 00:00:00 2022-06-04 00:00:00 Outpatient MAGGIE LEZAMA [id number] [facility] 2022-06-02 00:00:00 2022-06-02 00:00:00 Outpatient CRISPIN DIAZ [id number] [facility] 2022-05-28 14:00:00 2022-05-28 14:00:00 Outpatient CRISTA CULP [id number] [facility] 2022-05-25 08:30:00 2022-05-25 08:30:00 Outpatient CRISTA CULP [id number] [facility] 2022-05-21 00:00:00 2022-05-21 00:00:00 Outpatient CRISTA CULP [id number] [facility] 2022-04-27 00:00:00 2022-04-27 00:00:00 Outpatient MAGGIE LEZAMA [id number] [facility] 2022-04-26 09:30:00 2022-04-26 09:30:00 Outpatient CRISTA CULP CAROLINE [id number] [facility] 2022-04-16 00:00:00 2022-04-16 00:00:00 Outpatient CRISTA CULP CAROLINE [id number] [facility] 2022-03-29 09:30:00 2022-03-29 09:30:00 Outpatient CRISTA CULPJOSE KNOX [id number] [facility] [facility] 2022-03-29 00:00:00 2022-03-29 00:00:00 Outpatient CRISTA CULP CAROLINE [id number] [facility] 2022-03-15 09:30:00 2022-03-15 09:30:00 Outpatient CRISTA CULP CAROLINE [id number] [facility] 2022-03-15 00:00:00 2022-03-15 00:00:00 Outpatient CRISTA CULP CAROLINE [id number] [facility] 2022-03-15 00:00:00 2022-03-15 00:00:00 Outpatient Visit [id number] 2022-03-14 00:00:00 2022-03-14 00:00:00 Outpatient CRISTA CULP CAROLINE KNOX [id number] [facility] 2022-03-14 00:00:00 2022-03-14 00:00:00 Outpatient Visit [id number] 2022-03-01 09:15:00 2022-03-01 10:00:00 Office Visit Maggie Lezama Jackson 1.2.840.114 350.1.13.13 1.2.7.2.686 [id number] [facility] 2022-01-09 09:15:00 2022-01-09 09:15:00 Outpatient MAGGIE LEZAMA [id number] [facility] 2021-12-01 09:45:00 2021-12-01 09:45:00 Outpatient LAB90 CAROLINE KNOX [id number] Caroline [facility] 2021-12-01 08:45:00 2021-12-01 09:30:00 Office [place] 1.2.840.114 350.1.13.13 1.2.7.2.686 [id number] [facility] 2021-06-19 15:58:00 2021-06-21 12:18:00 Inpatient Dylan Caballero [facility] MED [id number] [facility] 2021-06-02 09:07:21 2021-06-02 23:59:00 Outpatient R RADIOLOGY [facility] [id number] [facility] 2021-06-02 09:00:00 2021-06-02 23:59:00 Hospital Encounter Radiology [facility] 1.2.840.114 350.1.13.10 4.2.7.2.686 [id number] [facility] 2021-06-02 00:00:00 2021-06-02 00:00:00 Orders Only Doctor Unassigned, [place] [facility] 1.2.840.114 350.1.13.10 4.2.7.2.686 [id number] [facility] 2021-03-21 13:38:00 2021-03-21 15:03:00 Inpatient Dominic Ardon [facility] [id number] [facility] 2021-02-28 19:45:00 2021-02-28 19:45:00 Ambulatory Pre-Reg nullFlavo r [facility] Johnson [id number] Rigo Pena 2021-01-17 21:00:00 2021-01-18 04:59:59 Outpatient nullFlavo r [facility] Johnson [id number] Rigo Pena 2020-09-05 00:00:00 2020-09-05 00:00:00 Patient Outreach Martin Sanchez [facility] 1.2840.114 350.1.13.10 4.2.7.2.686 [id number] [facility] 2020-06-01 09:06:41 2020-06-01 23:59:00 Outpatient R UNKNOWN, ATTENDING [facility] [id number] [facility] 2020-06-01 09:06:41 2020-06-01 23:59:00 Hospital Encounter Unknown, Attending [facility] 1.2840.114 350.1.13.10 4.2.7.2.686 [id number] [facility] 2020-06-01 00:00:00 2020-06-01 00:00:00 Orders Only Doctor Unassigned, [place] [facility] 1.2840.114 350.1.13.10 4.2.7.2.686 [id number] [facility] 2020-02-01 10:57:43 2020-02-01 23:59:00 Outpatient R RADIOLOGY [facility] [id number] [facility] 2020-02-01 10:57:43 2020-02-01 23:59:00 Hospital Encounter Radiology [facility] 1.2840.114 350.1.13.10 4.2.7.2.686 [id number] [facility] 2020-02-01 10:57:43 2020-02-01 23:59:00 Hospital Encounter Radiology [facility] 1.2840.114 350.1.13.10 4.2.7.2.686 [id number] 2020-02-01 00:00:00 2020-02-01 00:00:00 Orders Only Doctor Unassigned, [place] [facility] 1.2840.114 350.1.13.10 4.2.7.2.686 [id number] [facility] 2020-02-01 00:00:00 2020-02-01 00:00:00 Orders Only Doctor Unassigned, [place] [facility] 1.2.840.114 350.1.13.10 4.2.7.2.686 [id number] 2019-03-18 15:07:48 2019-03-18 23:59:00 Hospital Encounter [facility] [place] 1.2.840.114 350.1.13.10 4.2.7.2.686 [id number] [facility] 2019-03-18 15:07:48 2019-03-18 23:59:00 Hospital Encounter [place] [facility] [place] 1.2.840.114 350.1.13.10 4.2.7.2.686 [id number] 2019-03-18 14:47:51 2019-03-18 15:02:51 Office Visit [place] [facility] [place] 1.2.840.114 350.1.13.10 4.2.7.2.686 [id number] [facility] 2019-03-18 14:47:51 2019-03-18 15:02:51 Office Visit [place] [facility] [place] 1.2.840.114 350.1.13.10 4.2.7.2.686 [id number] Results Test Description Test Time Test Comments Results Result Co mments Source COMPREHENSIVE METABOLIC [id number] 05:01:53* Test Item Value Reference Range Interpretation Comme nts GLUCOSE (test code = 2217) 110 MG/DL 70-99 H BUN (test code = 2208) 15 MG/DL 8-23 CREATININE (test code = 2214) 0.77 MG/DL 0.60-1.30 eGFR (2020 CKD-EPI) (test co de = 47344) 79 ML/MIN/1.73 >60 CALC BUN/CREAT (test code [...] = 2219) 11 U/L 5-40 COMPREHENSIVE METABOLIC [id number] 00:00:00* Test Item Value Reference Range Interpretation Comme nts GLUCOSE (test code = 2217) 110 MG/DL BUN (test code = 2208) 15 MG/DL CREATININE (test code = 2214) 0.77 MG/DL eGFR (2020 CKD-EPI) (test co de = 45186) 79 ML/MIN/1.73 CALC BUN/CREAT (test code = [...] = 2219) 11 U/L Olvin MorenoCBC W/AUTO [id number] 00:00:00* Test Item Value Reference Range Interpretation [...] ABS NUCLEATED RBCS (test cod e = 84940) 0.00 K/UL Olvin MorenoCOMPREHENSIVE METABOLIC [id number] 00:00:00* Test Item Value Reference Range Interpretation Comme nts GLUCOSE (test code = 2217) 110 MG/DL BUN (test code = 2208) 15 MG/DL CREATININE (test code = 2214) 0.77 MG/DL eGFR (2020 CKD-EPI) (test co de = 49383) 79 ML/MIN/1.73 CALC BUN/CREAT (test code = [...] code = 2219) 11 U/L Olvin Zelaya [facility] W/AUTO [id number] 00:00:00* Test Item Value Reference Range Interpretation [...] ABS NUCLEATED RBCS (test cod e = 61474) 0.00 K/UL Olvin MorenoCOMPREHENSIVE METABOLIC [id number] 00:00:00* Test Item Value Reference Range Interpretation Comme nts GLUCOSE (test code = 2217) 110 MG/DL BUN (test code = 2208) 15 MG/DL CREATININE (test code = 2214) 0.77 MG/DL eGFR (2020 CKD-EPI) (test co de = 88382) 79 ML/MIN/1.73 CALC BUN/CREAT (test code = [...] = 2219) 11 U/L Olvin MorenoCBC W/AUTO [id number] 00:00:00* Test Item Value Reference Range Interpretation [...] ABS NUCLEATED RBCS (test cod e = 68792) 0.00 K/UL Olvin MorenoCOMPREHENSIVE METABOLIC [id number] 00:00:00* Test Item Value Reference Range Interpretation Comme nts GLUCOSE (test code = 2217) 110 MG/DL BUN (test code = 2208) 15 MG/DL CREATININE (test code = 2214) 0.77 MG/DL eGFR (2020 CKD-EPI) (test co de = 70321) 79 ML/MIN/1.73 CALC BUN/CREAT (test code = [...] = 2219) 11 U/L Olvin MorenoCBC W/AUTO [id number] 00:00:00* Test Item Value Reference Range Interpretation [...] ABS NUCLEATED RBCS (test cod e = 12518) 0.00 K/UL Olvin Zelaya AustinCOMPREHENSIVE METABOLIC [id number] 04:05:39* Test Item Value Reference Range Interpretation Comme nts GLUCOSE (test code = 2217) 89 MG/DL 70-99 BUN (test code = 2208) 17 MG/DL 8-23 CREATININE (test code = 2214) 0.77 MG/DL 0.60-1.30 eGFR (2020 CKD-EPI) (test co de = 37186) 80 ML/MIN/1.73 >60 CALC BUN/CREAT (test code = 2235) 22 RATIO 6-28 SODIUM (test code = 2231) 142 MEQ/L 133-146 POTASSIUM (test code = 2228) 4.6 MEQ/L 3.5-5.4 CHLORIDE (test code = 2215) 108 MEQ/L 95-107 H CARBON DIOXIDE (test code = 2205) 21 MEQ/L 19-31 CALCIUM (test code = 2208) 8.8 MG/DL 8.5-10.5 PROTEIN, TOTAL (test code = 2228) 6.2 G/DL 6.1-8.3 ALBUMIN (test code = 2200) 4.0 G/DL 3.5-5.2 CALC GLOBULIN (test code = 2240) 2.2 G/DL 1.9-3.7 CALC A/G RATIO (test code = 2233) 1.8 RATIO 1.0-2.6 BILIRUBIN, TOTAL (test code = 2206) 0.4 MG/DL <=1.2 ALKALINE PHOSPHATASE (test code = 2203) 136 U/L 40-142 AST (test code = 2217) 16 U/L 9-40 ALT (test code = 2218) 11 U/L 5-40 LIPID [id number] 04:05:39* Test Item Value Reference Range Interpretation Comme nts CHOLESTEROL (test code = 2209) 174 MG/DL <200 TRIGLYCERIDES (test code = 2) 71 MG/DL <150 HDL CHOLESTEROL (test code = 0) 65 MG/DL >39 CALC LDL CHOL (test code = 2236) 93 MG/DL <100 NOTE: CALCULATED LDL IS BASED ON HILDA-DANIELS METHOD WHICHINCLUDES ADJUSTABLE TRIGLYCERIDE:VLDL CHOLESTEROL RATIO.THIS FACTOR VARIES BY MEASURED TRIGLYCERIDE AND NON-HDLCHOLESTEROL CONCENTRATIONS WITH INCREASED CALCULATED LDL SEENIN HIGHER TRIGLYCERIDE OR LOWER NON-HDL SPECIMENS. FOR MOREINFORMATION, SEE CLIENT ANNOUNCEMENT AT [email or web address] RISK RATIO LDL/HDL (test code = 223) 1.43 RATIO <3.22 CBC W/AUTO DIFF WITH [id number] 03:37:01* Test Item Value Reference Range Interpretation [...] = 1065) 0.0 /100 WBC'S See_Comment [Automated dMetricsa ge] The system which generated this result [...] 0.00-0.10 ABS NUCLEATED RBCS (test code = 57183) 0.00 K/UL 0.00-0.11 HEMOGLOBIN [id number] 03:09:30* Test Item Value Reference Range Interpretation Comme nts HEMOGLOBIN A1c (test code = 42174) 5.5 % 4.2-5.6 UNLESS OTHERWISE INDICATED, ALL TESTING PERFORMED AT [facility] [address] [place] [address] CLOTH DESIZING RANGE TENDER: ASHLEY BAIRD M.D. CLIA NUMBER [id number] [facility] [place]. [id number] COMPREHENSIVE METABOLIC [id number] 00:00:00* Test Item Value Reference Range Interpretation Comme nts GLUCOSE (test code = 2217) 89 MG/DL BUN (test code = 2208) 17 MG/DL CREATININE (test code = 2214) 0.77 MG/DL eGFR (2020 CKD-EPI) (test co de = 83674) 80 ML/MIN/1.73 CALC BUN/CREAT (test code = [...] code = 2219) 11 U/L Olvin MorenoLIPID [id number] 00:00:00* Test Item Value Reference Range Interpretation Comme nts CHOLESTEROL (test code = 2210) 174 MG/DL TRIGLYCERIDES (test code = 2232) 71 MG/DL HDL CHOLESTEROL (test code = 2220) 65 MG/DL CALC LDL CHOL (test code = 2237) 93 MG/DL RISK RATIO LDL/HDL (test cod e = 2238) 1.43 RATIO Olvin Garcia JoshCBC W/AUTO [id number] 00:00:00* Test Item Value Reference Range Interpretation [...] ABS NUCLEATED RBCS (test cod e = 70476) 0.00 K/UL Olvin MorenoHEMOGLOBIN [id number] 00:00:00* Test Item Value Reference Range Interpretation Comme nts HEMOGLOBIN A1c (test code = 86073) 5.5 % Olvin MorenoCOMPREHENSIVE METABOLIC [id number] 00:00:00* Test Item Value Reference Range Interpretation Comme nts GLUCOSE (test code = 2217) 89 MG/DL BUN (test code = 2208) 17 MG/DL CREATININE (test code = 2214) 0.77 MG/DL eGFR (2020 CKD-EPI) (test co de = 98509) 80 ML/MIN/1.73 CALC BUN/CREAT (test code = [...] code = 2219) 11 U/L Olvin MorenoLIPID [id number] 00:00:00* Test Item Value Reference Range Interpretation Comme nts CHOLESTEROL (test code = 2210) 174 MG/DL TRIGLYCERIDES (test code = 2232) 71 MG/DL HDL CHOLESTEROL (test code = 2220) 65 MG/DL CALC LDL CHOL (test code = 2237) 93 MG/DL RISK RATIO LDL/HDL (test cod e = 2238) 1.43 RATIO Olvin MorenoCBC W/AUTO [id number] 00:00:00* Test Item Value Reference Range Interpretation [...] ABS NUCLEATED RBCS (test cod e = 46070) 0.00 K/UL Olvni MorenoHEMOGLOBIN [id number] 00:00:00* Test Item Value Reference Range Interpretation Comme nts HEMOGLOBIN A1c (test code = 68745) 5.5 % Olvin MorenoCOMPREHENSIVE METABOLIC [id number] 00:00:00* Test Item Value Reference Range Interpretation Comme nts GLUCOSE (test code = 2217) 89 MG/DL BUN (test code = 2208) 17 MG/DL CREATININE (test code = 2214) 0.77 MG/DL eGFR (2020 CKD-EPI) (test co de = 36445) 80 ML/MIN/1.73 CALC BUN/CREAT (test code = [...] code = 2219) 11 U/L Olvin MorenoLIPID [id number] 00:00:00* Test Item Value Reference Range Interpretation Comme nts CHOLESTEROL (test code = 2210) 174 MG/DL TRIGLYCERIDES (test code = 2232) 71 MG/DL HDL CHOLESTEROL (test code = 2220) 65 MG/DL CALC LDL CHOL (test code = 2237) 93 MG/DL RISK RATIO LDL/HDL (test cod e = 2238) 1.43 RATIO Olvin MorenoCBC W/AUTO [id number] 00:00:00* Test Item Value Reference Range Interpretation [...] ABS NUCLEATED RBCS (test cod e = 88069) 0.00 K/UL Olvin MorenoHEMOGLOBIN [id number] 00:00:00* Test Item Value Reference Range Interpretation Comme nts HEMOGLOBIN A1c (test code = 74908) 5.5 % Olvin MorenoCOMPREHENSIVE METABOLIC [id number] 00:00:00* Test Item Value Reference Range Interpretation Comme nts GLUCOSE (test code = 2217) 89 MG/DL BUN (test code = 2208) 17 MG/DL CREATININE (test code = 2214) 0.77 MG/DL eGFR (2020 CKD-EPI) (test co de = 53470) 80 ML/MIN/1.73 CALC BUN/CREAT (test code = [...] code = 2219) 11 U/L Olvin MorenoLIPID [id number] 00:00:00* Test Item Value Reference Range Interpretation Comme nts CHOLESTEROL (test code = 2210) 174 MG/DL TRIGLYCERIDES (test code = 2232) 71 MG/DL HDL CHOLESTEROL (test code = 2220) 65 MG/DL CALC LDL CHOL (test code = 2237) 93 MG/DL RISK RATIO LDL/HDL (test cod e = 2238) 1.43 RATIO Olvin MorenoCBC W/AUTO [id number] 00:00:00* Test Item Value Reference Range Interpretation [...] ABS NUCLEATED RBCS (test cod e = 09596) 0.00 K/UL Olvin MorenoHEMOGLOBIN [id number] 00:00:00* Test Item Value Reference Range Interpretation Comme nts HEMOGLOBIN A1c (test code = 45385) 5.5 % Olvin Zelaya [id number] 20:47:11* Test Item Value Reference Range Interpretation Comments D-DIMER (test code = 2272025329) 0.46 See_Comment H [Automated message] The system [...] a diagnosis. Lab Interpretation (test code = 74639-8) [facility] [id number] 20:45:50* Test Item Value Reference Range Interpretation Comme [facility] TROPONIN I (test code = 1790239675) 0.002 ng/mL <=0.034 BETTY (test code = [...] of biotin. Lab Interpretation (test code = 81883-9) [facility] [id number] 20:43:09* Test Item Value Reference Range Interpretation Comme nts NT-proBNP (test code = 29734-7) 1410 pg/mL <=125 BETTY (test code = BETTY) Result Indeterminate-Consid er causes of NT-proBNP elevation other than Heart failure such as acute coronary syndrome, pulmonary embolism, pulmonary hypertension, sepsis, stroke, and renal dysfunction. Lab Interpretation (test code = 28777-7) [facility]normal [facility] Tyler[facility] METABOLIC PANEL (58063)2023-03-11 20:34:27* Test Item Value Reference Range Interpretation Comme nts NA (test code = 6478069128) 138 mmol/L 135-145 K (test code = 6541407167) 4.1 mmol/L 3.5-5.0 CL (test code = 9291809446) 109 mmol/L 98-108 H CO2 TOTAL (test code = 6373487051) 24 mmol/L 23-31 AGAP (test code = 4727921573) 5 2-16 BUN (test code = 6086216089) 16 mg/dL 7-23 GLUCOSE (test code = 4249206929) 90 mg/dL 70-110 CREATININE (test code = 3677527365) 0.61 mg/dL 0.50-1.04 TOTAL BILI (test code = 7485018226) 0.3 mg/dL 0.1-1.1 CALCIUM (test code = 3146638826) 8.8 mg/dL 8.6-10.6 T PROTEIN (test code = 5687734088) 6.6 g/dL 6.3-8.2 ALBUMIN (test code = 4025166863) 3.8 g/dL 3.5-5.0 ALK PHOS (test code = 4582460175) 135 U/L 34-122 H ALTv (test code = 1742-6) 15 U/L 5-35 AST(SGOT) (test code = 1216997737) 21 U/L 13-40 eGFR (test code = 4426305159) 95.6 mL/min/1.73m2 BETTY (test code = BETTY) [...] imaging tests). Lab Interpretation (test code = 99349-9) Abnormal [facility] WITH [id number] 20:29:45* Test Item Value Reference Range Interpretation Comme nts WBC (test code = 6690-2) 10.10 See_Comment [Automated Cass Art] The system which generated this result transmitted reference range: 4.30 - 11.10 10*3/?L. The reference range was not used to interpret this result as normal/abnormal. RBC (test code = 789-8) 4.36 See_Comment [Automated Cass Art] The system which generated this result transmitted [...] 32.4 g/dL 31.6-35.1 RDW-SD (test code = 31015-4) 48.0 fL 39.0-49.9 RDW-CV (test code = 788-0) 14.9 % 12.0-15.5 PLT (test code = 777-3) 265 See_Comment [Automated messa ge] The system which generated this result transmitted reference range: 166 - 358 10*3/?L. The reference range was not used to interpret this result as normal/abnormal. MPV (test code = 95084-3) 11.0 fL 9.5-12.9 NRBC/100 WBC (test code = 6949073117) 0.0 See_Comment [Automated me ssage] The system which generated this result transmitted reference range: 0.0 - 10.0 /100 WBCs. The reference range was not used to interpret this result as normal/abnormal. NRBC x10^3 (test code = 9821882978) See_Comment [Automated me ssage] The system which generated this result transmitted reference range: 10*3/?L. The reference range was not used to interpret this result as normal/abnormal. GRAN MAT (NEUT) % (test code = 770-8) 66.4 % IMM GRAN % (test code = 5869889592) 0.20 % LYMPH % (test code = 736-9) 24.9 % MONO % (test code = 5905-5) 6.3 % EOS % (test code = 713-8) 1.5 % BASO % (test code = 706-2) 0.7 % GRAN MAT x10^3(ANC) (test code = 0425526901) 6.71 10*3/uL 1.88-7.09 IMM GRAN x10^3 (test code = 0042280143) 0.00-0.06 LYMPH x10^3 (test code = 731-0) 2.51 10*3/uL 1.32-3.29 MONO x10^3 (test code = 742-7) 0.64 10*3/uL 0.33-0.92 EOS x10^3 (test code = 711-2) 0.15 10*3/uL 0.03-0.39 BASO x10^3 (test code = 704-7) 0.07 10*3/uL 0.01-0.07 [facility] [id number] 19:37:02* Test Item Value Reference Range Interpretation [...] TESTING PERFORMED AT [facility] [address] [place] [address] CLOTH DESIZING RANGE TENDER: ASHLEY BAIRD M.D. CLIA NUMBER [id number] [facility] [place]. [id number] VITAMIN B 12 AND FOLIC [id number] 06:25:39* Test Item Value Reference Range Interpretation [...] . UG/L >=6.0 CBC W/AUTO DIFF WITH [id number] 03:06:47* Test Item Value Reference Range Interpretation [...] 0.00-0.10 ABS NUCLEATED RBCS (test code = 53475) 0.00 K/UL 0.00-0.11 VITAMIN B 12 AND [...] ABS NUCLEATED RBCS (test cod e = 68535) 0.00 K/UL Olvin MorenoVITAMIN D, 25 [place] [...] ABS NUCLEATED RBCS (test cod e = 01551) 0.00 K/UL Olvin Garcia JoshVITAMIN D, 25 [place] [ADDED]2023-02-07 00:00:00* Test Item Value Reference Range Interpretation Comme nts VITAMIN D, 25 OH (test code = 4958) 45 NG/ML Olvin Zelaya JoshVITAMIN B 12 AND FOLIC ACID [ADDED]2023-02-07 00:00:00* Test Item Value Reference Range Interpretation Comme nts VITAMIN B-12 (test code = 2840) 917 PG/ML FOLIC ACID (test code = 2695) 13.0 UG/L Olvni Zelaya AustinCBC W/AUTO DIFF WITH PLATELETS [ADDED]2023-02-07 00:00:00* Test [...] ABS NUCLEATED RBCS (test cod e = 88276) 0.00 K/UL Olvin MorenoVITAMIN D, 25 OH [...] ABS NUCLEATED RBCS (test cod e = 38895) 0.00 K/UL Olvin MorenoVITAMIN D, 25 OH [...] ABS NUCLEATED RBCS (test cod e = 13055) 0.00 K/UL Olvin MorenoVITAMIN D, 25 [place] [ADDED]2023-02-07 00:00:00* Test Item Value Reference Range Interpretation Comme nts VITAMIN D, 25 OH (test code = 4958) 45 NG/ML Olvin [id number] 15:53:00* Test Item Value Reference Range Interpretation Comme nts QuantaFlo left side (test code = 18511-2G) 0.77 See_Comment L [Automate d message] The system which generated this result transmitted reference range: 1.40 - 0.90 NA. The reference range was not used to interpret this result as normal/abnormal. QuantaFlo right side (test code = 09829-8N) 1.23 See_Comment Presentat ion Factors: COPDExercise Modality: At RestNormal - 1.40 - 1.00Borderline - 0.99 - 0.90Mild - 0.89 - 0.60Moderate - 0.59 - 0.30Severe - 0.29 - 0.00 [Automated message] The system which generated this result transmitted reference range: 1.40 - 0.90 NA. The reference range was not used to interpret this result as normal/abnormal. Lab Interpretation (test code = 04064-1) Abnormal Caroline Seybold - ExternalUA RFLX MICR CULT IF [id number] 18:46:00* Test Item Value Reference Range Interpretation [...] A Indication for culture: Suprapubic PainUR HCG [id number] 18:46:00* Test Item Value Reference Range Interpretation Comme nts UR HCG QUAL (test code = HCGQLU) NEGATIVE NEGATIVE Indication for culture: Suprapubic Pain- CT ABD PELVIS [id number] 17:33:00 [facility] 1945 Sex: FPatient Name: ARON WHIPPLE Unit No: [id number] EXAMS: CPT CODE: [id number] CT ABD PEL VIS W/CONT 68913 LOCATION: T18 EXAM: CT ABDOMEN AND PELVIS WITH CONTRAST INDICATION: Abdominal painCOMPARISON: None. TECHNIQUE: Multiple CT images of the abdomen and pelvis were obtained with reconstructions in the coronal and sagittal planes. 100 ml of Isovue 300 was given intravenously. Up-to-date CT equipment and radiation dose reduction techniques were utilized. Automatic exposure control was utilized. FINDINGS: Lung bases are clear. Elongated Lorrie's lobe of the right lobe liver noted. There is mild intrahepatic biliary dilatation. Hypodense nodule [...] measuring 12 mm. Consider multiphase liver protocol CT orMRI for further evaluation. at 1733 Reported and signed by: EZEQUIEL LEACH M.D. CC: Sachin Stewart MD Technologist: Gricelda Woodruff; Radha Sumit (CT),(MR) CTDI: 22.07 DLP: 1196.67Trscr Dt/Tm: 06/19/2021 (2269) by:[email or web address] Printed Date/Time: 06/19/2021 (7784) Name: ARON WHIPPLE [facility] Phys: Sachin Luong MD [address] : 1945 Age: 76 Sex: [place] [address] Loc: HECTOR 2 Exam Date: 06/19/2021 Status: ADM IN PH: FAX: PAGE 1 Signed ReportBASIC METABOLIC [id number] 16:23:00* Test Item Value Reference Range Interpretation [...] New Reference Range Aug 2020 LIVER FUNCTION [id number] 16:23:00* Test Item Value Reference Range Interpretation Comme [facility] TOTAL PROTEIN (test code = PROT) 6.0 [...] Please note: New Reference Range Aug 2020 [id number] 16:23:00* Test Item Value Reference Range Interpretation Comme [facility] LIPASE (test code = LIP) 23 U/L 12-53 N Please note: New Reference Range Aug 2020 COVID 19 INHOUSE [id number] 16:18:00* Test Item Value Reference Range Interpretation Comme nts COVID 19 INHOUSE AG (test code = [id number]) NEGATIVE NEGATIVE Negative results , from patients [...] signs and symptomsconsistent with COVID-19. CBC W/AUTO [id number] 15:58:00* Test Item Value Reference Range Interpretation [...] N - XR WRIST 3 + V [id number] 14:23:00 [facility] : 1945 Sex: F FAX: Dominic Pérez MD [place]: St: REG Name: ARON WHIPPLE [facility] : 1945 Age/S: 75/F [address] [facility] [employer] Unit #: [id number] Loc: [address] Phys: Dominic Pé[place] [id number] Acct: [id number] Dis Date: Status: REG ER PHONE #: [phone] Exam Date: 03/21/2021 1400 FAX #: [phone] Reason:Wrist Pain EXAMS: CPT CODE: [id number] XR WRIST 3 + V LT [id number] Dictation location: U19. LEFT WRIST 3 VIEWS [...] MD Technologist: RENARD MOURA Trnscrd Date/Time/By: 03/21/2021 (1423) : By: [email or web address] PAGE 1 Signed Report FAX: Dominic Pérez MD [place]: St: REG Name: ARON WHIPPLE [facility] : 1945 Age/S: 75/F [address] [employer] Unit #: [id number] Loc: [address] [place], [place] Phys: Dominic Pérez [place] [id number] Acct: [id number] Date: Status: REG ER PHONE #: [phone] Exam Date: 03/21/2021 1400 FAX #: [phone] Reason: Wrist Pain EXAMS: CPT CODE: [id number] XR WRIST 3 + V LT [id number] (Continued) Orig Print D/T: S: 03/21/2021 (1426) PAGE 2 Signed Report- CT C-SPINE W/O [id number] 14:20:00[facility] : 1945 Sex: F FAX: Dominic Pérez MD [place]: St: PRE Name: ARON WHIPPLE [facility] : 1945 Age/S: 75/F [address] [employer] Unit: [id number] Loc: [address] [place], [place] Phys: Dominic Pérez [place] [id number] Acct: [id number] Dis Date: Status: PRE ER PHONE #: [phone] Exam Date: 03/21/2021 1403 FAX #: [phone] Reason:Neck Pain EXAMS: CPT CODE: [id number] CT C-SPINE W/O CONT [id number] INDICATION:Headache fall, pain TECHNIQUE: Noncontrast CT of the head is obtained. Comparison: No prior studies for comparison. Location: T 18 CT DLP Dose: 473 mGy-cm. Iterative dose reduction technique utilized. FINDINGS: There is mildgeneralized cerebral atrophy with mild scattered periventricular and deep white matter low-density c hanges. There is no CT evidence of an [...] mild scattered periventricular and deep white matter ch anges, consistent with mild chronic microvascular disease. 2. No evidence of acute stroke, hemorrhage or mass. CT cervical spine without contrast: INDICATIONS: Fall, pain PAGE 1 Signed Report (CONTINUED) FAX: Dominic Pérez MD [place]: St: PRE Name: ARON WHIPPLE [facility] : 1945 Age/S: 75/F [address] [facility] Unit: [id number] Loc: E.ERS2 [place], [place] Phys: Dominic Pérez [place] [address] Acct: [id number] Dis Date: Status: PRE ER PHONE #: [phone] Exam Date: 03/21/20211402 FAX #: [phone] Reason: Neck Pain EXAMS: CPT CODE: [id number] CT C-SPINE W/O CONT 86071 (Continued) TECHNIQUE: Helical CT images of the [...] No significant central canal compromise is identified. Prevertebralsoft tissues are unremarkable. IMPRESSION: 1. No acute [...] Signed Report (CONTINUED) FAX: Dominic Pérez MD [place]: St: PRE Name: ARON WHIPPLE [facility] : 1945 Age/S: 75/F [address] [facility] Unit: [id number] Loc: [address] Phys: Dominic Pérez [place] [address] Acct: [id number] Dis Date: Status: PRE ER PHONE #: [phone] Date: 03/21/20211402 FAX #: [phone] Reason: Neck Pain EXAMS: CPT CODE: [id number] CT C-SPINE W/O CONT 82141 (Continued) The visualized portions of the orbits and brain are unremarkable. Thesinuses are clear. The nasal septum is midline. The osteomeatal units are unremarkable. There are no radiopaque foreign bodies. IMPRESSION: Unremarkable maxillofacial CT. at 1420 Reported and signed by: MONSERRAT VENTURA M.D. CC: Dominic Pérez MD Technologist: MACARENA AMEZQUITA; CAMERON SIMPSON Trnscrd Dt/Tm: 03/21/2021 (1420) [id number] Orig Print D/T: S: 03/21/2021 (1423 PAGE 3 Signed Report- CT HEAD/BRAIN W/O [id number] 14:20:00 [facility] 1945 Sex: F FAX: Dominic Pérez MD [place]: St: PRE Name: ARON WHIPPLE [facility] : 1945 Age/S: 75/F [address] [facility] Unit: [id number] Loc: [address] Phys: Dominic Pé[place] [address] Acct: [id number] DisDate: Status: PRE ER PHONE #: [phone] Exam Date: 03/21/20211402 FAX #: [phone] Reason: Headache EXAMS: CPT CODE: [id number] CT HEAD/BRAIN W/O CONT 16251 INDICATION:Headache fall, pain TECHNIQUE: Noncontrast CT of [...] cisterns are patent. The ventricular system is unremarkable.The calvarium and skull base are normal. No calvarial or skull base fracture is seen. The extracranial soft tissues are unremarkable. Vascular calcifications are noted in the carotid siphons. IMPRESSION: 1. Mild generalized cerebral atrophy and mild scattered periventricular and deep white matter ch anges, consistent with mild chronic microvascular disease. 2. No evidence of acute stroke, hemorrhage or mass. CT cervical spine without contrast: INDICATIONS: Fall, pain PAGE 1 Signed Report (CONTINUED) FAX: Dominic Pérez MD [place]: St: PRE Name: ARON WHIPPLE [facility] : 1945 Age/S: 75/F [address] [facility] Unit: [id number] Loc: [address] [place] [address] Phys: Dominic [place] [address] Acct: [id number] Dis Date: Status: PRE ER PHONE #: [phone] Exam Date: 03/21/20211402 FAX #: [phone] Reason: Headache EXAMS: CPT CODE: [id number] CT HEAD/BRAIN W/O CONT 22672 (Continued) TECHNIQUE: Helical CT images of the [...] dose reduction technique utilized. FINDINGS: There are nofacial fractures. PAGE 2 Signed Report (CONTINUED) FAX: Dominic Pérez MD [place]: St: PRE--------- Name: ARON WHIPPLE [facility] : 1945 Age/S: 75/F [address] [facility] Unit: [id number] Loc: [address] Phys: Dominic [place] [address] Acct: [id number] Dis Date: Status: PRE ER PHONE #: [phone] Exam Date: 03/21/2021 1403 FAX #: [phone] Reason: Headache EXAMS: CPT CODE: [id number] CT HEAD/BRAIN W/O CONT 76914 (Continued) The visualized portions of the orbits and brain are unremarkable. The sinuses are clear. The nasal septum is midline. The osteomeatal units are unremarkable. Thereare no radiopaque foreign bodies. IMPRESSION: Unremarkable maxillofacial CT. at 1420 Reported and signed by: MONSERRAT VENTURA M.D. CC: Dominic Pérez MD Technologist: MACARENA AMEZQUITA; CAMERON SIMPSON Trnscrd Dt/Tm: 03/21/2021 (1420) [id number] Orig Print D/T: S: 03/21/2021 (1423 PAGE 3 Signed Report- XR CHEST 1 [id number] 14:20:00 [facility] : 1945 Sex: F FAX: Dominic Pérez MD [place]: St: PRE Name: WHIPPLE,ARON [facility] : 1945 Age/S: 75/F [address] [facility] Unit #: [id number] Loc: [address] Phys: Dominic Pérez [place] [address] Acct: [id number] Dis Date: Status: PRE ER PHONE #: [phone] Exam Date: 03/21/2021 1400 FAX #: [phone] Reason:Chest Pain EXAMS: CPT CODE: [id number] XR CHEST 1 V 14997 Dictation location: U19. CHEST, FRONTAL VIEW HISTORY: Chest Pain COMPARISON: None FINDINGS: The patient is rotated. The lungs are clear. The heart size is normal. Aorta is partially calcified. Scoliosis and degenerative changes affect the thoracic spine. Right rotator cuff repair. IMPRESSION: No evidence of acute cardiopulmonary disease. at 1420 Reported and signed by: Say Hoffmann M.D. CC: Dominic Pérez MD Technologist: RENARD MOURA Trnarrd Date/Time/By: 03/21/2021 (1423) : By: [email or web address] PAGE 1 Signed Report FAX: Dominic Pérez MD [place]: St: PRE- Name: WHIPPLE,ARON [facility] : 1945 Age/S: 75/F [address] [facility] Unit #: [id number] Loc: [address] Phys: Dominic Pérez [place] [address] Acct: [id number] Dis Date: Status: PRE ER PHONE #: [phone] Exam Date: 03/21/2021 1400 FAX #: [phone] Reason: Chest Pain EXAMS: CPT CODE: [id number] XR CHEST 1 V 34167 (Continued) Orig Print D/T: S: 03/21/2021 (1610) PAGE 2 Signed Report- CT MAXIFAC W/O [id number] 14:20:00 [facility] : 1945 Sex: F FAX: Dominic Pérez MD [place]: St: PRE Name: ARON WHIPPLE [facility] : 1945 Age/S: 75/F [address] [facility] Unit: [id number] Loc: [address] Phys: Dominic Pérez [place] [address] Acct: [id number] DisDate: Status: PRE ER PHONE #: [phone] Exam Date: 03/21/2021 1403 FAX #: [phone] Reason: FALL EXAMS: CPT CODE: [id number] CT MAXIFAC W/O CONTRAST 72265 INDICATION:Headache fall, pain TECHNIQUE: Noncontrast CT of the head is obtained. Comparison: No prior studies for comparison. Location:T 18 CT DLP Dose: 473 mGy-cm. Iterative [...] are patent. The ventricular system is unremarkable. T he calvarium and skull base are normal. No [...] PAGE 1 Signed Report (CONTINUED) FAX: Dominic Péerz MD [place]: St: PRE Name: ARON WHIPPLE [facility] : 1945 Age/S: 75/F [address] [facility] Unit: [id number] Loc: [address] Phys: Domin[place] [address] Acct: [id number] Dis Date: Status: PRE ER PHONE #: [phone] Exam Date: 03/21/2021 1403 FAX #: [phone] Reason: FALL EXAMS: CPT CODE: [id number] CT MAXIFAC W/O CONTRAST 37169 (Continued) TECHNIQUE: Helical CT images of the [...] Signed Report (CONTINUED) FAX: Dominic Pérez MD [place]: St: PRE Name: ARON WHIPPLE [facility] : 1945 Age/S: 75/F [address] Unit: [id number] Loc: [address] Phys: Dominic [place] [address] Acct: [id number] Dis Date: Status: PRE ER PHONE #: [phone] Exam Date: 03/21/2021 1403 FAX #: [phone] Reason: FALL EXAMS: CPT CODE: [id number] CT MAXIFAC W/O CONTRAST 52259 (Continued) The visualized portions of the orbits and brain are unremarkable. The sinuses are clear. The nasal septum is midline. The osteomeatal units are unremarkable. There are no radiopaque foreign bodies. IMPRESSION: Unremarkable maxillofacial CT. at 1420 Reported and signed by: MONSERRAT VENTURA M.D. CC: Dominic Pérez MD Technologist: MACARENA AMEZQUITA; CAMERON SIMPSON Trnscrd Dt/Tm: 03/21/2021 (1420) [id number].[email or web address] Orig Print D/T: S: 03/21/2021 (1423 PAGE 3 Signed BytosmRLMM-ZhQ-4 (COVID-19) by RT-PCR (HIGH RISK) 2021-02-11 00:00:00* Test Item Value Reference Range Interpretation Comme nts SARS-CoV-2 INTERPRETATION (t est code = 35662) NEGATIVE SOURCE (test code = 12168) NOT SPECIFIED Olvin Zelaya GqlpfvLQTM-YvP-7 (COVID-19) by RT-PCR (HIGH RISK)2021-02-11 00:00:00* Test Item Value Reference Range Interpretation Comme nts SARS-CoV-2 INTERPRETATION (t est code = 10200) NEGATIVE SOURCE (test code = 72040) NOT SPECIFIED Olvin Zelaya PwrvevLIVQ-OvI-8 (COVID-19) by RT-PCR (HIGH RISK)2021-02-11 00:00:00* Test Item Value Reference Range Interpretation Comme nts SARS-CoV-2 INTERPRETATION (t est code = 26246) NEGATIVE SOURCE (test code = 59307) NOT SPECIFIED Olvin Zelaya SdsyryELYA-SgE-1 (COVID-19) by RT-PCR (HIGH RISK)2021-02-11 00:00:00* Test Item Value Reference Range Interpretation Comme nts SARS-CoV-2 INTERPRETATION (t est code = 96133) NEGATIVE SOURCE (test code = 42218) NOT SPECIFIED Olvin Zelaya SnsvddHRVG-VrV-4 (COVID-19) by RT-PCR (HIGH RISK)2021-02-11 00:00:00* Test Item Value Reference Range Interpretation Comme nts SARS-CoV-2 INTERPRETATION (t est code = 73125) NEGATIVE SOURCE (test code = 09842) NOT SPECIFIED Olvin Zelaya AjrjqdKRIH-RtY-8 (COVID-19) by RT-PCR (HIGH RISK)2021-02-11 00:00:00* Test Item Value Reference Range Interpretation Comme nts SARS-CoV-2 INTERPRETATION (t est code = 36041) NEGATIVE SOURCE (test code = 56165) NOT SPECIFIED SARS-CoV-2 (COVID-19) by RT-PCR (HIGH RISK)2021-02-11 00:00:00* Test Item Value Reference Range Interpretation Comme nts SARS-CoV-2 INTERPRETATION (t est code = 52433) NEGATIVE SOURCE (test code = 88394) NOT SPECIFIED SARS-CoV-2 (COVID-19) by RT-PCR (HIGH RISK)2021-02-11 00:00:00* Test Item Value Reference Range Interpretation Comme nts SARS-CoV-2 INTERPRETATION (t est code = 49711) NEGATIVE SOURCE (test code = 01827) NOT SPECIFIED ANEMIA [id number] 14:14:00* Test Item Value Reference Range Interpretation Comme nts Vitamin B12 Lvl (test code = Vitamin B12 Lvl) [phone] [facility]2021-07-21 14:14:00* Test Item Value Reference Range Interpretation Comme nts Glucose Lvl (test code = Glucose Lvl) 84 65-99 BUN (test code = BUN) 18 7-25 Creatinine Lvl (test code = Creatinine Lvl) 0.75 0.60-0.93 eGFR NON-AFR. CANADIAN (test code = eGFR NON-AFR. CANADIAN) 79 eGFR (test code = eGFR ) [...] st code = ALANINE AMINOTRANSFERASE) 8 6-29 [facility] [id number] 14:14:00* Test Item Value Reference Range Interpretation Comme nts Sed Rate (test code = Sed Rate) 28 [facility] [id number] 14:14:00* Test Item Value Reference Range Interpretation Comme nts C-REACTIVE PROTEIN (test cod e = C-REACTIVE PROTEIN) 12.2 [facility]annOCC[facility] BLD,FECAL,IMMUNOASSAY [id number] 00:00:00* Test Item Value Reference Range Interpretation Comme nts OCCULT BLD, FECAL (test code = 57753) NEGATIVE Olvin F AustinOCCULT BLD,FECAL,IMMUNOASSAY [id number] 00:00:00* Test Item Value Reference Range Interpretation Comme nts OCCULT BLD, FECAL (test code = 07143) NEGATIVE Olvin F AustinOCCULT BLD,FECAL,IMMUNOASSAY [id number] 00:00:00* Test Item Value Reference Range Interpretation Comme nts OCCULT BLD, FECAL (test code = 30938) NEGATIVE Olvin F AustinOCCULT BLD,FECAL,IMMUNOASSAY [id number] 00:00:00* Test Item Value Reference Range Interpretation Comme nts OCCULT BLD, FECAL (test code = 82636) NEGATIVE Olvin F AustinOCCULT BLD,FECAL,IMMUNOASSAY [id number] 00:00:00* Test Item Value Reference Range Interpretation Comme nts OCCULT BLD, FECAL (test code = 40582) NEGATIVE Olvin F AustinOCCULT BLD,FECAL,IMMUNOASSAY [id number] 00:00:00* Test Item Value Reference Range Interpretation Comme nts OCCULT BLD, FECAL (test code = 58352) NEGATIVE OCCULT BLD,FECAL,IMMUNOASSAY [id number] 00:00:00* Test Item Value Reference Range Interpretation Comme nts OCCULT BLD, FECAL (test code = 19424) NEGATIVE OCCULT BLD,FECAL,IMMUNOASSAY [id number] 00:00:00* Test Item Value Reference Range Interpretation Comme nts OCCULT BLD, FECAL (test code = 10641) NEGATIVE LIPID [id number] 00:00:00* Test Item Value Reference Range Interpretation Comme nts CHOLESTEROL (test code = 2210) 188 MG/DL TRIGLYCERIDES (test code = 2232) 83 MG/DL HDL CHOLESTEROL (test code = 2220) 69 MG/DL CALC LDL CHOL (test code = 2237) 102 MG/DL RISK RATIO LDL/HDL (test cod e = 2238) 1.48 RATIO CBC W/AUTO [id number] 00:00:00* Test Item Value Reference Range Interpretation [...] ABS NUCLEATED RBCS (test cod e = 84384) 0.00 K/UL Olvin MorenoHEMOGLOBIN [id number] 00:00:00* Test Item Value Reference Range Interpretation Comme nts HEMOGLOBIN A1c (test code = 55667) 5.3 % Olvin MorenoLIPID [id number] 00:00:00* Test Item Value Reference Range Interpretation Comme nts CHOLESTEROL (test code = 2210) 188 MG/DL TRIGLYCERIDES (test code = 2232) 83 MG/DL HDL CHOLESTEROL (test code = 2220) 69 MG/DL CALC LDL CHOL (test code = 2237) 102 MG/DL RISK RATIO LDL/HDL (test cod e = 2238) 1.48 RATIO Olvin MorenoCBC W/AUTO [id number] 00:00:00* Test Item Value Reference Range Interpretation [...] ABS NUCLEATED RBCS (test cod e = 47502) 0.00 K/UL Olvin MorenoHEMOGLOBIN [id number] 00:00:00* Test Item Value Reference Range Interpretation Comme nts HEMOGLOBIN A1c (test code = 17186) 5.3 % Olvin MorenoLIPID [id number] 00:00:00* Test Item Value Reference Range Interpretation Comme nts CHOLESTEROL (test code = 2210) 188 MG/DL TRIGLYCERIDES (test code = 2232) 83 MG/DL HDL CHOLESTEROL (test code = 2220) 69 MG/DL CALC LDL CHOL (test code = 2237) 102 MG/DL RISK RATIO LDL/HDL (test cod e = 2238) 1.48 RATIO Olvin MorenoCBC W/AUTO [id number] 00:00:00* Test Item Value Reference Range Interpretation [...] ABS NUCLEATED RBCS (test cod e = 99445) 0.00 K/UL Olvin MorenoHEMOGLOBIN [id number] 00:00:00* Test Item Value Reference Range Interpretation Comme nts HEMOGLOBIN A1c (test code = 92984) 5.3 % Olvin MorenoLIPID [id number] 00:00:00* Test Item Value Reference Range Interpretation Comme nts CHOLESTEROL (test code = 2210) 188 MG/DL TRIGLYCERIDES (test code = 2232) 83 MG/DL HDL CHOLESTEROL (test code = 2220) 69 MG/DL CALC LDL CHOL (test code = 2237) 102 MG/DL RISK RATIO LDL/HDL (test cod e = 2238) 1.48 RATIO Olvin MorenoCBC W/AUTO [id number] 00:00:00* Test Item Value Reference Range Interpretation [...] ABS NUCLEATED RBCS (test cod e = 26195) 0.00 K/UL Olvin MorenoHEMOGLOBIN [id number] 00:00:00* Test Item Value Reference Range Interpretation Comme nts HEMOGLOBIN A1c (test code = 94583) 5.3 % Olvin MorenoLIPID [id number] 00:00:00* Test Item Value Reference Range Interpretation Comme nts CHOLESTEROL (test code = 2210) 188 MG/DL TRIGLYCERIDES (test code = 2232) 83 MG/DL HDL CHOLESTEROL (test code = 2220) 69 MG/DL CALC LDL CHOL (test code = 2237) 102 MG/DL RISK RATIO LDL/HDL (test cod e = 2238) 1.48 RATIO Olvin MorenoCBC W/AUTO [id number] 00:00:00* Test Item Value Reference Range Interpretation [...] ABS NUCLEATED RBCS (test cod e = 98146) 0.00 K/UL Olvin MorenoHEMOGLOBIN [id number] 00:00:00* Test Item Value Reference Range Interpretation Comme nts HEMOGLOBIN A1c (test code = 39187) 5.3 % Olvin MorenoLIPID [id number] 00:00:00* Test Item Value Reference Range Interpretation Comme nts CHOLESTEROL (test code = 2210) 188 MG/DL TRIGLYCERIDES (test code = 2232) 83 MG/DL HDL CHOLESTEROL (test code = 2220) 69 MG/DL CALC LDL CHOL (test code = 2237) 102 MG/DL RISK RATIO LDL/HDL (test cod e = 2238) 1.48 RATIO Olvin MorenoCBC W/AUTO [id number] 00:00:00* Test Item Value Reference Range Interpretation [...] ABS NUCLEATED RBCS (test cod e = 55368) 0.00 K/UL HEMOGLOBIN [id number] 00:00:00* Test Item Value Reference Range Interpretation Comme nts HEMOGLOBIN A1c (test code = 85499) 5.3 % LIPID [id number] 00:00:00* Test Item Value Reference Range Interpretation Comme nts CHOLESTEROL (test code = 2210) 188 MG/DL TRIGLYCERIDES (test code = 2232) 83 MG/DL HDL CHOLESTEROL (test code = 2220) 69 MG/DL CALC LDL CHOL (test code = 2237) 102 MG/DL RISK RATIO LDL/HDL (test cod e = 2238) 1.48 RATIO CBC W/AUTO [id number] 00:00:00* Test Item Value Reference Range Interpretation [...] ABS NUCLEATED RBCS (test cod e = 57719) 0.00 K/UL HEMOGLOBIN [id number] 00:00:00* Test Item Value Reference Range Interpretation Comme nts HEMOGLOBIN A1c (test code = 00971) 5.3 % LIPID [id number] 00:00:00* Test Item Value Reference Range Interpretation Comme nts CHOLESTEROL (test code = 2210) 188 MG/DL TRIGLYCERIDES (test code = 2232) 83 MG/DL HDL CHOLESTEROL (test code = 2220) 69 MG/DL CALC LDL CHOL (test code = 2237) 102 MG/DL RISK RATIO LDL/HDL (test cod e = 2238) 1.48 RATIO CBC W/AUTO [id number] 00:00:00* Test Item Value Reference Range Interpretation [...] ABS NUCLEATED RBCS (test cod e = 33762) 0.00 K/UL HEMOGLOBIN [id number] 00:00:00* Test Item Value Reference Range Interpretation Comme nts HEMOGLOBIN A1c (test code = 16564) 5.3 % NOTE: [ADDED]2020-05-12 00:00:00* Test Item Value Reference Range Interpretation Comme nts NOTE: (test code = 998) (NOTE) OCCULT BLD,FECAL,IMMUNOASSAY DIAG [ADDED]2020-05-12 00:00:00* Test Item Value Reference Range Interpretation Comme nts OCCULT BLD, FECAL (test code = 10318) NEGATIVE Olvin F AustinNOTE: [ADDED]2020-05-12 00:00:00* Test Item Value Reference Range Interpretation Comme nts NOTE: (test code = 998) (NOTE) Olvin F AustinOCCULT BLD,FECAL,IMMUNOASSAY DIAG [ADDED]2020-05-12 00:00:00* Test Item Value Reference Range Interpretation Comme nts OCCULT BLD, FECAL (test code = 50081) NEGATIVE Olvin F AustinNOTE: [ADDED]2020-05-12 00:00:00* Test Item Value Reference Range Interpretation Comme nts NOTE: (test code = 998) (NOTE) Olvin F AustinOCCULT BLD,FECAL,IMMUNOASSAY DIAG [ADDED]2020-05-12 00:00:00* Test Item Value Reference Range Interpretation Comme nts OCCULT BLD, FECAL (test code = 61357) NEGATIVE Olvin F AustinNOTE: [ADDED]2020-05-12 00:00:00* Test Item Value Reference Range Interpretation Comme nts NOTE: (test code = 998) (NOTE) Olvin F AustinOCCULT BLD,FECAL,IMMUNOASSAY DIAG [ADDED]2020-05-12 00:00:00* Test Item Value Reference Range Interpretation Comme nts OCCULT BLD, FECAL (test code = 04866) NEGATIVE Olvin F AustinNOTE: [ADDED]2020-05-12 00:00:00* Test Item Value Reference Range Interpretation Comme nts NOTE: (test code = 998) (NOTE) Olvin Zelaya AustinOCCULT BLD,FECAL,IMMUNOASSAY DIAG [ADDED]2020-05-12 00:00:00* Test Item Value Reference Range Interpretation Comme nts OCCULT BLD, FECAL (test code = 82394) NEGATIVE Olvin Zelaya AustinNOTE: [ADDED]2020-05-12 00:00:00* Test Item Value Reference Range Interpretation Comme nts NOTE: (test code = 998) (NOTE) Olvin Zelaya AustinOCCULT BLD,FECAL,IMMUNOASSAY DIAG [ADDED]2020-05-12 00:00:00* Test Item Value Reference Range Interpretation Comme nts OCCULT BLD, FECAL (test code = 09704) NEGATIVE NOTE: [ADDED]2020-05-12 00:00:00* Test Item Value Reference Range Interpretation Comme nts NOTE: (test code = 998) (NOTE) OCCULT BLD,FECAL,IMMUNOASSAY DIAG [ADDED]2020-05-12 00:00:00* Test Item Value Reference Range Interpretation Comme nts OCCULT BLD, FECAL (test code = 04267) NEGATIVE NOTE: [ADDED]2020-05-12 00:00:00* Test Item Value Reference Range Interpretation Comme nts NOTE: (test code = 998) (NOTE) OCCULT BLD,FECAL,IMMUNOASSAY DIAG [ADDED]2020-05-12 00:00:00* Test Item Value Reference Range Interpretation Comme nts OCCULT BLD, FECAL (test code = 98244) NEGATIVE COMPREHENSIVE METABOLIC [id number] 00:00:00* Test Item Value Reference Range Interpretation Comme nts GLUCOSE (test code = 2217) 94 MG/DL BUN (test code = 2208) 23 MG/DL CREATININE (test code = 2214) 0.76 MG/DL eGFR AMER. (test cod e = 55700) 90 ML/MIN/1.73 eGFR NON- AMER. (test code = 32451) 78 ML/MIN/1.73 CALC BUN/CREAT (test code = [...] (test code = 2219) 10 U/L LIPID [id number] 00:00:00* Test Item Value Reference Range Interpretation Comme nts CHOLESTEROL (test code = 2210) 186 MG/DL TRIGLYCERIDES (test code = 2232) 92 MG/DL HDL CHOLESTEROL (test code = 2220) 71 MG/DL CALC LDL CHOL (test code = 2237) 96 MG/DL RISK RATIO LDL/HDL (test cod e = 2238) 1.35 RATIO Olvin F JoshCOMPREHENSIVE METABOLIC [id number] 00:00:00* Test Item Value Reference Range Interpretation Comme nts GLUCOSE (test code = 2217) 94 MG/DL BUN (test code = 2208) 23 MG/DL CREATININE (test code = 2214) 0.76 MG/DL eGFR AMER. (test cod e = 51180) 90 ML/MIN/1.73 eGFR NON- AMER. (test code = 53013) 78 ML/MIN/1.73 CALC BUN/CREAT (test code = [...] = 2219) 10 U/L Olvin Zelaya AustinLIPID [id number] 00:00:00* Test Item Value Reference Range Interpretation Comme nts CHOLESTEROL (test code = 2210) 186 MG/DL TRIGLYCERIDES (test code = 2232) 92 MG/DL HDL CHOLESTEROL (test code = 2220) 71 MG/DL CALC LDL CHOL (test code = 2237) 96 MG/DL RISK RATIO LDL/HDL (test cod e = 2238) 1.35 RATIO Olvin MorenoCOMPREHENSIVE METABOLIC [id number] 00:00:00* Test Item Value Reference Range Interpretation Comme nts GLUCOSE (test code = 2217) 94 MG/DL BUN (test code = 2208) 23 MG/DL CREATININE (test code = 2214) 0.76 MG/DL eGFR AMER. (test cod e = 90595) 90 ML/MIN/1.73 eGFR NON- AMER. (test code = 66491) 78 ML/MIN/1.73 CALC BUN/CREAT (test code = [...] = 2219) 10 U/L Olvin Zelaya AustinLIPID [id number] 00:00:00* Test Item Value Reference Range Interpretation Comme nts CHOLESTEROL (test code = 2210) 186 MG/DL TRIGLYCERIDES (test code = 2232) 92 MG/DL HDL CHOLESTEROL (test code = 2220) 71 MG/DL CALC LDL CHOL (test code = 2237) 96 MG/DL RISK RATIO LDL/HDL (test cod e = 2238) 1.35 RATIO Olvin Zelaya AustinCOMPREHENSIVE METABOLIC [id number] 00:00:00* Test Item Value Reference Range Interpretation Comme nts GLUCOSE (test code = 2217) 94 MG/DL BUN (test code = 2208) 23 MG/DL CREATININE (test code = 2214) 0.76 MG/DL eGFR AMER. (test cod e = 54933) 90 ML/MIN/1.73 eGFR NON- AMER. (test code = 25715) 78 ML/MIN/1.73 CALC BUN/CREAT (test code = [...] = 2219) 10 U/L Olvin Zelaya AustinLIPID [id number] 00:00:00* Test Item Value Reference Range Interpretation Comme nts CHOLESTEROL (test code = 2210) 186 MG/DL TRIGLYCERIDES (test code = 2232) 92 MG/DL HDL CHOLESTEROL (test code = 2220) 71 MG/DL CALC LDL CHOL (test code = 2237) 96 MG/DL RISK RATIO LDL/HDL (test cod e = 2238) 1.35 RATIO Olvin Zelaya AustinCOMPREHENSIVE METABOLIC [id number] 00:00:00* Test Item Value Reference Range Interpretation Comme nts GLUCOSE (test code = 2217) 94 MG/DL BUN (test code = 2208) 23 MG/DL CREATININE (test code = 2214) 0.76 MG/DL eGFR AMER. (test cod e = 26107) 90 ML/MIN/1.73 eGFR NON- AMER. (test code = 68782) 78 ML/MIN/1.73 CALC BUN/CREAT (test code = [...] (test code = 2219) 10 U/L Olvin Garcia OreanaLIPID [id number] 00:00:00* Test Item Value Reference Range Interpretation Comme nts CHOLESTEROL (test code = 2210) 186 MG/DL TRIGLYCERIDES (test code = 2232) 92 MG/DL HDL CHOLESTEROL (test code = 2220) 71 MG/DL CALC LDL CHOL (test code = 2237) 96 MG/DL RISK RATIO LDL/HDL (test cod e = 2238) 1.35 RATIO Olvin Zelaya JoshCOMPREHENSIVE METABOLIC [id number] 00:00:00* Test Item Value Reference Range Interpretation Comme nts GLUCOSE (test code = 2217) 94 MG/DL BUN (test code = 2208) 23 MG/DL CREATININE (test code = 2214) 0.76 MG/DL eGFR AMER. (test cod e = 18375) 90 ML/MIN/1.73 eGFR NON- AMER. (test code = 40266) 78 ML/MIN/1.73 CALC BUN/CREAT (test code = [...] = 2219) 10 U/L Olvin Zelaya AustinLIPID [id number] 00:00:00* Test Item Value Reference Range Interpretation Comme nts CHOLESTEROL (test code = 2210) 186 MG/DL TRIGLYCERIDES (test code = 2232) 92 MG/DL HDL CHOLESTEROL (test code = 2220) 71 MG/DL CALC LDL CHOL (test code = 2237) 96 MG/DL RISK RATIO LDL/HDL (test cod e = 2238) 1.35 RATIO COMPREHENSIVE METABOLIC [id number] 00:00:00* Test Item Value Reference Range Interpretation Comme nts GLUCOSE (test code = 2217) 94 MG/DL BUN (test code = 2208) 23 MG/DL CREATININE (test code = 2214) 0.76 MG/DL eGFR AMER. (test cod e = 18648) 90 ML/MIN/1.73 eGFR NON- AMER. (test code = 22501) 78 ML/MIN/1.73 CALC BUN/CREAT (test code = [...] (test code = 2219) 10 U/L LIPID [id number] 00:00:00* Test Item Value Reference Range Interpretation Comme nts CHOLESTEROL (test code = 2210) 186 MG/DL TRIGLYCERIDES (test code = 2232) 92 MG/DL HDL CHOLESTEROL (test code = 2220) 71 MG/DL CALC LDL CHOL (test code = 2237) 96 MG/DL RISK RATIO LDL/HDL (test cod e = 2238) 1.35 RATIO COMPREHENSIVE METABOLIC [id number] 00:00:00* Test Item Value Reference Range Interpretation Comme nts GLUCOSE (test code = 2217) 94 MG/DL BUN (test code = 2208) 23 MG/DL CREATININE (test code = 2214) 0.76 MG/DL eGFR AMER. (test cod e = 54807) 90 ML/MIN/1.73 eGFR NON- AMER. (test code = 67106) 78 ML/MIN/1.73 CALC BUN/CREAT (test code = [...] (test code = 2219) 10 U/L LIPID [id number] 00:00:00* Test Item Value Reference Range Interpretation Comme nts CHOLESTEROL (test code = 2210) 186 MG/DL TRIGLYCERIDES (test code = 2232) 92 MG/DL HDL CHOLESTEROL (test code = 2220) 71 MG/DL CALC LDL CHOL (test code = 2237) 96 MG/DL RISK RATIO LDL/HDL (test cod e = 2238) 1.35 RATIO XR CHEST 2 [id number] 16:17:10EXAM: XR CHEST 2 VW HISTORY: Pulmonary [...] normal and thelungs are well expanded and clear.[facility] Notes Date/Time Note Provider Source Olvin ZelayaMiguelito [facility]2025-09-10 16:14:14* [facility]2025-09-10 16:14:14* Deanne Bland PA-C - 03/10/2025 3:00 PM CDT HPI: Aron Whipple is a 79 year old female is here for Follow-up (2 month follow up for chronic conditions. Has had a cough going on two weeks. Started coughing up green mucus. Thinks she might have a UTI. Dark foul smelling urine. Burning upon urination) and Cough . CAD/paroxysmal afib-managed by cardio Dr. Guerrier. On ASA, plavix. CHF: Managed by cardiology. Lasix 20 mg daily, Sacubatril-valsartain 24-26 mg BID, Spironolactone 25 mg daily, Carvedilol 6.25 mg BID Hypertension: Patient is currently taking Lasix 20 mg daily, Sacubatril-valsartain 24-26 mg BID, Spironolactone 25 mg daily, Carvedilol 6.25 mg BID Home BP measurements are well controlle.d BP Readings from Last 2 Encounters: 03/10/25 112/68 01/11/25 116/60 COPD: Taking Albuterol prn Anemia: Taking iron- Ferrous gluconate Results for orders placed or performed in visit on 10/19/24 CBC WITH DIFFERENTIAL Collection Time: 10/19/24 2:35 PM Result Value Ref Range WBC 8.9 3.6 - 12.5 10*3/uL Red Blood Cell 4.22 3.77 - 5.28 10*6/uL Hemoglobin 12.0 11.1 - 15.9 g/dL Hematocrit 39.1 34.0 - 46.6 % MCV 92.7 79.0 - 97.0 fL MCH 28.4 26.6 - 33.0 pg MCHC 30.7 (Low) 31.5 - 35.7 g/dL RDW-CV 16.0 (High) 11.6 - 15.4 % Platelets 273 150 - 450 10*3/uL Neutrophils 68 Not estab. % Lymphs 22 Not estab. % Monocytes 7 Not estab. % EOS 1.9 Not estab. % BASOS 0.9 Not estab. % Immature Granulocytes 0.2 Not estab. % Neutrophils Absolute 6.05 1.40 - 7.00 10*3/uL Lymphs Absolute 1.96 0.70 - 3.10 10*3/uL Monocytes Absolute 0.63 0.10 - 0.90 10*3/uL EOS Absolute 0.17 0.00 - 0.40 10*3/uL Baso Absolute 0.08 0.00 - 0.20 10*3/uL Immature Grans Abs 0.02 0.00 - 0.10 10*3/uL NRBC 0 <=0 % Depression: Stopped taking the Sertraline- doing well without medication. Insomina: Takes Ambien 10 mg nightly. Prescribed by Dr. Patel at [facility] Current medications: Current Medications[1] Allergies: Patient has no known allergies. I have reviewed the past Medical, Family, and Social history. Review of Systems: All systems are negative, except those pertinent items mentioned in the HPI. Review of Systems Constitutional: Negative for activity change. Eyes: Negative for visual disturbance. Respiratory: Negative for chest tightness, shortness of breath and wheezing. Cardiovascular: Negative for chest pain, palpitations and leg swelling. Genitourinary: Positive for dysuria and frequency. Negative for flank pain, hematuria, urgency and vaginal pain. Neurological: Negative for syncope, light-headedness and headaches. Physical Exam: BP 112/68 (Side: Left Arm, Position: SITTING, Cuff Size: Large Adult) | Pulse 78 | Temp 97.9 ?F (36.6 ?C) (Tympanic) | Resp 18 | Ht 5' 7" (1.702 m) | Wt 175 lb 4 oz (79.5 kg) | LMP (LMP Unknown) | SpO2 97% | BMI 27.45 kg/m? Physical Exam Constitutional: General: She is not in acute distress. Appearance: Normal appearance. HENT: Head: Normocephalic and atraumatic. Right Ear: External ear normal. Left Ear: External ear normal. Nose: Nose normal. Eyes: Conjunctiva/sclera: Conjunctivae normal. Cardiovascular: Rate and Rhythm: Normal rate. Pulses: Normal pulses. Heart sounds: No murmur heard. Pulmonary: Effort: Pulmonary effort is normal. No respiratory distress. Breath sounds: No stridor. No wheezing, rhonchi or rales. Neurological: General: No focal deficit present. Mental Status: She is alert. Psychiatric: Mood and Affect: Mood normal. Behavior: Behavior normal. Thought Content: Thought content normal. Judgment: Judgment normal. Assessment and Plan: Aron was seen today for follow-up and cough. Diagnoses and all orders for this visit: S/P right coronary artery (RCA) stent placementParoxysmal A-fib (multi HCC) Coronary artery disease involving ely shoshone coronary artery of ely shoshone heart without angina pectoris Managed by cardiology. Dr. Guerrier. [place] obtained for last progress note. Continue carvedilol 6.25 mg twice daily, Plavix, aspirin, spironolactone 25 mg daily, Lasix 20 mg daily as needed. Acute on chronic combined systolic and diastolic congestive heart failure(multi [facility]) Managed by cardiology. Dr. Guerrier. [place] obtained for last progress note. Continue carvedilol 6.25 mg twice daily, Plavix, aspirin, spironolactone 25 mg daily, Lasix 20 mg daily as needed. Chronic obstructive pulmonary disease, unspecified COPD type (multi HCC)- Albuterol HFA (VENTOLIN HFA) 108 (90 Base) MCG/ACT IN AERS; Inhale 2 puffs into the lungs every 6 hours as needed for wheezing. Controlled. Continue albuterol as needed. Iron deficiency anemia, unspecified iron deficiency anemia type- CBC WITH DIFFERENTIAL; Future - IRON AND TIBC; Future Recheck lab today. Continue oral iron supplementation. Bronchitis- Benzonatate 100 MG oral Capsule; Take 1 capsule (100 mg total) by mouth 3 times daily as needed for cough. - Azithromycin 250 MG oral Tablet; Take 2 tablets by mouth on day 1 then 1 tablet by mouth daily for 4 days thereafter.. - predniSONE (DELTASONE) 10 MG oral tablet; Take 1 tablet (10 mg total) by mouth daily. Will treat with Deltasone 10 mg x 5 days, azithromycin x 5 days, Tessalon Perles as needed. Recommended to reach out if symptoms worsen or persist. Dysuria- UA/M WITH CULTURE REFLEX; Future Will obtain UA. If positive will send antibiotic. Encounter for immunization- Fluad Trivalent PF (Seqirus)(0.5 mL)(65 years +) - Pneumococcal Conjugate 20 (Prevnar 20) (0.5mL) Return in about 3 months (around 06/09/2025) for follow up. This document was completed using voice recognition software. This can produce enterer errors that can at times significantly distort words and phrases. Please interpret any aspect of the note that is nonsensical in light of this fact. DAHIANA Gomez-CSP: Dr. Antoni Thomas, [facility] [1]Current Outpatient Medications Medication Sig Dispense Refill Albuterol HFA (VENTOLIN HFA) 108 (90 Base) MCG/ACT IN AERS Inhale 2 puffs into the lungs every 6 hours as needed for wheezing. 6.7 g 3 Atorvastatin Calcium 40 MG oral Tablet 1 tablet (40 mg total). Azithromycin 250 MG oral Tablet Take 2 tablets by mouth on day 1 then 1 tablet by mouth daily for 4 days thereafter.. 6 tablet 0 Benzonatate 100 MG oral Capsule Take 1 capsule (100 mg total) by mouth 3 times daily as needed for cough. 42 capsule 0 Carvedilol 6.25 MG oral Tablet Take 1 tablet (6.25 mg total) by mouth in the morning and 1 tablet (6.25 mg total) before bedtime. 180 tablet 1 Cholecalciferol 50 MCG (2000 UT) oral Capsule Take 1 tablet by mouth. Clopidogrel Bisulfate (PLAVIX) 75 MG oral Tablet Take 1 tablet (75 mg total) by mouth daily. Famotidine 40 MG oral Tablet Take 1 tablet (40 mg total) by mouth daily. 90 tablet 0 Ferrous Gluconate (IRON 27 OR) Furosemide (LASIX) 20 MG oral Tablet Take 1 tablet (20 mg total) by mouth 2 times daily. 180 tablet 0 HYDROcodone-Acetaminophen 7.5-325 MG oral Tablet Take 1 tablet by mouth every 4 hours as needed. Multiple Vitamin (MULTIVITAMIN ADULT OR) predniSONE (DELTASONE) 10 MG oral tablet Take 1 tablet (10 mg total) by mouth daily. 5 tablet 0 Spironolactone 25 MG oral Tablet Take 1 tablet (25 mg total) by mouth daily. 90 tablet 1 Zolpidem Tartrate 10 MG oral Tablet Take 1 tablet (10 mg total) by mouth at bedtime as needed. No current facility-administered medications for this visit. [facility]2025-09-10 16:14:14Pending Results Scheduled Orders Name Type Priority Associated Diagnoses Orde r Schedule CBC WITH DIFFERENTIAL Lab Routine Iron d eficiency anemia, unspecified iron deficiency anemia type Expected: 06/09/2025 (Approximate), Expires: 09/07/2025 IRON AND TIBC Lab Routine Iron deficienc y anemia, unspecified iron deficiency anemia type Expected: 03/10/2025 (Approximate), Expires: 06/08/2025 UA/M WITH CULTURE REFLEX Lab Routine Dysuria Expected: 03/10/2025 (Approximate), Expires: 04/09/2025 Health Maintenance Due Date Last Done Comments Bone Density Scan 2012 Physical Exam 08/03/2025 08/03/2024, 11/29, 12/13/2022, Additional history exists Creatinine Level (Kidney Function Test) 10/19/2025 10/19/2024, 08/03/2024, 12/14/2022, Additional history exists COVID-19 Vaccine ( season) 2026 04/26/2021, 08/27/2020, 07/30/2020 Postponed from 03/01/2025 (Patient Refused) RSV Vaccines (1 - 1-dose 75+ series) 03/10/2026 Postponed from 2022 (Patient Refused) Tdap Vaccines 03/10/2026 Postponed from 1966 (Patient Refused) Zoster Vaccines (2 of 3) 03/10/2026 07/01/2016 Pos tponed from 08/26/2016 (Patient Refused) Cologuard Discontinued 02/14/2023 COLONOSCOPY Discontinued 08/10/2024, 05/02, 05/22/2023 Colorectal Cancer Screening Discontinued Influenza Vaccines Completed 03/10/2025, 0 03/13/2024, 03/19/2023, Additional history exists Pneumococcal Vaccine: 50+ Years Completed 03/10/2025, 07/01/2016 CT Colonography Discontinued FIT Tests Discontinued Sigmoidoscopy Discontinued [facility]2025-09-10 16:14:14 Diagnosis S/P right coronary artery (R CA) stent placement - Primary Paroxysmal A-fib (multi HCC) Atrial fibrillation Coronary artery disease invo lving ely shoshone coronary artery of ely shoshone heart without angina pectoris 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 Has had a cough going on two weeks. Started coughing up green mucus. Thinks she might have a UTI. Dark foul smelling urine. Burning upon urination Cough Ele Cardoso LVN [facility]2025-07-14 11:09:32 Chief Complaint Patient presents with Follow-up Hospitalization Patient wants to talk about medications Ele Cardoso LVN [facility]2025-04-21 13:36:55 Chief Complaint Patient presents with UTI Patient complains of UTI symptoms for 1 week Back Pain Low back pain Urbano Allen MA Urbano Allen [facility]2025-02-19 00:00:00 [facility]2025-02-03 12:54:56 Chief Complaint Patient presents with Physical Patient is not fasting. No other issues to discuss Alexsandra Solares MA [facility]2024-11-20 00:00:00 [facility]2024-07-17 00:00:00 [place] [id number] 00:00:00 [place] [id number] 14:37:48 Chief Complaint Patient presents with Shoulder Pain Left shoulder pain for several months. No injury. Alexsandra Solares [facility] [id number] 18:32:35 Pt given printed and verbal discharge [...] gait, in no apparent distress. [facility] Morris [id number] 14:24:47 Reports left sided chest pain and shortness of breath x 1 week. It has gotten worse and decided to come in. Pain also gets worse when walking 100 feet in distance. No heart history . Xander Marion [facility] [id number] 15:25:[id number] [place] [address] PATIENT NAME: ARON WHIPPLE ADMIT DATE: 06/19/21 ACCOUNT NO: [id number] ROOM NO: [facility] AGE: 76 REPORT TYPE: eELECTROCARDIOGRAM SEX: F ADMITTING PHYSICIAN: Dylan Dowell MD ATTENDING PHYSICIAN: Dylan Dowell MD Order: [id number] Test Reason : Test Date/Time Stamp: SatJun [...] QRS duration Confirmed by RENARD GRISSOM MD ([id number]) on 06/21/2021 12:10:13 PM Referred By: Self Referred Confirmed by:RENARD GRISSOM MD at 1210 PATIENT NAME: ARON WHIPPLE 15:07:00 [facility] ([facility] EMERGENCY PROVIDER REPORT REPORT#:[id number] REPORT STATUS: Signed DATE:06/19/21 TIME: 150 PATIENT: ARON WHIPPLE UNIT #: [id number] ROOM: [facility] BED: 1 AGE: 76 SEX: F PCP [...] % (Auto) (20.5 - 51.1 %) 29.6 [place] % (Auto) (1.7 - 9.3 %) 6.3 Eos % (Auto) (0.0 - 7.0 %) 1.9 Baso % (Auto) (0 - 2.5 %) 0.6 Neut # (Auto) (1.80 - 7.70 x10 3/uL) 5.49 Lymph # (Auto) (1.00 - 4.80 x10 3/uL) 2.65 [place] # (Auto) (0.00 - 0.80 x10 3/uL) [...] Returned Call returned Call Returned Date 06/19/21 [employer]per Will see patient Free Text Consult Notes [...] Information will see patient at 1218 RPT #:[id number] END OF [id number] 13:52:00 [facility] ([facility] EMERGENCY PROVIDER REPORT REPORT#:[id number] REPORT STATUS: Signed DATE:03/21/21 TIME: 135 PATIENT: ARON WHIPPLE UNIT #: [id number] ROOM/BED: AGE: 75 SEX: F PCP PHYS: [...] trip and fall while walking at the [facility]. Patient states she tripped and landed awkwardly [...] Focal neuro deficit pres, Distracting injury pres. [place] Coma Score: Copyright Sir Kennedy Figueroa Copyright Sir Kennedy Figueroa Eye opening: (4) Spontaneous Verbal [...] Matilde VENTURA M.D. CAT SCAN - CT C-SPINE W/O CONT 03/21 1403 Report Impression - Status: SIGNED Entered: 03/21/2021 6865 IMPRESSION: 1. Mild generalized cerebral atrophy and [...] Report Impression - Status: SIGNED Entered: 03/21/2021 0510 IMPRESSION: 1. Mild generalized cerebral atrophy and [...] IMPRESSION: Unremarkable maxillofacial CT. Impression By: [email or web address] - MONSERRAT VENTURA M.D. Lab Statement Laboratory studies reviewed [...] older, Criteria met, CT ordered at 1555 [facility] #:[id number] END OF REPORTHCAMN
--- NOTE | 2025-03-31 10:56 | RAD REPORT ---
EXAMINATION: Wrist Right 3 View VIEWS: Three views CLINICAL INDICATION: Female, 79 years old. Pain;Swelling RIGHT COMPARISON: No prior exams IMPRESSION: No acute fracture. No malalignment. Moderate radiocarpal joint space narrowing. Spurring at the distal radioulnar joint. Advanced degener ative changes are present the base of the thumb and moderate degenerative changes at the STT joint.
--- NOTE | 2025-03-31 11:21 | ER ---
Nurse's Notes [facility] Name: Sofia Rodriguez Age: 79 yrs Sex: Female : 1945 Arrival Date: 03/31/2025 Time: 09:52 Bed 17 Private MD: Diagnosis: Cellulitis of right upper limb;Primary osteoarthritis, right wrist Presentation: 03/31 10:03 Chief complaint: Patient states: right wrist pain and swelling X 2 days, no injury. iw Coronavirus screen: At this time, the client does not indicate any symptoms associated with coronavirus-19. Ebola Screen: No symptoms or risks identified at this time. Initial Sepsis Screen: Does the patient meet any 2 criteria? No. Patient's initial sepsis screen is negative. Does the patient have a suspected source of infection? No. Patient's initial sepsis screen is negative. Risk Assessment: Do you want to hurt yourself or someone else? Patient reports no desire to harm self or others. Onset of symptoms was March 30, 2025. 10:03 Method Of Arrival: Ambulatory iw 10:03 Acuity: JAUN 3 iw Triage Assessment: 10:55 General: Appears in no apparent distress. comfortable, well groomed, Behavior is calm, go2 cooperative. Pain: Complains of pain in right arm Pain currently is 10 out of 10 on a pain scale. Quality of pain is described as aching. EENT: No deficits noted. No signs and/or symptoms were reported regarding the EENT system. Neuro: No deficits noted. Cardiovascular: No deficits noted. Respiratory: No deficits noted. GI: No deficits noted. No signs and/or symptoms were reported involving the gastrointestinal system. : No deficits noted. No signs and/or symptoms were reported regarding the genitourinary system. Derm: No deficits noted. No signs and/or symptoms reported regarding the dermatologic system. Musculoskeletal: Swelling present in right hand. Historical: - Allergies: 10:04 No Known Allergies; iw - PMHx: 10:04 coronary atherosclerosis; Hypertension; iw - PSHx: 10:04 cardiac stents; hernia repair; Cholecystectomy; Gastric Bypass; iw - Immunization history:: Adult Immunizations up to date. - Infectious Disease History:: Denies. - Social history:: Smoking status: Patient denies any tobacco usage or history of. Screenin:02 [facility] ED Fall Risk Assessment (Adult) History of falling in the last 3 months, go2 including since admission No falls in past 3 months (0 pts) Confusion or Disorientation No (0 pts) Intoxicated or Sedated No (0 pts) Impaired Gait No (0 pts) Mobility Assist Device Used No (0 pt) Altered Elimination No (0 pt) Score/Fall Risk Level 0 - 2 = Low Risk. Abuse screen: Denies threats or abuse. Nutritional screening: No deficits noted. Tuberculosis screening: No symptoms or risk factors identified. Assessment: 11:00 General: Appears in no apparent distress. comfortable, well groomed, Behavior is calm, go2 cooperative, Denies fever, feeling ill, fatigue, chills. Pain: Complains of pain in right hand Pain currently is 10 out of 10 on a pain scale. Quality of pain is described as aching. Neuro: No deficits noted. Cardiovascular: No deficits noted. Respiratory: No deficits noted. GI: No deficits noted. No signs and/or symptoms were reported involving the gastrointestinal system. : No deficits noted. No signs and/or symptoms were reported regarding the genitourinary system. EENT: No deficits noted. No signs and/or symptoms were reported regarding the EENT system. Derm: No deficits noted. No signs and/or symptoms reported regarding the dermatologic system. Musculoskeletal: No deficits noted. No signs and/or symptoms reported regarding the musculoskeletal system. Injury Description: Swelling to right hand/wrist. Vital Signs: 10:03 BP 129 / 93; Pulse 72; Resp 16; Pulse Ox 98% on R/A; Pain 9/10; iw 10:58 BP 109 / 98; Pulse 87; Resp 16; Pulse Ox 100% ; go2 11:47 BP 125 / 85; Pulse 85; Resp 74; Temp 98.5; Pulse Ox 100% ; go2 10:03 Pain Scale: Adult iw [place] Coma Score: 11:47 Eye Response: spontaneous(4). Motor Response: obeys commands(6). Verbal Response: go2 oriented(5). Total: 15. ED Course: 09:55 Patient arrived in ED. al6 09:57 Jaun Keane DO is Attending Physician. ms3 10:04 Triage completed. iw 10:04 Arm band placed on. iw 10:12 Sabrina Jennings, BRANDO is Primary Nurse. go2 10:29 Wrist Right 3 View XRAY In Process Unspecified. EDMS 11:02 No provider procedures requiring assistance completed. go2 11:04 Patient has correct armband on for positive identification. Bed in low position. Call go2 light in reach. Side rails up X 1. Provided Education on: . 11:47 Patient did not have IV access during this emergency room visit. Wrist splint, right. go2 Administered Medications: 11:39 Drug: HYDROcodone-acetaminophen PO 5 mg-325 mg 1 tabs PO once Route: PO; go2 11:49 Follow up: Response: Pain is decreased go2 Medication: 11:02 VIS not applicable for this client. go2 Outcome: 11:21 Discharge ordered by MD. ms3 11:48 Discharged to home ambulatory, go2 11:48 Condition: improved 11:48 Discharge instructions given to patient, family, Instructed on discharge instructions, follow up and referral plans. medication usage, Demonstrated understanding of instructions, follow-up care, medications, splint care, Prescriptions given X 1, 11:50 Patient left the ED. go2 Signatures: Dispatcher [employer] EDMS Noni Pham, RN RN iw Jaun Keane DO DO ms3 Sabrina Jennings RN RN go2 Whit [email or web address]
--- NOTE | 2025-03-31 11:21 | EDPHYS ---
Physician Documentation [facility] Name: Sofia Rodriguez Age: 79 yrs Sex: Female : 1945 Arrival Date: 03/31/2025 Time: 09:52 Bed 17 Private MD: ED Physician Jaun Keane HPI: 03/31 10:27 This 79 yrs old Female presents to ER via Ambulatory with complaints of Wrist Pain - ms3 and swelling. 10:27 79-year-old female past medical history of coronary atherosclerosis, hypertension ms3 presents to the emergency department for right wrist erythema and swelling. Patient states this has been ongoing for 2 days. Patient denies fevers or chills. Patient denies alleviating factors. Patient states the pain is worse with movement. Patient denies trauma. Patient states pain is a 9/10. Historical: - Allergies: 10:04 No Known Allergies; iw - PMHx: 10:04 coronary atherosclerosis; Hypertension; iw - PSHx: 10:04 cardiac stents; hernia repair; Cholecystectomy; Gastric Bypass; iw - Immunization history:: Adult Immunizations up to date. - Infectious Disease History:: Denies. - Social history:: Smoking status: Patient denies any tobacco usage or history of. ROS: 10:29 Constitutional: Negative for fever, and chills. Cardiovascular: Negative for chest ms3 pain, and palpitations. Respiratory: Negative for shortness of breath, cough, wheezing, and pleuritic chest pain, Abdomen/GI: Negative for abdominal pain, nausea, vomiting, diarrhea, and constipation, 10:29 MS/extremity: Positive for right wrist pain, 10:29 Skin: Positive for cellulitis, of the right wrist, Exam: 10:29 Constitutional: This is a well developed, well nourished patient who is awake, alert, ms3 and in no acute distress. Cardiovascular: Regular rate and rhythm with a normal S1 and S2. No gallops, murmurs, or rubs. Normal PMI, no JVD. No pulse deficits. Respiratory: Lungs have equal breath sounds bilaterally, clear to auscultation and percussion. No rales, rhonchi or wheezes noted. No increased work of breathing, no retractions or nasal flaring. Abdomen/GI: Soft, non-tender, with normal bowel sounds. No distension or tympany. No guarding or rebound. No evidence of tenderness throughout. 10:29 Skin: Appearance: abscess, Erythema on right wrist and dorsum of right hand. Vital Signs: 10:03 BP 129 / 93; Pulse 72; Resp 16; Pulse Ox 98% on R/A; Pain 9/10; iw 10:58 BP 109 / 98; Pulse 87; Resp 16; Pulse Ox 100% ; go2 11:47 BP 125 / 85; Pulse 85; Resp 74; Temp 98.5; Pulse Ox 100% ; go2 10:03 Pain Scale: Adult iw Burke Coma Score: 11:47 Eye Response: spontaneous(4). Motor Response: obeys commands(6). Verbal Response: go2 oriented(5). Total: 15. MDM: 10:10 Medical Screening Exam initiated ms3 10:30 Differential diagnosis: cellulitis vs msk pain vs gout. ms3 11:34 Data reviewed: vital signs, nurses notes, radiologic studies, and as a result, I will ms3 discharge patient. I considered the following discharge prescriptions or medication management in the emergency department Medications were administered in the Emergency Department. See MAR. Independent interpretation of the following test(s) in the Emergency Department X-Ray: My interpretation is Right wrist x-ray images reviewed by me did not reveal fracture. Counseling: I had a detailed discussion with the patient and/or guardian regarding the historical points, exam findings, and any diagnostic results supporting the discharge/admit diagnosis, radiology results, the need for outpatient follow up, to return to the emergency department if symptoms worsen or persist or if there are any questions or concerns that arise at home. Special discussion: I discussed with the patient/guardian in detail that at this point there is no indication for admission to the hospital. It is understood, however, that if the symptoms persist or worsen the patient needs to return immediately for re-evaluation. ED course: Discussed x-ray findings of joint space narrowing in right wrist and, nation with physical exam findings of likely cellulitis of right wrist and dorsum of right hand. Patient given prescription for doxycycline. Patient to follow-up with primary care physician in 2 to 3 days. Patient understands and agrees with plan. All questions were answered. Return precautions were discussed to include worsening symptoms, fevers, or any other concerns.. 03/31 10:11 Order name: Wrist Right 3 View XRAY; Complete Time: 11:10 ms3 03/31 11:10 Order name: Wrist Splint; Complete Time: 11:39 ms3 Administered Medications: 11:39 Drug: HYDROcodone-acetaminophen PO 5 mg-325 mg 1 tabs PO once Route: PO; go2 11:49 Follow up: Response: Pain is decreased go2 Disposition Summary: 03/31/25 11:21 Discharge Ordered Notes: Location: Home ms3 Condition: Stable ms3 Diagnosis - Cellulitis of right upper limb ms3 - Primary osteoarthritis, right wrist ms3 Followup: ms3 - With: Private Physician - When: 2 - 3 days - Reason: Recheck today's complaints Discharge Instructions: - Discharge Summary Sheet ms3 - Cellulitis, Adult ms3 - Arthritis, [id number] ms3 Forms: - Medication Reconciliation Form ms3 - Antibiotic Education ms3 - Prescription Opioid Use ms3 - Patient Portal Instructions ms3 - Leadership Thank You Letter ms3 Prescriptions: - Doxycycline Hyclate 100 mg Oral Tablet - take 1 tablet ORAL route every 12 hours; 20 tablet; Refills: 0, Product ms3 Selection Permitted Signatures: Dispatcher [employer] Noni Rivera, RN RN Jaun Quach DO DO ms3 Sabrina Jennings RN RN go2 Corrections: (The following items were deleted from the chart) 10:11 10:11 Wrist Right 3 View+[email or web address] ordered. EDMS EDMS
[2025-03-31] MEDS ORDERED: HYDROCODONE/APAP 5/325 MG TAB ONE (11:23)
[2025-03-31 12:22] VITALS: O2SAT 100
[2025-03-31 12:24] VITALS: BP 125/85; TEMP 98.5
== END 2025-03-31 11:50 | disposition home or self-care (01) ==
LOC: ER 09:52
DX: M19.031 Primary osteoarthritis, right wrist (principal); L03.113 Cellulitis of right upper limb; I10 Essential (primary) hypertension; I25.10 Atherosclerotic heart disease of native coronary artery without angina pectoris
CPT/HCPCS: 99284

== ENCOUNTER 2025-04-01 08:27 | Inpatient (IN) | payer OTHER ==
--- OUTSIDE RECORDS SUMMARY | 2025-04-01 08:45 | XMS REPORT | Continuity of Care Document ---
Author Name Unknown Address [address] [place] [address] [facility] Address [address] [place] [address] Care Team Providers Care Cake Puncher Name Role Phone MAGGIE LEZAMA Primary Care Physician Unavailab KHOI Lilly Attending Clinician Unavaila ble [id number] Attending Clinician Unavailable DEANNE BLAND Attending Clinician Unavailable ANTONI THOMAS Attending Clinician Unavailable CRISTA CULP Attending Clinician Unavailable CAROLINE [facility] Attending Raymond vazquez Unavailable MD CHRISTINE Attending Clinician Unavailab MAGGIE Ku Attending Clinician Unava ilable LAB90 Attending Clinician Unavailable GIN MORA Attending Clinician Unavailab FATIMAH Davis Attending Clinician U MORGAN Graff Attending Clinician Unava ilable OLVIN PEDRAZA Attending Clinician Unavailable PANTERA, AKI OLADIPO Attending Clinician Unav ailable ADEFREDERICKBIGBE, JUBRIL Attending Clinician UnavailTESHA Tracy Attending Clinician Unavailab CRISPIN Bailey Attending Clinician Unavailable Maggie Lezama MD Attending Clinician [phone] Dylan Dowell Attending Clinician Unavailoscar dodson RADIOLOGY Attending Clinician Unavailable Radiology Attending Clinician Unavailable Doctor Unassigned, [place] Attending Clinician U navailable Dominic Pérez Attending Clinician Unavailable Martin Sanchez DO Attending Clinician [phone] UNKNOWN, ATTENDING Attending Clinician Unavailab thania Unknown, Attending Attending Clinician Unavailab Loco Goyal Attending Clinician [phone] CURTIS ELI Admitting Clinician UnavailDylan Gatica CO Admitting Clinician UnavailNITA Santoyo Admitting Clinician Un available Physician, No Primary or Family Admitting Clinic trent Unavailable Payers Payer Name Policy Type Policy Number Effective Date Expirati on Date Source [employer] [place] [employer] (HMO-POS) [id number] 2024 00:00:00 [place] [place] PREMIUM H[place] [id number] 2020 00:00:00 MEDICARE-PART B 5 [id number] 2022 00:00:00 Problems Condition Name Condition Details Condition Category Status Onset Date Resolution Date Last Treatment Date Treating Clinician Comments Source 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 Disease Active 01-11 00:00: 00 Caroline Spaulding - Mat[place] amanda S/P right coronary artery (RCA) stent placement S/P right coronary artery (RCA) stent placement Disease Active 01-11 00:00: 00 Caroline patel Paroxysmal A-fib Paroxysmal A-fib Disease Active 01-11 00:00: 00 Caroline Spaulding - [place] am[place] 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 Disease Active 01-11 00:00: 00 Caroline Spaulding - [place] am[place] Iron deficiency anemia Iron deficiency anemia Disease Active 3-04 00:00: 00 Caroline Seybold - Externa l Risk for falls Risk for falls Disease Active 615 00:00: 00 Caroline Seybold - Externa l 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 Disease Active 615 00:00: 00 Caroline Seybold - Externa l [...] shoulder pain Left shoulder pain Disease Active 2- 00:00: 00 [facility] Acute depression (disorder) Acute depression (disorder) Active Problem 03/02/2021 [facility] Problem Active 2021-03-02 22:32:31 Memoria l Jean Dizziness (finding) Dizziness (finding) Active Problem 03/02/2021 [facility] Problem Active 2021-03-02 22:32:31 Memajith patel Paulina Headache (finding) Headache (finding) Active Problem 03/02/2021 [facility] Problem Active 2021-03-02 22:32:31 Memajith patel Jean Hypertensi ve disorder, systemic arterial (disorder) Hypertensi ve disorder, systemic arterial (disorder) Active Problem 03/02/2021 [facility] Problem Active 2021-03-02 22:32:31 Memoria amanda StevensJean Hernia of abdominal wall (disorder) Hernia of abdominal wall (disorder) Resolved Problem 03/02/2021 [facility] Problem Resolve d 2021-03-02 22:32:31 Memoria l Paulina 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 ) Resolved Problem 03/02/2021 [facility] Problem Resolve d 2021-03-02 22:32:31 Memoria amanda Paulina Injury of right foot Injury of right foot Resolved Problem 03/02/2021 [facility] Problem Resolve d 2021-03-02 22:32:31 Memoria l Jean Injury of right shoulder Injury of right shoulder Resolved Problem 03/02/2021 [facility] Problem Resolve d 2021-03-02 22:32:31 Memoria amanda Paulina Allergies, Adverse Reactions, Alerts Allergy Name Allergy Type Status Severity Reaction(s) Onset Date Inactive Date Treating Clinician Comments Source No Known Allergie s DA Active U 2020-0720 00:00: 00 [facility] No Known Allergie s DA Active U 03-21 00:00: 00 [facility] No Known Allergie s DA Active U 03-21 00:00: 00 [facility] No Known Contrast Allergie s DA Active U 01-08 00:00: 00 [facility] No Known Drug Allergie s DA Active U 01-08 00:00: 00 [facility] No Known Food Allergie s DA Active U 01-08 00:00: 00 [facility] No Known Other Allergie s DA Active U 01-08 00:00: 00 [facility] No Known Drug Intolera nces DA Active U 11-18 00:00: 00 [facility] NO KNOWN ALLERGIE S Drug Class Active [facility] Social History Social Habit Start Date Stop Date Quantity Comments Source ASSERTION Not Caroline Spaulding - External History of tobacco use Current smoker [facility] Gender identity [facility] Sexual orientation U [facility] Exposure to SARS-CoV-2 (event) Not sure [facility] Alcoholic beverage intake 2025-03-10 00:00:00 2025-03-10 00:00:00 Lifetime non-drinker (finding) Caroline Spaulding - External Tobacco use and exposure 2024-08-03 00:00:00 2024-08-03 00:00:00 Smokeless tobacco non-user Caroline Spaulding - External History of Social function 2023-03-11 00:00:00 2023-03-11 00:00:00 [facility] Alcohol intake 2023-03-11 00:00:00 2023-03-11 00:00:00 0 /d [facility] Sex 2021-11-28 10:01:57 2021-11-28 10:01:57 Female (finding) Caroline Spaulding - External Social History 2017-04-21 15:24:53 2017-04-21 15:24:53 [facility] Sex assigned at 1945 00:00:00 1945 00:00:00 Caroline Spaulding - External Smoking Status Start Date Stop Date Source Never smoked tobacco Caroline Spaulding - External Ex-smoker 2017-10-10 00:00:00 2017-10-10 00:00:00 [facility] Medications Ordered Medication Name Filled Medication Name [...] MCG/ACT IN AERS 03-10 00:00: 00 Yes [id number] 2{puff} Q.25D Inhale 2 puffs into the lungs every 6 hours as needed for wheezing. Caroline patel Benzonatate 100 MG oral Capsule Benzonatate 100 MG oral Capsule 03-10 00:00: 00 Yes [id number] 100mg Q.[id number] 3D Take 1 capsule (100 mg total) by mouth 3 times daily as needed for cough. Caroline patel predniSONE (DELTASONE) 10 MG oral tablet predniSONE (DELTASONE) 10 MG oral tablet 03-10 00:00: 00 Yes [id number] 10mg QD Take 1 tablet (10 mg total) by mouth daily. Caroline patel Azithromyci n 250 MG oral Tablet Azithromyci n 250 MG oral Tablet 03-10 00:00: 00 03-15 23:59 :00 No [id number] Take 2 tablets by mouth on day [...] MG oral Tablet 02-26 00:00: 00 Yes [id number] 25mg QD Take 1 tablet (25 mg total) by mouth daily. Caroline patel Carvedilol 6.25 MG oral Tablet Carvedilol 6.25 MG oral Tablet 02-26 00:00: 00 Yes [id number] 6.25mg Q.5D Take 1 tablet (6.25 mg total) by mouth in the morning and 1 tablet (6.25 mg total) before bedtime. Caroline patel Sacubitril- Valsartan 24-26 MG oral Tablet Sacubitril- Valsartan 24-26 MG oral Tablet 8-29 00:00: 00 03-10 00:00 :00 No [id number] 1{tbl} Q.5D Take 1 tablet by mouth in the morning and 1 tablet before bedtime. Caroline patel Famotidine 40 MG oral Tablet Famotidine 40 MG oral Tablet 17 00:00: 00 Yes [id number] 40mg QD Take 1 tablet (40 mg total) by mouth daily. Caroline patel Ferrous Gluconate (IRON 27 OR) 01-11 11:08: 57 Yes [id number] Caroline patel Carvedilol 6.25 MG oral Tablet [...] tito 50 MCG (1999 UT) oral Capsule Cholecalcif tito 50 MCG (1999 UT) oral [...] (IRON 27 OR) 10-19 13:36: 53 Yes [id number] Caroline patel Famotidine 40 MG oral Tablet 10-19 00:00: 00 Yes [id number] 40mg QD Take 1 tablet (40 mg total) by mouth daily. Caroline patel Amoxicillin -Pot Clavulanate 875-125 MG oral Tablet 07 00:00: 00 Yes [id number] 1{tbl} Q.5D Take 1 tablet by mouth 2 times daily. Caroline patel Biotin 1 MG oral Capsule 09-01 15:44: 14 Yes Caroline patel Ferrous Gluconate (IRON 27 OR) 09-01 15:44: 14 Yes [id number] , Caroline patel Lisinopril 10 MG oral Tablet 3- 00:00: 00 Yes [id number] 10mg QD Take 1 tablet (10 mg total) by mouth daily. Caroline patel TRIMETHOPRI M-SULFAMETH OXAZOLE (BACTRIM DS) 800-160 MG oral Tablet 3 00:00: 00 09-09 04:59 :00 No [id number] 1{tbl} Q.5D Take 1 tablet by mouth [...] 08-10 00:00: 00 03-10 00:00 :00 No [id number] 40mg Q.5D Take 1 tablet (40 mg total) by mouth 2 times daily. Caroline patel Bismuth Subsalicyla te 525 MG oral Tablet 08-10 00:00: 00 09-01 00:00 :00 No [id number] 1{tbl} Q.25D Take 1 tablet by mouth 4 times daily. Caroline patel Metronidazo le 500 MG oral Tablet 08-10 00:00: 00 09-01 00:00 :00 No [id number] 500mg Q.[id number] 3D Take 1 tablet (500 mg total) by mouth 3 times daily. Caroline patel Tetracyclin e HCl 500 MG oral Capsule 08-10 00:00: 00 09-01 00:00 :00 No [id number] 500mg Q.25D Take 1 capsule (500 mg total) by mouth 4 times daily. Caroline patel Nitrofurant oin Monohyd Macro (Macrobid) 100 MG oral Capsule 08-04 00:00: 00 Yes [id number] 100mg Q.5D Take 1 capsule (100 mg total) by mouth 2 times daily. Caroline patel Multiple Vitamin (MULTIVITAM IN ADULT OR) 08-03 12:54: 20 Yes Caroline patel HYDROcodone -Ibuprofen 5-200 MG oral Tablet 08-03 12:54: 05 08-03 00:00 :00 No Caroline patel Biotin 1 MG oral Capsule 08-03 12:54: 03 Yes Caroline patel Ferrous Gluconate (IRON 27 OR) 2 12:54: 03 Yes [id number] , Caroline patel Lisinopril 10 MG oral Tablet 08-03 00:00: 00 09-01 00:00 :00 No [id number] 10mg QD Take 1 tablet (10 mg total) by mouth daily. Caroline patel Sertraline HCl 50 MG oral Tablet 2023-07 00:00: 00 Yes [id number] 50mg QD Take 1 tablet (50 mg total) by mouth daily. Caroline patel zolpidem 10 mg tablet 2023-07 00:00: 00 Yes mg Olvin Garcia Josh lisinopril 30 mg tablet 2023-07 00:00: 00 Yes 1mg Olvin Garcia Josh sertraline 50 mg tablet 2023-07 00:00: 00 Yes 1mg Olvin Garcia Moreno Celecoxib 200 MG oral Capsule Celecoxib 200 MG oral Capsule 2023-07 00:00: 00 03-10 00:00 :00 No [id number] 200mg Q.5D Take 1 capsule (200 mg total) by mouth 2 times daily as needed for pain. Caroline patel Sertraline HCl 50 MG oral Tablet Sertraline HCl 50 MG oral Tablet 2023-07 00:00: 00 03-10 00:00 :00 No [id number] 100mg QD Take 2 tablets (100 mg total) by mouth daily. Caroline patel famotidine 20 mg tablet 2023-07 00:00: 00 Yes 1mg Olvin Garcia Josh zolpidem 10 mg tablet 2023-0705 00:00: 00 Yes mg Olvin Garcia Josh Pantoprazol e Sodium 40 MG oral Tablet Delayed Response 2023-07 0-14 00:00: 00 Yes [id number] 40mg QD take one (1) tablet(s) by mouth once a day. Caroline patel zolpidem 10 mg tablet -07 00:00: 00 Yes mg Olvin Garcia Josh albuterol sulfate HFA 90 mcg/actuati on aerosol inhaler 7-29 00:00: 00 Yes 2mcg/ac tuation Olvin Moreno Lisinopril 30 MG oral Tablet 7-05 00:00: 00 08-03 00:00 :00 No [id number] 30mg QD take 1 tablet by mouth [...] Tablet Delayed Response 10-29 00:00: 00 Yes [id number] 40mg Take 1 tablet (40 mg total) by mouth daily. Caroline patel Celecoxib 200 MG oral Capsule 10-29 00:00: 00 Yes [id number] 200mg Take 1 capsule (200 mg total) by mouth 2 times daily. Caroline patel DICLOFENAC SODIUM 1% GEL 10-29 00:00: 00 Yes Olvin Moreno PANTOPRAZOL E SOD DR 40 MG 10-29 00:00: 00 Yes Olvin Moreno Diclofenac Sodium 1 % apply externally Gel 10-29 00:00: 00 09-01 00:00 :00 No [id number] 1{appli cation} Q.25D Apply 1 Applicatio n topically 4 times daily as needed (joint pain). Caroline patel zolpidem 10 mg tablet -19 00:00: 00 Yes mg Olvin Moreno lisinopril 30 mg tablet 2024-0 4-07 00:00: 00 Yes mg Olvin Moreno Zolpidem [...] 00:00: 00 09-01 00:00 :00 No [place] Externa l sertraline 50 mg tablet 2022-07 00:00: 00 [...] 2022-07 17:30: 00 04-25 17:24 :00 No [id number] 80mg Caroline patel FAMOTIDINE 20MG 2022-07 0-26 00:00: 00 Yes Olvin Moreno LISINOPRIL 30MG [...] 03-11 22:30: 00 03-11 22:49 :00 No [id number] 90mL 90 mL, Intravenou s, ONCE, 1 dose, On Sat03/11/23 at 1730, Routine [facility] aspirin tablet 325 mg 03-11 19:45: 00 03-11 20:13 :00 No 325mg 325 mg, Oral, ONCE, 1 dose, On Sat03/11/23 at 1445, STAT [facility] GABAPENTIN 100MG 9-03 00:00: 00 Yes Olvin Moreno ALBUTEROL PA HFA 200 INH 8- 00:00: 00 Yes Olvin Moreno Albuterol HFA (VENTOLIN HFA) 108 (90 Base) MCG/ACT IN AERS Albuterol HFA (VENTOLIN HFA) 108 (90 Base) MCG/ACT IN AERS 8 00:00: 00 03-10 00:00 :00 No [id number] 2{puff} Q.25D Inhale 2 puffs into the lungs every 6 hours as needed for wheezing. Caroline patel Pantoprazol e Sodium 40 MG oral Tablet Delayed Response 02-26 00:00: 00 Yes [id number] 40mg TAKE ONE TABLET BY MOUTH DAILY Caroline patel PANTOPRAZOL E 40MG DR 02-26 00:00: 00 Yes Olvin Moreno GABAPENTIN 100 MG CAPSULE 02-26 00:00: 00 Yes 100 Olvin Moreno Gabapentin 100 MG oral Capsule 02-26 00:00: 00 11-12 00:00 :00 No [id number] 100mg Take 1 capsule (100 mg total) by mouth 3 times daily. Caroline patel SERTRALINE 100MG 02-20 00:00: 00 Yes Olvin Moreno PREDNISONE 10MG - 00:00: 00 Yes Olvin Moreno ZOLPIDEM TARTRATE 10 MG 02-06 00:00: 00 Yes 10 Olvin Moreno Celecoxib 200 MG oral Capsule 02-04 00:00: 00 Yes [id number] TAKE 1 CAPSULE BY MOUTH TWICE A DAY Caroline patel GABAPENTIN 100MG 02-04 00:00: 00 Yes Olvin Moreno FAMOTIDINE 20MG - 00:00: 00 Yes Olvin Moreno CELECOXIB 200MG 7-03 00:00: 00 Yes Olvin Moreno TRAZODONE 50MG 12-15 00:00: 00 Yes [id number] Olvin Moreno Lisinopril 30 MG oral Tablet 12-13 00:00: 00 Yes [id number] 30mg Take 1 tablet (30 mg total) by mouth daily Caroline patel Albuterol HFA (VENTOLIN HFA) 108 (90 Base) MCG/ACT IN AERS 12-13 00:00: 00 Yes [id number] 2{puff} Q.25D Inhale 2 puffs into the lungs every 6 hours as needed for wheezing Caroline patel ALBUTEROL PV HFA 200 INH 12-13 00:00: 00 Yes Olvin Moreno Sertraline HCl 100 MG oral Tablet 12-13 00:00: 00 09-01 00:00 :00 No [id number] 100mg QD Take 1 tablet (100 mg total) by mouth daily Caroline patel Zolpidem Tartrate (Ambien) 5 MG oral Tablet 12-13 00:00: 00 11-12 00:00 :00 No [id number] 5mg QD Take 1 tablet (5 mg total) by mouth nightly as needed for sleep Caroline patel DULOXETINE 60MG DR 12-12 00:00: 00 Yes [id number] Olvin Moreno LISINOPRIL 30MG 12-11 00:00: 00 Yes Olvin Moreno Celecoxib 200 MG oral Capsule 12-04 00:00: 00 Yes [id number] TAKE ONE CAPSULE BY MOUTH TWICE A DAY Caroline patel PANTOPRAZOL E 40MG DR 11-28 00:00: 00 Yes Olvin Moreno SERTRALINE 100MG 11-22 00:00: 00 Yes [id number] Olvin Moreno Hydrocortis one, Perianal, 2.5 % apply externally Cream 11-15 00:00: 00 Yes Caroline patel HYDROCORTIS O 2.5%RECT CRE 11-15 00:00: 00 Yes Olvin Moreno Nitrofurant oin Monohyd Macro (Macrobid) 100 MG oral Capsule 11-14 00:00: 00 Yes [id number] 100mg Take 1 capsule (100 mg total) by mouth 2 times daily Caroline patel Lisinopril 30 MG oral Tablet 11-14 00:00: 00 Yes [id number] 30mg Take 1 tablet (30 mg total) by mouth daily Caroline patel Gabapentin 100 MG oral Capsule 11-14 00:00: 00 Yes [id number] 100mg Take 1 capsule (100 mg total) by mouth 3 times daily Caroline patel NITROFUR MON 100MG 11-14 00:00: 00 Yes Olvin Moreno FLUCONAZOLE 150MG 2023-0 5-17 00:00: 00 Yes Olvin Moreno GABAPENTIN 100MG 2022-0 5-17 00:00: 00 Yes Olvin Moreno LISINOPRIL 30MG 2022-0 5-17 00:00: 00 Yes Olvin Moreno USE 1 SPRAY IN EACH NOSTRIL ONCE DAILY. 0 5-16 00:00: 00 Yes 50 Olvin Moreno FAMOTIDINE 20 MG 2022-0 5-16 00:00: 00 Yes 20 Olvin Moreno USE 1 SPRAY IN EACH NOSTRIL ONCE DAILY. 0 -15 00:00: 00 Yes 50 Olvin Moreno USE DIRECTED 0 -15 00:00: 00 -15 00:00 :00 No 25 Olvin Moreno Celecoxib 200 MG oral Capsule 2022-0 5-08 00:00: 00 Yes [id number] TAKE ONE CAPSULE BY MOUTH TWICE A DAY Caroline patel famotidine 20 mg tablet 2022-0 4-22 00:00: 00 Yes mg Olvin Moreno CELECOXIB 200MG 2022-0 4-10 00:00: 00 Yes Olvin Moreno Duloxetine HCl [address] Particles 2022-0 3-20 00:00: 00 Yes [id number] 60mg Take 1 capsule (60 mg total) by mouth daily Caroline patel ZOLPIDEM 10MG 2022-0 3-20 00:00: 00 Yes [id number] Olvin Moreno TRAZODONE 50MG 2022-0 3-19 00:00: 00 Yes [id number] Olvin Moreno LISINOPRIL 20MG 2022-0 3-14 00:00: 00 Yes Olvin Moreno Lisinopril 20 MG oral Tablet 2022-0 3-14 00:00: 00 -17 00:00 :00 No [id number] 20mg Take 1 tablet (20 mg total) by mouth daily Caroline patel CELECOXIB 200MG 2022-0 3-13 00:00: 00 Yes Olvin Moreno PANTOPRAZOL E 40MG DR 3-0 3-02 00:00: 00 Yes Olvin Moreno SERTRALINE 100MG 2022-0 2-24 00:00: 00 Yes [id number] Olvin Moreno PREDNISONE 10MG - 00:00: 00 Yes [id number] Olvin Moreno predniSONE (DELTASONE) 10 MG oral tablet 08-22 00:00: 00 11-14 00:00 :00 No Caroline patel ZOLPIDEM 10MG - 00:00: 00 Yes Olvin Moreno LISINOPRIL 20MG 08-17 00:00: 00 Yes Olvin Moreno CELECOXIB 200MG 08-13 00:00: 00 Yes Olvin Moreno TAKE 1 TABLET AT BEDTIME. 07-24 00:00: 00 11-12 00:00 :00 No 20 Olvin Moreno TAKE 1 TABLET AT BEDTIME NEEDED. 07-24 00:00: 00 11-12 00:00 :00 No 10 Olvin Moreno TAKE 1 TABLET AT BEDTIME NEEDED. 07-23 00:00: 00 No 10 TAKE 1 TABLET AT BEDTIME NEEDED. 07-23 00:00: 00 Yes 10 Olvin Moreno TAKE 1 TABLET AT BEDTIME NEEDED. 07-19 00:00: 00 No 10 TAKE 1 TABLET AT BEDTIME NEEDED. - 00:00: 00 Yes 10 Olvin Moreno Sertraline HCl 100 MG oral Tablet - 00:00: 00 Yes [id number] 50mg Take 0.5 tablets (50 mg total) by mouth daily Caroline patel MELOXICAM 15MG - 00:00: 00 Yes [id number] Olvin Moreno TRAZODONE 50MG 2021-07- 00:00: 00 No Trazodone HCl 50 MG oral Tablet 2021-07- 00:00: 00 Yes [id number] 50mg Take 1 tablet (50 mg total) by mouth nightly AT BEDTIME Caroline patel TRAZODONE 50MG 2021-07- 00:00: 00 Yes Olvin Moreno TAKE 1 AT BEDTIME 2021-07- 00:00: 00 No TAKE 1 TABLET AT [...] 00 11-12 00:00 :00 No Olvin Moreno TAKE 1 TABLET BY MOUTH TWICE [...] Tablet Delayed Response 2021-07 00:00: 00 Yes [id number] 40mg Take 1 tablet (40 mg total) by mouth daily Caroline patel MELOXICAM 15MG 2021-07 00:00: 00 Yes Olvin Garcia Moreno Celecoxib (CeleBREX) 200 MG oral Capsule 2021-07- 00:00: 00 Yes [id number] 200mg Take 1 capsule (200 mg total) by mouth 2 times daily Caroline patel SERTRALINE 100MG 2021-07 00:00: 00 No SERTRALINE 100MG 2021-07 00:00: 00 Yes Olvin Moreno DULOXETINE 60MG DR 2021-07 00:00: 00 No Trazodone HCl 50 MG oral Tablet 2021-07 00:00: 00 Yes [id number] TAKE ONE TABLET BY MOUTH EVERY NIGHT AT BEDTIME Caroline patel DULOXETINE 60MG DR 2021-07 00:00: 00 Yes Olvin Moreno Lisinopril 20 MG oral Tablet 2021-07 00:00: 00 Yes [id number] TAKE ONE TABLET BY MOUTH DAILY Caroline patel Duloxetine HCl [address] Particles 2021-07 00:00: 00 Yes [id number] TAKE ONE CAPSULE BY MOUTH DAILY Caroline patel Lisinopril 20 MG oral Tablet 2021-07 00:00: 00 Yes [id number] 20mg Take 1 tablet (20 mg total) by mouth daily Caroline patel Trazodone HCl 50 MG oral Tablet 2021-07 00:00: 00 Yes [id number] 50mg Take 1 tablet (50 mg total) by mouth nightly Caroline patel Duloxetine HCl [address] Particles 2021-07 00:00: 00 Yes [id number] 60mg Take 1 capsule (60 mg total) by mouth daily Caroline patel Sertraline HCl 100 MG oral Tablet 2021-07 00:00: 00 Yes [id number] 50mg Take 0.5 tablets (50 mg total) by mouth daily Caroline patel Diclofenac Sodium 75 MG oral Tablet Delayed Response 2021-07 00:00: 00 Yes 75mg Take 1 tablet (75 mg total) by mouth daily Caroline patel Meloxicam 15 MG oral Tablet 2021-07 00:00: 00 04-26 00:00 :00 No [id number] 15mg QD Take 1 tablet (15 mg total) by mouth daily as needed for pain Caroline patel Lisinopril 10 MG oral Tablet 03-29 00:00: 00 Yes [id number] 20mg Take 2 tablets (20 mg total) by mouth daily Caroline patel Doxepin HCl 3 MG oral Tablet 03-29 00:00: 00 Yes [id number] 30{tbl} Take 30 tablets by mouth nightly Caroline patel Sertraline HCl 100 MG oral Tablet 03-29 00:00: 00 Yes [id number] 100mg Take 1 tablet (100 mg total) by mouth daily Caroline patel ALBUTEROL PA HFA 200 INH 03-29 00:00: 00 11-12 00:00 :00 No [id number] Olvin Moreno Albuterol HFA 108 (90 Base) MCG/ACT IN AERS 03-29 00:00: 00 12-13 00:00 :00 No [id number] 2{puff} Q.25D Inhale 2 puffs into the lungs every 6 hours as needed for wheezing Caroline patel Doxepin HCl 3 MG oral Tablet 03-29 00:00: 00 04-26 00:00 :00 No [id number] 1{tbl} Take 1 tablet by mouth nightly Caroline patel Meloxicam 15 MG oral Tablet 03-22 00:00: 00 Yes [id number] 15mg QD Take 1 tablet (15 mg total) by mouth daily as needed for pain Caroline patel Famotidine (PEPCID) 20 MG oral tablet 03-15 00:00: 00 Yes Caroline patel Diclofenac Sodium 75 MG oral Tablet Delayed Response 03-15 00:00: 00 Yes Caroline patel BACLOFEN 10MG 03-15 00:00: 00 11-12 00:00 :00 No [id number] Olvin Moreno SERTRALINE HYDROCHLORI DE 100MG 03-01 00:00: 11-12 00:00 :00 No [id number] Olvin Moreno Lisinopril 10 MG oral Tablet 9- 00:00: 00 03-29 00:00 :00 No [id number] 10mg Take 1 tablet (10 mg total) by mouth daily Caroline patel Sertraline HCl 100 MG oral Tablet 9 00:00: 00 03-29 00:00 :00 No [id number] 100mg Take 1 tablet (100 mg total) by mouth daily Caroline patel DULOXETINE HYDROCHLORI DE 40MG DR -15 00:00: 00 11-12 00:00 :00 No [id number] Olvin Moreno PANTOPRAZOL E SODIUM 40MG DR TAB 0 -14 00:00: 00 No PANTOPRAZOL E SODIUM 40MG DR TAB 0 - 00:00: 00 No PANTOPRAZOL E SODIUM 40MG DR TAB 0 - 00:00: 00 Yes Olvin Moreno MELOXICAM 15MG 2021-0 8-10 00:00: 00 11-12 00:00 :00 No [id number] Olvin Moreno SERTRALINE HCL 50MG 2021-0 8-10 00:00: 00 11-12 00:00 :00 No [id number] Olvin Moreno &lt 2-0 8-05 00:00: 00 No 500 &lt 2022-0 8-05 00:00: 00 No &lt 2022-0 8-05 00:00: 00 No 500 Dose Unknown 2021-0 8-05 00:00: 00 No &lt 2022-0 8-05 00:00: 00 Yes 500 Olvin Moreno Dose Unknown 2021-0 8-05 00:00: 00 Yes Olvin Zelaya Josh &lt 2022-0 7-01 00:00: 00 No &lt 2022-0 7-01 00:00: 00 No &lt 2022-0 7- 00:00: 00 No &lt 2022-0 7- 00:00: 00 No SERTRALINE HYDROCHLORI DE 100MG TAB 2021-0 7- 00:00: 00 No MELOXICAM 15MG TAB 12-29 00:00: 00 No ZOLPIDEM TARTRATE 10MG TAB - 00:00: 00 No &lt 12-29 00:00: 00 No SERTRALINE HYDROCHLORI DE 100MG TAB - 00:00: 00 Yes Olvin Moreno MELOXICAM 15MG TAB 12-29 00:00: 00 Yes Olvin Moreno &lt 12-29 00:00: 00 Yes Olvin Moreno DULOXETINE HYDROCHLORI DE 40MG DR 12-16 00:00: 00 11-12 00:00 :00 No [id number] Olvin Moreno Albuterol HFA 108 (90 Base) MCG/ACT IN AERS 12-01 00:00: 00 Yes [id number] 2{puff} Q.25D Inhale 2 puffs into the lungs every 6 hours as needed for wheezing Caroline Spaulding Amoxicillin -Pot Clavulanate 500-125 MG oral Tablet 12-01 00:00: 00 Yes [id number] 1{tbl} Take 1 tablet by mouth in [...] 11-16 00:00: 00 11-12 00:00 :00 No [id number] Olvin Moreno predniSONE (DELTASONE) 10 MG oral tablet 11-15 00:00: 00 Yes Caroline Spaulding meloxicam 15 mg tablet 10-04 00:00: 00 No 1mg meloxicam 15 mg tablet - 00:00: 00 No 1mg meloxicam 15 mg tablet 2022-0 4-06 00:00: 00 Yes 1mg Olvin Moreno ZOLPIDEM TARTRATE 10MG 2-0 4-06 00:00: 00 05-15 00:00 :00 No [id number] Olvin Moreno Dose Unknown 2021-0 3-30 00:00: 00 No Dose Unknown 2021-0 330 00:00: 00 No Dose Unknown 2021-0 3-30 00:00: 00 Yes Olvin Moreno Dose Unknown 2021-0 3-24 00:00: 00 No Dose Unknown 2021-0 324 00:00: 00 No Dose Unknown 2021-0 324 00:00: 00 Yes Olvin Moreno Dose Unknown 2021-0 3-21 00:00: 00 No duloxetine 40 mg capsule,del ayed release 0 3-21 00:00: 00 No 1mg Dose Unknown 2021-0 3-21 00:00: 00 No 5 Dose Unknown 0 3-21 00:00: 00 No Dose Unknown 0 3-21 00:00: 00 No Pantoprazol e Sodium 40 MG oral Tablet Delayed Response 2021-0 3-21 00:00: 00 Yes Caroline Spaulding - Tate l pantoprazol e 40 mg tablet,max yed release 2021-0 3-21 00:00: 00 Yes 1mg Olvin Moreno duloxetine 40 mg capsule,del ayed release 2021-0 3-21 00:00: 00 Yes 1mg Olvin Moreno Dose Unknown 2021-0 3-21 00:00: 00 Yes Olvin Moreno gabapentin 300 mg capsule 2021-0 3-18 00:00: 00 No 1mg Dose Unknown 2021-0 3-18 00:00: 00 No Dose Unknown 2-0 3-18 00:00: 00 No Dose Unknown 2022-0 3-18 00:00: 00 No Dose Unknown 2022-0 3-18 00:00: 00 No Dose Unknown 2022-0 3-18 00:00: 00 No gabapentin 300 mg capsule 2-0 3-18 00:00: 00 Yes 1mg Olvin Moreno Dose Unknown 2021-0 3-18 00:00: 00 Yes Olvin Moreno Dose Unknown 2-0 3-18 00:00: 00 Yes Olvin Moreno Dose [...] 2mcg/ac tuation sertraline 100 mg tablet 2020-07 0- 00:00: 00 No 1mg lisinopril 5 mg tablet 2020-07 0- 00:00: 00 No 1mg meloxicam 15 mg [...] tuation Olvin Moreno meloxicam 15 mg tablet 2021-0 9-20 00:00: 00 Yes 1mg Olvin Moreno sertraline 100 mg tablet 03-20 00:00: 00 Yes 1mg Olvin Moreno Zithromax 250 mg tablet - 00:00: 00 No 1mg Zithromax 250 mg [...] tablet 01-17 19:36: 00 Yes 0 Refill(s) Memoria amanda Pena Clotrimazol e 10 MG/ML Topical Cream 01-17 19:36: 00 Yes 0 Refill(s) Memoria amanda Pena multivitami n 01-17 19:36: 00 Yes Daily, 0 Refill(s) Memajith amanda Pena Feosol 01-17 19:34: 00 Yes PO, 0 Refill(s) Memoria amanda Pena D3 01-17 19:34: 00 Yes 25 microgram, PO, Daily, 0 Refill(s) Memoria amanda Pena biotin 1000 mcg oral tablet 01-17 19:34: 00 Yes 1,000 microgram = 1 tab, PO, Daily, # 30 tab, 0 Refill(s) Memoria amanda Pena lisinopril 20 mg oral tablet 01-17 19:33: 00 Yes 20 mg = 1 tab, PO, Daily, # 30 tab, 0 Refill(s) Memoria amanda Pena zolpidem 10 mg oral tablet [...] No 1mg Augmentin 875 mg-125 mg tablet 2021-0 4-29 00:00: 00 No 1mg Augmentin 875 mg-125 mg tablet 0 4- 00:00: 00 Yes 1mg Olvin Moreno meloxicam 15 mg tablet 0 4-05 00:00: 00 No 1mg meloxicam 15 mg tablet 0 4-05 00:00: 00 No 1mg meloxicam 15 mg tablet 0 4-05 00:00: 00 Yes 1mg Olvin Moreno clotrimazol e 1 % topical cream 0 2- 00:00: 00 No 1% clotrimazol e 1 % topical cream 0 2- 00:00: 00 No 1% clotrimazol e 1 % topical cream 0 2- 00:00: 00 Yes 1% Olvin Moreno meloxicam 15 mg tablet 0 2- 00:00: 00 No 1mg meloxicam 15 mg tablet 0 2-17 00:00: 00 No 1mg meloxicam 15 mg tablet 0 2-17 00:00: 00 Yes 1mg Olvin Moreno ProAir HFA 90 mcg/actuati on aerosol inhaler 0 2-09 00:00: 00 No 2mcg/ac tuation spironolact one 25 mg tablet 0 2-09 00:00: 00 No 1mg Zoloft 50 mg tablet 0 2- 00:00: 00 No 1mg lisinopril 5 mg tablet 0 2-09 00:00: 00 No 1mg zolpidem 10 mg tablet 0 2-09 00:00: 00 No 1mg ProAir HFA 90 mcg/actuati on aerosol inhaler 0 2-09 00:00: 00 No 2mcg/ac tuation spironolact one 25 mg tablet 0 2-09 00:00: 00 No 1mg Zoloft 50 mg tablet 0 2-09 00:00: 00 No 1mg lisinopril 5 mg [...] No 1mg Zoloft 50 mg tablet 0 03-29 00:00: 00 No 1mg lisinopril 20 mg-hydrochl orothiazide 12.5 mg tablet 2019-0 03-29 00:00: 00 Yes 1mg Olvin Moreno Zoloft 50 mg tablet 2019-0 03-29 00:00: 00 Yes 1mg Olvin Moreno lisinopril 20 mg-hydrochl orothiazide 12.5 mg tablet 2019-0 9- 00:00: 00 No 1mg lisinopril 20 mg-hydrochl orothiazide 12.5 mg tablet 2019-0 9- 00:00: 00 No 1mg lisinopril 20 mg-hydrochl orothiazide 12.5 mg tablet 2019-0 03-11 00:00: 00 Yes 1mg Olvin Moreno lisinopril 20 mg-hydrochl orothiazide 12.5 mg tablet 2019-0 9-03 00:00: 00 No 1mg lisinopril 20 mg-hydrochl orothiazide 12.5 mg tablet 2019-0 9- 00:00: 00 No 1mg lisinopril 20 mg-hydrochl orothiazide 12.5 mg tablet 2019-0 9- 00:00: 00 Yes 1mg Olvin Moreno meloxicam [...] capsule by mouth 3 (three) times daily. [facility] bisoprolol- hydrochloro thiazide 5-6.25 mg per tablet 10-09 13:40: 26 Yes 1{tbl} Take 1 tablet by mouth daily. [facility] multivitami n, tx-minerals (COMPLETE MULTIVITAMI N) tablet 10-09 13:40: 26 Yes 1{tbl} Take 1 tablet by mouth daily. [facility] ferrous sulfate (IRON, FERROUS SULFATE,) 325 mg (65 mg iron) tablet 10-09 13:40: 26 Yes 325mg Take 325 mg by mouth daily. [facility] bisoprolol- hydrochloro thiazide 5-6.25 mg per tablet 10-09 08:40: 26 Yes 1{tbl} Take 1 tablet by mouth daily. [facility] multivitami n, tx-minerals (COMPLETE MULTIVITAMI N) tablet 10-09 08:40: 26 Yes 1{tbl} Take 1 tablet by mouth daily. [facility] ferrous sulfate (IRON, FERROUS SULFATE,) 325 mg (65 mg iron) tablet 10-09 08:40: 26 Yes 325mg Take 325 mg by mouth daily. [facility] multivitami n, tx-minerals (COMPLETE MULTIVITAMI N) tablet 10-09 08:40: 26 Yes 1{tbl} Take 1 tablet by mouth daily. [facility] zolpidem (AMBIEN) 10 mg tablet 08-16 00:00: 00 Yes 10mg Take 10 mg by mouth at bedtime. [facility] SERTraline (ZOLOFT) 50 mg tablet 08-16 00:00: 00 Yes 50mg Take 50 mg by mouth daily. [facility] HYDROcodone -acetaminop hen (NORCO) 10-325 mg tablet 08-03 00:00: 00 Yes 1{tbl} Take 1 tablet by mouth every 6 (six) hours as needed. [facility] DULoxetine (CYMBALTA) 30 mg capsule 07-06 00:00: 00 Yes [facility] Immunizations Ordered Immunization Name Filled Immunization Name Date Status Comments Source FLUAD TRIVALENT PF Influenza Vaccine, Adjuvanted, Preserve FLUAD TRIVALENT PF Influenza Vaccine, Adjuvanted, Preserve 2025-03-10 00:00:00 Completed [facility] - External Pneumococcal Vaccine, Conjugate 20 Pneumococcal Vaccine, Conjugate 20 2025-03-10 00:00:00 Completed [facility] [place] External Influenza Virus Vaccine, High Dose, Age 65 And Up Influenza Virus Vaccine, High Dose, Age 65 And Up 2024-03-13 00:00:00 Completed [facility] - External Influenza Virus Vaccine, Quadrivalent, High Dose, Age 65 And Up Influenza Virus Vaccine, Quadrivalent, High Dose, Age 65 And Up 2023-03-19 00:00:00 Completed [facility] [place] External influenza, high-dose, quadrivalent influenza, high-dose, quadrivalent [...] Mike Protein, Pf 2021-04-26 00:00:00 Completed Caroline Russoold - External Covid-19 [...] Mike Protein, Pf 2020-07-30 00:00:00 Completed [facility] Mitchellybold - External Covid-19 Vaccine Moderna (Spikevax), Mrna-lnp, Mike Protein, Pf 2020-07-30 00:00:00 Completed [facility] Mitchellybold - External Covid-19 [...] Dose, Age 65 And Up Unknown Completed [facility] - External Influenza, Seasonal, Injectable [facility]ine Moderna (Spikevax), Mrna-lnp, Mike Protein, Pf Unknown [facility] Pneumococcal Vaccine, Conjugate 13 Unknown Completed [facility] - External Shingles SQ (Zostavax) Unknown Completed [facility] - External Influenza Virus Vaccine, Quadrivalent, High Dose, Age 65 And Up Unknown Completed [facility] - External Influenza, Seasonal, Injectable Unknown Completed [facility] - External Covid-19 Vaccine Moderna (Spikevax), Mrna-lnp, Mike Protein, Pf Unknown Completed [facility] - External Pneumococcal Vaccine, Conjugate 13 Unknown Completed [facility] - External Shingles SQ (Zostavax) Unknown Completed [facility] - External Influenza Virus Vaccine, Quadrivalent, High Dose, Age 65 And Up Unknown Completed [facility] - External Influenza Virus Vaccine, Quadrivalent, High Dose, Age 65 And Up Unknown [facility] AFLURIA TRIVALENT MDV Unknown Completed [facility] - External Covid-19 Vaccine Moderna (Spikevax), Mrna-lnp, Mike Protein, Pf Unknown Completed [facility] - External Covid-19 Vaccine Moderna (Spikevax), Mrna-lnp, Mike Protein, Pf Unknown Completed [facility] - External Pneumococcal Vaccine, Conjugate 13 Unknown Completed [facility] - External Shingles SQ (Zostavax) Unknown Completed [facility] - External Influenza Virus Vaccine, Quadrivalent, High Dose, Age 65 And Up Unknown Completed [facility] - External Influenza Virus Vaccine, Quadrivalent, High Dose, Age 65 And Up Unknown Completed [facility] - External AFLURIA TRIVALENT MDV Unknown [facility] Covid-19 Vaccine Moderna (Spikevax), Mrna-lnp, Mike Protein, Pf Unknown Completed [facility] - External Covid-19 Vaccine Moderna (Spikevax), Mrna-lnp, Mike Protein, Pf Unknown Completed [facility] - External Pneumococcal Vaccine, Conjugate 13 Unknown [...] Name Observation Time Observation Value Comments S ourrafael Systolic blood pressure 2025-03-10 15:04:00 112 mm[Hg] Caroline adelina ld - External Diastolic blood pressure 2025-03-10 [...] External Body temperature 2024-10-19 18:32:00 35.89 Jenna Caroilne Seybold - External Respiratory rate 2024-10-19 18:32:00 [...] Systolic blood pressure 2023-03-11 23:00:00 175 mm[Hg] [facility] Diastolic blood pressure 2023-03-11 23:00:00 74 mm[Hg] [facility] Heart rate 2023-03-11 23:00:00 70 /min [facility] Res[facility] 2023-03-11 23:00:00 16 /min [facility] Oxygen saturation in Arterial blood by Pulse oximetry 2023-03-11 23:00:00 100 /min [facility] Body temperature 2023-03-11 19:25:00 36.28 Jenna [facility] Body height 2023-03-11 19:25:00 170.2 cm [facility] Body weight 2023-03-11 19:25:00 89.359 kg [facility] BMI 2023-03-11 19:25:00 30.85 kg/m2 [facility] Systolic blood pressure 2022-12-13 15:03:00 142 [...] Systolic blood pressure 2019-03-18 19:54:00 161 mm[Hg] [facility] Diastolic blood pressure 2019-03-18 19:54:00 77 mm[Hg] [facility] Heart rate 2019-03-18 19:54:00 54 /min [facility] Respiratory rate 2019-03-18 19:54:00 18 /min [facility] Oxygen saturation in Arterial blood by Pulse oximetry 2019-03-18 19:54:00 98 /min [facility] Systolic blood pressure 2019-03-18 19:54:00 161 mm[Hg] [facility] Diastolic blood pressure 2019-03-18 19:54:00 77 mm[Hg] [facility] Heart rate 2019-03-18 19:54:00 54 /min [facility] Respiratory rate 2019-03-18 19:54:00 18 /min [facility] Oxygen saturation in Arterial blood by Pulse oximetry 2019-03-18 19:54:00 98 /min [facility] BP Systolic 2025-03-16 10:55:00 100 mm[Hg] [...] Josh Systolic (mm Hg) 2021-01-17 19:04:00 Ye Paulina Diastolic (mm Hg) 2021-01-17 19:04:00 Ye Paulina Heart Rate 2021-01-17 19:04:00 Memor ial Jean Respitory Rate 2021-01-17 19:04:00 M emorimyah Stevensann Height 2021-01-17 19:04:00 170.18 cm Memor ial Jean Weight 2021-01-17 19:04:00 Memor ial Paulina BMI Calculated 2021-01-17 19:04:00 M damion Pena BP Systolic 2021-01-03 16:08:00 138 mm[Hg] Step hen Garcia Moreno BP Diastolic 2021-01-03 16:08:00 66 mm[Hg] Qasim phen Garcia Moreno Weight Measured 2021-01-03 16:08:00 212.40 pounds Olvin Moreno Height Measured 2021-01-03 16:08:00 66.80 inches [...] CHEST PULMONARY ANGIOGRAM 2023-03-11 22:48:35 Curtis Eli [facility] XR CHEST 2 VW 2023-03-11 20:04:00 Curtis Eli [facility] TROPONIN I 2023-03-11 19:48:00 [facility] MET[facility]OL[facility] PAN[facility] (06123) 2023-03-11 19:48:00 Curtis Eli [facility] CBC WITH DIFF 2023-03-11 19:48:00 Curtis Eli U [facility] D-DIMER 2023-03-11 19:48:00 [facility] N-[facility]MIN[facility] PRO-BNP 2023-03-11 19:48:00 Camille Eli [facility] NOTICE OF PRIVACY PRACTICES 2023-03-11 19:18:03 Doctor Unassigned, [place] [facility] CONSENT/REFUSAL FOR DIAGNOSIS AND TREATMENT 2023-03-11 19:16:47 Doctor Unassigned, [place] [facility] QUANTAFLO 2022-12-13 15:52:41 Crista Culp - External [id number] 2021-06-20 00:00:00 DAISY ESPINAL [facility] BI SCREENING TOMOSYNTHESIS BILATERAL 2021-06-02 15:27:00 Requisition, Paper [facility] ASSIGNMENT OF BENEFITS 2021-06-02 15:06:01 Docto r Unassigned, [place] [facility] CONSENT/REFUSAL FOR DIAGNOSIS AND TREATMENT 2020-06-01 15:06:13 Doctor Unassigned, [place] [facility] ASSIGNMENT OF BENEFITS 2020-06-01 15:05:57 Docto r Unassigned, [place] [facility] XR CHEST 2 VW 2020-02-01 16:08:54 [facility] 2020-02-01 15:53:27 Docto r Unassigned, [place] [facility] Herniorrhaphy [facility] nn Shoulder joint operations [facility] Foot joint operations Memori al Paulina G[facility] Plan of Care Planned Activity Planned Date Details Comments Source Procedure 2025-06-09 00:00:00 CBC WITH MARTHA Spaulding - External Goal Plan of Care Not e [code = 42630-8] Goal Plan of Care Not e [code = 52726-2] Goal Plan of Care Not e [code = 01638-4] Goal Plan of Care Not e [code = 89793-9] Goal Plan of Care Not e [code = 91703-4] Goal Plan of Care Not e [code = 04458-7] Goal Plan of Care Not e [code = 66265-8] Goal Plan of Care Not e [code = 49566-6] Goal Plan of Care Not e [code = 29071-4] Goal Plan of Care Not e [code = 09275-0] Goal Plan of Care Not e [code = 73369-6] Goal Plan of Care Not e [code = 63696-2] Goal Plan of Care Not e [code = 19434-4] Goal Plan of Care Not e [code = 04500-2] Goal Plan of Care Not e [code = 60693-0] Goal Plan of Care Not e [code = 56340-5] Goal Plan of Care Not e [code = 58104-3] Goal Plan of Care Not e [code = 65190-5] Goal Plan of Care Not e [code = 34947-8] Goal Plan of Care Not e [code = 95433-8] Goal Plan of Care Not e [code = 77367-0] Goal Plan of Care Not e [code = 05658-6] Goal Plan of Care Not e [code = 21861-1] Goal Plan of Care Not e [code = 77704-6] Goal Plan of Care Not e [code = 11351-0] Goal Plan of Care Not e [code = 41371-1] Goal Plan of Care Not e [code = 12911-6] Goal Plan of Care Not e [code = 84067-5] Goal Plan of Care Not e [code = 59914-3] Goal Plan of Care Not e [code = 09490-0] Goal Plan of Care Not e [code = 08223-0] Goal Plan of Care Not e [code = 64310-8] Goal Plan of Care Not e [code = 02199-3] Goal Plan of Care Not e [code = 94639-3] Goal Plan of Care Not e [code = 54073-6] Goal Plan of Care Not e [code = 86350-5] Goal Plan of Care Not e [code = 98980-3] Goal Plan of Care Not e [code = 42390-8] Goal Plan of Care Not e [code = 50646-9] Goal Plan of Care Not e [code = 96572-1] Goal Plan of Care Not e [code = 24441-7] Goal Plan of Care Not e [code = 08841-1] Goal Plan of Care Not e [code = 03297-1] Goal Plan of Care Not e [code = 32895-1] Goal Plan of Care Not e [code = 76483-3] Goal Plan of Care Not e [code = 73851-8] Goal Plan of Care Not e [code = 65828-7] Goal Plan of Care Not e [code = 26313-4] Goal Plan of Care Not e [code = 85645-0] Goal Plan of Care Not e [code = 69180-6] Goal Plan of Care Not e [code = 88668-1] Goal Plan of Care Not e [code = 41325-7] Goal Plan of Care Not e [code = 00787-2] Goal Plan of Care Not e [code = 10495-7] Goal Plan of Care Not e [code = 85230-4] Goal Plan of Care Not e [code = 80317-4] Goal Plan of Care Not e [code = 29072-2] Goal Plan of Care Not e [code = 52714-1] Goal Plan of Care Not e [code = 27357-9] Goal Plan of Care Not e [code = 62458-8] Goal Plan of Care Not e [code = 48812-8] Goal Plan of Care Not e [code = 30294-6] Goal Plan of Care Not e [code = 34695-4] Goal Plan of Care Not e [code = 56418-6] Goal Plan of Care Not e [code = 79807-2] Goal Plan of Care Not e [code = 69657-2] Goal Plan of Care Not e [code = 95508-5] Goal Plan of Care Not e [code = 51650-6] Goal Plan of Care Not e [code = 89634-0] Goal Plan of Care Not e [code = 34295-3] Goal Plan of Care Not e [code = 99041-4] Goal Plan of Care Not e [code = 45610-0] Goal Plan of Care Not e [code = 47954-0] Encounters Start Date/Time End Date/Time Encounter Type Admission Type Attending [facility] Facility Care Department Encounter ID Source 2025-04-01 00:00:00 2025-04-01 00:00:00 Outpatient PROVIDER, KHOI KNOX [id number] [facility] 2025-03-16 10:54:42 2025-03-16 10:54:42 Outpatient SFA SFA [id number] Olvin Moreno 2025-03-16 00:00:00 2025-03-16 00:00:00 Outpatient Visit [facility] [id number] Olvin Moreno 2025-03-10 15:50:00 2025-03-10 15:50:00 Outpatient [id number] CAROLINE KNOX [id number] [facility] 2025-03-10 15:00:00 2025-03-10 15:00:00 Outpatient BLAND, DEANNE CAROLINE KNOX [id number] [facility] 2025-03-10 09:00:00 2025-03-10 09:00:00 Outpatient BLANDNORIS LOPEZEMERSON KNOX [id number] [facility] 2025-03-05 00:00:00 2025-03-05 00:00:00 Outpatient BLAND, DEANNE CAROLINE KNOX [id number] [facility] 2025-03-03 14:00:00 2025-03-03 14:00:00 Outpatient PREZAS ANTONI CAROLINE KNOX [id number] [facility] 2025-02-26 00:00:00 2025-02-26 00:00:00 Outpatient BLAND, DEANNE KNOX [id number] [facility] 2025-01-13 00:00:00 2025-01-13 00:00:00 Outpatient CRISTA CULP [id number] [facility] 2025-01-11 11:00:00 2025-01-11 11:00:00 Outpatient BLAND, DEANNE KNOX [id number] [facility] 2025-01-07 00:00:00 2025-01-07 00:00:00 Outpatient GROUP, CAROLINE KNOX [id number] [facility] 2024-11-03 00:00:00 2024-11-03 00:00:00 Outpatient MD CAROLINE BENNETT [id number] [facility] 2024-10-19 14:25:00 2024-10-19 14:25:00 Outpatient [id number] CAROLINE KNOX [id number] [facility] 2024-10-19 13:45:00 2024-10-19 13:45:00 Outpatient MAGGIE LEZAMA [id number] [facility] 2024-10-19 00:00:00 2024-10-19 00:00:00 Outpatient CRISTA CULP [id number] [facility] 2024-09-21 00:00:00 2024-09-21 00:00:00 Outpatient CRISTA CULP CAROLINE [facility]X [id number] [facility] 2024-09-04 00:00:00 2024-09-04 00:00:00 Outpatient CRISTA CULP CAROLINE KNOX [id number] [facility] 2024-09-01 16:20:00 2024-09-01 16:20:00 Outpatient LABCal CAROLINE KNOX [id number] [facility] 2024-09-01 16:00:00 2024-09-01 16:00:00 Outpatient CRISTA CULP CAROLINE KNOX [id number] [facility] 2024-08-22 00:00:00 2024-08-22 00:00:00 Outpatient MORGAN GIN CAROLINE [facility]X [id number] [facility] 2024-08-20 00:00:00 2024-08-20 00:00:00 Outpatient GIN MORA CAROLINE KNOX [id number] [facility] 2024-08-19 10:52:19 2024-08-19 10:52:19 Outpatient SFA SFA [id number] Olvin Garcia Josh 2024-08-19 00:00:00 2024-08-19 00:00:00 Outpatient PORTILLOANTONI [facility]X [id number] [facility] 2024-08-19 00:00:00 2024-08-19 00:00:00 Outpatient Visit SFA [id number] Olvin Zelaya Josh 2024-08-10 00:00:00 2024-08-10 00:00:00 Outpatient CRISTA CULP CAROLINE [facility]X [id number] [facility] 2024-08-07 00:00:00 2024-08-07 00:00:00 Outpatient ROBBI C[facility]STA KNOX [id number] [facility] 2024-08-06 09:50:00 2024-08-06 09:50:00 Outpatient LABCal CAROLINE KNOX [id number] [facility] 2024-08-04 00:00:00 2024-08-04 00:00:00 Outpatient CRISTA CULP CAROLINE [id number] [facility] 2024-08-04 00:00:00 2024-08-04 00:00:00 Outpatient CRISTA CULP CAROLINE CAROLINE [id number] [facility] 2024-08-03 14:15:00 2024-08-03 14:15:00 Outpatient LAB90 CAROLINE CAROLINE [id number] [facility] 2024-08-03 13:00:00 2024-08-03 13:00:00 Outpatient CRISTA CULP CAROLINE KNOX [id number] [facility] 2024-08-03 00:00:00 2024-08-03 00:00:00 Outpatient ALYSSIA-FATIMAH HERZOG CAROLINE K[facility]X [id number] [facility] 2024-07-30 00:00:00 2024-07-30 00:00:00 Outpatient RIMA MORGAN CAROLINE KNOX [id number] [facility] 2024-07-10 00:00:00 2024-07-10 00:00:00 Outpatient TMOMY THOMASAND CAROLINE KNOX [id number] [facility] 2024-07-08 09:00:00 2024-07-08 09:00:00 Outpatient CRISTA CULP CAROLINE KNOX [id number] [facility] 2024-05-20 10:19:47 2024-05-20 10:19:47 Outpatient SFA SFA [id number] Olvin Moreno 2024-05-20 00:00:00 2024-05-20 00:00:00 Outpatient MORGAN GINDIPIKA KNOX [id number] [facility] 2024-05-20 00:00:00 2024-05-20 00:00:00 Outpatient Visit SFA [id number] Olvin Moreno 2024 00:00:00 2024 00:00:00 Outpatient ANTONI THOMAS [id number] [facility] 2024-03-25 09:00:00 2024-03-25 09:00:00 Outpatient KPAmanda CRISTA KNOX [id number] [facility] 2024-03-08 00:00:00 2024-03-08 00:00:00 Outpatient MORGAN GIN CAROLINE KNOX [id number] [facility] 2024-01-15 14:51:20 2024-01-15 14:51:20 Outpatient SFA SFA [id number] Olvin Moerno 2024-01-15 08:30:00 2024-01-15 08:30:00 Outpatient ROBBI CRISTA KNOX [id number] [facility] 2024-01-15 00:00:00 2024-01-15 00:00:00 Outpatient Visit SFA [id number] Olvin Moreno 2024-01-14 00:00:00 2024-01-14 00:00:00 Outpatient ANTONI THOMAS CAROLINE KNOX [id number] [facility] 2024-01-06 00:00:00 2024-01-06 00:00:00 Outpatient MORGAN GIN KNOX [id number] [facility] 2024-01-02 00:00:00 2024-01-02 00:00:00 Outpatient ROBBI CRISTA KNOX [id number] [facility] 2023-12-16 09:00:00 2023-12-16 09:00:00 Outpatient KPAmanda CRISTA KNOX [id number] [facility] 2023-12-09 00:00:00 2023-12-09 00:00:00 Outpatient GIN MORA [id number] [facility] 2023-12-09 00:00:00 2023-12-09 00:00:00 Outpatient MAGGIE LEZAMA [id number] [facility] 2023-11-27 08:57:53 2023-11-27 08:57:53 Outpatient SFA SFA [id number] Olvin Moreno 2023-11-20 09:27:48 2023-11-20 09:27:48 Outpatient SFA SFA [id number] Olvin Moreno 2023-11-20 00:00:00 2023-11-20 00:00:00 Outpatient Visit SFA [id number] Olvin Moreno 2023-11-13 15:00:00 2023-11-13 15:00:00 Outpatient GIN MORA CAROLINE KNOX [id number] [facility] 2023-11-13 09:11:32 2023-11-13 09:11:32 Outpatient SFA SFA [id number] Olvin Moreno 2023-11-04 00:00:00 2023-11-04 00:00:00 Outpatient CRISTA CULP [id number] [facility] 2023-10-28 00:00:00 2023-10-28 00:00:00 Outpatient KPAmanda CRISTA KNOX [id number] [facility] 2023-10-16 10:00:00 2023-10-16 10:00:00 Outpatient CRISTA CULP [id number] [facility] 2023-10-08 00:00:00 2023-10-08 00:00:00 Outpatient CRISTA CULP [id number] [facility] 2023-08-21 09:56:10 2023-08-21 09:56:10 Outpatient SFA SFA [id number] Olvin Moreno 2023-06-13 00:00:00 2023-06-13 00:00:00 Outpatient CRISTA CULP [id number] [facility] 2023-06-05 09:00:00 2023-06-05 09:00:00 Outpatient CRISTA CULP [id number] [facility] 2023-05-27 00:00:00 2023-05-27 00:00:00 Outpatient MAGGIE LEZAMA [id number] [facility] 2023-05-08 10:57:01 2023-05-08 10:57:01 Outpatient [facility] [id number] Olvin Moreno 2023-04-25 10:40:00 2023-04-25 10:40:00 Outpatient OLVIN PEDRAZA [facility] [id number] [facility] 2023-04-25 09:40:00 2023-04-25 09:40:00 Outpatient [facility] [id number] [facility] 2023-04-17 00:00:00 2023-04-17 00:00:00 Outpatient OLVIN PEDRAZA [facility] [id number] [facility] 2023-03-14 09:25:00 2023-03-14 09:25:00 Outpatient PANTERAAKI Zuluaga [facility] [id number] [facility] 2023-03-11 14:27:00 2023-03-11 18:33:00 Emergency X JORGE LUISFORTINOCURTIS Dodson [facility] ERT [id number] [facility] 2023-03-11 14:27:00 2023-03-11 18:33:00 Emergency Curtis Eli [facility] 1.2.840.114 350.1.13.10 4.2.7.2.686 [id number] [facility] 2023-03-03 00:00:00 2023-03-03 00:00:00 Outpatient CRISTA CULP [id number] [facility] 2023-02-27 00:00:00 2023-02-27 00:00:00 Outpatient CRISTA CULP [id number] [facility] 2023-02-26 00:00:00 2023-02-26 00:00:00 Outpatient MAGGIE LEZAMA [id number] [facility] 2023-02-15 00:00:00 2023-02-15 00:00:00 Outpatient CRISTA CULP [id number] [facility] 2023-02-06 15:37:38 2023-02-06 15:37:38 Outpatient [facility] [id number] Olvin Moreno 2023-02-04 00:00:00 2023-02-04 00:00:00 Outpatient HUNDL, CRISTA KNOX [id number] [facility] 2023-01-28 00:00:00 2023-01-28 00:00:00 Outpatient HUNDL, CRISTA KNOX [id number] [facility] 2023-01-17 00:00:00 2023-01-17 00:00:00 Outpatient LISEMGAGIE CAROLINE KNOX [id number] [facility] 2023-01-06 00:00:00 2023-01-06 00:00:00 Outpatient HUNDL, CRISTA KNOX [id number] [facility] 2022-12-30 00:00:00 2022-12-30 00:00:00 Outpatient HUNDL, CRISTA KNOX [id number] [facility] 2022-12-19 00:00:00 2022-12-19 00:00:00 Outpatient HUNDL, CRISTA KNOX [id number] [facility] 2022-12-14 08:25:00 2022-12-14 08:25:00 Outpatient LAB90 CAROLINE KNOX [id number] [facility] 2022-12-14 00:00:00 2022-12-14 00:00:00 Outpatient HUNDL, CRISTA KNOX [id number] [facility] 2022-12-13 11:15:00 2022-12-13 11:15:00 Outpatient LAB90 CAROLINE KNOX [id number] [facility] 2022-12-13 10:00:00 2022-12-13 10:00:00 Outpatient HUNDL, CRISTA KNOX [id number] [facility] 2022-12-12 10:00:00 2022-12-12 10:00:00 Outpatient HUNDL, CRISTA KNOX [id number] [facility] 2022-12-10 00:00:00 2022-12-10 00:00:00 Outpatient HUNDL, CRISTA KNOX [id number] [facility] 2022-12-02 00:00:00 2022-12-02 00:00:00 Outpatient CRISTA CULP CAROLINE KNOX [id number] [facility] 2022-11-14 13:45:00 2022-11-14 13:45:00 Outpatient AMARILIS90 CAROLINE KNOX [id number] [facility] 2022-11-14 13:00:00 2022-11-14 13:00:00 Outpatient CRISTA CULP CAROLINE KNOX [id number] [facility] 2022-11-12 11:32:17 2022-11-12 11:32:17 Outpatient [facility] [id number] Olvin Zelaya Josh 2022-11-03 00:00:00 2022-11-03 00:00:00 Outpatient CRSITA CULP CAROLINE KNOX [id number] [facility] 2022-10-24 14:00:00 2022-10-24 14:00:00 Outpatient CRISTA CULP CAROLINE KNOX [id number] [facility] 2022-10-06 00:00:00 2022-10-06 00:00:00 Outpatient CRISTA CULP CAROLINE KNOX [id number] [facility] 2022-09-16 00:00:00 2022-09-16 00:00:00 Outpatient ROBBI CRISTA KNOX [id number] [facility] 2022-09-10 00:00:00 2022-09-10 00:00:00 Outpatient HUNDL CRISTA KNOX [id number] [facility] 2022-09-09 00:00:00 2022-09-09 00:00:00 Outpatient HUNDL CRISTA KNOX [id number] [facility] 2022-09-06 14:15:00 2022-09-06 14:15:00 Outpatient ANTONI THOMAS [id number] [facility] 2022-08-20 00:00:00 2022-08-20 00:00:00 Outpatient MAGGIE LEZAMA [id number] [facility] 2022-08-13 00:00:00 2022-08-13 00:00:00 Outpatient KPAmanda CRISTA CAROLINE KNOX [id number] [facility] 2022-07-25 13:00:00 2022-07-25 13:00:00 Outpatient TESHA FELIPE CAROLINE KNOX [id number] [facility] 2022-07-23 00:00:00 2022-07-23 00:00:00 Outpatient Visit [id number] 2022-07-03 00:00:00 2022-07-03 00:00:00 Outpatient KPAmanda CRISTA KNOX [id number] [facility] 2022-06-23 00:00:00 2022-06-23 00:00:00 Outpatient ROBBI CRISTA KNOX [id number] [facility] 2022-06-21 00:00:00 2022-06-21 00:00:00 Outpatient ROBBI CRISTA KNOX [id number] [facility] 2022-06-04 00:00:00 2022-06-04 00:00:00 Outpatient MAGGIE LEZAMA [id number] [facility] 2022-06-02 00:00:00 2022-06-02 00:00:00 Outpatient CRISPIN DIAZ [id number] [facility] 2022-05-28 14:00:00 2022-05-28 14:00:00 Outpatient CRISTA CULP [id number] [facility] 2022-05-25 08:30:00 2022-05-25 08:30:00 Outpatient CRISTA CULP [id number] [facility] 2022-05-21 00:00:00 2022-05-21 00:00:00 Outpatient CRISTA CULP [id number] [facility] 2022-04-27 00:00:2022-04-27 00:00:00 Outpatient MAGGIE LEZAMA CAROLINE [id number] [facility] 2022-04-26 09:30:00 2022-04-26 09:30:00 Outpatient CRISTA CULP CAROLINE [id number] [facility] 2022-04-16 00:00:00 2022-04-16 00:00:00 Outpatient CRISTA CULP CAROLINE [id number] [facility] 2022-03-29 09:30:00 2022-03-29 09:30:00 Outpatient CRISTA CULP CAROLINE [id number] [facility] 2022-03-29 00:00:00 2022-03-29 00:00:00 Outpatient CRISTA CULP CAROLINE [id number] [facility] 2022-03-15 09:30:00 2022-03-15 09:30:00 Outpatient CRISTA CULP CAROLINE [id number] [facility] 2022-03-15 00:00:00 2022-03-15 00:00:00 Outpatient CRISTA CULP CAROLINE [id number] [facility] 2022-03-15 00:00:00 2022-03-15 00:00:00 Outpatient Visit [id number] 2022-03-14 00:00:00 2022-03-14 00:00:00 Outpatient CRISTA CULP CAROLINE [id number] [facility] 2022-03-14 00:00:00 2022-03-14 00:00:00 Outpatient Visit [id number] 2022-03-01 09:15:00 2022-03-01 10:00:00 Office Visit Maggie Lezama Veronica [place] 1.2.840.114 350.1.13.13 1.2.7.2.686 [id number] [facility] 2022-01-09 09:15:00 2022-01-09 09:15:00 Outpatient MAGGIE LEZAMA [id number] [facility] 2021-12-01 09:45:00 2021-12-01 09:45:00 Outpatient LAB90 CAROLINE KNOX [id number] [facility] 2021-12-01 08:45:00 2021-12-01 09:30:00 Office Visit Maggie Lezama 1.2.840.114 350.1.13.13 1.2.7.2.686 [id number] [facility] 2021-06-19 15:58:00 2021-06-21 12:18:00 Inpatient Dylan Caballero [facility] [id number] [facility] 2021-06-02 09:07:21 2021-06-02 23:59:00 Outpatient R RADIOLOGY [facility] [id number] [facility] 2021-06-02 09:00:00 2021-06-02 23:59:00 Hospital Encounter Radiology [facility] 1.2.840.114 350.1.13.10 4.2.7.2.686 [id number] [facility] 2021-06-02 00:00:00 2021-06-02 00:00:00 Orders Only Doctor Unassigned, [place] [facility] 1.2.840.114 350.1.13.10 4.2.7.2.686 [id number] [facility] 2021-03-21 13:38:00 2021-03-21 15:03:00 Inpatient Dominic Ardon [facility] [id number] [facility] 2021-02-28 19:45:00 2021-02-28 19:45:00 Ambulatory Pre-Reg nullFlavo r [facility] [place] [id number] Rigo Pena 2021-01-17 21:00:00 2021-01-18 04:59:59 Outpatient nullFlavo r [facility] [place] [id number] Rigo Pena 2020-09-05 00:00:00 2020-09-05 00:00:00 Patient Outreach Martin Sanchez [facility] 1.2.840.114 350.1.13.10 4.2.7.2.686 [id number] [facility] 2020-06-01 09:06:41 2020-06-01 23:59:00 Outpatient R UNKNOWN, ATTENDING [facility] [id number] [facility] 2020-06-01 09:06:41 2020-06-01 23:59:00 Hospital Encounter Unknown, Attending [facility] 1.2.840.114 350.1.13.10 4.2.7.2.686 [id number] [facility] 2020-06-01 00:00:00 2020-06-01 00:00:00 Orders Only Doctor Unassigned, [place] [facility] 1.2.840.114 350.1.13.10 4.2.7.2.686 [id number] [facility] 2020-02-01 10:57:43 2020-02-01 23:59:00 Outpatient R RADIOLOGY [facility] [id number] [facility] 2020-02-01 10:57:43 2020-02-01 23:59:00 Hospital Encounter Radiology [facility] 1.2.840.114 350.1.13.10 4.2.7.2.686 [id number] [facility] 2020-02-01 10:57:43 2020-02-01 23:59:00 Hospital Encounter Radiology [facility] 1.2.840.114 350.1.13.10 4.2.7.2.686 [id number] 2020-02-01 00:00:00 2020-02-01 00:00:00 Orders Only Doctor Unassigned, [place] [facility] 1.2.840.114 350.1.13.10 4.2.7.2.686 [id number] [facility] 2020-02-01 00:00:00 2020-02-01 00:00:00 Orders Only Doctor Unassigned, [place] [facility] 1.2.840.114 350.1.13.10 4.2.7.2.686 [id number] 2019-03-18 15:07:48 2019-03-18 23:59:00 Hospital Encounter [facility] [place] 1.2.840.114 350.1.13.10 4.2.7.2.686 [id number] [facility] 2019-03-18 15:07:48 2019-03-18 23:59:00 Hospital Encounter [facility] [place] 1.2.840.114 350.1.13.10 4.2.7.2.686 [id number] 2019-03-18 14:47:51 2019-03-18 15:02:51 Office Visit [facility] [place] 1.2.840.114 350.1.13.10 4.2.7.2.686 [id number] [facility] 2019-03-18 14:47:51 2019-03-18 15:02:51 Office Visit [facility] [place] 1.2.840.114 350.1.13.10 4.2.7.2.686 [id number] Results Test Description Test Time Test Comments Results Result Co mments Source COMPREHENSIVE METABOLIC [id number] 05:01:53* Test Item Value Reference Range Interpretation Comme nts GLUCOSE (test code = 2217) 110 MG/DL 70-99 H BUN (test code = 2208) 15 MG/DL 8-23 CREATININE (test code = 2214) 0.77 MG/DL 0.60-1.30 eGFR (2020 CKD-EPI) (test co de = 84737) 79 ML/MIN/1.73 >60 CALC BUN/CREAT (test code = 2235) 19 RATIO 6-28 SODIUM (test code = 223) 142 MEQ/L 133-146 POTASSIUM (test code = 2228) 5.1 MEQ/L 3.5-5.4 CHLORIDE (test code = 2215) 106 MEQ/L 95-107 CARBON DIOXIDE (test code = 220) 26 MEQ/L 19-31 CALCIUM (test code = 220) 9.2 MG/DL 8.5-10.5 PROTEIN, TOTAL (test code = 222) 6.8 G/DL 6.1-8.3 ALBUMIN (test code = 220) 4.1 G/DL 3.5-5.2 CALC GLOBULIN (test code = 2240) 2.7 G/DL 1.9-3.7 CALC A/G RATIO (test code = 223) 1.5 RATIO 1.0-2.6 BILIRUBIN, TOTAL (test code = 220) 0.3 MG/DL <=1.2 ALKALINE PHOSPHATASE (test code = 220) 135 U/L 40-142 AST (test code = 2218) 15 U/L 9-40 ALT (test code = 2219) 11 U/L 5-40 COMPREHENSIVE METABOLIC [id number] 00:00:00* Test Item Value Reference Range Interpretation Comme nts GLUCOSE (test code = 2217) 110 MG/DL BUN (test code = 2208) 15 MG/DL CREATININE (test code = 2214) 0.77 MG/DL eGFR (2020 CKD-EPI) (test co de = 79718) 79 ML/MIN/1.73 CALC BUN/CREAT (test code = 223) 19 RATIO SODIUM (test code = 223) 142 MEQ/L POTASSIUM (test code = 2228) 5.1 MEQ/L CHLORIDE (test code = 2215) 106 MEQ/L CARBON DIOXIDE (test code = 220) 26 MEQ/L CALCIUM (test code = 2209) 9.2 MG/DL PROTEIN, TOTAL (test code = 222) 6.8 G/DL ALBUMIN (test code = 2201) 4.1 G/DL CALC GLOBULIN (test code = 2240) 2.7 G/DL CALC A/G RATIO (test code = 2234) 1.5 RATIO BILIRUBIN, TOTAL (test code = 2207) 0.3 MG/DL ALKALINE PHOSPHATASE (test code = 2204) 135 U/L AST (test code = 2218) 15 U/L ALT (test code = 2219) 11 U/L Olvin MorenoCBC W/AUTO [id number] 00:00:00* Test Item Value Reference Range Interpretation [...] ABS NUCLEATED RBCS (test cod e = 21686) 0.00 K/UL Olvin Zelaya JoshCOMPREHENSIVE METABOLIC [id number] 00:00:00* Test Item Value Reference Range Interpretation Comme nts GLUCOSE (test code = 2217) 110 MG/DL BUN (test code = 2208) 15 MG/DL CREATININE (test code = 2214) 0.77 MG/DL eGFR (2020 CKD-EPI) (test co de = 03590) 79 ML/MIN/1.73 CALC BUN/CREAT (test code = [...] (test code = 2219) 11 U/L [facility] [id number] 00:00:00* Test Item Value Reference Range Interpretation [...] ABS NUCLEATED RBCS (test cod e = 65057) 0.00 K/UL Olvin MorenoCOMPREHENSIVE METABOLIC [id number] 00:00:00* Test Item Value Reference Range Interpretation Comme nts GLUCOSE (test code = 2217) 110 MG/DL BUN (test code = 2208) 15 MG/DL CREATININE (test code = 2214) 0.77 MG/DL eGFR (2020 CKD-EPI) (test co de = 04501) 79 ML/MIN/1.73 CALC BUN/CREAT (test code = [...] = 2219) 11 U/L Olvin MorenoCBC W/AUTO [id number] 00:00:00* Test Item Value Reference Range Interpretation [...] ABS NUCLEATED RBCS (test cod e = 55433) 0.00 K/UL Olvin MorenoCOMPREHENSIVE METABOLIC [id number] 00:00:00* Test Item Value Reference Range Interpretation Comme nts GLUCOSE (test code = 2217) 110 MG/DL BUN (test code = 2208) 15 MG/DL CREATININE (test code = 2214) 0.77 MG/DL eGFR (2020 CKD-EPI) (test co de = 13429) 79 ML/MIN/1.73 CALC BUN/CREAT (test code = [...] = 2219) 11 U/L Olvin MorenoCBC W/AUTO [id number] 00:00:00* Test Item Value Reference Range Interpretation [...] ABS NUCLEATED RBCS (test cod e = 89419) 0.00 K/UL Olvin MorenoCOMPREHENSIVE METABOLIC [id number] 04:05:39* Test Item Value Reference Range Interpretation Comme nts GLUCOSE (test code = 2217) 89 MG/DL 70-99 BUN (test code = 2208) 17 MG/DL 8-23 CREATININE (test code = 2214) 0.77 MG/DL 0.60-1.30 eGFR (2020 CKD-EPI) (test co de = 11229) 80 ML/MIN/1.73 >60 CALC BUN/CREAT (test code = 2235) 22 RATIO 6-28 SODIUM (test code = 2230) 142 MEQ/L 133-146 POTASSIUM (test code = 2227) 4.6 MEQ/L 3.5-5.4 CHLORIDE (test code = 5) 108 MEQ/L 95-107 H CARBON DIOXIDE (test code = 2205) 21 MEQ/L 19-31 CALCIUM (test code = 2208) 8.8 MG/DL 8.5-10.5 PROTEIN, TOTAL (test code = 2228) 6.2 G/DL 6.1-8.3 ALBUMIN (test code = 2200) 4.0 G/DL 3.5-5.2 CALC GLOBULIN (test code = 2239) 2.2 G/DL 1.9-3.7 CALC A/G RATIO (test code = 2233) 1.8 RATIO 1.0-2.6 BILIRUBIN, TOTAL (test code = 2206) 0.4 MG/DL <=1.2 ALKALINE PHOSPHATASE (test code = 2203) 136 U/L 40-142 AST (test code = 2217) 16 U/L 9-40 ALT (test code = 2218) 11 U/L 5-40 LIPID [id number] 04:05:39* Test Item Value Reference Range Interpretation Comme nts CHOLESTEROL (test code = 2209) 174 MG/DL <200 TRIGLYCERIDES (test code = 2) 71 MG/DL <150 HDL CHOLESTEROL (test code = 2219) 65 MG/DL >39 CALC LDL CHOL (test code = 2236) 93 MG/DL <100 NOTE: CALCULATED LDL IS BASED ON HILDA-DANIELS METHOD WHICHINCLUDES ADJUSTABLE TRIGLYCERIDE:VLDL CHOLESTEROL RATIO.THIS FACTOR VARIES BY MEASURED TRIGLYCERIDE AND NON-HDLCHOLESTEROL CONCENTRATIONS WITH INCREASED CALCULATED LDL SEENIN HIGHER TRIGLYCERIDE OR LOWER NON-HDL SPECIMENS. FOR MOREINFORMATION, SEE CLIENT ANNOUNCEMENT AT [email or web address] RISK RATIO LDL/HDL (test code = 223) 1.43 RATIO <3.22 CBC W/AUTO DIFF WITH [id number] 03:37:01* Test Item Value Reference Range Interpretation [...] = 1065) 0.0 /100 WBC'S See_Comment [Automated [employer]] The system which generated this result [...] 0.00-0.10 ABS NUCLEATED RBCS (test code = 97579) 0.00 K/UL 0.00-0.11 HEMOGLOBIN [id number] 03:09:30* Test Item Value Reference Range Interpretation Comme nts HEMOGLOBIN A1c (test code = 16162) 5.5 % 4.2-5.6 UNLESS OTHERWISE INDICATED, ALL TESTING PERFORMED AT [facility] [address] [place] [id number] VP BIOLOGY: ASHLEY BAIRD M.D. CLIA NUMBER [id number] [facility] [place]. [id number] COMPREHENSIVE METABOLIC [id number] 00:00:00* Test Item Value Reference Range Interpretation Comme nts GLUCOSE (test code = 2217) 89 MG/DL BUN (test code = 2208) 17 MG/DL CREATININE (test code = 2214) 0.77 MG/DL eGFR (2020 CKD-EPI) (test co de = 04806) 80 ML/MIN/1.73 CALC BUN/CREAT (test code = [...] code = 2219) 11 U/L Olvin MorenoLIPID [id number] 00:00:00* Test Item Value Reference Range Interpretation Comme nts CHOLESTEROL (test code = 2210) 174 MG/DL TRIGLYCERIDES (test code = 2232) 71 MG/DL HDL CHOLESTEROL (test code = 2220) 65 MG/DL CALC LDL CHOL (test code = 2237) 93 MG/DL RISK RATIO LDL/HDL (test cod e = 2238) 1.43 RATIO Olvin MorenoCBC W/AUTO [id number] 00:00:00* Test Item Value Reference Range Interpretation [...] ABS NUCLEATED RBCS (test cod e = 94817) 0.00 K/UL Olvin Garcia JoshHEMOGLOBIN [id number] 00:00:00* Test Item Value Reference Range Interpretation Comme nts HEMOGLOBIN A1c (test code = 41866) 5.5 % Olvin Zelaya JoshCOMPREHENSIVE METABOLIC [id number] 00:00:00* Test Item Value Reference Range Interpretation Comme nts GLUCOSE (test code = 2217) 89 MG/DL BUN (test code = 2208) 17 MG/DL CREATININE (test code = 2214) 0.77 MG/DL eGFR (2020 CKD-EPI) (test co de = 47428) 80 ML/MIN/1.73 CALC BUN/CREAT (test code = [...] code = 2219) 11 U/L Olvin MorenoLIPID [id number] 00:00:00* Test Item Value Reference Range Interpretation Comme nts CHOLESTEROL (test code = 2210) 174 MG/DL TRIGLYCERIDES (test code = 2232) 71 MG/DL HDL CHOLESTEROL (test code = 2220) 65 MG/DL CALC LDL CHOL (test code = 2237) 93 MG/DL RISK RATIO LDL/HDL (test cod e = 2238) 1.43 RATIO Olvin MorenoCBC W/AUTO [id number] 00:00:00* Test Item Value Reference Range Interpretation [...] ABS NUCLEATED RBCS (test cod e = 74511) 0.00 K/UL Olvin MorenoHEMOGLOBIN [id number] 00:00:00* Test Item Value Reference Range Interpretation Comme boby HEMOGLOBIN A1c (test code = 45723) 5.5 % Olvin MorenoCOMPREHENSIVE METABOLIC [id number] 00:00:00* Test Item Value Reference Range Interpretation Comme nts GLUCOSE (test code = 2217) 89 MG/DL BUN (test code = 2208) 17 MG/DL CREATININE (test code = 2214) 0.77 MG/DL eGFR (2020 CKD-EPI) (test co de = 73053) 80 ML/MIN/1.73 CALC BUN/CREAT (test code = [...] code = 2219) 11 U/L Olvin MorenoLIPID [id number] 00:00:00* Test Item Value Reference Range Interpretation Comme nts CHOLESTEROL (test code = 2210) 174 MG/DL TRIGLYCERIDES (test code = 2232) 71 MG/DL HDL CHOLESTEROL (test code = 2220) 65 MG/DL CALC LDL CHOL (test code = 2237) 93 MG/DL RISK RATIO LDL/HDL (test cod e = 2238) 1.43 RATIO Olvin MorenoCBC W/AUTO [id number] 00:00:00* Test Item Value Reference Range Interpretation [...] ABS NUCLEATED RBCS (test cod e = 43294) 0.00 K/UL Olvin Zelaya JoshHEMOGLOBIN [id number] 00:00:00* Test Item Value Reference Range Interpretation Comme nts HEMOGLOBIN A1c (test code = 93950) 5.5 % Olvin Zelaya JoshCOMPREHENSIVE METABOLIC [id number] 00:00:00* Test Item Value Reference Range Interpretation Comme nts GLUCOSE (test code = 2217) 89 MG/DL BUN (test code = 2208) 17 MG/DL CREATININE (test code = 2214) 0.77 MG/DL eGFR (2020 CKD-EPI) (test co de = 09536) 80 ML/MIN/1.73 CALC BUN/CREAT (test code = [...] code = 2219) 11 U/L Olvin MorenoLIPID [id number] 00:00:00* Test Item Value Reference Range Interpretation Comme nts CHOLESTEROL (test code = 2210) 174 MG/DL TRIGLYCERIDES (test code = 2232) 71 MG/DL HDL CHOLESTEROL (test code = 2220) 65 MG/DL CALC LDL CHOL (test code = 2237) 93 MG/DL RISK RATIO LDL/HDL (test cod e = 2238) 1.43 RATIO Olvin MorenoCBC W/AUTO [id number] 00:00:00* Test Item Value Reference Range Interpretation [...] ABS NUCLEATED RBCS (test cod e = 25757) 0.00 K/UL Olvin MorenoHEMOGLOBIN [id number] 00:00:00* Test Item Value Reference Range Interpretation Comme nts HEMOGLOBIN A1c (test code = 84088) 5.5 % Olvin Zelaya [id number] 20:47:11* Test Item Value Reference Range Interpretation Comments D-DIMER (test code = 3844262180) 0.46 See_Comment H [Automated message] The system [...] a diagnosis. Lab Interpretation (test code = 05444-5) [id number] 20:45:50* Test Item Value Reference Range Interpretation Comme nts TROPONIN I (test code = 5835966973) 0.002 ng/mL <=0.034 BETTY (test code = [...] of biotin. Lab Interpretation (test code = 11898-6) [id number] 20:43:09* Test Item Value Reference Range Interpretation Comme nts NT-proBNP (test code = 38642-7) 1410 pg/mL <=125 BETTY (test code = BETTY) Result Indeterminate-Consid er causes of NT-proBNP elevation other than Heart failure such as acute coronary syndrome, pulmonary embolism, pulmonary hypertension, sepsis, stroke, and renal dysfunction. Lab Interpretation (test code = 29346-1) [facility] (77061)2023-03-11 20:34:27* Test Item Value Reference Range Interpretation Comme nts NA (test code = 6220186901) 138 mmol/L 135-145 K (test code = 0318699765) 4.1 mmol/L 3.5-5.0 CL (test code = 3254343739) 109 mmol/L 98-108 H CO2 TOTAL (test code = 8428457352) 24 mmol/L 23-31 AGAP (test code = 3389710426) 5 2-16 BUN (test code = 0560029760) 16 mg/dL 7-23 GLUCOSE (test code = 6477657967) 90 mg/dL 70-110 CREATININE (test code = 4263379648) 0.61 mg/dL 0.50-1.04 TOTAL BILI (test code = 5258399840) 0.3 mg/dL 0.1-1.1 CALCIUM (test code = 8764725537) 8.8 mg/dL 8.6-10.6 T PROTEIN (test code = 1433848731) 6.6 g/dL 6.3-8.2 ALBUMIN (test code = 4929772540) 3.8 g/dL 3.5-5.0 ALK PHOS (test code = 5354508632) 135 U/L 34-122 H ALTv (test code = 1742-6) 15 U/L 5-35 AST(SGOT) (test code = 2248232319) 21 U/L 13-40 eGFR (test code = 3902653849) 95.6 mL/min/1.73m2 BETTY (test code = BETTY) [...] imaging tests). Lab Interpretation (test code = 67488-8) Abnormal [facility] WITH [id number] 20:29:45* Test Item Value Reference Range Interpretation Comme nts WBC (test code = 6690-2) 10.10 See_Comment [Automated [employer]] The system which generated this result transmitted reference range: 4.30 - 11.10 10*3/?L. The reference range was not used to interpret this result as normal/abnormal. RBC (test code = 789-8) 4.36 See_Comment [Automated [employer]] The system which generated this result transmitted [...] 32.4 g/dL 31.6-35.1 RDW-SD (test code = 96084-5) 48.0 fL 39.0-49.9 RDW-CV (test code = 788-0) 14.9 % 12.0-15.5 PLT (test code = 777-3) 265 See_Comment [Automated messa ge] The system which generated this result transmitted reference range: 166 - 358 10*3/?L. The reference range was not used to interpret this result as normal/abnormal. MPV (test code = 30924-6) 11.0 fL 9.5-12.9 NRBC/100 WBC (test code = 7284488298) 0.0 See_Comment [Automated me ssage] The system which generated this result transmitted reference range: 0.0 - 10.0 /100 WBCs. The reference range was not used to interpret this result as normal/abnormal. NRBC x10^3 (test code = 4662921837) See_Comment [Automated me ssage] The system which generated this result transmitted reference range: 10*3/?L. The reference range was not used to interpret this result as normal/abnormal. GRAN MAT (NEUT) % (test code = 770-8) 66.4 % IMM GRAN % (test code = 9860805045) 0.20 % LYMPH % (test code = 736-9) 24.9 % MONO % (test code = 5905-5) 6.3 % EOS % (test code = 713-8) 1.5 % BASO % (test code = 706-2) 0.7 % GRAN MAT x10^3(ANC) (test code = 4678483715) 6.71 10*3/uL 1.88-7.09 IMM GRAN x10^3 (test code = 4411018450) 0.00-0.06 LYMPH x10^3 (test code = 731-0) 2.51 10*3/uL 1.32-3.29 MONO x10^3 (test code = 742-7) 0.64 10*3/uL 0.33-0.92 EOS x10^3 (test code = 711-2) 0.15 10*3/uL 0.03-0.39 BASO x10^3 (test code = 704-7) 0.07 10*3/uL 0.01-0.07 [facility] [id number] 19:37:02* Test Item Value Reference Range Interpretation Comme [facility], 25 [place] (test code [...] TESTING PERFORMED AT [facility] [address] [place] [address] VP BIOLOGY: ASHLEY BAIRD M.D. CLIA NUMBER [id number] [facility] [place]. [id number] VITAMIN B 12 AND FOLIC [id number] 06:25:39* Test Item Value Reference Range Interpretation Comme [facility] VIT[facility]IN B-12 (test code = 2840) [...] . UG/L >=6.0 CBC W/AUTO DIFF WITH [id number] 03:06:47* Test Item Value Reference Range Interpretation [...] 0.00-0.10 ABS NUCLEATED RBCS (test code = 24751) 0.00 K/UL 0.00-0.11 VITAMIN B 12 AND FOLIC ACID [ADDED]2023-02-07 00:00:00* Test Item Value Reference Range Interpretation Comme nts VITAMIN B-12 (test code = 2840) 917 PG/ML FOLIC ACID (test code = 2695) 13.0 UG/L Olvin Zelaya JoshCBC W/AUTO DIFF WITH PLATELETS [ADDED]2023-02-07 00:00:00* Test [...] ABS NUCLEATED RBCS (test cod e = 32451) 0.00 K/UL Olvin Garcia JoshVITAMIN D, 25 [...] ABS NUCLEATED RBCS (test cod e = 66026) 0.00 K/UL Olvin MorenoVITAMIN D, 25 OH [ADDED]2023-02-07 00:00:00* Test Item Value Reference Range Interpretation Comme nts VITAMIN D, 25 OH (test code = 4958) 45 NG/ML Olvin MorenoVITAMIN B 12 AND FOLIC ACID [ADDED]2023-02-07 00:00:00* Test Item Value Reference Range Interpretation Comme nts VITAMIN B-12 (test code = 2840) 917 PG/ML FOLIC ACID (test code = 2695) 13.0 UG/L lOvin Zelaya AustinCBC W/AUTO DIFF WITH PLATELETS [ADDED]2023-02-07 [...] ABS NUCLEATED RBCS (test cod e = 00977) 0.00 K/UL Olvin MorenoVITAMIN D, 25 OH [ADDED]2023-02-07 00:00:00* Test Item Value Reference Range Interpretation Comme nts VITAMIN D, 25 OH (test code = 4958) 45 NG/ML Olvin Garcia JoshVITAMIN B 12 AND FOLIC ACID [ADDED]2023-02-07 00:00:00* Test Item Value Reference Range Interpretation Comme nts VITAMIN B-12 (test code = 2840) 917 PG/ML FOLIC ACID (test code = 2695) 13.0 UG/L Olvin Zelaya AustinCBC W/AUTO DIFF WITH PLATELETS [ADDED]2023-02-07 [...] ABS NUCLEATED RBCS (test cod e = 06997) 0.00 K/UL Olvin Garcia JoshVITAMIN D, 25 OH [ADDED]2023-02-07 00:00:00* Test Item Value Reference Range Interpretation Comme nts VITAMIN D, 25 OH (test code = 4958) 45 NG/ML Olvin Zelaya JoshVITAMIN B 12 AND FOLIC ACID [ADDED]2023-02-07 00:00:00* Test Item Value Reference Range Interpretation Comme nts VITAMIN B-12 (test code = 2840) 917 PG/ML FOLIC ACID (test code = 2695) 13.0 UG/L Olvin Garcia JoshCBC W/AUTO DIFF WITH PLATELETS [ADDED]2023-02-07 00:00:00* Test [...] ABS NUCLEATED RBCS (test cod e = 89690) 0.00 K/UL Olvin MorenoVITAMIN D, 25 OH [ADDED]2023-02-07 00:00:00* Test Item Value Reference Range Interpretation Comme nts VITAMIN D, 25 OH (test code = 4958) 45 NG/ML Olvin [id number] 15:53:00* Test Item Value Reference Range Interpretation Comme nts QuantaFlo left side (test code = 97153-7K) 0.77 See_Comment L [Automate d message] The system which generated this result transmitted reference range: 1.40 - 0.90 NA. The reference range was not used to interpret this result as normal/abnormal. QuantaFlo right side (test code = 69298-0L) 1.23 See_Comment Presentat ion Factors: COPDExercise Modality: At RestNormal - 1.40 - 1.00Borderline - 0.99 - 0.90Mild - 0.89 - 0.60Moderate - 0.59 - 0.30Severe - 0.29 - 0.00 [Automated message] The system which generated this result transmitted reference range: 1.40 - 0.90 NA. The reference range was not used to interpret this result as normal/abnormal. Lab Interpretation (test code = 55143-6) Abnormal Caroline Seybold - ExternalUA RFLX MICR CULT IF [id number] 18:46:00* Test Item Value Reference Range Interpretation [...] A Indication for culture: Suprapubic PainUR HCG [id number] 18:46:00* Test Item Value Reference Range Interpretation Comme nts UR HCG QUAL (test code = HCGQLU) NEGATIVE NEGATIVE Indication for culture: Suprapubic Pain- CT ABD PELVIS W/[id number] 17:33:00 [facility] : 1945 Sex: FPatient Name: ARON WHIPPLE Unit No: [id number] EXAMS: CPT CODE: [id number] CT ABD PELV IS W/CONT 98298 LOCATION: T18 EXAM: CT ABDOMEN AND PELVIS WITH CONTRAST INDICATION: Abdominal pain COMPARISON: None. TECHNIQUE: Multiple CT images of the abdomen and pelvis were obtained with reconstructions in the coronal and sagittal planes. 100 ml of Isovue 300 was given intravenously. Up-to-date CT equipment and radiation dose reduction techniques were utilized. Automatic exposure control wasutilized. FINDINGS: Lung bases are clear. Elongated Lorrie's [...] sigmoid colon without evidence of acute diverticulitis. 3.Hypodense nodule of the right lobe liver measuring 12 mm. Consider multiphase liver protocol CT or MRI for further evaluation. at 1733 Reported and signed by: EZEQUIEL LEACH M.D. CC: Sachin Stewart MD Technologist: Gricelda Woodruff; Radha Arana (CT),(MR) CTDI: 22.07 DLP: 1196.67Trscr Dt/Tm: 06/19/2021 (1733) by:[email or web address] Printed Date/Time: 06/19/2021 (173) Name: ARON WHIPPLE TAMMIE [facility] Phys: Sachin Luong MD [address] : 1945 Age: 76 Sex: F Jasen, Jacob [address] Loc: HECTOR 2 Exam Date: 06/19/2021 Status: ADM IN PH: FAX: PAGE 1 Signed ReportBASIC METABOLIC [id number] 16:23:00* Test Item Value Reference Range Interpretation [...] New Reference Range Aug 2020 LIVER FUNCTION [id number] 16:23:00* Test Item Value Reference Range Interpretation [...] Please note: New Reference Range Aug 2020 [id number] 16:23:00* Test Item Value Reference Range Interpretation Comme nts LIPASE (test code = LIP) 23 U/L 12-53 N Please note: New Reference Range Aug 2020 COVID 19 INHOUSE [id number] 16:18:00* Test Item Value Reference Range Interpretation Comme nts COVID 19 INHOUSE AG (test code = [id number]) NEGATIVE NEGATIVE Negative results , from patients [...] signs and symptomsconsistent with COVID-19. CBC W/AUTO [id number] 15:58:00* Test Item Value Reference Range Interpretation [...] N - XR WRIST 3 + V [id number] 14:23:00 [facility] : 1945 Sex: F FAX: Dominic Pérez MD [place]: St: REG Name: ARON WHIPPLE [facility] : 1945 Age/S: 75/F [address] Unit #: [id number] Loc: [address] Phys: Dominic Pé[place] [address] Acct: [id number] Dis Date: Status: REG ER PHONE #: [phone] Exam Date: 03/21/2021 1400 FAX #: [phone] Reason: Wrist Pain EXAMS: CPT CODE: [id number] XR WRIST 3 + [place] [address] Dictation location: U19. LEFT WRIST 3 VIEWS HISTORY: Wrist Pain FINDINGS: Moderate to severe degenerative changes also noted along thefirst CMC joint with sclerosis, subchondral cyst formation and osteophytosis. No fracture or dislocation. No significant soft tissue swelling. IMPRESSION: No fracture or dislocation. 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 at 1423 Reported and signed by: Say Hoffmann M.D. CC: Dominic Pérez MD Technologist: RENARD MOURA Trnscrd Date/Time/By: 03/21/2021 (6642) : By: [email or web address] PAGE 1 Signed Report FAX: Dominic Pérez MD [place]: EM St: REG Name: ARON WHIPPLE [facility] : 1945 Age/S: 75/F [address] [facility] Unit #: [id number] Loc: E.ERS2 [place], [place] Phys: Dominic Pérez [place] [address] Acct: [id number] Dis Date: Status: REG ER PHONE #: [phone] Exam Date: 03/21/2021 1400 FAX #: [phone] Reason: Wrist Pain EXAMS: CPT CODE: [id number] XR WRIST 3 + V LT [address]106 (Continued) Orig Print D/T: S: 03/21/2021 (1426) PAGE 2 Signed Report- CT MAXIFAC W/O CONTRAST 2021-03-21 14:20:00 [facility] : 1945 Sex: F FAX: Dominic Pérez MD [place]: EM St: [facility] 1945 Age[facility]S: 75/F [address] [employer] Unit: [id number] Loc: E.ERS2 [place], [place] Phys: Dominic Pérez [place] [address] Acct: [id number] Dis Date: Status: PRE ER PHONE #: [phone] Exam Date: 03/21/2021 1403 FAX #: [phone] Reason:FALL EXAMS: CPT CODE: [id number] CT MAXIFAC W/O CONTRAST 44315 INDICATION:Headache fall, pain TECHNIQUE: Noncontrast CT of [...] Signed Report (CONTINUED) FAX: Dominic Pérez MD [place]: St: PRE Name: ARON WHIPPLE [facility] : 1945 Age/S: 75/F [address] [employer] Unit: [id number] Loc: E.CHETAN[address] [place], [place] Phys: Dominic Pérez [place] [address] Acct: [id number] Dis Date: Status: PRE ER PHONE #: [phone] Exam Date: 03/21/20211402 FAX #: [phone] Reason: FALL EXAMS: CPT CODE: [id number] CT MAXIFAC W/O CONTRAST 34368 (Continued) TECHNIQUE: Helical CT images of the [...] Signed Report (CONTINUED) FAX: Dominic Pérez MD [place]: St: PRE Name: ARON WHIPPLE [facility] : 1945 Age/S: 75/F [address] [facility] [address] Unit: [id number] [facility]: [facility] [place], [place] Phys: Dominic Pérez [place] [address] Acct: [id number] Dis Date: Status: PRE ER PHONE #: [phone] Exam Date: 03/21/20211402 FAX #: [phone] Reason: FALL EXAMS: CPT CODE: [id number] CT MAXIFAC W/OCONTRAST 72607 (Continued) The visualized portions of the orbits and brain are unremarkable. The sinuses are clear. The nasal septum is midline. The osteomeatal units are unremarkable. There are no radiopaque foreign bodies. IMPRESSION: Unremarkable maxillofacial CT. at 1420 Reported and signed by: MONSERRAT VENTURA M.D. CC: Tushar FLYNN Technologist: MACARENA AMEZQUITA; CAMERON SIMPSON Trnscrd Dt/Tm: 03/21/2021 (1420) [email or web address].JC12Palb Print D/T: S: 03/21/2021 (9873 PAGE 3 Signed Report- CT C-SPINE W/O [id number] 14:20:00 [facility] 1945 Sex: F FAX: Dominic Pérez MD [place]: EM St: PRE Name: ARON WHIPPLE [facility] : 1945 Age/S: 75/F [address] [facility] Unit: [id number] Loc: [address] Phys: Dominic [place] [address] Acct: [id number] DisDate: Status: PRE ER PHONE #: [phone] Exam Date: 03/21/2021 1403 FAX #: [phone] Reason: Neck Pain EXAMS: CPT CODE: [id number] CT C-SPINE W/O CONT 44759 INDICATION:Headache fall, pain TECHNIQUE: Noncontrast CT of [...] Signed Report (CONTINUED) FAX: Dominic Pérez MD [place]: St: PRE Name: ARON WHIPPLE [facility] : 1945 Age/S: 75/F [address] [facility] Unit: [id number] Loc: E.ERS[address] [place], [place] Phys: Dominic Pérez [place] [address] Acct: [id number] Dis Date: Status: PRE ER PHONE #: [phone] Exam Date: 03/21/20211402 FAX #: [phone] Reason: Neck Pain EXAMS: CPT CODE: [id number] CT C-SPINE W/O CONT 86956 (Continued) TECHNIQUE:Helical CT images of the cervical spine were obtained from the skull base through T2 without administration of IV contrast. Axial, sagittal, and coronal images were provided. CT DLP dose: 351 mGy cent imeters.Iterative dose reduction technique utilized Location: T 18 [...] Signed Report (CONTINUED) FAX: Dominic Pérez MD [place]: St: PRE Name: ARON WHIPPLE [facility] : 1945 Age/S: 75/F [address] Unit: [id number] Loc: E.[address] [place] [address] Phys: Dominic Pérez [place] [address] Acct: [id number] Dis Date: Status: PRE ER PHONE #: [phone] Date: 03/21/20211402 FAX #: [phone] Reason: Neck Pain EXAMS: CPT CODE: [id number] CT C-SPINE W/O CONT 83406 (Continued) The visualized portions of the orbits and brain are unremarkable. Thesinuses are clear. The nasal septum is midline. The osteomeatal units are unremarkable. There are no radiopaque foreign bodies. IMPRESSION: Unremarkable maxillofacial CT. at 1420 Reported and signed by: MONSERRAT VENTURA M.D. CC: Dominic Pérez MD Technologist: MACARENA AMEZQUITA; CAMERON SIMPSON Trnscrd Dt/Tm: 03/21/2021 (1420) t.SDR.NB16 Orig Print D/T: S: 03/21/2021 (6823 PAGE 3 Signed Report- CT HEAD/BRAIN W/O [id number] 14:20:00 [facility] : 1945 Sex: F FAX: Dominic Pérez MD [place]: St: PRE Name: ARON WHIPPLE [facility] : 1945 Age/S: 75/F [address] Unit: [id number] Loc: E.ERS2 [place], [place] Phys: Dominic Pérez [place] [address] Acct: [id number] Dis Date: Status: PRE ER PHONE #: [phone] Exam Date: 03/21/20211402 FAX #: [phone] Reason:Headache EXAMS: CPT CODE: [id number] CT HEAD/BRAIN W/O CONT 30129 INDICATION:Headache fall, pain TECHNIQUE: Noncontrast CT of [...] Signed Report (CONTINUED) FAX: Dominic Pérez MD [place]: St: PRE Name: ARON WHIPPLE [facility] : 1945 Age/S: 75/F [address] Unit: [id number] Loc: [address] Phys: Dominic Pérez [place] [address] Acct: [id number] Dis Date: Status: PRE ER PHONE #: [phone] Exam Date: 03/21/20211402 FAX #: [phone] Reason: Headache EXAMS: CPT CODE: [id number] CT HEAD/BRAIN W/O CONT 21787 (Continued) TECHNIQUE: Helical CT images of the [...] Signed Report (CONTINUED) FAX: Dominic Pérez MD [place]: St: PRE Name: ARON WHIPPLE [facility] : 1945 Age/S: 75/F [address] Unit: [id number] Loc: [address] Phys: Dominic Pérez [place] [address] Acct: [id number] Dis Date: Status: PRE ER PHONE #: [phone] Date: 03/21/2021 1403 FAX #: [phone] Reason: Headache EXAMS: CPT CODE: [id number] CT HEAD/BRAIN W/O CONT 84024 (Continued) The visualized portions of the orbits and brain are unremarkable. The sinuses are clear. The nasal septum is midline. The osteomeatal units are unremarkable. There areno radiopaque foreign bodies. IMPRESSION: Unremarkable maxillofacial CT. at 1420 Reported and signed by: MONSERRAT VENTURA M.D. CC: Dominic Pérez MD Technologist: MACARENA AMEZQUITA; CAMERON SIMPSON Trnscrd Dt/Tm: 03/21/2021 (1420) Marcie.NB16 Orig Print D/T: S: 03/21/2021 (6513 PAGE 3 Signed Report- XR CHEST 1 [id number] 14:20:00 [facility] : 1945 Sex: F FAX: Dominic Pérez MD [place]: St: PRE Name: WHIPPLE,ARON [facility] : 1945 Age/S: 75/F [address] Unit #: [id number] Loc: [address] Phys: Dominic Pérez [place] [address] Acct: [id number] Dis Date: Status: PRE ER PHONE #: [phone] Exam Date: 03/21/2021 1400 FAX #: [phone] Reason: Chest Pain EXAMS: CPT CODE: [id number] XR CHEST 1 V 89166 Dictation location: U19. CHEST, FRONTAL VIEW HISTORY: [...] CC: Dominic Pérez MD Technologist: RENARD MOURA [facility] Date/Time/By: 03/21/2021 (1420) : By: [email or web address] PAGE 1 Signed Report FAX: Dominic Pérez MD [place]: St: PRE Name: ARON WHIPPLE [facility] : 1945 Age/S: 75/F [address] Unit #: [id number] Loc: [address] Phys: Dominic Pé[place] [address] Acct: [id number] Dis Date: Status: PRE ER PHONE #:[phone] Exam Date: 03/21/2021 1400 FAX #: [phone] Reason: Chest Pain EXAMS: CPT CODE: [id number] XR CHEST 1 V 46526 (Continued) Orig Print D/T: S: 03/21/2021 (1423) PAGE 2 Signed NgualpVKOL-PsU-6 (COVID-19) by RT-PCR (HIGH RISK)2021-02-11 00:00:00* Test Item Value Reference Range Interpretation Comme nts SARS-CoV-2 INTERPRETATION (t est code = 14297) NEGATIVE SOURCE (test code = 61425) NOT SPECIFIED SARS-CoV-2 (COVID-19) by RT-PCR (HIGH RISK)2021-02-11 00:00:00* Test Item Value Reference Range Interpretation Comme nts SARS-CoV-2 INTERPRETATION (t est code = 58783) NEGATIVE SOURCE (test code = 55453) NOT SPECIFIED SARS-CoV-2 (COVID-19) by RT-PCR (HIGH RISK)2021-02-11 00:00:00* Test Item Value Reference Range Interpretation Comme nts SARS-CoV-2 INTERPRETATION (t est code = 50914) NEGATIVE SOURCE (test code = 58192) NOT SPECIFIED Olvin Zelaya TqmhuqQHID-HhI-7 (COVID-19) by RT-PCR (HIGH RISK)2021-02-11 00:00:00* Test Item Value Reference Range Interpretation Comme nts SARS-CoV-2 INTERPRETATION (t est code = 16272) NEGATIVE SOURCE (test code = 32972) NOT SPECIFIED Olvin Zelaya HtkmrbEJBQ-NwP-7 (COVID-19) by RT-PCR (HIGH RISK)2021-02-11 00:00:00* Test Item Value Reference Range Interpretation Comme nts SARS-CoV-2 INTERPRETATION (t est code = 24262) NEGATIVE SOURCE (test code = 11393) NOT SPECIFIED Olvin Zelaya XklrljRBQF-ByG-2 (COVID-19) by RT-PCR (HIGH RISK)2021-02-11 00:00:00* Test Item Value Reference Range Interpretation Comme nts SARS-CoV-2 INTERPRETATION (t est code = 99562) NEGATIVE SOURCE (test code = 77991) NOT SPECIFIED Olvin Zelaya UrubbnTTYY-HpF-4 (COVID-19) by RT-PCR (HIGH RISK)2021-02-11 00:00:00* Test Item Value Reference Range Interpretation Comme nts SARS-CoV-2 INTERPRETATION (t est code = 65534) NEGATIVE SOURCE (test code = 78344) NOT SPECIFIED Olvin Zelaya PibwutBFGH-EiC-4 (COVID-19) by RT-PCR (HIGH RISK)2021-02-11 00:00:00* Test Item Value Reference Range Interpretation Comme nts SARS-CoV-2 INTERPRETATION (t est code = 63899) NEGATIVE SOURCE (test code = 12285) NOT SPECIFIED ANEMIA [id number] 14:14:00* Test Item Value Reference Range Interpretation Comme nts Vitamin B12 Lvl (test code = Vitamin B12 Lvl) 8419 711-3919 [facility]2021-07-21 14:14:00* Test Item Value Reference Range Interpretation Comme nts Glucose Lvl (test code = Glucose Lvl) 84 65-99 BUN (test code = BUN) 18 7-25 Creatinine Lvl (test code = Creatinine Lvl) 0.75 0.60-0.93 eGFR NON-AFR. ANGUILLAN (test code = eGFR NON-AFR. ANGUILLAN) 79 eGFR (test code = eGFR ) [...] st code = ALANINE AMINOTRANSFERASE) 8 6-29 [facility] CentennialXimrwbtVYGOCNHAFP3696-17-23 14:14:00* Test Item Value Reference Range Interpretation Comme nts Sed Rate (test code = Sed Rate) 28 [facility] C[id number] 14:14:00* Test Item Value Reference Range Interpretation Comme nts C-REACTIVE PROTEIN (test cod e = C-REACTIVE PROTEIN) 12.2 [facility] CentennialOCCULT BLD,FECAL,IMMUNOASSAY [id number] 00:00:00* Test Item Value Reference Range Interpretation Comme nts OCCULT BLD, FECAL (test code = 08753) NEGATIVE OCCULT BLD,FECAL,IMMUNOASSAY [id number] 00:00:00* Test Item Value Reference Range Interpretation Comme nts OCCULT BLD, FECAL (test code = 14282) NEGATIVE OCCULT BLD,FECAL,IMMUNOASSAY [id number] 00:00:00* Test Item Value Reference Range Interpretation Comme nts OCCULT BLD, FECAL (test code = 98856) NEGATIVE Olvin F AustinOCCULT BLD,FECAL,IMMUNOASSAY [id number] 00:00:00* Test Item Value Reference Range Interpretation Comme nts OCCULT BLD, FECAL (test code = 49541) NEGATIVE Olvin F AustinOCCULT BLD,FECAL,IMMUNOASSAY [id number] 00:00:00* Test Item Value Reference Range Interpretation Comme nts OCCULT BLD, FECAL (test code = 76687) NEGATIVE Olvin F AustinOCCULT BLD,FECAL,IMMUNOASSAY [id number] 00:00:00* Test Item Value Reference Range Interpretation Comme nts OCCULT BLD, FECAL (test code = 35759) NEGATIVE Olvin F AustinOCCULT BLD,FECAL,IMMUNOASSAY [id number] 00:00:00* Test Item Value Reference Range Interpretation Comme nts OCCULT BLD, FECAL (test code = 29943) NEGATIVE Olvin F AustinOCCULT BLD,FECAL,IMMUNOASSAY [id number] 00:00:00* Test Item Value Reference Range Interpretation Comme nts OCCULT BLD, FECAL (test code = 96015) NEGATIVE LIPID [id number] 00:00:00* Test Item Value Reference Range Interpretation Comme nts CHOLESTEROL (test code = 2210) 188 MG/DL TRIGLYCERIDES (test code = 2232) 83 MG/DL HDL CHOLESTEROL (test code = 2220) 69 MG/DL CALC LDL CHOL (test code = 2237) 102 MG/DL RISK RATIO LDL/HDL (test cod e = 2238) 1.48 RATIO CBC W/AUTO [id number] 00:00:00* Test Item Value Reference Range Interpretation [...] ABS NUCLEATED RBCS (test cod e = 30903) 0.00 K/UL HEMOGLOBIN [id number] 00:00:00* Test Item Value Reference Range Interpretation Comme nts HEMOGLOBIN A1c (test code = 34324) 5.3 % LIPID [id number] 00:00:00* Test Item Value Reference Range Interpretation Comme nts CHOLESTEROL (test code = 2210) 188 MG/DL TRIGLYCERIDES (test code = 2232) 83 MG/DL HDL CHOLESTEROL (test code = 2220) 69 MG/DL CALC LDL CHOL (test code = 2237) 102 MG/DL RISK RATIO LDL/HDL (test cod e = 2238) 1.48 RATIO CBC W/AUTO [id number] 00:00:00* Test Item Value Reference Range Interpretation [...] ABS NUCLEATED RBCS (test cod e = 07850) 0.00 K/UL HEMOGLOBIN [id number] 00:00:00* Test Item Value Reference Range Interpretation Comme nts HEMOGLOBIN A1c (test code = 64628) 5.3 % LIPID [id number] 00:00:00* Test Item Value Reference Range Interpretation Comme nts CHOLESTEROL (test code = 2210) 188 MG/DL TRIGLYCERIDES (test code = 2232) 83 MG/DL HDL CHOLESTEROL (test code = 2220) 69 MG/DL CALC LDL CHOL (test code = 2237) 102 MG/DL RISK RATIO LDL/HDL (test cod e = 2238) 1.48 RATIO CBC W/AUTO [id number] 00:00:00* Test Item Value Reference Range Interpretation [...] ABS NUCLEATED RBCS (test cod e = 59047) 0.00 K/UL Olvin MorenoHEMOGLOBIN [id number] 00:00:00* Test Item Value Reference Range Interpretation Comme nts HEMOGLOBIN A1c (test code = 19158) 5.3 % Olvin MorenoLIPID [id number] 00:00:00* Test Item Value Reference Range Interpretation Comme nts CHOLESTEROL (test code = 2210) 188 MG/DL TRIGLYCERIDES (test code = 2232) 83 MG/DL HDL CHOLESTEROL (test code = 2220) 69 MG/DL CALC LDL CHOL (test code = 2237) 102 MG/DL RISK RATIO LDL/HDL (test cod e = 2238) 1.48 RATIO Olvin MorenoCBC W/AUTO [id number] 00:00:00* Test Item Value Reference Range Interpretation [...] ABS NUCLEATED RBCS (test cod e = 66387) 0.00 K/UL Olvin MorenoHEMOGLOBIN [id number] 00:00:00* Test Item Value Reference Range Interpretation Comme nts HEMOGLOBIN A1c (test code = 27986) 5.3 % Olvin MorenoLIPID [id number] 00:00:00* Test Item Value Reference Range Interpretation Comme nts CHOLESTEROL (test code = 2210) 188 MG/DL TRIGLYCERIDES (test code = 2232) 83 MG/DL HDL CHOLESTEROL (test code = 2220) 69 MG/DL CALC LDL CHOL (test code = 2237) 102 MG/DL RISK RATIO LDL/HDL (test cod e = 2238) 1.48 RATIO Olvin MorenoCBC W/AUTO [id number] 00:00:00* Test Item Value Reference Range Interpretation [...] ABS NUCLEATED RBCS (test cod e = 40434) 0.00 K/UL Olvin MorenoHEMOGLOBIN [id number] 00:00:00* Test Item Value Reference Range Interpretation Comme nts HEMOGLOBIN A1c (test code = 60363) 5.3 % Olvin MorenoLIPID [id number] 00:00:00* Test Item Value Reference Range Interpretation Comme nts CHOLESTEROL (test code = 2210) 188 MG/DL TRIGLYCERIDES (test code = 2232) 83 MG/DL HDL CHOLESTEROL (test code = 2220) 69 MG/DL CALC LDL CHOL (test code = 2237) 102 MG/DL RISK RATIO LDL/HDL (test cod e = 2238) 1.48 RATIO Olvin MorenoCBC W/AUTO [id number] 00:00:00* Test Item Value Reference Range Interpretation [...] ABS NUCLEATED RBCS (test cod e = 59811) 0.00 K/UL Olvin MorenoHEMOGLOBIN [id number] 00:00:00* Test Item Value Reference Range Interpretation Comme nts HEMOGLOBIN A1c (test code = 10051) 5.3 % Olvin MorenoLIPID [id number] 00:00:00* Test Item Value Reference Range Interpretation Comme nts CHOLESTEROL (test code = 2210) 188 MG/DL TRIGLYCERIDES (test code = 2232) 83 MG/DL HDL CHOLESTEROL (test code = 2220) 69 MG/DL CALC LDL CHOL (test code = 2237) 102 MG/DL RISK RATIO LDL/HDL (test cod e = 2238) 1.48 RATIO Olvin MorenoCBC W/AUTO [id number] 00:00:00* Test Item Value Reference Range Interpretation [...] ABS NUCLEATED RBCS (test cod e = 79446) 0.00 K/UL Olvin MorenoHEMOGLOBIN [id number] 00:00:00* Test Item Value Reference Range Interpretation Comme nts HEMOGLOBIN A1c (test code = 67466) 5.3 % Olvin MorenoLIPID [id number] 00:00:00* Test Item Value Reference Range Interpretation Comme nts CHOLESTEROL (test code = 2210) 188 MG/DL TRIGLYCERIDES (test code = 2232) 83 MG/DL HDL CHOLESTEROL (test code = 2220) 69 MG/DL CALC LDL CHOL (test code = 2237) 102 MG/DL RISK RATIO LDL/HDL (test cod e = 2238) 1.48 RATIO Olvin MorenoCBC W/AUTO [id number] 00:00:00* Test Item Value Reference Range Interpretation [...] ABS NUCLEATED RBCS (test cod e = 57489) 0.00 K/UL HEMOGLOBIN [id number] 00:00:00* Test Item Value Reference Range Interpretation Comme nts HEMOGLOBIN A1c (test code = 13578) 5.3 % NOTE: [ADDED]2020-05-12 00:00:00* Test Item Value Reference Range Interpretation Comme nts NOTE: (test code = 998) (NOTE) OCCULT BLD,FECAL,IMMUNOASSAY DIAG [ADDED]2020-05-12 00:00:00* Test Item Value Reference Range Interpretation Comme nts OCCULT BLD, FECAL (test code = 67173) NEGATIVE NOTE: [ADDED]2020-05-12 00:00:00* Test Item Value Reference Range Interpretation Comme nts NOTE: (test code = 998) (NOTE) OCCULT BLD,FECAL,IMMUNOASSAY DIAG [ADDED]2020-05-12 00:00:00* Test Item Value Reference Range Interpretation Comme nts OCCULT BLD, FECAL (test code = 74661) NEGATIVE NOTE: [ADDED]2020-05-12 00:00:00* Test Item Value Reference Range Interpretation Comme nts NOTE: (test code = 998) (NOTE) OCCULT BLD,FECAL,IMMUNOASSAY DIAG [ADDED]2020-05-12 00:00:00* Test Item Value Reference Range Interpretation Comme nts OCCULT BLD, FECAL (test code = 39043) NEGATIVE Olvin MorenoNOTE: [ADDED]2020-05-12 00:00:00* Test Item Value Reference Range Interpretation Comme nts NOTE: (test code = 998) (NOTE) Olvin CastellanoULT BLD,FECAL,IMMUNOASSAY DIAG [ADDED]2020-05-12 00:00:00* Test Item Value Reference Range Interpretation Comme nts OCCULT BLD, FECAL (test code = 17438) NEGATIVE Olvin Zelaya AustinNOTE: [ADDED]2020-05-12 00:00:00* Test Item Value Reference Range Interpretation Comme nts NOTE: (test code = 998) (NOTE) Olvin Zelaya AustinOCCULT BLD,FECAL,IMMUNOASSAY DIAG [ADDED]2020-05-12 00:00:00* Test Item Value Reference Range Interpretation Comme nts OCCULT BLD, FECAL (test code = 61257) NEGATIVE Olvin Zelaya AustinNOTE: [ADDED]2020-05-12 00:00:00* Test Item Value Reference Range Interpretation Comme nts NOTE: (test code = 998) (NOTE) Olvin Zelaya AustinOCCULT BLD,FECAL,IMMUNOASSAY DIAG [ADDED]2020-05-12 00:00:00* Test Item Value Reference Range Interpretation Comme nts OCCULT BLD, FECAL (test code = 69942) NEGATIVE Olvin Zelaya AustinNOTE: [ADDED]2020-05-12 00:00:00* Test Item Value Reference Range Interpretation Comme nts NOTE: (test code = 998) (NOTE) Olvin Zelaya AustinOCCULT BLD,FECAL,IMMUNOASSAY DIAG [ADDED]2020-05-12 00:00:00* Test Item Value Reference Range Interpretation Comme nts OCCULT BLD, FECAL (test code = 45150) NEGATIVE Olvin Zelaya AustinNOTE: [ADDED]2020-05-12 00:00:00* Test Item Value Reference Range Interpretation Comme nts NOTE: (test code = 998) (NOTE) Olvin Zelaya AustinOCCULT BLD,FECAL,IMMUNOASSAY DIAG [ADDED]2020-05-12 00:00:00* Test Item Value Reference Range Interpretation Comme nts OCCULT BLD, FECAL (test code = 51900) NEGATIVE LIPID [id number] 00:00:00* Test Item Value Reference Range Interpretation Comme nts CHOLESTEROL (test code = 2210) 186 MG/DL TRIGLYCERIDES (test code = 2232) 92 MG/DL HDL CHOLESTEROL (test code = 2220) 71 MG/DL CALC LDL CHOL (test code = 2237) 96 MG/DL RISK RATIO LDL/HDL (test cod e = 2238) 1.35 RATIO COMPREHENSIVE METABOLIC [id number] 00:00:00* Test Item Value Reference Range Interpretation Comme nts GLUCOSE (test code = 2217) 94 MG/DL BUN (test code = 2208) 23 MG/DL CREATININE (test code = 2214) 0.76 MG/DL eGFR AMER. (test cod e = 24910) 90 ML/MIN/1.73 eGFR NON- AMER. (test code = 62232) 78 ML/MIN/1.73 CALC BUN/CREAT (test code = [...] (test code = 2219) 10 U/L LIPID [id number] 00:00:00* Test Item Value Reference Range Interpretation Comme nts CHOLESTEROL (test code = 2210) 186 MG/DL TRIGLYCERIDES (test code = 2232) 92 MG/DL HDL CHOLESTEROL (test code = 2220) 71 MG/DL CALC LDL CHOL (test code = 2237) 96 MG/DL RISK RATIO LDL/HDL (test cod e = 2238) 1.35 RATIO COMPREHENSIVE METABOLIC [id number] 00:00:00* Test Item Value Reference Range Interpretation Comme nts GLUCOSE (test code = 2217) 94 MG/DL BUN (test code = 2208) 23 MG/DL CREATININE (test code = 2214) 0.76 MG/DL eGFR AMER. (test cod e = 68226) 90 ML/MIN/1.73 eGFR NON- AMER. (test code = 41395) 78 ML/MIN/1.73 CALC BUN/CREAT (test code = [...] 0.3 MG/DL ALKALINE PHOSPHATASE (test code = 220) 115 U/L AST (test code = 2218) 14 U/L ALT (test code = 2219) 10 U/L LIPID [id number] 00:00:00* Test Item Value Reference Range Interpretation Comme nts CHOLESTEROL (test code = 2210) 186 MG/DL TRIGLYCERIDES (test code = 2232) 92 MG/DL HDL CHOLESTEROL (test code = 2220) 71 MG/DL CALC LDL CHOL (test code = 2237) 96 MG/DL RISK RATIO LDL/HDL (test cod e = 2238) 1.35 RATIO Olvin F JoshCOMPREHENSIVE METABOLIC [id number] 00:00:00* Test Item Value Reference Range Interpretation Comme nts GLUCOSE (test code = 7) 94 MG/DL BUN (test code = 8) 23 MG/DL CREATININE (test code = 2214) 0.76 MG/DL eGFR AMER. (test cod e = 50721) 90 ML/MIN/1.73 eGFR NON- AMER. (test code = 99233) 78 ML/MIN/1.73 CALC BUN/CREAT (test code = [...] (test code = 2219) 10 U/L Olvin MorenoLIPID [id number] 00:00:00* Test Item Value Reference Range Interpretation Comme nts CHOLESTEROL (test code = 2210) 186 MG/DL TRIGLYCERIDES (test code = 2232) 92 MG/DL HDL CHOLESTEROL (test code = 2220) 71 MG/DL CALC LDL CHOL (test code = 2237) 96 MG/DL RISK RATIO LDL/HDL (test cod e = 2238) 1.35 RATIO Olvin MorenoCOMPREHENSIVE METABOLIC [id number] 00:00:00* Test Item Value Reference Range Interpretation Comme nts GLUCOSE (test code = 2217) 94 MG/DL BUN (test code = 2208) 23 MG/DL CREATININE (test code = 2214) 0.76 MG/DL eGFR AMER. (test cod e = 23329) 90 ML/MIN/1.73 eGFR NON- AMER. (test code = 51133) 78 ML/MIN/1.73 CALC BUN/CREAT (test code = [...] = 2219) 10 U/L Olvin Zelaya AustinLIPID [id number] 00:00:00* Test Item Value Reference Range Interpretation Comme nts CHOLESTEROL (test code = 2210) 186 MG/DL TRIGLYCERIDES (test code = 2232) 92 MG/DL HDL CHOLESTEROL (test code = 2220) 71 MG/DL CALC LDL CHOL (test code = 2237) 96 MG/DL RISK RATIO LDL/HDL (test cod e = 2238) 1.35 RATIO Olvin MorenoCOMPREHENSIVE METABOLIC [id number] 00:00:00* Test Item Value Reference Range Interpretation Comme nts GLUCOSE (test code = 2217) 94 MG/DL BUN (test code = 2208) 23 MG/DL CREATININE (test code = 2214) 0.76 MG/DL eGFR AMER. (test cod e = 99970) 90 ML/MIN/1.73 eGFR NON- AMER. (test code = 69770) 78 ML/MIN/1.73 CALC BUN/CREAT (test code = [...] = 2219) 10 U/L Olvin Zelaya AustinLIPID [id number] 00:00:00* Test Item Value Reference Range Interpretation Comme nts CHOLESTEROL (test code = 2210) 186 MG/DL TRIGLYCERIDES (test code = 2232) 92 MG/DL HDL CHOLESTEROL (test code = 2220) 71 MG/DL CALC LDL CHOL (test code = 2237) 96 MG/DL RISK RATIO LDL/HDL (test cod e = 2238) 1.35 RATIO Olvin Zelaya AustinCOMPREHENSIVE METABOLIC [id number] 00:00:00* Test Item Value Reference Range Interpretation Comme nts GLUCOSE (test code = 2217) 94 MG/DL BUN (test code = 2208) 23 MG/DL CREATININE (test code = 2214) 0.76 MG/DL eGFR AMER. (test cod e = 93430) 90 ML/MIN/1.73 eGFR NON- AMER. (test code = 00261) 78 ML/MIN/1.73 CALC BUN/CREAT (test code = [...] code = 2219) 10 U/L Olvin Garcia WalcottLIPID [id number] 00:00:00* Test Item Value Reference Range Interpretation Comme nts CHOLESTEROL (test code = 2210) 186 MG/DL TRIGLYCERIDES (test code = 2232) 92 MG/DL HDL CHOLESTEROL (test code = 2220) 71 MG/DL CALC LDL CHOL (test code = 2237) 96 MG/DL RISK RATIO LDL/HDL (test cod e = 2238) 1.35 RATIO Olvin Zelaya WalcottCOMPREHENSIVE METABOLIC [id number] 00:00:00* Test Item Value Reference Range Interpretation Comme nts GLUCOSE (test code = 2217) 94 MG/DL BUN (test code = 2208) 23 MG/DL CREATININE (test code = 2214) 0.76 MG/DL eGFR AMER. (test cod e = 32175) 90 ML/MIN/1.73 eGFR NON- AMER. (test code = 42210) 78 ML/MIN/1.73 CALC BUN/CREAT (test code = [...] 0.3 MG/DL ALKALINE PHOSPHATASE (test code = 220) 115 U/L AST (test code = 221) 14 U/L ALT (test code = 2219) 10 U/L Olvin Zelaya AustinLIPID [id number] 00:00:00* Test Item Value Reference Range Interpretation Comme nts CHOLESTEROL (test code = 2210) 186 MG/DL TRIGLYCERIDES (test code = 2232) 92 MG/DL HDL CHOLESTEROL (test code = 2219) 71 MG/DL CALC LDL CHOL (test code = 223) 96 MG/DL RISK RATIO LDL/HDL (test cod e = 2238) 1.35 RATIO COMPREHENSIVE METABOLIC [id number] 00:00:00* Test Item Value Reference Range Interpretation Comme nts GLUCOSE (test code = 2216) 94 MG/DL BUN (test code = 2207) 23 MG/DL CREATININE (test code = 2214) 0.76 MG/DL eGFR AMER. (test cod e = 86141) 90 ML/MIN/1.73 eGFR NON- AMER. (test code = 98800) 78 ML/MIN/1.73 CALC BUN/CREAT (test code = [...] = 2219) 10 U/L XR CHEST 2 [id number] 16:17:10EXAM: XR CHEST 2 VW HISTORY: Pulmonary [...] thelungs are well expanded and clear. ? Njmb, Radiant Results Inft User - 02/01/2020 11:18 [...] normal and thelungs are well expanded and clear.[facility] Notes Date/Time Note Provider Source [facility] ZelayaMiguelito [facility] 16:14:14* [facility]2025-09-10 16:14:14* Deanne Bland PA-C - 03/10/2025 3:00 [...] mg nightly. Prescribed by Dr. 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 Dr. Guerrier. [place] obtained for last progress note. Continue carvedilol 6.25 mg twice daily, Plavix, aspirin, spironolactone 25 mg daily, Lasix 20 mg daily as needed. 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 Dr. Guerrier. [place] obtained for last progress note. Continue carvedilol 6.25 mg twice daily, Plavix, aspirin, spironolactone 25 mg daily, Lasix 20 mg daily as needed. Chronic obstructive pulmonary disease, unspecified COPD type ([facility])- Albuterol HFA (VENTOLIN HFA) 108 (90 Base) [...] using voice recognition software. This can produce power project manager errors that can at times significantly distort words and phrases. Please interpret any aspect of the note that is nonsensical in light of this fact. DAHIANA Gomez-CSP: Dr. Antoni Thomas, [facility] [1]Current Outpatient Medications Medication Sig Dispense Refill [...] medications for this visit. [facility]2025-09-10 16:14:14Pending Results Scheduled Orders Name Type Priority [...] Colonography Discontinued FIT Tests Discontinued Sigmoidoscopy Discontinued [facility]2025-09-10 16:14:14 Diagnosis S/P right coronary artery (R CA) stent placement - Primary Paroxysmal A-fib (multi HCC) Atrial fibrillation Coronary artery disease invo lving oneida coronary artery of oneida heart without angina pectoris Acute on chronic [...] specified prophylactic vaccination against single bacterial disease [facility]2025-09-10 16:14:14 [facility]2025-09-10 15:16:14 Chief Complaint Patient presents with Follow-up 2 month follow up for chronic conditions. Has had a cough going on two weeks. Started coughing up green mucus. Thinks she might have a UTI. Dark foul smelling urine. Burning upon urination Cough Ele Cardoso LVN [facility]2025-07-14 11:09:32 Chief Complaint Patient presents with Follow-up Hospitalization Patient wants to talk about medications Ele Cardoso LVN [facility]2025-04-21 13:36:55 Chief Complaint Patient presents with UTI Patient complains of UTI symptoms for 1 week Back Pain Low back pain Urbano Allen MA Urbano Allen [facility]2025-02-19 00:00:00 [facility]2025-02-03 12:54:56 Chief Complaint Patient presents with Physical Patient is not fasting. No other issues to discuss Alexsandra Solares MA [facility]2024-11-20 00:00:00 [facility]2024-07-17 00:00:00 [facility]2024-05-22 00:00:00 [place] [id number] 14:37:48 Chief Complaint Patient presents with Shoulder Pain Left shoulder pain for several months. No injury. Alexsandra Solares MA II [facility]2023-09-11 18:32:35 Pt given printed and [...] gait, in no apparent distress. Alysa Morris [id number] 14:24:47 Reports left sided chest pain and shortness of breath x 1 week. It has gotten worse and decided to come in. Pain also gets worse when walking 100 feet in distance. No heart history . Xander Marion [facility]villeUmvdpr8713-13-13 15:25:[id number] [place] [address] PATIENT NAME: ARON WHIPPLE ADMIT DATE: 06/19/21 ACCOUNT NO: [id number] ROOM NO: [facility] AGE: 76 REPORT TYPE: eELECTROCARDIOGRAM SEX: F ADMITTING PHYSICIAN: Dylan Dowell MD ATTENDING PHYSICIAN: Dylan Dowell MD Order: [id number] Test Reason : Test Date/Time Stamp: SatJun [...] QRS duration Confirmed by RENARD GRISSOM MD ([id number]) on 06/21/2021 12:10:13 PM Referred By: Self Referred Confirmed by:RENARD GRISSOM MD at 1210 PATIENT NAME: ARON WHIPPLE 15:07:00 [facility] ([facility]) EMERGENCY PROVIDER REPORT REPORT#:[id number] REPORT STATUS: Signed DATE:06/19/21 TIME: 1507 PATIENT: ARON WHIPPLE UNIT #: [id number] ROOM: [facility] BED: 1 AGE: 76 SEX: F PCP [...] 123 06/19 1514 O2 Delivery Room air 12/20 1514 Temp 36.8 06/19 1514 Pulse 80 [...] % (Auto) (20.5 - 51.1 %) 29.6 Ray % (Auto) (1.7 - 9.3 %) 6.3 Eos % (Auto) (0.0 - 7.0 %) 1.9 Baso % (Auto) (0 - 2.5 %) 0.6 Neut # (Auto) (1.80 - 7.70 x10 3/uL) 5.49 Lymph # (Auto) (1.00 - 4.80 x10 3/uL) 2.65 Ray # (Auto) (0.00 - 0.80 x10 3/uL) [...] Returned Call returned Call Returned Date 06/19/21 Banking Management Consulting Manager Will see patient Free Text Consult Notes [...] )( Admission Accepts Yes )( Accepted Time 1554 )( Accepted Date 06/19/21 Call Information will see patient at 1218 RPT #:[id number] END OF [id number] 13:52:00 [facility] ([facility] EMERGENCY PROVIDER REPORT REPORT#:[id number] REPORT STATUS: Signed DATE:03/21/21 TIME: 1352 PATIENT: ARON WHIPPLE UNIT #: [id number] ROOM/BED: AGE: 75 SEX: F PCP PHYS: [...] trip and fall while walking at the [facility]. Patient states she tripped and landed [...] Distracting injury pres. [place] Coma Score: Copyright [facility] Copyright [facility] Eye opening: (4) Spontaneous Verbal response: (5) [...] Report Impression - Status: SIGNED Entered: 03/21/2021 3344 IMPRESSION: 1. Mild generalized cerebral atrophy and [...] Criteria met, CT ordered at 1555 RPT #:[id number] END OF REPORTHCAMN
[2025-04-01 10:00] LABS: Absolute Lymphocytes (CBC) 1.4 K/uL (0.7-4.9); Hematocrit 36.7 % (36.0-45.0); Hemoglobin 11.9 g/dL (12.0-15.0); MCH 27.0 pg (27.0-35.0); MCHC 32.3 g/dL (32.0-36.0); MCV 83.5 fL (80-100); MPV 8.7 fL (7.6-11.3); Nucleated RBC Absolute Count 0.0 (0-0); Nucleated Red Blood Cells % 0.0 % (0-0); RBC Red Blood Cell Count 4.39 M/uL (3.86-4.86); White Blood Count 12.50 thou/uL (4.3-10.9)
[2025-04-01 10:06] LABS: PT Prothrombin Time 13.4 SECONDS (10-13.0); PTT, Activated Partial Thromb 33.6 SECONDS (27.2-37.4); Protime INR 1.19
[2025-04-01 10:14] LABS: Anion Gap 8.8 mEq/L (5.0-15.0); BUN Blood Urea Nitrogen 12.0 mg/dL (7-18); Glucose Level 106.0 mg/dL (74-106); Potassium 3.8 mEq/L (3.5-5.1); Uric Acid 5.1 mg/dL (2.6-6.0)
[2025-04-01] MEDS ORDERED: ONDANSETRON 4 MG/2 ML VIAL ONE (10:18)
[2025-04-01] MEDS ORDERED: MORPHINE 4 MG/ML SYR ONE (10:18)
[2025-04-01] MEDS ORDERED: LIDOCAINE 2% MPF 5 ML VIAL ONE (10:44)
[2025-04-01] MEDS ORDERED: COLCHICINE 0.6 MG TAB ONE (10:58)
[2025-04-01 12:43] LABS: Color of Supernate Not Xanthochromic (Not Xantho); Color of fluid Brown (COLORLESS); Fluid Total Cells Count 100
--- NOTE | 2025-04-01 13:45 | ER ---
Nurse's Notes [facility] Name: Sofia Rodriguez Age: 79 yrs Sex: Female : 1945 Arrival Date: 04/01/2025 Time: 08:27 Bed IW9 Private MD: Diagnosis: Pseudogout;Inflammatory vs infectious arthritis of right wrist Presentation: 04/01 08:42 Chief complaint: Patient states: R WRIST PAIN x SATURDAY WITH REDNESS/SWELLING. bp Coronavirus screen: At this time, the client does not indicate any symptoms associated with coronavirus-19. Ebola Screen: No symptoms or risks identified at this time. Initial Sepsis Screen: Does the patient meet any 2 criteria? No. Patient's initial sepsis screen is negative. Does the patient have a suspected source of infection? No. Patient's initial sepsis screen is negative. Risk Assessment: Do you want to hurt yourself or someone else? Patient reports no desire to harm self or others. Onset of symptoms is unknown. 08:42 Method Of Arrival: Ambulatory bp 08:42 Acuity: JAUN 3 bp Triage Assessment: 08:43 General: Appears in no apparent distress. uncomfortable, Behavior is calm, cooperative, bp appropriate for age. Pain: Complains of pain in right wrist. EENT: No deficits noted. Neuro: No deficits noted. Cardiovascular: No deficits noted. Respiratory: No deficits noted. GI: No signs and/or symptoms were reported involving the gastrointestinal system. : No signs and/or symptoms were reported regarding the genitourinary system. Derm: No deficits noted. Musculoskeletal: No deficits noted. Historical: - Allergies: 08:43 No Known Allergies; bp - PMHx: 08:43 coronary atherosclerosis; Hypertension; bp - PSHx: 08:43 Cholecystectomy; cardiac stents; hernia repair; Gastric Bypass; bp - Immunization history:: Adult Immunizations up to date. - Infectious Disease History:: Denies. - Social history:: Smoking status: unknown. - Family history:: not pertinent. - Hospitalizations: : No recent hospitalization is reported. Screenin:44 [facility] ED Fall Risk Assessment (Adult) History of falling in the last 3 months, bp including since admission No falls in past 3 months (0 pts) Confusion or Disorientation No (0 pts) Intoxicated or Sedated No (0 pts) Impaired Gait No (0 pts) Mobility Assist Device Used No (0 pt) Altered Elimination No (0 pt) Score/Fall Risk Level 0 - 2 = Low Risk Oriented to surroundings. Abuse screen: Denies threats or abuse. Denies injuries from another. Nutritional screening: No deficits noted. Tuberculosis screening: No symptoms or risk factors identified. Assessment: 08:44 General: SEE TRIAGE NOTE. bp 10:32 General: Appears in no apparent distress. Behavior is calm, cooperative. Pain: mb9 Complains of pain in right arm and right wrist Pain does not radiate. Pain currently is 10 out of 10 on a pain scale. Quality of pain is described as throbbing. Neuro: Level of Consciousness is awake, alert, obeys commands, Oriented to person, place, time, situation, Appropriate for age. Cardiovascular: Patient's skin is warm and dry. Respiratory: Airway is patent Respiratory effort is even, unlabored, Respiratory pattern is regular, symmetrical. GI: No signs and/or symptoms were reported involving the gastrointestinal system. : No signs and/or symptoms were reported regarding the genitourinary system. Derm: Skin is pink, warm \T\ dry. Musculoskeletal: Swelling present in right hand. 12:00 Reassessment: No changes from previously documented assessment. Patient and/or family mb9 updated on plan of care and expected duration. Pain level reassessed. Patient is alert, oriented x 3, equal unlabored respirations, skin warm/dry/pink. 14:10 Reassessment: No changes from previously documented assessment. Patient and/or family mb9 updated on plan of care and expected duration. Pain level reassessed. Patient is alert, oriented x 3, equal unlabored respirations, skin warm/dry/pink. 14:26 Reassessment: Pt daughterMiguelito Carrion. cell phone [phone]. mb9 15:00 Reassessment: See [facility] for further charting. mb9 Vital Signs: 08:42 BP 146 / 90; Pulse 89; Resp 16; Temp 97.6; Pulse Ox 97% ; bp 10:27 BP 150 / 72; Pulse 68; Resp 18; Pulse Ox 100% on R/A; mb9 12:00 BP 154 / 74; Pulse 74; Resp 18; Pulse Ox 100% ; mb9 14:11 BP 155 / 84; Pulse 69; Resp 16; Pulse Ox 98% on R/A; mb9 19:28 BP 153 / 82; Pulse 81; Resp 17 S; Pulse Ox 97% on R/A; lg3 ED Course: 08:29 Patient arrived in ED. al6 08:33 Shane Gerber MD is Attending Physician. rn 08:43 Triage completed. bp 08:43 Arm band placed on. bp 08:44 Patient has correct armband on for positive identification. bp 09:20 Initial lab(s) drawn, by me, sent to lab. First set of blood cultures drawn by me. ty 09:37 Second set of blood cultures drawn by me. ty 10:01 Angelika Cifuentes, RN is Primary Nurse. mb9 10:09 Inserted saline lock: 22 gauge in left antecubital area, using aseptic technique. Blood ty collected. Flushed with 10 mL NS. 10:42 Procedure consent explained by staff, explained by physician, signed by patient. mb9 13:00 IV discontinued, intact, bleeding controlled, Pressure dressing applied. mb9 13:34 Velcro wrist splint applied to right wrist. Sling applied to right arm. ty 13:43 Doc Trujillo is Hospitalizing Provider. rn 14:00 Accessed peripheral vein via ultrasound, utilizing dynamic ultrasound technique 20 g mb9 left upper arm. 14:11 No provider procedures requiring assistance completed. mb9 Administered Medications: 19:42 Discontinued: vancomycin1 grams IVPB once over 2 hrs lg3 10:20 Drug: Ondansetron IVP 4 mg IVP once; over 2 minutes Route: IVP; Site: left antecubital; mb9 10:57 Follow up: Response: No adverse reaction mb9 10:25 Drug: morphine IVP or IV 4 mg IVP once over 4 mins Route: IVP; Infused Over: 4 mins; mb9 Site: left antecubital; 10:57 Follow up: Response: No adverse reaction mb9 11:00 Not Given (Other Intervention Used): colchicine-probenecid1 tabs PO once mb9 11:00 Drug: Colcrys PO 0.6 mg PO once Route: PO; mb9 12:55 Follow up: Response: No adverse reaction mb9 11:23 Drug: Lidocaine Infiltration (2 %) 1 vials 5 ml Infiltration once; to bedside Volume: 5 mb9 ml; Route: Infiltration; 14:05 Drug: MethylPrednisoLONE IVP 125 mg IVP once Route: IVP; Site: left upper arm; 9 14:52 Follow up: Response: No adverse reaction 9 14:10 Drug: vancoMYCIN IVPB 1 grams IVPB once over 2 hrs Route: IVPB; Infused Over: 2 hrs; mb9 Site: left upper arm; Medication: 08:44 VIS not applicable for this client. bp Outcome: 13:44 Decision to Hospitalize by Provider. rn 20:37 Admitted to Med/surg accompanied by tech, via wheelchair, lg3 20:37 Condition: stable 20:37 Instructed on the need for admit, Demonstrated understanding of instructions, 20:37 Patient left the ED. lg3 Signatures: Shane Gerber MD MD rn Peltier, Brian, RN RN bp Able, Lacie, RN RN lg3 Angelika Cifuentes RN RN mb9 Cayetano Edwards Alissa al6
--- NOTE | 2025-04-01 13:45 | EDPHYS ---
Physician Documentation [facility] Name: Sofia Rodriguez Age: 79 yrs Sex: Female : 1945 Arrival Date: 04/01/2025 Time: 08:27 Bed IW9 Private MD: ED Physician Shane Gerber HPI: 04/01 09:18 This 79 yrs old Female presents to ER via Ambulatory with complaints of Wrist Pain - rn red and swelling. 09:18 Patient reports right wrist pain and swelling for a few days. Seen here yesterday and rn diagnosed with cellulitis. No history of gout or pseudogout. No fever or chills. Not diabetic. Does not use IV drugs. Has never had joint infection. Denies trauma and reports x-ray yesterday was negative. Patient reports took her antibiotics and pain medication, hydrocodone and not helping the pain. Feels worse today.. Historical: - Allergies: 08:43 No Known Allergies; bp - PMHx: 08:43 coronary atherosclerosis; Hypertension; bp - PSHx: 08:43 Cholecystectomy; cardiac stents; hernia repair; Gastric Bypass; bp - Immunization history:: Adult Immunizations up to date. - Infectious Disease History:: Denies. - Social history:: Smoking status: unknown. - Family history:: not pertinent. - Hospitalizations: : No recent hospitalization is reported. ROS: 09:18 Constitutional: Negative for fever, chills, and weight loss, Cardiovascular: Negative rn for chest pain, palpitations, and edema, Respiratory: Negative for shortness of breath, cough, wheezing, and pleuritic chest pain, Abdomen/GI: Negative for abdominal pain, nausea, vomiting, diarrhea, and constipation, MS/Extremity: Positive for right wrist pain and swelling Skin: Negative for injury, rash, and discoloration, Neuro: Negative for headache, weakness, numbness, tingling, and seizure, Exam: 09:18 Constitutional: This is a well developed, well nourished patient who is awake, alert, rn holding right wrist against chest Cardiovascular: Regular rate and rhythm. No pulse deficits. Respiratory: No increased work of breathing, no retractions or nasal flaring. MS/ Extremity: Pulses equal, no cyanosis. Neurovascular intact. Painful range of motion right wrist, mild swelling noted around wrist and dorsum of hand without erythema. No abscess. No open wounds. No cyanosis. Vital Signs: 08:42 BP 146 / 90; Pulse 89; Resp 16; Temp 97.6; Pulse Ox 97% ; bp 10:27 BP 150 / 72; Pulse 68; Resp 18; Pulse Ox 100% on R/A; mb9 12:00 BP 154 / 74; Pulse 74; Resp 18; Pulse Ox 100% ; mb9 14:11 BP 155 / 84; Pulse 69; Resp 16; Pulse Ox 98% on R/A; mb9 19:28 BP 153 / 82; Pulse 81; Resp 17 S; Pulse Ox 97% on R/A; lg3 Procedures: 11:26 Joint Treatment: Aspiration of right wrist using 27-gauge needle. Removed 2 ml's of rn cloudy fluid, yellow fluid, Dressed with band aid, Patient tolerated well. Procedure set up for, 1 cc of lidocaine used for anesthesia locally, area cleansed with Betadine over several passes. Tolerated well and fluid sent to lab.. MDM: 08:33 Medical Screening Exam initiated rn 13:42 Differential diagnosis: Gout, pseudogout, septic joint, inflammatory arthritis. Data rn reviewed: vital signs, nurses notes, lab test result(s), and as a result, I will admit patient. Consideration of Admission/Observation Patient was admitted/placed on observation. Escalation of care including admission/observation considered. Management of patient was discussed with the following: [employer] Kiln Drawer: Discussed case with Dr. Sage, states will consult on patient, request admission to hospitalist, antibiotics and steroids.. Counseling: I had a detailed discussion with the patient and/or guardian regarding the historical points, exam findings, and any diagnostic results supporting the discharge/admit diagnosis, lab results, the need for further work-up and treatment in the hospital. Response to treatment: the patient's symptoms have mildly improved after treatment, and as a result, I will admit patient. 04/01 08:49 Order name: CBC with Diff; Complete Time: :18 rn 04/01 08:49 Order name: Basic Metabolic Panel; Complete Time: rn 04/01 08:49 Order name: Protime (+inr); Complete Time: :18 rn 04/01 08:49 Order name: Ptt, Activated; Complete Time: : rn 04/01 08:49 Order name: Uric Acid; Complete Time: : rn 04/01 08:49 Order name: Blood Culture Adult (2) rn 04/01 08:49 Order name: Lactate w/ 2H reflex if indic.; Complete Time: 10:18 rn 04/01 11:26 Order name: Body Fluid Culture rn 04/01 11:26 Order name: Crystals, Fluid; Complete Time: 12:57 rn 04/01 11:26 Order name: Fluid Cell Count,Body; Complete Time: 12:57 rn 04/01 14:17 Order name: CBC with Automated Diff EDMS 04/01 14:17 Order name: CBC with Automated Diff EDMS 04/01 14:17 Order name: Comprehensive Metabolic Panel EDMS 04/01 14:17 Order name: Comprehensive Metabolic Panel EDMS 04/01 14:17 Order name: Protime (+INR) EDMS 04/01 14:17 Order name: Protime (+INR) EDMS 04/01 14:17 Order name: PTT, Activated Partial Thromb EDMS 04/01 14:17 Order name: PTT, Activated Partial Thromb EDMS 04/01 14:17 Order name: CONS Physician Consult EDMS 04/01 08:49 Order name: IV Start; Complete Time: 09:26 rn 04/01 09:17 Order name: Sling; Complete Time: 10:57 rn 04/01 10:34 Order name: Surgical Consent: consent for wrist aspiration; Complete Time: 10:42 rn 04/01 13:01 Order name: Splint - Volar Wrist Splint; Complete Time: 13:34 rn 04/01 13:01 Order name: Sling; Complete Time: 13:33 rn Administered Medications: 19:42 Discontinued: vancomycin1 grams IVPB once over 2 hrs lg3 10:20 Drug: Ondansetron IVP 4 mg IVP once; over 2 minutes Route: IVP; Site: left antecubital; mb9 10:57 Follow up: Response: No adverse reaction mb9 10:25 Drug: morphine IVP or IV 4 mg IVP once over 4 mins Route: IVP; Infused Over: 4 mins; mb9 Site: left antecubital; 10:57 Follow up: Response: No adverse reaction mb9 11:00 Not Given (Other Intervention Used): colchicine-probenecid1 tabs PO once mb9 11:00 Drug: Colcrys PO 0.6 mg PO once Route: PO; mb9 12:55 Follow up: Response: No adverse reaction mb9 11:23 Drug: Lidocaine Infiltration (2 %) 1 vials 5 ml Infiltration once; to bedside Volume: 5 mb9 ml; Route: Infiltration; 14:05 Drug: MethylPrednisoLONE IVP 125 mg IVP once Route: IVP; Site: left upper arm; mb9 14:52 Follow up: Response: No adverse reaction mb9 14:10 Drug: vancoMYCIN IVPB 1 grams IVPB once over 2 hrs Route: IVPB; Infused Over: 2 hrs; mb9 Site: left upper arm; Disposition Summary: 04/01/25 13:44 Hospitalization Ordered Notes: Hospitalization Status: Inpatient Admission rn Provider: Doc Trujillo rn Location: Telemetry/MedSurg (Inpatient) rn Condition: Stable rn Problem: new rn Symptoms: have improved rn Bed/Room Type: Standard rn Room Assignment: 224(04/01/25 19:20) kl Diagnosis - Pseudogout rn - Inflammatory vs infectious arthritis of right wrist rn Forms: - Medication Reconciliation Form rn - SBAR form rn - Leadership Thank You Letter rn Signatures: Dispatcher [employer] EDMS Estefani Marie RN RN Shane Frias MD MD rn Peltier, Brian, RN RN bp Wilkerson, Mary Beth, RN RN Deanna Mason rv1 Corrections: (The following items were deleted from the chart) 08:49 08:49 CBC+H.LAB.BRZ ordered. EDMS EDMS 08:49 08:49 BASIC METABOLIC PANEL+C.LAB.BRZ ordered. EDMS EDMS 08:49 08:49 PROTIME (+INR)+COAG.LAB.BRZ ordered. EDMS EDMS 08:49 08:49 PTT, ACTIVATED+COAG.LAB.BRZ ordered. EDMS EDMS 08:49 08:49 URIC ACID+C.LAB.BRZ ordered. EDMS EDMS 08:49 08:49 BLOOD CULTURE*+BA.LAB.BRZ ordered. EDMS EDMS 08:49 08:49 LACTATE+C.LAB.BRZ ordered. EDMS EDMS 13:45 11:26 Joint Treatment: Aspiration of right wrist using 27-gauge needle. Removed 2 ml's rn of cloudy fluid, yellow fluid, Dressed with band aid, Patient tolerated well. Procedure set up for, 1 cc of lidocaine used for anesthesia locally, area cleansed with Betadine. Tolerated well and fluid sent to lab.. rn 19: 13:44 rn rv1 : 19: [facility] rv1
[2025-04-01] MEDS ORDERED: METHYLPREDNISOLONE 125 MG INJ ONE (14:00)
[2025-04-01] MEDS ORDERED: VANCOMYCIN 1 GM/VIAL ONE (14:01)
[2025-04-01] MEDS ORDERED: NA CHLORIDE 0.9% 250 ML ONE (14:01)
--- NOTE | 2025-04-01 14:03 | P.HP ---
Certification for Inpatient Patient admitted to: Inpatient With expected LOS: >2 Midnights Patient will require the following post-hospital care: None Practitioner: I am a practitioner with admitting privileges, knowledge of patient current condition, hospital course, and medical plan of care. Services: Services provided to patient in accordance with Admission requirements found in Title 42 Section 412.3 of the Code of Federal Regulations Patient History Date of Service: 04/01/25 Reason for admission: Right wrist septic arthritis History of Present Illness: Patient is a 79-year-old female who came to the hospital with pain in the right wrist. She had severe tenderness on any kind of mobility. She had an aspiration performed by ER physician which revealed a white blood cell count of 36,000 and the crystals showed calcium pyrophosphate crystals as well as gram- positive bacteria. Patient will be admitted to the hospital and will start on treatment for those pseudogout as well as go ahead and started on IV antibiotics for presumed treatment of a septic wrist joint. At this time, patient will be admitted to the hospital for inpatient hospitalization. Orthopedic was consulted in the emergency room. Patient has a history of hypertension, depression, and osteoarthritis. She is on antidepressants and diuretics as well as Celebrex for the arthritis. Patient will continue with current plan of care will get case management consultation to arrange for home health for IV antibiotic therapy. Allergies No Known Allergies Allergy (Verified 10/30/24 14:28) Home Medications: Aspirin [Aspirin EC 81 MG] 81 mg PO DAILY 12/23/24 Celecoxib [Celebrex*] 200 mg PO DAILY 12/23/24 Cholecalciferol (Vitamin D3) [Vitamin D3] 1 tab PO DAILY 12/23/24 Clopidogrel Bisulfate [Plavix*] 75 mg PO DAILY 12/23/24 Ferrous Gluconate [Iron] 1 tab PO DAILY 12/23/24 Hydrocodone 7.5/APAP 325 [[place] 7.5/325 mg*] 1 tab PO TID 12/23/24 Mv/Fe/FA/Om3/FSH/Lycop/Lut/Hannah [Multia Daily Multivitamin] 1 tab PO DAILY 12/23/24 Sertraline [Zoloft*] 50 mg PO DAILY 12/23/24 Zolpidem Tartrate [Ambien*] 10 mg PO BEDTIME 12/23/24 Furosemide [Lasix*] 20 mg PO BIDL #60 tab 12/24/24 Sacubitril/Valsartan [Entresto 24 mg-26 mg Tablet] 1 tab PO BID #60 tab 12/24/24 Spironolactone [Aldactone*] 25 mg PO DAILY #30 tab 12/24/24 carvediloL [Coreg*] 6.25 mg PO BID #60 tab 12/24/24 - Past Medical/Surgical History Diabetic: No -: Coronary artery disease with status post RCA stent -: COPD -: Cardiac catheterization with stent of the RCA -: R SHOULDER SX -: UMBELICAL HERNIA REPAIR X7 -: R FOOT SX X7 -: GASTRIC BYPASS - Family History Father Medical History: Heart disease - Social History Smoking Status: Former smoker Alcohol use: No CD- Drugs: No Caffeine use: Yes Review of Systems 10-point ROS is otherwise unremarkable Physical Examination - Vital Signs Temperature: 98 F Blood Pressure: 140/80 Pulse: 80 Respirations: 18 Pulse Ox (%): 95 - Physical Exam General: Alert, In no apparent distress, Oriented x3 HEENT: Atraumatic, PERRLA, Mucous membr. moist/pink, EOMI, Sclerae nonicteric Neck: Supple, 2+ carotid pulse no bruit, No LAD, Without JVD or thyroid abnormality Respiratory: Clear to auscultation bilaterally, Normal air movement Cardiovascular: Regular rate/rhythm, Normal S1 S2 Gastrointestinal: Normal bowel sounds, Soft and benign, Non-distended, No te nderness Musculoskeletal: No clubbing, No swelling, No tenderness Integumentary: No rashes Neurological: Normal gait, Normal speech, Normal strength at 5/5 x4 extr, Normal tone, Sensation intact, Cranial nerves 3-12 intact, Normal affect Lymphatics: No axilla or inguinal lymphadenopathy - Studies Laboratory Data (last 24 hrs) 04/01/25 04/01/25 04/01/25 09:37 09:37 09:37 WBC 12.50 H Hgb 11.9 L Hct 36.7 Plt Count 253 PT 13.4 H INR 1.19 APTT 33.6 Sodium 138 Potassium 3.8 BUN 12 Creatinine 0.69 Glucose 106 Uric Acid 5.1 Microbiology Data (last 24 hrs): 04/01/25 11:22 Body Fluid - Right Wrist Gram Stain - Final Assessment & Plan - Problems (Diagnosis) (1) Atrial fibrillation Current Visit: No Status: Acute (2) Heart failure with reduced ejection fraction Current Visit: No Status: Acute (3) History of CAD (coronary artery disease) Current Visit: No Status: Acute (4) S/P right coronary artery (RCA) stent placement Current Visit: No Status: Acute (5) Pseudogout Current Visit: Yes Status: Acute (6) Pseudogout of joint of right hand Current Visit: Yes Status: Acute (7) Pseudogout Current Visit: Yes Status: Acute (8) Septic arthritis Current Visit: Yes Status: Acute - Plan 1. Patient with pseudogout/calcium pyrophosphate crystals versus septic arthritis; continue with IV antibiotic therapy just for presumed septic arthriti s since patient has gram-positive cocci in the Gram stain. Will go ahead and do IV steroids and IV antibiotics for now and arrange for a PICC line for 6 weeks of IV antibiotic therapy. Will go ahead and get blood cultures and procalcitonin level. 2. History of CAD with heart failure with reduced ejection fraction; continue with antiplatelet therapy and statin therapy and anticoagulation 3. Osteoarthritis; continue with pain control 4. GI DVT prophylaxis Discharge Plan: Home Plan to discharge in: Greater than 2 days - Advance Directives Does patient have a Living Will: Yes Does patient have a Durable POA for Healthcare: No - Code Status/Comfort Care Code Status Assessed: Yes Code Status: Full Code Critical Care: No Time Spent Managing PTS Care (In Minutes): 45
[2025-04-01] MEDS ORDERED: ONDANSETRON 4 MG/2 ML VIAL IV PRN (14:09)
[2025-04-01] MEDS ORDERED: ACETAMINOPHEN 500 MG TAB PO PRN (14:09)
[2025-04-01] MEDS ORDERED: NA CHLORIDE 0.9% 100 ML ONE (15:26)
[2025-04-01] MEDS ORDERED: VANCOMYCIN 500 MG/VIAL ONE (15:26)
[2025-04-01] MEDS ORDERED: Levofloxacin 750mg IV 750 MG/150 ML BAG IV ONE (15:26)
[2025-04-01] MEDS: VANCOMYCIN 500 MG in NA CHLORIDE 0.9% 100 ML IVPB ONE (15:29)
[2025-04-01] MEDS: METHYLPREDNISOLONE 40 MG INJ IV SCH (18:00)
--- NOTE | 2025-04-01 19:47 | CON ---
Reason For Consultation: Possibly septic right wrist. History Of Present Illness: Ms. Sofia Rodriguez is a 79-year-old woman who was seen in the emergency cheryl initially on 03/31/2025 with pain and swelling in the right wrist. She was treated for initially t houghts of cellulitis. She returned with increasing intensity of pain today. It was aspirated and f ound to have crystalline structures consistent with pseudogout and white blood cell count of 31,000 a pproximately. All of these findings can be consistent with gout or pseudogout; however, with the con cerning thing was on the Gram stain, there were gram-positive cocci in clusters. Her peripheral whit e blood cell count was slightly elevated at 12.5. There is a left shift neutrophilia. My thought is to observe this and have some culture-directed therapy. Septic wrist traditionally extre nelida rare. These are most commonly associated with pseudogout, which certainly fits the clinical pic ture. We will proceed with a formal I and D if culture-directed therapy is given otherwise. My eboni mmendations are to give her both antibiotics and steroids and see if we can control this, as most lik desiree this is a pseudogout flare. However, we will stay vigilant for the possibility of a septic wrist . SYLVESTER/MODL Voice ID: [id number] Report ID: [id number]
[2025-04-01] MEDS: Levofloxacin 750mg IV 750 MG/150 ML BAG IV SCH (20:27)
[2025-04-01] MEDS: VANCOMYCIN 1 GM in NA CHLORIDE 0.9% 250 ML IVPB SCH (20:28)
[2025-04-01 21:14] VITALS: BMI 26.5
[2025-04-01 21:17] VITALS: O2SAT 97
--- NOTE | 2025-04-01 21:20 | RAD REPORT ---
EXAMINATION: ONE VIEW CHEST XR CLINICAL INDICATION: PICC Placement TECHNIQUE: Frontal chest projection is submitted. Examination is limited by patient positioning and t echnique. COMPARISON: 02/21/2025 FINDINGS: Left-sided PICC line is in place with tip in the SVC. The lungs are emphysematous. The heart is upper limit of normal in size. No displaced fractures identified.
[2025-04-01] MEDS: Mupirocin NASAL 2 APPL/1 GM TUBE NAS SCH (21:30)
[2025-04-01] MEDS: MORPHINE 2 MG/ML SYR IV PRN (21:52)
[2025-04-02] MEDS: ZOLPIDEM TARTRATE 5 MG TABLET PO PRN (01:14)
[2025-04-02 06:04] LABS: Absolute Lymphocytes (CBC) 0.7 K/uL (0.7-4.9); Hematocrit 34.3 % (36.0-45.0); Hemoglobin 11.4 g/dL (12.0-15.0); MCH 27.8 pg (27.0-35.0); MCHC 33.3 g/dL (32.0-36.0); MCV 83.5 fL (80-100); MPV 8.4 fL (7.6-11.3); Nucleated RBC Absolute Count 0.0 (0-0); Nucleated Red Blood Cells % 0.0 % (0-0); RBC Red Blood Cell Count 4.11 M/uL (3.86-4.86); White Blood Count 7.60 thou/uL (4.3-10.9)
[2025-04-02 06:10] LABS: PT Prothrombin Time 13.5 SECONDS (10-13.0); PTT, Activated Partial Thromb 31.9 SECONDS (27.2-37.4); Protime INR 1.2
[2025-04-02 06:25] LABS: ALT/SGPT 24.0 U/L (13-56); AST/SGOT 17.0 U/L (15-37); Albumin 2.5 g/dL (3.4-5.0); Albumin/Globulin Ratio 0.6 (1.1-1.8); Alkaline Phosphatase 97.0 U/L (45-117); Anion Gap 8.1 mEq/L (5.0-15.0); BUN Blood Urea Nitrogen 14.0 mg/dL (7-18); Globulin 3.9 g/dL (2.3-3.5); Glucose Level 158.0 mg/dL (74-106); Potassium 4.1 mEq/L (3.5-5.1)
[2025-04-02 07:56] LABS: Anisocytosis SLIGHT; Blood Morphology Comment NOTED (NOT SEEN); Microcytosis SLIGHT; Ovalocytes SLIGHT; Poikilocytosis SLIGHT; White Blood Cell Scan OK (OK)
[2025-04-02] MEDS: VANCOMYCIN 1.5 GM in NA CHLORIDE 0.9% 500 ML IVPB SCH (08:35)
--- NOTE | 2025-04-02 15:17 | P.PN ---
Date of Service: 04/02/25 Subjective: No acute events overnight Swelling to right wrist/hand significantly improved ROS: 10 point ROS as noted above, otherwise negative Physical exam GEN: Alert, oriented, NAD HEENT: Normal conjunctiva, sclera anicteric CV: Regular rate and rhythm, no edema Pulm: Nonlabored respirations on room air ABD: Soft, nontender, nondistended MSK: No joint tenderness, some erythema and edema to right wrist/hand but improving Integumentary: No rashes Neuro: Normal speech, normal affect Vitals reviewed Assessment & Plan - Problems (Diagnosis) (1) Atrial fibrillation Current Visit: No Status: Acute (2) Heart failure with reduced ejection fraction Current Visit: No Status: Acute (3) History of CAD (coronary artery disease) Current Visit: No Status: Acute (4) S/P right coronary artery (RCA) stent placement Current Visit: No Status: Acute (5) Pseudogout Current Visit: Yes Status: Acute (6) Pseudogout of joint of right hand Current Visit: Yes Status: Acute (7) Pseudogout Current Visit: Yes Status: Acute (8) Septic arthritis Current Visit: Yes Status: Acute - Plan 1. Patient with pseudogout/calcium pyrophosphate crystals versus septic arthritis; continue with IV antibiotic therapy just for presumed septic arthritis since patient has gram-positive cocci in the Gram stain. Will go ahead and do IV steroids and IV antibiotics for now and arrange for a PICC line for 6 weeks of IV antibiotic therapy. Will go ahead and get blood cultures and procalcitonin level. Patient with significant improvement in erythema and edema Awaiting cultures from arthrocentesis of the wrist Continue antibiotics/thirds for now and await culture 2. History of CAD with heart failure with reduced ejection fraction; continue with antiplatelet therapy and statin therapy and anticoagulation 3. Osteoarthritis; continue with pain control 4. GI DVT prophylaxis Discharge Plan: Home Plan to discharge in: Greater than 2 days Time Spent Managing Pts Care (In Minutes): 35 <Devaughn Solano Asher - Last Filed: 04/02/25 15:15> Patient was seen and examined. Events of the last 24 hours have been noted. Spoke with with MARV regarding patient's clinical picture after evaluating and examining the patient independently. I performed a substantial part of the MDM during this patient's care today. I personally made or approved the documented management plan and acknowledge its risk of complications. I agree with the findings and documentation provided in the MARV's notes. <Darrius Shledon - Last Filed: 04/05/25 12:35>
[2025-04-03] MEDS: MELATONIN 3 MG TABLET PO ONE (04:03)
[2025-04-03] MEDS: SPIRONOLACTONE 25 MG TABLET PO ONE (11:18)
--- NOTE | 2025-04-03 12:10 | P.PN ---
Subjective Date of Service: 04/03/25 Chief Complaint: Right wrist septic arthritis Subjective: Improving (cultures negative , final report on gram stain no organisms seen , hand and wrist virtually normal . this is most likely pseudogout. Clear from ortho standpoint . prn f/u with ortho) Physical Examination - Vital Signs Temperature: 97.8 F Blood Pressure: 137/62 Pulse: 65 Respirations: 14 Pulse Ox (%): 94 - Studies Microbiology Data (last 24 hrs): 04/01/25 11:22 Body Fluid - Right Wrist Gram Stain - Final
[2025-04-03 16:07] VITALS: TEMP 98.2
[2025-04-03] MEDS: FUROSEMIDE 20 MG TABLET PO SCH (17:12)
[2025-04-03 17:14] VITALS: BP 137/62
[2025-04-03] MEDS ORDERED: CELECOXIB 100 MG CAPSULE PO SCH (21:00)
[2025-04-03] MEDS ORDERED: ZOLPIDEM TARTRATE 10 MG TABLET PO SCH (21:00)
[2025-04-03] MEDS ORDERED: ATORVASTATIN 40 MG TAB PO SCH (21:00)
--- NOTE | 2025-04-04 07:07 | P.DS ---
Admission Date: 04/01/25 Discharge Date: 04/03/25 Reason for Admission: Right wrist septic arthritis Brief History of Present Illness: Patient is a 79-year-old female who came to the hospital with pain in the right wrist. She had severe tenderness on any kind of mobility. She had an aspiration performed by ER physician which revealed a white blood cell count of 36,000 and the crystals showed calcium pyrophosphate crystals as well as gram- positive bacteria. Patient will be admitted to the hospital and will start on treatment for those pseudogout as well as go ahead and started on IV antibiotics for presumed treatment of a septic wrist joint. At this time, patient will be admitted to the hospital for inpatient hospitalization. Orthopedic was consulted in the emergency room. Patient has a history of hypertension, depression, and osteoarthritis. She is on antidepressants and diuretics as well as Celebrex for the arthritis. Patient will continue with current plan of care will get case management consultation to arrange for home health for IV antibiotic therapy. Hospital Course: Patient was admitted to the hospital for right wrist swelling, concern for possible septic right wrist versus pseudogout. Wrist arthrocentesis was performed in the emergency department fluid white blood cells were 31,260, red blood cells were 8205, neutrophils were 89 lymphocytes 5 and mononuclear cells 6, fluid crystals were present. Fluid Gram stain initially showed white blood cells 15-20 with gram-positive cocci in clusters 1+ and no squamous cells. Preliminary culture shows less than 1 white blood cell, no organisms seen. Patient was treated with antibiotics and steroids, the next day her wrist was significantly improved, today her wrist is almost back to normal completely and she is feeling much better. She has been afebrile with a white blood cell count of 7.6. She was also seen by orthopedics who also believe this is likely pseudogout. Patient will be discharged with prescription for prednisone taper, she should follow-up with orthopedics outpatient in 1 week. Return to the emergency department if there is any significant worsening symptoms, fever, worsening pain, swelling or erythema to the area. <Devaughn Solano Asher - Last Filed: 04/04/25 07:06> Admission Date: 04/01/25 Discharge Date: 04/03/25 - Problems (1) Atrial fibrillation Status: Acute (2) Heart failure with reduced ejection fraction Status: Acute (3) History of CAD (coronary artery disease) Status: Acute (4) S/P right coronary artery (RCA) stent placement Status: Acute (5) Pseudogout Status: Acute (6) Pseudogout of joint of right hand Status: Acute (7) Pseudogout Status: Acute (8) Septic arthritis Status: Acute Hospital Course: Patient was seen and examined. Events of the last 24 hours have been noted. Spoke with with [facility] regarding patient's clinical picture after evaluating and examining the patient independently. I performed a substantial part of the MDM during this patient's care today. I personally made or approved the documented management plan and acknowledge its risk of complications. I agree with the findings and documentation provided in the [facility]'s notes. <Darrius Sheldon - Last Filed: 04/05/25 12:33> Disposition: ROUTINE DISCHARGE Discharge Condition: GOOD Vital Signs/Physical Exam: Temp Pulse Resp BP Pulse Ox 98.2 F 65 16 137/62 93 04/03/25 16:00 04/03/25 17:12 04/03/25 16:00 04/03/25 17:12 04/03/25 16:00 General: Alert, In no apparent distress, Oriented x3 HEENT: Atraumatic, PERRLA Neck: Supple, JVD not distended Respiratory: Clear to auscultation bilaterally, Normal air movement Cardiovascular: Regular rate/rhythm, Normal S1 S2 Gastrointestinal: Normal bowel sounds, No tenderness Musculoskeletal: No tenderness Integumentary: No rashes Neurological: Normal speech, Normal tone, Normal affect Lymphatics: No axilla or inguinal lymphadenopathy Laboratory Data at Discharge: WBC 7.60 thou/uL (4.3-10.9) 04/02/25 05:51 Hgb 11.4 g/dL (12.0-15.0) L 04/02/25 05:51 Hct 34.3 % (36.0-45.0) L 04/02/25 05:51 Plt Count 231 thou/uL (152-406) 04/02/25 05:51 PT 13.5 SECONDS (10-13.0) H 04/02/25 05:51 INR 1.20 04/02/25 05:51 APTT 31.9 SECONDS (27.2-37.4) 04/02/25 05:51 Sodium 139 mEq/L (136-145) 04/02/25 05:51 Potassium 4.1 mEq/L (3.5-5.1) 04/02/25 05:51 BUN 14 mg/dL (7-18) 04/02/25 05:51 Creatinine 0.56 mg/dL (0.55-1.02) 04/02/25 05:51 Glucose 158 mg/dL (74-106) H 04/02/25 05:51 Uric Acid 5.1 mg/dL (2.6-6.0) 04/01/25 09:37 Total Bilirubin 0.5 mg/dL (0.2-1.0) 04/02/25 05:51 AST 17 U/L (15-37) 04/02/25 05:51 ALT 24 U/L (13-56) 04/02/25 05:51 Alkaline Phosphatase 97 U/L (45-117) 04/02/25 05:51 <Devaughn Solano - Last Filed: 04/04/25 07:06> Vital Signs/Physical Exam: Temp Pulse Resp BP Pulse Ox 98.2 F 65 16 137/62 93 04/03/25 16:00 04/03/25 17:12 04/03/25 16:00 04/03/25 17:12 04/03/25 16:00 Laboratory Data at Discharge: WBC 7.60 thou/uL (4.3-10.9) 04/02/25 05:51 Hgb 11.4 g/dL (12.0-15.0) L 04/02/25 05:51 Hct 34.3 % (36.0-45.0) L 04/02/25 05:51 Plt Count 231 thou/uL (152-406) 04/02/25 05:51 PT 13.5 SECONDS (10-13.0) H 04/02/25 05:51 INR 1.20 04/02/25 05:51 APTT 31.9 SECONDS (27.2-37.4) 04/02/25 05:51 Sodium 139 mEq/L (136-145) 04/02/25 05:51 Potassium 4.1 mEq/L (3.5-5.1) 04/02/25 05:51 BUN 14 mg/dL (7-18) 04/02/25 05:51 Creatinine 0.56 mg/dL (0.55-1.02) 04/02/25 05:51 Glucose 158 mg/dL (74-106) H 04/02/25 05:51 Uric Acid 5.1 mg/dL (2.6-6.0) 04/01/25 09:37 Total Bilirubin 0.5 mg/dL (0.2-1.0) 04/02/25 05:51 AST 17 U/L (15-37) 04/02/25 05:51 ALT 24 U/L (13-56) 04/02/25 05:51 Alkaline Phosphatase 97 U/L (45-117) 04/02/25 05:51 <Darrius Sheldon - Last Filed: 04/05/25 12:33> Diet: Regular Activity: Ad miguel Time spent managing pt's care (in minutes): 35 <Devaughn Solano - Last Filed: 04/04/25 07:06> <Darrius Sheldon - Last Filed: 04/05/25 12:33> Home Medications: Aspirin [Aspirin EC 81 MG] 81 mg PO DAILY 12/23/24 Celecoxib [Celebrex*] 200 mg PO BID 12/23/24 Cholecalciferol (Vitamin D3) [Vitamin D3] 1 tab PO DAILY 12/23/24 Clopidogrel Bisulfate [Plavix*] 75 mg PO DAILY 12/23/24 Ferrous Gluconate [Iron] 1 tab PO DAILY 12/23/24 Hydrocodone 7.5/APAP 325 [[place] 7.5/325 mg*] 1 tab PO DAILY 12/23/24 Sertraline [Zoloft*] 100 mg PO DAILY 12/23/24 Zolpidem Tartrate [Ambien*] 10 mg PO BEDTIME 12/23/24 Furosemide [Lasix*] 20 mg PO BIDL #60 tab 12/24/24 Spironolactone [Aldactone*] 25 mg PO DAILY #30 tab 12/24/24 carvediloL [Coreg*] 6.25 mg PO BID #60 tab 12/24/24 Atorvastatin Calcium [Lipitor] 40 mg PO DAILY 04/02/25 Famotidine [Pepcid] 40 mg PO DAILY 04/02/25 Pantoprazole [Protonix Tab*] 40 mg PO DAILY 04/02/25 predniSONE [Deltasone*] See Rx Instructions .ROUTE .COMPLEX #14 tab 04/03/25 New Medications: predniSONE [Deltasone*] See Rx Instructions .ROUTE .COMPLEX #14 tab Physician Discharge Instructions: Patient was admitted to the hospital for right wrist swelling, concern for possible septic right wrist versus pseudogout. Wrist arthrocentesis was performed in the emergency department fluid white blood cells were 31,260, red blood cells were 8205, neutrophils were 89 lymphocytes 5 and mononuclear cells 6, fluid crystals were present. Fluid Gram stain initially showed white blood cells 15-20 with gram-positive cocci in clusters 1+ and no squamous cells. Preliminary culture shows less than 1 white blood cell, no organisms seen. Patient was treated with antibiotics and steroids, the next day her wrist was significantly improved, today her wrist is almost back to normal completely and she is feeling much better. She has been afebrile with a white blood cell count of 7.6. She was also seen by orthopedics who also believe this is likely pseudogout. Patient will be discharged with prescription for prednisone taper, she should follow-up with orthopedics outpatient in 1 week. Return to the emergency department if there is any significant worsening symptoms, fever, worsening pain, swelling or erythema to the area. Followup: Wes Sage MD [ACTIVE - CAN ADMIT] - 1 Week NONE,NONE [Primary Care Provider] -
[2025-04-04] MEDS ORDERED: HYDROCODONE/APAP 7.5/325 MG TAB PO SCH (09:00)
[2025-04-04] MEDS ORDERED: ASPIRIN EC 81 MG TAB PO SCH (09:00)
[2025-04-04] MEDS ORDERED: SERTRALINE HCL 50 MG TAB PO SCH (09:00)
[2025-04-04] MEDS ORDERED: CLOPIDOGREL 75 MG TABLET PO SCH (09:00)
[2025-04-04] MEDS ORDERED: SPIRONOLACTONE 25 MG TABLET PO SCH (09:00)
[2025-04-04] MEDS ORDERED: PANTOPRAZOLE 40MG TABLET PO SCH (09:00)
[2025-04-04] MEDS ORDERED: FAMOTIDINE 20 MG TAB PO SCH (09:00)
== END 2025-04-03 18:39 | disposition home or self-care (01) | DRG 549 ==
LOC: ER 08:27 → ERHOLD 14:09 → 2ND 19:33
PROVIDERS: ADMIT Hospitalist; ATTEND Hospitalist
PROC: 0X9 Anatomical Regions, Upper Extremities, Drainage (ICD-10-PCS; principal; 2025-04-01)
PROC: 02HV33Z Insertion of Infusion Device into Superior Vena Cava, Percutaneous Approach (ICD-10-PCS; 2025-04-01)
DX: M00.9 Pyogenic arthritis, unspecified (principal); I50.22 Chronic systolic (congestive) heart failure; I11.0 Hypertensive heart disease with heart failure; M11.831 Other specified crystal arthropathies, right wrist; F32.A Depression, unspecified; I48.91 Unspecified atrial fibrillation; M19.90 Unspecified osteoarthritis, unspecified site; J44.9 Chronic obstructive pulmonary disease, unspecified; I25.10 Atherosclerotic heart disease of native coronary artery without angina pectoris; Z90.49 Acquired absence of other specified parts of digestive tract; Z95.5 Presence of coronary angioplasty implant and graft; Z98.84 Bariatric surgery status; Z79.82 Long term (current) use of aspirin; Z79.02 Long term (current) use of antithrombotics/antiplatelets; Z79.899 Other long term (current) drug therapy; Z87.891 Personal history of nicotine dependence
CPT/HCPCS: 36415; 36569; 71045; 80048; 80053; 82947; 83605; 84550; 85025; 85610; 85730; 87040; 87070; 89050; 89060; 99285; J2003; J2270; J2405; J2919; J3373; J7040; J7050